=== PATIENT | male | born 1955 | race Caucasian/White ===

== ENCOUNTER → 2016-07-19 | Outpatient (CLI) | payer OTHER ==
[~2016-07-19] MED LIST: AMIL5TAB15; AMIL5TAB15 PO; AMLO5CAP PO; AMLO5CAP2 PO; ASPI-232 PO; ASPI-435 PO; ATEN-173 PO; ATEN50TA8 PO; ATOR-22 PO; ATOR-24 PO; CHOL1000 PO; CHOL100010; CLR10 PO; DOCU-94 PO; FLM4; HMLI SC; INSDGI SC; INSDGI SQ; LEUP30IN3 INJ; MAGN500C PO; METF500T5 PO; METH1TAB81 PO; MONT1TAB5 PO; NVLGI/PEN SC; NVLGI7030 SC; OMEG10007 PO; OXGN; OXYC-57 PO; PHEN-876 PO; PRAM0.129 PO; SERT50TA PO; TAMS0.4C38 PO; UMEC1AER; ZLF/50 PO; fluticasone nasal; magnesium oxide; mirapex PO; zoloft
[2016-07-19 15:12] LABS: BASO % 0.4 %; BASO ABS # 0.02 K/uL (0-0.2); COMPLETE YES; EOS % 3.5 %; HEMATOCRIT 39.9 % (42-52); IG% 0.2 %; LYMPH % 29.6 %; LYMPH ABS # 1.63 K/uL (1.2-3.4); MEAN CELL VOLUME 86.2 fL (80-100); MEAN CORPUSCULAR HEMOGLOBIN 30.2 pg (25-34); MEAN CORPUSCULAR HGB CONC 35.1 g/dl (32-36); MEAN PLATELET VOLUME 11.2 fL (7.4-10.4); MONO % 5.8 %; NEUT % 60.5 %; PLATELET COUNT 133 K/uL (130-400); RED BLOOD COUNT 4.63 M/uL (4.7-6.1)
[2016-07-19 15:29] LABS: ALT/SGPT 28 U/L (12-78); BLOOD UREA NITROGEN 24 mg/dl (7-18); BUN/CREATININE RATIO 17.1 (10-20); CALCIUM 9.1 mg/dl (8.5-10.1); CARBON DIOXIDE 26 mmol/L (21-32); CHLORIDE 104 mmol/L (98-107); GLUCOSE 212 mg/dl (70-99); MAGNESIUM 1.6 mg/dl (1.8-2.4); POTASSIUM 4.7 mmol/L (3.5-5.1); SODIUM 138 mmol/L (136-145)
[2016-07-19 15:32] LABS: ALB/GLOB RATIO 1.3 (0.9-2); ALKALINE PHOSPHATASE 71 U/L (45-117); AST/SGOT 16 U/L (15-37)
== END | disposition home or self-care (01) ==
LOC: C.LAB 12:55
PROVIDERS: ATTEND Internal Medicine Hematology & Oncology
DX: C82.18 Follicular lymphoma grade II, lymph nodes of multiple sites (principal); E83.42 Hypomagnesemia

== ENCOUNTER 2016-08-03 05:09 | Day surgery (SDC) | payer OTHER ==
[2016-07-19 13:51] VITALS: BMI 33.0
--- NOTE | 2016-07-19 14:45 | PAT Medication Instructions ---
Service Date Jul 19, 2016. Current Home Medication List Amiloride Hcl (Amiloride Hcl), 5 MG PO QAM Amlodipine Besylate-Benazepril (Amlodipine Besylate/Benaz), 5-20 MG PO BID Aspirin (Aspirin 81), 1 TAB PO QAM Atenolol (Tenormin), 50 MG PO BID Atorvastatin (Lipitor), 20 MG PO HS Cholecalciferol (Vitamin D3), 1 TAB PO QAM Docusate Sodium (Colace), 1 CAP PO BID Fish Oil ([place]-3), 2 CAP PO QAM Insulin Aspart (Novolog Flexpen), SC SLIDING SCALE Insulin Glargine (Lantus), 24 UNITS SQ HS Leuprolide Acetate (Lupron [place]), 30 MG INJ [id number] Loratadine (Claritin), 10 MG PO QAM Magnesium Oxide (Mg Supplement (Magnesium), 1,000 MG PO QAM Methylprednisolone (Medrol), 4 MG PO UD Montelukast Sodium (Montelukast Sodium), 1 TAB PO HS Oxygen (Oxygen), 2 LITERS NA HS Phenazopyridine HCl (Pyridium), 200 MG PO TID PRN for PRN Sertraline HCl (Sertraline HCl), 50 MG PO HS Tamsulosin Hcl (Flomax), 0.4 MG PO HS Medication Instructions For Your Scheduled Surgery Rituxan (per oncology instructions) Leuprolide Acetate (Lupron [place]), 30 MG INJ [id number] (scheduled for end july) Methylprednisolone (Medrol), 4 MG PO UD (per surgeon instructions) - Hold the following medications 10 days prior to surgery per surgeon instructions: Aspirin (Aspirin 81), 1 TAB PO QAM Fish Oil ([place]-3), 2 CAP PO QAM - Hold the following medications the morning of surgery: Phenazopyridine HCl (Pyridium), 200 MG PO TID PRN for PRN Loratadine (Claritin), 10 MG PO QAM Magnesium Oxide (Mg Supplement (Magnesium), 1,000 MG PO QAM Insulin Aspart (Novolog Flexpen), SC SLIDING SCALE Docusate Sodium (Colace), 1 CAP PO BID Cholecalciferol (Vitamin D3), 1 TAB PO QAM Amlodipine Besylate-Benazepril (Amlodipine Besylate/Benaz), 5-20 MG PO BID Amiloride Hcl (Amiloride Hcl), 5 MG PO QAM - Take the following medications the morning of surgery with a sip of water: Atenolol (Tenormin), 50 MG PO BID - Take the following medications as scheduled the night before surgery: Sertraline HCl (Sertraline HCl), 50 MG PO HS Tamsulosin Hcl (Flomax), 0.4 MG PO HS Phenazopyridine HCl (Pyridium), 200 MG PO TID PRN for PRN Montelukast Sodium (Montelukast Sodium), 1 TAB PO HS Oxygen (Oxygen), 2 LITERS NA HS Insulin Glargine (Lantus), 24 UNITS SQ HS Docusate Sodium (Colace), 1 CAP PO BID Atenolol (Tenormin), 50 MG PO BID Atorvastatin (Lipitor), 20 MG PO HS Amlodipine Besylate-Benazepril (Amlodipine Besylate/Benaz), 5-20 MG PO BID If you have any questions please call us at [phone] or [phone] ( [place]) or [phone]
[2016-07-19 15:38] LABS: URINE APPEARANCE CLEAR (CLEAR); URINE BILIRUBIN NEG (NEG); URINE COLOR YELLOW; URINE NITRITE NEG (NEG); URINE SPECIFIC GRAVITY 1.026 (1.000-1.030); UROBILINOGEN NEG (NEG)
[2016-07-19 15:44] LABS: MANUAL MICROSCOPIC REQUIRED? NO; REVIEW REQ? NO
[~2016-08-03] VITALS: Ht 175.3 cm; Wt 101.2 kg
[~2016-08-03 05:09] MED LIST changes: -AMIL5TAB15; -AMLO5CAP2 PO; -ASPI-232 PO; -ATEN-173 PO; -ATOR-24 PO; -CHOL100010; -FLM4; -HMLI SC; -INSDGI SC; -METF500T5 PO; -NVLGI7030 SC; -OXYC-57 PO; -PRAM0.129 PO; -SERT50TA PO; -UMEC1AER; -fluticasone nasal; -magnesium oxide; -mirapex PO; -zoloft
[2016-08-03 05:40] VITALS: BP 133/62; PULSE 66; TEMP 36.9; O2SAT 96; Ht 175.3 cm; Wt 101.2 kg
[2016-08-03] MEDS ORDERED: CIPROFLOXACIN / D5W 400 MG IV SCH (06:00)
[2016-08-03] MEDS ORDERED: GENTAMICIN INJ 120 MG in DEXTROSE 5% 100ML 100 ML IV SCH (06:00)
[2016-08-03] MEDS ORDERED: LACTATED RINGER'S 1000ML 1,000 ML IV SCH (06:00)
[2016-08-03] MEDS ORDERED: MIDAZOLAM HCL 1 MG/ML 2ML VIAL ONE (06:57)
[2016-08-03] MEDS ORDERED: FENTANYL CITRATE INJ 50 MCG/1 ML 2 ML VIAL ONE (06:57)
[2016-08-03] MEDS ORDERED: LACTATED RINGER'S 1000ML 1,000 ML IV PRN (07:02)
--- NOTE | 2016-08-03 07:04 | History & Physical Bridge Note ---
H&P Re-Evaluation Bridge Note: I have examined the patient, reviewed the History & Physical and in the interval since the performance of the History & Physical I have noted the following changes of clinical significance: No changes noted
[2016-08-03] MEDS ORDERED: ONDANSETRON INJ 2 MG/ML 2 ML VIAL IV PRN (07:15)
[2016-08-03] MEDS ORDERED: PROPOFOL IV EMULSION 10 MG/ML 20 ML VIAL IV ONE (08:02)
[2016-08-03] MEDS ORDERED: ROCURONIUM BROMIDE 10 MG/ML 5 ML VIAL ONE (08:02)
[2016-08-03] MEDS ORDERED: EpHEDrine SULFATE 50MG/5ML SYR ONE (08:02)
[2016-08-03] MEDS ORDERED: LIDOCAINE HCL 2% 2 ML VIAL (20MG/ML) ONE (08:02)
[2016-08-03] MEDS ORDERED: CONRAY 60% 50 ML VIAL XX ONE (09:50)
--- NOTE | 2016-08-03 09:53 | Discharge Instructions ---
Discharge Instructions Admission Reason for Admission: Prostate Cancer Discharge Discharge Diagnosis / Problem: Prostate Cancer Discharge Goals Goal(s): Decrease discomfort, Therapeutic intervention Activity Recommendations Activity Limitations: as noted below Lifting Limitations: no more than 25 pounds (x 2-3 weeks. ) Exercise/Sports Limitations: rest today, gradually increase as tolerated ( Light activity x 2 weeks. ) May Resume Sexual Activity: after follow-up appointment (when cleared by Dr. Padilla and radiation oncology) Shower/Bathe: tomorrow Driving or Machine Use: resume 3 days after discharge (Do not drive while taking narcotics. ) . Instructions / Follow-Up Instructions / Follow-Up 1. Finish all of the antibiotic Ciprofloxacin as directed. 2. Resume Aspirin in 3-5 days. 3. Resume fish oil in 5 days. Discharge Diet Recommended Diet: Diabetes Type 2 Diet Procedures Procedures Performed: Brachytherapy volume and guide Pending Studies Studies pending at discharge: no Medical Emergencies . Who to Call and When: Medical Emergencies: If at any time you feel your situation is an emergency, please call 911 immediately. . Non-Emergent Contact Non-Emergency issues call your: Urologist Call Non-Emergent contact if: temperature is above 101.5, your pain is not controlled, your pain is worsening, your pain is unusual for you, your pain is concerning you, you have any medication questions . . "Provider Documentation" section prepared by Lizette Abdi. VTE Core Measure Inpt VTE Proph given/why not?: SCD's [place] Drug Monitoring Program Search Results: patient reviewed within database, no issues identified
[2016-08-03] MEDS ORDERED: OXYCODONE/ACETAMINOPHEN 7.5-325 TAB PO PRN (10:00)
[2016-08-03] MEDS: FENTANYL CITRATE INJ 50 MCG/1 ML 2 ML VIAL IV PRN ×4 (10:06→10:21)
--- NOTE | 2016-08-03 10:11 | [facility] Post Operative Brief Note ---
Immediate Operative Summary Operative Date Aug 03, 2016. Pre-Operative Diagnosis cT1c [place] 4+3 Prostate cancer Post-Operative Diagnosis Same as preop Procedure(s) Performed Brachytherapy volume and guide Surgeon Dr. Abel Padilla, Dr. Macy Owens Optical Scientist Surgeon(s) Marco Child Estimated Blood Loss Min Findings 19 cc gland, 43 seeds placed via 13 needles Specimens none, as per surgeon Drains Fragoso to gravity Anesthesia GAET Complication(s) None Disposition Recovery Room / PACU
[2016-08-03 10:35] VITALS: BP 158/95; PULSE 56; TEMP 36.5; O2SAT 95
--- NOTE | 2016-08-03 10:40 | Anesthesiology Progress Note ---
Anesthesia Post Op Note Date & Time Aug 03, 2016 at 10:40 Vital Signs Pain Intensity: 3 Vital Signs Past 12 Hours Date Time Temp Pulse Resp B/P Pulse Ox O2 Delivery O2 Flow Rate FiO2 08/03/16 10:27 63 16 95 08/03/16 10:27 63 08/03/16 10:23 112/64 08/03/16 10:22 56 10 93 08/03/16 10:22 56 10 08/03/16 10:18 108/57 08/03/16 10:17 52 10 08/03/16 10:17 51 10 96 08/03/16 10:13 117/56 08/03/16 10:12 50 7 100 08/03/16 10:12 50 7 08/03/16 10:08 108/67 08/03/16 10:07 57 12 100 08/03/16 10:07 58 12 08/03/16 10:03 108/47 08/03/16 10:02 60 15 100 08/03/16 10:02 60 15 08/03/16 09:58 117/57 08/03/16 09:57 56 16 08/03/16 09:57 57 16 100 08/03/16 09:53 107/59 08/03/16 09:52 59 14 08/03/16 09:52 59 14 100 08/03/16 09:48 124/67 08/03/16 09:47 61 13 08/03/16 09:47 61 13 100 08/03/16 09:46 121/67 08/03/16 09:42 36.4 63 16 121/67 100 Mask 10 08/03/16 05:40 36.9 66 18 133/62 96 Room Air Notes Mental Status: alert / awake / arousable, participated in evaluation Pt Amnestic to Procedure: Yes Nausea / Vomiting: adequately controlled Pain: adequately controlled Airway Patency, RR, SpO2: stable & adequate BP & HR: stable & adequate Hydration State: stable & adequate Anesthetic Complications: no major complications apparent
[2016-08-03 11:05] VITALS: BP 109/46; PULSE 61; O2SAT 98
--- NOTE | 2016-08-03 11:32 | DIAGNOSTIC IMAGING REPORT ---
PELVIS 1 OR 2 VIEWS ROUTINE CLINICAL HISTORY: BRACHY THERAPY prostate carcinoma COMPARISON: None. DISCUSSION: The bladder is opacified. Radioactive seeds are identified within the prosthetic bed. IMPRESSION: Image intensifier views of the prostate and bladder for radiation planning purposes Electronically signed by: Conrado Tapia M.D. 08/03/2016 11:30 AM Dictated Date/Time: 08/03/2016 11:30 AM
[2016-08-03 11:34] VITALS: BP 109/56; PULSE 60; TEMP 36.3; O2SAT 98
--- NOTE | 2016-08-03 13:29 | OPERATIVE REPORT ---
DATE OF OPERATION: 08/03/2016 PREOPERATIVE DIAGNOSIS: Clinical T1c, [place] 4+3 adenocarcinoma of the prostate with pretreatment PSA of 14. POSTOPERATIVE DIAGNOSIS: Same. PROCEDURES: 1. Volumetric analysis and brachytherapy gland of the prostate gland. 2. Implantation of spaceOAR prerectal spacer. SURGEON: Dr. Mahin Padilla and Dr. Kelton Owens. ALLIANCE MANAGER: Brett Child. ANESTHESIA: General anesthesia with endotracheal intubation. COMPLICATIONS: None. ESTIMATED BLOOD LOSS: Minimal. SPECIMENS SENT TO PATHOLOGY: None. DRAINS LEFT IN PLACE: Include a Fragoso catheter to gravity drainage. FINDINGS: A 19 mL prostate implanted with 43 seeds via 13 needles with good coverage. BRIEF HISTORY: Mr. Prado is a 61-year-old male who I have seen as an outpatient for an elevated PSA, who was found to have [place] 4+3 prostate cancer on evaluation. The patient's staging evaluation included CT scan which demonstrated lymphadenopathy. He was found on biopsy to have lymphoma as well and has been undergoing chemotherapy for this purpose. He is here today for brachytherapy of the prostate after administration of previous Lupron in March 2016 with planned external beam boost afterwards. Please see H\T\P for further details. He has followed his prep without difficulties or complaints. Intravenous ciprofloxacin and gentamicin provided for antibiotic coverage today. DESCRIPTION OF PROCEDURE: The patient was properly identified and brought to the operative suite after identification of appropriate consent on the chart, general anesthesia with endotracheal intubation was initiated and the patient was prepped and draped in a standard fashion for this procedure. [employer]-out procedure was followed. The patient was placed in a high lithotomy position and transrectal ultrasound probe was placed per the rectum and images were captured. Fragoso catheter with aerated gel with contrast in the bladder was placed. A 19 mL gland was calculated. First pass needles was placed in the external prostate gland and due to the small size of the prostate only 2 internal needles were placed. After the external seeds were implanted per the radiation-oncology plan, 2 internal needles were required due to the small prostate size and implant as well. Good coverage satisfactory result was appreciated. The seeds were noted to be within the confines of the prostate gland on fluoroscopy. After completion of the implantation, space OAR gel spacer was infiltrated in the prerectal space to minimize rectal morbidity over the course of radiation therapy. Space was entered under direct visualization in the midline using a sagittal view and confirmed to be in the midline. Saline irrigation was noted to track well and then was followed by a full 10 mL of space OAR which were noted to easily fill the plane between the rectum and the prostate. Great care was taken to avoid any violation of the rectum which was accomplished throughout the case. Needle was removed and the patient was brought down from lithotomy, pelvic pressure was held for 5 minutes to minimize swelling and bleeding. Bacitracin ointment was placed. Anesthesia was reversed and patient transferred to recovery room in stable condition. FOLLOWUP CARE: The patient will go to radiation-oncology for imaging and trial of void. Complete postoperative antibiotics and medication previously was prescribed. Postoperative appointment is confirmed. The patient is instructed to contact our service should he note any fevers, chills, nausea, vomiting or other significant difficulties in the postoperative period. I attest to the content of the Intraoperative Record and any orders documented therein. Any exceptions are noted below. MTDD
[2016-09-06] MEDS ORDERED: LEUP30IN3 INJ (14:55)
[2016-10-09] MEDS ORDERED: zoloft (12:02)
[2016-10-17] MEDS ORDERED: UMEC1AER (11:42)
[2016-10-17] MEDS ORDERED: ASPI-232 PO (11:44)
[2016-10-17] MEDS ORDERED: CHOL100010 (11:45)
[2016-10-17] MEDS ORDERED: OMEG10007 PO (11:46)
[2016-10-17] MEDS ORDERED: AMIL5TAB15 (11:46)
[2016-10-17] MEDS ORDERED: AMLO5CAP2 PO (11:47)
[2016-10-17] MEDS ORDERED: ATEN50TA8 PO ×2 (11:48→11:54)
[2016-10-17] MEDS ORDERED: CLR10 PO (11:48)
[2016-10-17] MEDS ORDERED: magnesium oxide (11:51)
[2016-10-17] MEDS ORDERED: MONT1TAB5 PO (11:52)
[2016-10-17] MEDS ORDERED: NVLGI7030 SC (11:57)
[2016-10-17] MEDS ORDERED: FLM4 (11:59)
[2016-10-17] MEDS ORDERED: SERT50TA PO (12:00)
[2016-10-17] MEDS ORDERED: ATOR-24 PO (12:00)
[2016-10-18] MEDS ORDERED: mirapex PO (10:59)
[2016-10-18] MEDS ORDERED: fluticasone nasal (13:18)
[2016-10-18] MEDS ORDERED: INSDGI SC (13:21)
[2016-10-23] MEDS ORDERED: TAMS0.4C38 PO (12:09)
[2016-10-23] MEDS ORDERED: PRAM0.129 PO (12:11)
[2016-10-30] MEDS ORDERED: TAMS0.4C38 PO (11:51)
[2016-12-05] MEDS ORDERED: OXGN (15:03)
== END 2016-08-03 11:30 | disposition other institution (70) ==
LOC: C.ACU 05:09
PROVIDERS: ATTEND Urology
DX: C61 Malignant neoplasm of prostate (principal); N40.0 Benign prostatic hyperplasia without lower urinary tract symptoms; R97.20 Elevated prostate specific antigen [PSA]; C85.90 Non-Hodgkin lymphoma, unspecified, unspecified site; N18.9 Chronic kidney disease, unspecified; E11.9 Type 2 diabetes mellitus without complications; E78.00 Pure hypercholesterolemia, unspecified; E66.9 Obesity, unspecified; E55.9 Vitamin D deficiency, unspecified
CPT/HCPCS: 0438T; 55875

== ENCOUNTER → 2016-08-11 | Outpatient (CLI) | payer OTHER ==
[~2016-08-11] MED LIST changes: +AMIL5TAB15; +AMLO5CAP2 PO; +ASPI-232 PO; -ASPI-435 PO; +ATOR-24 PO; +CHOL100010; +FLM4; +INSDGI SC; +NVLGI7030 SC; +PRAM0.129 PO; +SERT50TA PO; +UMEC1AER; +fluticasone nasal; +magnesium oxide; +mirapex PO; +zoloft
[2016-08-11 13:49] LABS: CHOLESTEROL 174 mg/dl (0-200); HDL CHOLESTEROL 58 mg/dl; MAGNESIUM 1.8 mg/dl (1.8-2.4); TRIGLYCERIDES 148 mg/dl (0-150); VERY LOW DENSITY LIPOPROT CALC 30 mg/dl
[2016-08-11 13:55] LABS: ESTIMATED AVERAGE GLUCOSE 174 mg/dl; HA1C FLAG Normal (Normal)
== END | disposition home or self-care (01) ==
LOC: C.LAB1850 11:35
PROVIDERS: ATTEND Nurse Practitioner Family
DX: E11.9 Type 2 diabetes mellitus without complications (principal)

== ENCOUNTER → 2016-08-18 | Outpatient (CLI) | payer OTHER | END | disposition home or self-care (01) | LOC: C.ONC 13:27 | PROVIDERS: ATTEND Radiology Radiation Oncology | DX: Z51.0 Encounter for antineoplastic radiation therapy (principal); C61 Malignant neoplasm of prostate ==

== ENCOUNTER → 2016-12-05 | Outpatient (CLI) | payer OTHER ==
[~2016-12-05] MED LIST changes: -AMIL5TAB15 PO; -AMLO5CAP PO; -ATOR-22 PO; -DOCU-94 PO; -INSDGI SQ; -LEUP30IN3 INJ; -MAGN500C PO; -METH1TAB81 PO; -NVLGI/PEN SC; -PHEN-876 PO; -ZLF/50 PO; -mirapex PO; -zoloft
[2016-12-05 14:47] VITALS: BP 123/70; PULSE 61; TEMP 36.9; O2SAT 97
[2016-12-05 16:05] LABS: PROSTATE SPECIFIC ANTIGEN 0.014 ng/ml (0.000-4.000); THYROID STIMULATING HORMONE 1.15 uIu/ml (0.300-4.500)
--- NOTE | 2016-12-05 16:05 | Radiation Oncology Follow-Up ---
Radiation Oncology Follow-Up Date of Visit Dec 05, 2016. (Kim Moon PA-C) Reason For Visit One-month follow-up and cancer survivorship care plan (Kim Moon PA-C) Radiation Completion Date finished external beam 11-02-2016 , seed implant 08-03-16 (Kim Moon PA-C) Diagnosis (1) Prostate cancer Status: Resolved Onset Date: 04/06/2016 Location: both lobes of prostate Histology Subtype: adenocarcinoma Stage: l Permanent Comment: STAGING: Prostate, adenocarcinoma, [place] 4 + 3, PSA 14.10 , cT1c, group IIB, intermediate risk TREATMENT: Hormonal suppression Status post prostate seed implant and placement of spaceOAR 08/03/2016, 43 seeds were placed. He received 8500 cGy Status post completion of external beam radiation therapy 11/02/2016 received 5040 cGy Last Edited By: Kim Moon on November 17, 2016 10:51 (2) Follicular lymphoma Stage: IV Permanent Comment: Treatment: Systemic therapy with Rituxan Last Edited By: Kim Moon on November 17, 2016 11:00 (Kim Moon PA-C) History of Present Illness Mr. Prado is a 61-year-old gentleman who previously presented with a elevated PSA that was initially treated with antibiotics due to a perceived bacterial prostatitis in the past. The patient also had 2 negative biopsies in October 2012 and April 2014 for elevated PSAs. More recently, the patient's PSA has continued to be elevated and the patient was seen by Dr. Mahin Padilla who he has previously seen in the past. Due to the previous negative biopsies, Dr. Padilla sent the patient for a fusion MRI of the prostate on 02/03/2016 and the results were "IMPRESSION: 1. There are 2 pi rad category 4 lesions one in the right anterior fibromuscular stroma and the second in the left transitional zone. Both were targeted for possible navigational biopsy. 2. There are enlarged retroperitoneal lymph nodes. The should be further assessed with a dedicated would be unusual for these to represent metastatic disease from the prostate without pelvic adenopathy therefore these may represent lymph nodes from lymphoma." The patient had a CT abdomen and pelvis on 03/15/2016 which revealed lymphadenopathy involving the lower chest and abdomen as well as few prominent bilateral external iliac lymph nodes. He also underwent a CT of the thorax on 03/30/2016 which revealed: "IMPRESSION: Multiple mildly enlarged distal paraesophageal lymph nodes and moderately enlarged upper abdominal lymph nodes as well as splenomegaly. The findings suggest lymphoma." Due to the findings on the MRI of the prostate and the staging workup, the patient underwent biopsies of both the prostate gland and the retroperitoneal lymph nodes on 04/06/2016. Biopsies of the prostate gland revealed [place] 4+3 prostate adenocarcinoma; 8 out of 8 biopsy cores were positive for prostate cancer ( report below). The biopsy of the retroperitoneal lymph node and liver revealed follicular lymphoma involving the retroperitoneal lymph nodes as well as the liver (report below). The patient subsequently of the following studies: Bone Scan (04/19/2016) - IMPRESSION: There is no abnormal tracer deposition identified typical in appearance for bony metastatic disease. PET/CT (04/24/2016) - IMPRESSION: 1. Mildly FDG avid lymphadenopathy involving the neck, mediastinum, gastrohepatic ligament, and retroperitoneum. The findings are consistent with the clinical diagnosis of lymphoma. Medical oncology saw the patient in consultation as well and did perform a bone marrow biopsy which did reveal bone marrow involvement. The patient's case was discussed at the [facility] multidisciplinary tumor board clinic. The recommendation was for initiation of Rituxan based chemotherapy and initiation of androgen deprivation therapy followed by restaging scans and then potentially proceeding with local therapy for the patient's prostate cancer. We are now seeing the patient in consultation to discuss the role of radiation therapy. Overall, the patient is doing relatively well. He has tolerated chemotherapy relatively well. He has no complaints currently. Decision was to go forward with treatment of the lymphoma and this would then be followed by treatment for the prostate cancer. Tri-modality was used for the treatment of the prostate cancer. He first had hormone suppression. This was followed by a prostate seed implant. He then returned for external beam radiation therapy. External beam radiation therapy was completed 11/02/2016. He received 5040 cGy. (Kim Moon PA-C) Interim History He's been doing well over this past month. From urinary standpoint he gave an AUA score of 3. His AUA score at the end of treatment was 4. He was on tamsulosin 0.4 mg twice a day at the end of treatment. He is steadily been weaning off of the medication. He is currently taking it every other day. Dr. Padilla has recommended he wean off and stop the medication. He completed expanded prostate cancer index composite for clinical practice and gave a score of 0 12 and urinary incontinence symptoms. He was score of one of 12 and urinary irritation symptoms. He gave a score of 0 of 12 bowel symptoms. He gave a score of 2 of 12 and sexual symptoms. He gave a score of 0 of 12 and hormonal vitality symptoms. His total was 3 of 60. (Kim Moon PA-C) Allergies Coded Allergies: Morphine (Verified Adverse Reaction, Unknown, "dizzy",delusional, 08/03/16) Home Medications Scheduled Amiloride Hcl (Amiloride Hcl), DAILY Amlodipine/Benazepril (Lotrel 5MG/20MG), 1 CAP PO BID Aspirin (Aspir-81), 1 TAB PO DAILY Atenolol (Tenormin), 50 MG PO BID Atorvastatin (Lipitor), 1 TAB PO HS Cholecalciferol (Vitamin D), 1 TAB DAILY Fish Oil ([place]-3), 2 CAP PO DAILY Home O2 Therapy (Oxygen), 2 LITERS NA HS Insulin Glargine (Lantus), 24 UNIT SC 10PM Loratadine (Claritin), 10 MG PO DAILY Montelukast Sodium (Montelukast Sodium), 1 TAB PO DAILY Sertraline (Zoloft), 1 TAB PO HS Tamsulosin Hcl (Flomax), 0.4 MG PO Q2D Umeclidinium-Vilanterol (Anoro Ellipta 62.5-25 Mcg/INH), morning [fluticasone nasal], 1 SPRAY BID [magnesium oxide], 1,000 MG DAILY Scheduled PRN Insulin Aspart 70/30 (Novolog Mix 70/30), 0 SC tid prn per scale PRN for perscale Review of Systems Gastrointestinal: Symptoms: Nausea GI Comments: nausea 1 time a week, then it passes Oral: Symptoms: No Problems Respiratory: Symptoms: SOB With Exertion Urinary: Symptoms: Nocturia Comments: nocturia times 2 , Skin: Symptoms: No Problems Other Skin Symptoms: " if I just bump my skin it scrapes and bleeds ' Additional Notes: He completed a distress management report and answered "no" to all questions other than depression. He stated that he is steadily improving since completion of treatment. (Kim Moon PA-C) Physical Exam Vital Signs Date Time Temp Pulse Resp B/P (MAP) Pulse Ox O2 Delivery O2 Flow Rate FiO2 12/05/16 14:47 36.9 61 20 123/70 97 Pain: Side: Bilateral Patient Pain Scale: 0 - 10 Initial Pain Intensity: 0.0 General Appearance: no apparent distress Eyes: normal inspection, EOMI ENT: normal ENT inspection, hearing grossly normal Neck: no adenopathy, thyroid normal Respiratory/Chest: lungs clear, no respiratory distress, no accessory muscle use Cardiovascular: regular rate, rhythm, no gallop, no murmur Abdomen: non tender, soft, no organomegaly Extremities: no pedal edema Neurologic/Psychiatric: no motor/sensory deficits, alert, normal mood/affect Skin: warm/dry Lymphatic: no adenopathy (Kim Moon PA-C) Laboratory Studies Test 09/15/16 09:48 10/02/16 12:25 11/10/16 09:44 12/05/16 15:20 White Blood Count 4.38 K/uL (4.8-10.8) 3.78 K/uL (4.8-10.8) Red Blood Count 4.22 M/uL (4.7-6.1) 3.88 M/uL (4.7-6.1) Hemoglobin 13.0 g/dL (14.0-18.0) 12.1 g/dL (14.0-18.0) Hematocrit 37.4 % (42-52) 34.5 % (42-52) Mean Corpuscular Volume 88.6 fL (80-100) 88.9 fL (80-100) Mean Corpuscular Hemoglobin 30.8 pg (25-34) 31.2 pg (25-34) Mean Corpuscular Hemoglobin Concent 34.8 g/dl (32-36) 35.1 g/dl (32-36) Platelet Count 134 K/uL (130-400) 146 K/uL (130-400) Mean Platelet Volume 10.0 fL (7.4-10.4) 9.7 fL (7.4-10.4) Neutrophils (%) (Auto) 59.6 % 68.5 % Lymphocytes (%) (Auto) 27.2 % 15.9 % Monocytes (%) (Auto) 8.0 % 11.4 % Eosinophils (%) (Auto) 4.3 % 3.7 % Basophils (%) (Auto) 0.7 % 0.5 % Neutrophils # (Auto) 2.61 K/uL (1.4-6.5) 2.59 K/uL (1.4-6.5) Lymphocytes # (Auto) 1.19 K/uL (1.2-3.4) 0.60 K/uL (1.2-3.4) Monocytes # (Auto) 0.35 K/uL (0.11-0.59) 0.43 K/uL (0.11-0.59) Eosinophils # (Auto) 0.19 K/uL (0-0.5) 0.14 K/uL (0-0.5) Basophils # (Auto) 0.03 K/uL (0-0.2) 0.02 K/uL (0-0.2) RDW Standard Deviation 43.6 fL (36.4-46.3) 39.8 fL (36.4-46.3) RDW Coefficient of Variation 13.4 % (11.5-14.5) 12.4 % (11.5-14.5) Immature Granulocyte % (Auto) 0.2 % 0.0 % Immature Granulocyte # (Auto) 0.01 K/uL (0.00-0.02) 0.00 K/uL (0.00-0.02) Sodium Level 140 mmol/L (136-145) 139 mmol/L (136-145) Potassium Level 4.7 mmol/L (3.5-5.1) 4.5 mmol/L (3.5-5.1) Chloride Level 106 mmol/L (98-107) 106 mmol/L (98-107) Carbon Dioxide Level 29 mmol/L (21-32) 27 mmol/L (21-32) Anion Gap 5.0 mmol/L (3-11) 6.0 mmol/L (3-11) Blood Urea Nitrogen 20 mg/dl (7-18) 23 mg/dl (7-18) Creatinine 1.40 mg/dl (0.60-1.40) 1.40 mg/dl (0.60-1.40) Estimated GFR () 63.3 63.3 Estimated GFR (Non- 54.6 54.6 BUN/Creatinine Ratio 14.2 (10-20) 16.1 (10-20) Random Glucose 163 mg/dl (70-99) 145 mg/dl (70-99) Calcium Level 9.2 mg/dl (8.5-10.1) 9.0 mg/dl (8.5-10.1) Magnesium Level 1.7 mg/dl (1.8-2.4) 1.8 mg/dl (1.8-2.4) Total Bilirubin 0.6 mg/dl (0.2-1) 0.5 mg/dl (0.2-1) Aspartate Amino Transferase (AST) 17 U/L (15-37) 12 U/L (15-37) Alanine Aminotransferase (ALT) 26 U/L (12-78) 21 U/L (12-78) Alkaline Phosphatase 75 U/L (45-117) 80 U/L (45-117) Lactate Dehydrogenase 158 U/L (87-241) 158 U/L (87-241) Total Protein 7.2 gm/dl (6.4-8.2) 6.9 gm/dl (6.4-8.2) Albumin 3.9 gm/dl (3.4-5.0) 3.8 gm/dl (3.4-5.0) Globulin 3.3 gm/dl (2.5-4.0) 3.1 gm/dl (2.5-4.0) Albumin/Globulin Ratio 1.2 (0.9-2) 1.2 (0.9-2) POC Glucose 78 mg/dl (70-99) Prostate Specific Antigen 0.022 ng/ml (0.000-4.000) (Kim Moon PA-C) Assessment & Plan Patient was seen and examined by Dr. Owens. A PSA was drawn today and he'll be notified as to the results. He has recheck appointment scheduled to see Dr. Padilla in February. He continues follow-up with Dr. Patino. A recheck PET/ CT is planned. He stated that they are waiting for insurance approval and the PET scan will then be scheduled. Today we completed a cancer survivorship care plan. A copy of the document was given to the patient. We asked him to return to our office in 6 months. He may call if she has any questions or concerns in the interim. (Kim Moon PA-C) I agree with note created by Kim Moon PA-C. I reviewed the patient's chart and information with her. I have examined and evaluated the patient. I reviewed relevant clinical information and answered the patient's and/or family' s questions. (Veeral. Owens MD) Total Time In Follow-Up I spent 20 minutes speaking to the patient have a forming examination. I spent 20 minutes reviewing information, preparing the survivorship document, and completing this note. (Kim Moon PA-C) I spent 15 minutes examining and counseling the patient. (Veeral. Owens MD) Copy To Keven Patino D.O.; Andrew Hernández M.D.; Mahin Padilla MD, Urology
[2016-12-06 06:36] LABS: ESTIMATED AVERAGE GLUCOSE 157 mg/dl; HA1C FLAG Normal (Normal)
--- NOTE | 2016-12-28 08:53 | CODING QUERY MEDICAL NECESSITY ---
CQSUPPORTING DIAGNOSIS NEEDED A supporting diagnosis is required for the test/procedure performed on this patient in order for us to be reimbursed by the patient's insurance. Please provide a supporting diagnosis for the following test/procedure listed below next to the test name along with your signature. *If there is no additional diagnosis for this patient that would support the following test/procedure please document that below next to the test/procedure. Test(s)/Procedure(s) that require a supporting diagnosis: DOS 12/05/16 GLYCATED HEMOGLOBIN TEST ORDERED BY RADHA ALMENDAREZ Provider Signature: Date: Thank you Madiha Bhatt Health Information Management Once completed, please kindly fax back to [phone] For questions please call [phone]
== END | disposition home or self-care (01) ==
LOC: C.ONC 14:34
PROVIDERS: ATTEND Physician Assistant Medical
DX: Z08 Encounter for follow-up examination after completed treatment for malignant neoplasm (principal); Z92.3 Personal history of irradiation; Z85.46 Personal history of malignant neoplasm of prostate; E11.22 Type 2 diabetes mellitus with diabetic chronic kidney disease

== ENCOUNTER → 2017-01-01 | Outpatient (CLI) | payer OTHER ==
[~2017-01-01] MED LIST changes: -FLM4; +OPTIRAY 320 IV PRN; -PRAM0.129 PO
--- NOTE | 2017-01-01 09:23 | DIAGNOSTIC IMAGING REPORT ---
(CHEST) THORAX WITH HISTORY:61 yearsMaleNON HODGKINS LYMPHOMA. This is a follow-up exam. COMPARISON: CT chest 06/15/2016, PET/CT 04/24/2016. TECHNIQUE: Multiple axial CT images of the chest were obtained following the intravenous administration of 93 mL Optiray 320. FINDINGS: No dominant thyroid nodule is seen. There is decreased size of multiple periaortic and periesophageal lymph nodes. For example paraesophageal lymph node seen on image 41 of the axial series now measures 0.9 x 0.5 cm, previously 1.7 x 0.9 cm. Periaortic lymph node seen on image 41 now measures 0.9 x 0.3 cm, previously 1.4 x 1.0 cm. Index periaortic lymph node seen on image 38 the axial series no measures 5 x 5 mm, previously 1.7 x 1.0 cm. No new adenopathy of the chest is identified. Heart is normal in size. Thoracic aorta is normal in course and caliber. There is mild subsegmental pleural parenchymal scarring of the medial segment right middle lobe. Central airways are patent. 6 mm area of pleural-based noncalcified nodularity of the apical segment right upper lobe is unchanged suggesting pleural parenchymal scarring. No pneumothorax, pleural effusion or focal airspace consolidation. Central airways are patent. Prior cholecystectomy. Soft tissues are unremarkable. Bones are intact. IMPRESSION: 1. Decreased size of multiple periaortic and periesophageal lymph nodes as above. No new adenopathy of the chest identified. 2. No acute cardiopulmonary process. The above report was generated using voice recognition software. It may contain grammatical, syntax or spelling errors. Electronically signed by: Alfonso Redman 01/01/2017 9:22 AM Dictated Date/Time: 01/01/2017 9:12 AM
--- NOTE | 2017-01-01 09:34 | DIAGNOSTIC IMAGING REPORT ---
ABD/PELVIS IV AND ORAL CONT CLINICAL HISTORY: 61 years-old Male presenting with NON HODGKINS LYMPHOMA. TECHNIQUE: Multidetector CT of the abdomen and pelvis was performed after the administration of oral and intravenous contrast. IV contrast: 93 mL of Omnipaque 320. COMPARISON: Noncontrast CT pelvis from 09/13/[address] of the abdomen and pelvis from 06/15/2016. CT DOSE: The estimated cumulative dose is 2129 mGy-cm. FINDINGS: Can Sorter topogram: Brachytherapy seeds noted in the prostate. Lung bases: Bandlike opacity in the left lower lobe likely atelectasis or scarring. Normal heart size. Liver: Normal morphology. No liver lesion. Patent hepatic vasculature. Biliary: No intrahepatic or extrahepatic biliary ductal dilatation. Surgically absent. Pancreas: Normal. Spleen: Normal in appearance and top normal in size measuring slightly more than 12 cm in maximal sagittal dimension. Adrenal glands: Normal. Kidneys and ureters: Normal. No hydronephrosis. Gastrointestinal tract: Limited diverticulosis of the sigmoid colon. Mild stool burden throughout normal caliber colon. Normal appendix. No bowel obstruction. Peritoneal cavity: No free fluid or intraperitoneal gas. Bladder: Minimal circumferential bladder wall thickening, possibly chronic outlet obstruction. Pelvic organs: Brachytherapy seeds noted throughout the prostate, which is not significantly enlarged. Grossly normal seminal vessels. Vasculature: Mild atherosclerosis of the normal caliber abdominal aorta. IVC patent. Lymph nodes: Significant interval decrease in size and conspicuity of multiple retroperitoneal and upper abdominal lymph nodes. Few index nodes enumerated below: -Lymph node immediately inferior to the left renal vein now measures 5 mm in the short axis (series 3 image 37), previously 12 mm -Left periaortic lymph node now measures 7 mm in the short axis (series 3 image 46), previously 12 mm -Portal caval node now measures 10 mm in short axis (series 3 image 26), previously 16 mm -Vague infiltration of the retroperitoneal fat from prior lymphadenopathy. No new sites of lymphadenopathy. Abdominal wall: Infiltration of the left anterior abdominal wall may relate to injection granulomas. Musculoskeletal: Degenerative changes of the lumbar spine. No lytic or blastic osseous lesion. IMPRESSION: 1. Significant interval decrease in lymphadenopathy. 2. No acute intra-abdominal pathology. Electronically signed by: Oliver Jewell 01/01/2017 9:33 AM Dictated Date/Time: 01/01/2017 9:16 AM
== END | disposition home or self-care (01) ==
LOC: C.CTS 08:39
PROVIDERS: ATTEND Nurse Practitioner Family
DX: C82.18 Follicular lymphoma grade II, lymph nodes of multiple sites (principal); C61 Malignant neoplasm of prostate

== ENCOUNTER → 2017-01-29 | Outpatient (CLI) | payer OTHER ==
[~2017-01-29] MED LIST changes: -OPTIRAY 320 IV PRN
--- NOTE | 2017-01-29 17:02 | ECHOCARDIOGRAM REPORT ---
*NOTICE TO RECEIVING DEMOCRAT AGENCY This information is strictly Confidential and protected under [place] law. [place] law prohibits you from making any further disclosure of this information unless further disclosure is expressly permitted by the written consent of the person to whom it pertains or is authorized by law. A general authorization for the release of medical or other information is not sufficient for this purpose. Hospital accepts no responsibility if the information is made available to any other person, INCLUDING THE PATIENT. Interpretation Summary * Name: YOEL PETERSON Study Date: 01/29/2017 12:51 PM BP: 126/73 mmHg * Patient Location: [facility] HR: 64 * : 1955 (M/d/yyyy) Gender: Male Height: 70 in * Age: 62 yrs Ethnicity: CA Weight: 230 lb * Ordering Physician: Dixon Bonilla * Referring Physician: Dixon Bonilla * Performed By: Hemant Cole RCS * * Reason For Study: COPD, COB, Cough * BSA: 2.2 m2 * Normal biventricular systolic function. * Normal chamber dimensions. * Trace mitral,tricuspid,and pulmonic regurgitation. * Normal estimated central venous pressure and right ventricular systolic pressure. Procedure Details * A complete two-dimensional transthoracic echocardiogram was performed (2D, M-mode, Doppler and color flow Doppler). Left Ventricle * The left ventricle is normal in size. * There is normal left ventricular wall thickness. * Ejection Fraction = 65-70%. * The left ventricular wall motion is normal. Right Ventricle * The right ventricle is normal in size and function. Atria * The left atrial size is normal. * Right atrial size is normal. * No ASD detected; PFO is not assessed. Mitral Valve * The mitral valve is normal. * There is no mitral valve stenosis. * There is trace mitral regurgitation. Tricuspid Valve * The tricuspid valve is normal. * There is no tricuspid stenosis. * There is trace tricuspid regurgitation. * Right ventricular systolic pressure is normal. Aortic Valve * The aortic valve is trileaflet. * The aortic valve opens well. * Aortic stenosis is absent. * No aortic regurgitation is present. Pulmonic Valve * The pulmonic valve leaflets are thin and pliable; valve motion is normal. * There is no pulmonic valvular stenosis. * Trace pulmonic valvular regurgitation. Great Vessels * The aortic root is normal size. Pericardium/Pleural * There is no pericardial effusion. Great Vessels * Normal inferior vena cava diameter and respiratory variation suggests normal central venous pressure. MMode 2D Measurements and Calculations IVSd 1.1 cm IVSs 1.4 cm LVIDd 4.5 cm LVIDs 2.9 cm LVPWd 1.1 cm LVPWs 1.4 cm IVS/LVPW 0.98 FS 35.4 % EDV(Teich) 90.9 ml ESV(Teich) 31.8 ml EF(Teich) 65.0 % EDV(cubed) 89.2 ml ESV(cubed) 24.0 ml EF(cubed) 73.1 % % IVS thick 27.1 % % LVPW thick 32.4 % LV mass(C)d 169.8 grams LV mass(C)dI 76.6 grams/m\S\2 LV mass(C)s 134.9 grams LV mass(C)sI 60.9 grams/m\S\2 CO(Teich) 3.3 l/min CI(Teich) 1.5 l/min/m\S\2 SV(Teich) 59.1 ml SI(Teich) 26.7 ml/m\S\2 CO(cubed) 3.6 l/min CI(cubed) 1.6 l/min/m\S\2 SV(cubed) 65.1 ml SI(cubed) 29.4 ml/m\S\2 Ao root diam 3.6 cm Ao root area 10.3 cm\S\2 ACS 2.0 cm LA dimension 3.7 cm asc Aorta Diam 2.9 cm LA/Ao 1.0 LVAd ap4 32.0 cm\S\2 LVLd ap4 8.2 cm EDV(MOD-sp4) 103.0 ml LVAs ap4 16.9 cm\S\2 LVLs ap4 7.0 cm ESV(MOD-sp4) 36.0 ml EF(MOD-sp4) 65.0 % LVAd ap2 29.2 cm\S\2 LVLd ap2 8.3 cm EDV(MOD-sp2) 87.0 ml LVAs ap2 13.8 cm\S\2 LVLs ap2 6.5 cm ESV(MOD-sp2) 26.0 ml EF(MOD-sp2) 70.1 % CO(MOD-sp4) 3.8 l/min CI(MOD-sp4) 1.7 l/min/m\S\2 SV(MOD-sp4) 67.0 ml SI(MOD-sp4) 30.2 ml/m\S\2 CO(MOD-sp2) 3.4 l/min CI(MOD-sp2) 1.5 l/min/m\S\2 SV(MOD-sp2) 61.0 ml SI(MOD-sp2) 27.5 ml/m\S\2 Doppler Measurements and Calculations MV E max cira 78.8 cm/sec MV A max cira 68.8 cm/sec MV E/A 1.1 MV P1/2t max cira 97.5 cm/sec MV P1/2t 74.1 msec MVA(P1/2t) 3.0 cm\S\2 MV dec slope 385.6 cm/sec\S\2 MV dec time 0.22 sec Ao V2 max 111.0 cm/sec Ao max PG 4.9 mmHg Ao max PG (full) 1.9 mmHg LV V1 max PG 3.1 mmHg LV V1 max 87.5 cm/sec PA V2 max 113.9 cm/sec PA max PG 5.2 mmHg PI max cira 194.6 cm/sec PI max PG 15.1 mmHg PI dec slope 173.2 cm/sec\S\2 PI P1/2t 329.0 msec TR max cira 247.0 cm/sec
== END | disposition home or self-care (01) ==
LOC: C.CPL 12:27
PROVIDERS: ATTEND Internal Medicine Pulmonary Disease
DX: I10 Essential (primary) hypertension (principal); E66.9 Obesity, unspecified; J44.9 Chronic obstructive pulmonary disease, unspecified

== ENCOUNTER → 2017-02-21 | Outpatient (CLI) | payer OTHER ==
[2017-02-21 14:41] LABS: BASO % 0.7 %; BASO ABS # 0.03 K/uL (0-0.2); COMPLETE YES; EOS % 3.3 %; HEMATOCRIT 38.2 % (42-52); LYMPH % 23.9 %; LYMPH ABS # 1.07 K/uL (1.2-3.4); MEAN CELL VOLUME 90.1 fL (80-100); MEAN CORPUSCULAR HEMOGLOBIN 31.4 pg (25-34); MEAN CORPUSCULAR HGB CONC 34.8 g/dl (32-36); MEAN PLATELET VOLUME 10.9 fL (7.4-10.4); MONO % 6.9 %; NEUT % 65.2 %; PLATELET COUNT 162 K/uL (130-400); RED BLOOD COUNT 4.24 M/uL (4.7-6.1); WHITE BLOOD COUNT 4.48 K/uL (4.8-10.8)
[2017-02-21 14:50] LABS: PROTHROMBIN TIME (PATIENT) 10.4 SECONDS (9.0-12.0)
[2017-02-21 15:34] LABS: ALT/SGPT 27 U/L (12-78); AST/SGOT 11 U/L (15-37); BLOOD UREA NITROGEN 18 mg/dl (7-18); BUN/CREATININE RATIO 14.2 (10-20); CALCIUM 9.7 mg/dl (8.5-10.1); CARBON DIOXIDE 26 mmol/L (21-32); CHLORIDE 106 mmol/L (98-107); GLUCOSE 230 mg/dl (70-99); POTASSIUM 5.1 mmol/L (3.5-5.1); SODIUM 138 mmol/L (136-145)
[2017-02-21 15:36] LABS: ALB/GLOB RATIO 1.2 (0.9-2); ALKALINE PHOSPHATASE 85 U/L (45-117)
== END | disposition home or self-care (01) ==
LOC: C.LAB1850 12:38
PROVIDERS: ATTEND Internal Medicine Pulmonary Disease
DX: J44.9 Chronic obstructive pulmonary disease, unspecified (principal); I10 Essential (primary) hypertension; E11.22 Type 2 diabetes mellitus with diabetic chronic kidney disease

== ENCOUNTER 2017-02-22 07:23 | Day surgery (SDC) | payer OTHER ==
[~2017-02-22] VITALS: Ht 175.3 cm; Wt 107.3 kg
[2017-02-22] VITALS (13 sets, daily range): BP systolic 100–134; BP diastolic 49–71; PULSE 57–81; TEMP 36.4–36.9; O2SAT 95–100; Ht 175.3 cm; Wt 107.3 kg
[~2017-02-22 07:23] MED LIST changes: -CHOL1000 PO
[2017-02-22] MEDS ORDERED: FENTANYL CITRATE 100 MCG 2 ML CARP IV ONE (07:24)
[2017-02-22] MEDS ORDERED: MIDAZOLAM HCL 5 MG/ML 1 ML VIAL IV ONE (07:24)
[2017-02-22] MEDS ORDERED: LEVALBUTEROL 1.25MG/3ML NEB INH ONE (07:24)
[2017-02-22] MEDS ORDERED: CHOL1000 PO (07:52)
--- NOTE | 2017-02-22 08:45 | Procedure Note ---
Pre-Mod Sedation Assessment General Date of Moderate Sedation: Feb 22, 2017. Vital Signs: Vital Signs Past 12 Hours Date Time Temp Pulse Resp B/P (MAP) Pulse Ox O2 Delivery O2 Flow Rate FiO2 02/22/17 08:04 36.7 59 20 134/58 (83) 98 Room Air Pre-Sedation Airway Assessment Oral Cavity: Chipped Teeth Smoking Status: Former Smoker Mallampati Classification: Class II ASA Classification: Class II Procedure Planning Contraindications-for Mod Sed: None Yes Notes The planned sedation has been discussed with the patient and consent obtained. I have identified the patient, determined the appropriateness of sedation and have assessed the patient immediately prior to the procedure. All medicine(s) and interventions are by my order.
--- NOTE | 2017-02-22 09:04 | Discharge Instructions ---
Discharge Instructions Date of Service Feb 22, 2017. Admission Reason for Admission: Copd, Cough, Sob Discharge Discharge Diagnosis / Problem: Chronic Mucopurulent Bronchitis Discharge Goals Goal(s): Diagnostic testing, Therapeutic intervention Activity Recommendations Activity Limitations: resume your previous activity Lifting Limitations: none Exercise/Sports Limitations: none May Resume Sexual Activity: when tolerated Shower/Bathe: no limitations, tomorrow Driving or Machine Use: resume 1 day after discharge . Instructions / Follow-Up Instructions / Follow-Up ACTIVITY RECOMMENDATIONS: * Rest today, resume normal activity tomorrow. * Do not drive today. SPECIAL CARE INSTRUCTIONS: * Call your physician if you experience any chest or shoulder pain, fever, coughing, spitting up blood (more than 2 teaspoons) or excessive shortness of breath. * Remove dressing from IV site (where needle was placed into the vein) after 2 hours. Apply a warm, moist compress to site if irritation occurs. Call physician if site becomes red or painful to touch. FOLLOW UP VISIT: * Keep any scheduled doctor appointments. Current Hospital Diet ACTIVITY RECOMMENDATIONS: * Rest today, resume normal activity tomorrow. * Do not drive today. SPECIAL CARE INSTRUCTIONS: * Call your physician if you experience any chest or shoulder pain, fever, coughing, spitting up blood (more than 2 teaspoons) or excessive shortness of breath. * Remove dressing from IV site (where needle was placed into the vein) after 2 hours. Apply a warm, moist compress to site if irritation occurs. Call physician if site becomes red or painful to touch. FOLLOW UP VISIT: * Keep any scheduled doctor appointments.Patient's current hospital diet: Discharge Diet Recommended Diet: Regular Diet Fluid Restriction: None Pending Studies Studies pending at discharge: no Laboratory Results Hemoglobin A1c Test 12/05/16 15:20 Range/Units Estimated Average Glucose 157 mg/dl Hemoglobin A1c 7.1 H 4.5-5.6 % Medical Emergencies . Who to Call and When: Medical Emergencies: If at any time you feel your situation is an emergency, please call 911 immediately. . Non-Emergent Contact Non-Emergency issues call your: Ip [employer] Call Non-Emergent contact if: temperature is above 101 ACTIVITY RECOMMENDATIONS: * Rest today, resume normal activity tomorrow. * Do not drive today. SPECIAL CARE INSTRUCTIONS: * Call your physician if you experience any chest or shoulder pain, fever, coughing, spitting up blood (more than 2 teaspoons) or excessive shortness of breath. * Remove dressing from IV site (where needle was placed into the vein) after 2 hours. Apply a warm, moist compress to site if irritation occurs. Call physician if site becomes red or painful to touch. FOLLOW UP VISIT: * Keep any scheduled doctor appointments. . . "Provider Documentation" section prepared by Dixon Bonilla. . VTE Core Measure Inpt VTE Proph given/why not?: Treatment not indicated [place] Drug Monitoring Program Drug Monitoring Findings: None
[2017-02-22] MEDS ORDERED: SODIUM CHLORIDE 0.9% 1000ML 1,000 ML IV SCH (09:15)
[2017-02-22] MEDS ORDERED: NURSING VERBAL MED ORDER ONE ×2 (09:15→10:15)
--- NOTE | 2017-02-22 09:32 | HISTORY & PHYSICAL EXAMINATION ---
DATE OF ADMISSION: 02/22/2017 HISTORY OF PRESENT ILLNESS: This 62-year-old white male seen in the clinic on early summer and underwent CAT scanning at [facility] on 01/01/2017. The patient states that he has exertional dyspnea, walking up stairs or a grade but denies hemoptysis, but has been bringing up [id number] colored mucus without blood streaking. It is thick in consistency. He was diagnosed with COPD by Dr. Deejay Moscoso in [place] and then referred [place] 12/21/2016 for pulmonary evaluation. He has a history of prostate adenocarcinoma, Abigail 4+3 and is status post prostate seed implant and external beam radiation therapy. The full details are record in my initial consultation note. 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 Patino. His symptoms post-radiation were chronic fatigue. He has been using Ventolin inhaler 2 puffs q. 4 hours p.r.n. and has been on Anoro Ellipta inhaler for maintenance. He is on oxygen at 2 liters at night and p.r.n. during the day. He states the last time he had a 6-minute ambulation trial, he desaturated. He has been producing purulent phlegm and has been on prednisone and antibiotics on multiple occasions in the past with only modest efficacy and he complains of his reduction in exercise tolerance over the past 6 months. The most recent CT scan of the abdomen and pelvis on 01/01/2017 as part of restaging CAT scan shows decreased size of multiple periaortic and periesophageal lymph nodes with no new adenopathy. PET CT scan of 04/24/2016 was performed previously and he was placed on Rituxan base chemotherapy protocol prior to treatment for prostate carcinoma. Because of increased dyspnea and sputum production refractory nature of improvement to outpatient therapy given to [id number] history, having quit 4 years ago; he has been scheduled for bronchoscopic intervention. For details of past medical history, medications, family and social history; I refer you to current and past record. PHYSICAL EXAMINATION: GENERAL: Well-developed, well-nourished white male in no obvious distress at rest. VITAL SIGNS: Stable. SKIN: Without lesion. HEENT: Atraumatic, normocephalic, PERRLA, EOMI. Conjunctivae pink. Sclerae nonicteric. Fundi poorly visualized. NECK: Veins not distended at 45 degrees. No evidence of adenopathy in the supra or infraclavicular areas. LUNGS: Distant P and A with hyperresonance with scattered rhonchi. CARDIAC: Regular rate and rhythm. No murmurs or gallops. PMI nondisplaced. ABDOMEN: Soft, scaphoid. No evidence of hepatosplenomegaly. EXTREMITIES: Trace pedal edema. No clubbing. Peripheral cyanosis. NEUROLOGIC: Intact. No lateralizing signs. OVERALL ASSESSMENT: A 62-year-old with moderately severe chronic obstructive pulmonary disease with persistent symptomatology, longstanding smoking history and refractory nature of symptoms to outpatient therapy; scheduled bronchoscopic intervention and more definitive treatment plan pending results of that study. MTDD
[2017-02-22] MEDS ORDERED: MIDAZOLAM HCL 5 MG/ML 1 ML VIAL IV STA (10:31)
[2017-02-22] MEDS ORDERED: FENTANYL CITRATE INJ 50 MCG/1 ML 2 ML VIAL IV STA (10:31)
--- NOTE | 2017-02-22 14:05 | OPERATIVE REPORT ---
DATE OF OPERATION: 02/22/2017 PROCEDURE: Fiberoptic bronchoscopy with bronchoalveolar lavage. SURGEON: Dr. Bonilla. INDICATIONS: Chronic cough/congestion in a patient with COPD and strong smoking history refractory to outpatient therapy. ANESTHESIA PREOPERATIVELY: None. ANESTHESIA DURING PROCEDURE: 3 mg IV Versed, 50 mcg IV fentanyl, 20 mL 2% Xylocaine spray above and below the cords, 4% viscous Xylocaine intranasally. PROCEDURE: Fiberoptic bronchoscope was inserted into the right naris with minimal difficulty and passed to the level of the true vocal cords. The cords appeared to approximate normally with phonation without evidence of lesions or paralysis. The area was anesthetized with 2% Xylocaine spray and the scope was then introduced in the trachea and right and left tracheobronchial tree. The radha was sharp. The right main stem bronchus was found to be free of endobronchial lesions. The right upper lobe, the apical posterior, anterior segments, bronchus intermedius, right middle lobe, medial and lateral segments and all basilar segments right lower lobe were found to be free of endobronchial lesions. A moderate amount of mucopurulent secretion was lavaged from right lower lobe until clear. Left tracheobronchial tree was free of endobronchial lesions. Left upper lobe, lingular subdivision and left lower lobe were free of endobronchial lesions down to subsegmental bronchi. All lobar segments were lavaged with normosol and the aspirate sent for appropriate studies. The mucosa involving the left lower lobe and throughout the left tracheobronchial tree was friable and no active bleeding was encountered. No brushings or biopsies were deemed necessary. Bronchial crypts and clefts were seen consistent with chronic bronchitis. The procedure was terminated. The patient was given a nebulizer treatment of Xopenex 1.25 mg then transferred to the medical treatment unit hemodynamically stable with no signs of respiratory compromise. Will await microbiological and cytologic examination of the bronchial washings. I attest to the content of the Intraoperative Record and any orders documented therein. Any exception s are noted below.
[2017-02-28 15:05] LABS: HERPES SIMPLEX CULT SOURCE RESPIRATORY-R&L BAL; HERPES SIMPLEX VIRUS CULT NOT ISOLATED (NOT ISOLATED)
== END 2017-02-22 12:40 | disposition home or self-care (01) ==
LOC: C.ACU 07:23
PROVIDERS: ATTEND Internal Medicine Pulmonary Disease
DX: J44.9 Chronic obstructive pulmonary disease, unspecified (principal); R05 Cough; C82.18 Follicular lymphoma grade II, lymph nodes of multiple sites; Z92.3 Personal history of irradiation; Z87.891 Personal history of nicotine dependence; Z85.46 Personal history of malignant neoplasm of prostate

== ENCOUNTER → 2017-03-09 | Outpatient (CLI) | payer OTHER ==
[~2017-03-09] MED LIST changes: +CHOL1000 PO; -CHOL100010; -TAMS0.4C38 PO
== END | disposition home or self-care (01) ==
LOC: C.LAB1850 11:50
PROVIDERS: ATTEND Urology
DX: C61 Malignant neoplasm of prostate (principal)

== ENCOUNTER → 2017-03-27 | Outpatient (CLI) | payer OTHER ==
[~2017-03-27] MED LIST changes: +OPTIRAY 320 IV PRN
--- NOTE | 2017-03-27 15:08 | DIAGNOSTIC IMAGING REPORT ---
(CHEST) THORAX WITH CLINICAL HISTORY: 62 years-old Male presenting with NON HODGKIN LYMPHOMA. TECHNIQUE: Multidetector CT imaging of the chest was performed after the administration of intravenous contrast. IV contrast: 119 mL of Optiray 320. A dose lowering technique was used consistent with the principles of ALARA (as low as reasonably achievable). COMPARISON: 01/01/2017. CT DOSE (mGy.cm): The estimated cumulative dose is 1974.[address] of the abdomen and pelvis. FINDINGS: Auto Tester topogram: Unremarkable. On soft tissue windows, normal thyroid and thoracic inlet. Continued decreased prominence of subcentimeter lymph nodes in the mediastinum in the subcarinal and right paratracheal regions. No new sites of lymphadenopathy. Normal aorta. Few metallic foci in the region of the heart likely relates to prior intervention. Normal heart size. No pericardial or pleural effusion. Cholecystectomy clips noted. On lung windows, bandlike opacities in the right middle lobe likely scarring and/or atelectasis. Triangular subpleural 5 mm solid nodule in the posterior apical right upper lobe is less prominent than on the current exam, likely scarring and/or atelectasis. Bandlike consolidation in the lingula likely also scarring and/or atelectasis. No new focal infiltrate. Airways patent. On bone windows, normal osseous structures. IMPRESSION: 1. Continued interval decrease in size of subcentimeter mediastinal lymph nodes. No new sites of lymphadenopathy. 2. Scattered areas of scarring and/or atelectasis, not significant changed. No acute intrathoracic pathology. Electronically signed by: Oliver Jewell M.D. 03/27/2017 3:07 PM Dictated Date/Time: 03/27/2017 3:00 PM
--- NOTE | 2017-03-27 15:10 | DIAGNOSTIC IMAGING REPORT ---
CT OF THE ABDOMEN AND PELVIS WITH CONTRAST CLINICAL HISTORY: Non-Hodgkin's lymphoma. Prostate cancer. COMPARISON STUDY: CT of the abdomen and pelvis January 01, 2017 and PET/CT April 24, 2016. TECHNIQUE: Following IV administration of 119 mL of Optiray-320, axial images of the abdomen and pelvis were obtained from the lung bases to the proximal femurs. Images were reviewed in the axial, sagittal, and coronal planes. IV contrast was administered without complication. A dose lowering technique was utilized adhering to the principles of ALARA. Oral contrast was administered. CT DOSE: 1974.59 mGy.cm FINDINGS: The chest CT will be reported separately. There is suspected fatty infiltration of the liver. There is no biliary ductal dilatation status post cholecystectomy. The size of the spleen is normal. The adrenal glands, kidneys and pancreas are unremarkable. There is a suspected subcentimeter right renal cyst. No enlarged abdominal or pelvic lymph nodes are identified. There has been continued decrease in size of the mildly enlarged lymph nodes shown on exam of January 01, 2017. An index aortocaval lymph node now measures 7 mm in short axis diameter. Caliber and wall thickness of small and large bowel are normal. There are brachytherapy CT within the prostate. No suspicious osseous lesions are present. No pneumatosis, free air or portal venous gas is present. There is colonic diverticulosis without evidence for acute diverticulitis. IMPRESSION: 1. Interval resolution of lymphadenopathy. No pathologically enlarged lymph nodes within the abdomen or pelvis. 2. Fatty infiltration of the liver. 3. No acute process within the abdomen or pelvis. Electronically signed by: Celestine Britt M.D. 03/27/2017 3:09 PM Dictated Date/Time: 03/27/2017 3:00 PM
== END | disposition home or self-care (01) ==
LOC: C.CTS 14:27
PROVIDERS: ATTEND Internal Medicine Hematology & Oncology
DX: C85.90 Non-Hodgkin lymphoma, unspecified, unspecified site (principal); Z85.46 Personal history of malignant neoplasm of prostate; K76.0 Fatty (change of) liver, not elsewhere classified

== ENCOUNTER → 2017-05-21 | Outpatient (CLI) | payer OTHER ==
[~2017-05-21] MED LIST changes: -OPTIRAY 320 IV PRN
[2017-05-21 12:42] LABS: BASO % 0.6 %; BASO ABS # 0.03 K/uL (0-0.2); COMPLETE YES; EOS % 3.4 %; HEMATOCRIT 38.6 % (42-52); IG% 0.2 %; LYMPH % 19.6 %; LYMPH ABS # 0.97 K/uL (1.2-3.4); MEAN CELL VOLUME 91.3 fL (80-100); MEAN CORPUSCULAR HEMOGLOBIN 31.7 pg (25-34); MEAN CORPUSCULAR HGB CONC 34.7 g/dl (32-36); MEAN PLATELET VOLUME 10.7 fL (7.4-10.4); MONO % 9.7 %; NEUT % 66.5 %; PLATELET COUNT 166 K/uL (130-400); RED BLOOD COUNT 4.23 M/uL (4.7-6.1); WHITE BLOOD COUNT 4.96 K/uL (4.8-10.8)
[2017-05-21 13:26] LABS: BLOOD UREA NITROGEN 17 mg/dl (7-18); BUN/CREATININE RATIO 13.1 (10-20); CALCIUM 9.3 mg/dl (8.5-10.1); CARBON DIOXIDE 24 mmol/L (21-32); CHLORIDE 107 mmol/L (98-107); CREATININE 1.33 mg/dl (0.60-1.40); GLUCOSE 147 mg/dl (70-99); MAGNESIUM 1.8 mg/dl (1.8-2.4); POTASSIUM 5.5 mmol/L (3.5-5.1); SODIUM 138 mmol/L (136-145)
[2017-05-21 13:38] LABS: CHOLESTEROL 119 mg/dl (0-200); CHOLESTEROL/HDL RATIO 2.6; HDL CHOLESTEROL 46 mg/dl; LDL CHOLESTEROL CALCULATED 48 mg/dl; PHOSPHORUS 3.2 mg/dl (2.5-4.9); TRIGLYCERIDES 125 mg/dl (0-150); VERY LOW DENSITY LIPOPROT CALC 25 mg/dl
[2017-05-21 14:12] LABS: URINE APPEARANCE CLEAR (CLEAR); URINE BILIRUBIN NEG (NEG); URINE COLOR YELLOW; URINE NITRITE NEG (NEG); URINE PH 5.5 (4.5-7.5); URINE SPECIFIC GRAVITY 1.021 (1.000-1.030); UROBILINOGEN NEG (NEG); ZZUR CULT IF INDIC CLEAN CATCH NO
[2017-05-21 14:15] LABS: MANUAL MICROSCOPIC REQUIRED? NO; REVIEW REQ? NO
[2017-05-21 14:31] LABS: URINE PROTIEN/CREAT RATIO 0.1 (0-0.2)
[2017-05-21 14:35] LABS: ESTIMATED AVERAGE GLUCOSE 148 mg/dl; HA1C FLAG Normal (Normal)
== END | disposition home or self-care (01) ==
LOC: C.LAB1850 11:46
PROVIDERS: ATTEND Internal Medicine Nephrology
DX: E11.9 Type 2 diabetes mellitus without complications (principal); I10 Essential (primary) hypertension; E78.00 Pure hypercholesterolemia, unspecified; E83.42 Hypomagnesemia; N18.9 Chronic kidney disease, unspecified; N40.0 Benign prostatic hyperplasia without lower urinary tract symptoms; E55.9 Vitamin D deficiency, unspecified; E11.22 Type 2 diabetes mellitus with diabetic chronic kidney disease; C61 Malignant neoplasm of prostate; Z00.00 Encounter for general adult medical examination without abnormal findings; E66.9 Obesity, unspecified

== ENCOUNTER → 2017-06-12 | Outpatient (CLI) | payer OTHER ==
[2016-12-05 14:47] VITALS: BP 123/70; PULSE 61
[~2017-06-12] MED LIST changes: +INSU1.2I SQ; +TPRSR/50 PO
[2017-06-12 13:53] VITALS: BP 145/70; PULSE 69; TEMP 36.6; O2SAT 95
--- NOTE | 2017-06-12 16:21 | Radiation Oncology Follow-Up ---
Radiation Oncology Follow-Up Date of Visit Jun 12, 2017. Reason For Visit 6 month follow-up Radiation Completion Date 11/02/16 - External Beam, 08/03/16 - Seed Implant Diagnosis (1) Prostate cancer Status: Resolved Onset Date: 04/06/2016 Location: both lobes of the prostate Histology Subtype: adenocarcinoma Stage: l Permanent Comment: STAGING: Prostate, adenocarcinoma, naeem 4 + 3, PSA 14.10 , cT1c, group IIB, intermediate risk TREATMENT: Hormonal suppression Status post prostate seed implant and placement of spaceOAR 08/03/2016, 43 seeds were placed. He received 8500 cGy Status post completion of external beam radiation therapy 11/02/2016 received 5040 cGy Last Edited By: Kim Moon on November 17, 2016 10:51 History of Present Illness Mr. Prado presented with a elevated PSA that was initially treated with antibiotics due to a perceived bacterial prostatitis in the past. The patient also had 2 negative biopsies in October 2012 and April 2014 for elevated PSAs. More recently, the patient's PSA has continued to be elevated and the patient was seen by Dr. Mahin Padilla who he has previously seen in the past. Due to the previous negative biopsies, Dr. Padilla sent the patient for a fusion MRI of the prostate on 02/03/2016 and the results were "IMPRESSION: 1. There are 2 pi rad category 4 lesions one in the right anterior fibromuscular stroma and the second in the left transitional zone. Both were targeted for possible navigational biopsy. 2. There are enlarged retroperitoneal lymph nodes. The should be further assessed with a dedicated would be unusual for these to represent metastatic disease from the prostate without pelvic adenopathy therefore these may represent lymph nodes from lymphoma." The patient had a CT abdomen and pelvis on 03/15/2016 which revealed lymphadenopathy involving the lower chest and abdomen as well as few prominent bilateral external iliac lymph nodes. He also underwent a CT of the thorax on 03/30/2016 which revealed: "IMPRESSION: Multiple mildly enlarged distal paraesophageal lymph nodes and moderately enlarged upper abdominal lymph nodes as well as splenomegaly. The findings suggest lymphoma." Due to the findings on the MRI of the prostate and the staging workup, the patient underwent biopsies of both the prostate gland and the retroperitoneal lymph nodes on 04/06/2016. Biopsies of the prostate gland revealed [place] 4+3 prostate adenocarcinoma; 8 out of 8 biopsy cores were positive for prostate cancer ( report below). The biopsy of the retroperitoneal lymph node and liver revealed follicular lymphoma involving the retroperitoneal lymph nodes as well as the liver (report below). The patient subsequently of the following studies: Bone Scan (04/19/2016) - IMPRESSION: There is no abnormal tracer deposition identified typical in appearance for bony metastatic disease. PET/CT (04/24/2016) - IMPRESSION: 1. Mildly FDG avid lymphadenopathy involving the neck, mediastinum, gastrohepatic ligament, and retroperitoneum. The findings are consistent with the clinical diagnosis of lymphoma. Medical oncology saw the patient in consultation as well and did perform a bone marrow biopsy which did reveal bone marrow involvement. The patient's case was discussed at the [facility] multidisciplinary tumor board clinic. The recommendation was for initiation of Rituxan based chemotherapy and initiation of androgen deprivation therapy followed by restaging scans and then potentially proceeding with local therapy for the patient's prostate cancer. We are now seeing the patient in consultation to discuss the role of radiation therapy. Overall, the patient is doing relatively well. He has tolerated chemotherapy relatively well. He has no complaints currently. Decision was to go forward with treatment of the lymphoma and this would then be followed by treatment for the prostate cancer. Tri-modality was used for the treatment of the prostate cancer. He first had hormone suppression. This was followed by a prostate seed implant. He then returned for external beam radiation therapy. External beam radiation therapy was completed 11/02/2016. He received 5040 cGy. Interim History He is been doing well over the past 6 months. His urinary status is stable. His AUA score was 1. He does not require any medication help with urination. He previously was on tamsulosin. He was able to stop the medication and has been doing fine. He completed expanded prostate cancer index composite for clinical practice and gave a score of 0 of 12 in urinary incontinence symptoms. He gave a score of 0 of 12 in urinary irritation symptoms. He gave a score of 0 12 in bowel symptoms. He gave a score of one of 12 and sexual symptoms. He gave a score of 0 of 12 and hormonal vitality symptoms. His total was 1 of 60. He has had recheck PSAs. He had a PSA 03/09/2017 that was 0.012. A PSA on 04/06/2017 was 0.025. He has had follow-up in medical oncology and records to his lymphoma. A recheck CT scan revealed resolution of the lymphadenopathy. Allergies Coded Allergies: Morphine (Verified Adverse Reaction, Unknown, "dizzy",delusional, 02/22/17) Home Medications Scheduled Amiloride Hcl (Amiloride Hcl), DAILY Amlodipine/Benazepril (Lotrel 5MG/20MG), 1 CAP PO BID Aspirin (Aspir-81), 1 TAB PO DAILY Atorvastatin (Lipitor), 1 TAB PO HS Cholecalciferol (Vitamin D3), 1 TAB PO DAILY Fish Oil ([place]-3), 2 CAP PO DAILY Home O2 Therapy (Oxygen), 2 LITERS NA HS Insulin Glargine (Toujeo Solostar), 32 UNIT SQ HS Loratadine (Claritin), 10 MG PO DAILY Metoprolol Succinate (Metoprolol Succinate ER), 1 TAB PO DAILY Montelukast Sodium (Montelukast Sodium), 1 TAB PO DAILY Sertraline (Zoloft), 1 TAB PO HS Umeclidinium-Vilanterol (Anoro Ellipta 62.5-25 Mcg/INH), morning [fluticasone nasal], 1 SPRAY BID [magnesium oxide], 1,000 MG DAILY Scheduled PRN Insulin Aspart 70/30 (Novolog Mix 70/30), 0 SC tid prn per scale PRN for perscale Review of Systems Gastrointestinal: Symptoms: WNL GI Comments: nausea 1 time a week, then it passes Oral: Symptoms: No Problems Respiratory: Symptoms: WNL, SOB With Exertion Urinary: Symptoms: WNL, Nocturia Comments: Nocturia x 1, See AUE & EPIC Skin: Symptoms: No Problems Other Skin Symptoms: " if I just bump my skin it scrapes and bleeds ' Physical Exam Vital Signs Date Time Temp Pulse Resp B/P (MAP) Pulse Ox O2 Delivery O2 Flow Rate FiO2 06/12/17 13:53 36.6 69 18 145/70 95 Fatigue: None General Appearance: no apparent distress Eyes: normal inspection, EOMI ENT: normal ENT inspection, hearing grossly normal Respiratory/Chest: lungs clear, no respiratory distress, no accessory muscle use Cardiovascular: regular rate, rhythm, no gallop, no murmur Abdomen: non tender, soft, no organomegaly Extremities: no pedal edema Neurologic/Psychiatric: no motor/sensory deficits, alert, normal mood/affect Skin: warm/dry Pain Management Patient Reports Pain: No Side: Bilateral Patient Preferred Pain Scale: 0 - 10 Initial Pain Intensity: 0.0 Pain Management Plan He denies pain therefore requires no pain management. Laboratory Laboratory Results: were reviewed Laboratory Comments: Reviewed in the interim history. Pathology Pathology Results: not applicable Imaging Imaging Studies: were reviewed Imaging Comments Reviewed in the interim history. Assessment & Plan Plan: Continue follow-up in medical oncology. He'll be seen next month. Continue follow-up with urology. He has a recheck appointment scheduled with Dr. Padilla. PSA was drawn today. He'll be notified as to results. We asked him to return to our office in 1 year. He may call if he has any questions or concerns in the interim. Total Time In Follow-Up I spent 20 minutes speaking to the patient performing examination. I spent 15 minutes reviewing information and completing this note. Copy To Keven Patino, CarinOChel; Andrew Hernández M.D.; Mahin Padilla MD, Urology
== END | disposition home or self-care (01) ==
LOC: C.ONC 13:40
PROVIDERS: ATTEND Physician Assistant Medical
DX: Z08 Encounter for follow-up examination after completed treatment for malignant neoplasm (principal); Z92.3 Personal history of irradiation; Z85.46 Personal history of malignant neoplasm of prostate

== ENCOUNTER → 2017-10-09 | Outpatient (CLI) | payer OTHER ==
[~2017-10-09] MED LIST changes: -ATEN50TA8 PO; -INSDGI SC; +OPTIRAY 320 IV PRN
--- NOTE | 2017-10-09 13:28 | DIAGNOSTIC IMAGING REPORT ---
CHEST CT WITH CONTRAST CT DOSE: HISTORY: Lymphoma. Follow-up. TECHNIQUE: Multiaxial CT images of the chest were performed following the intravenous administration of contrast. A dose lowering technique was utilized adhering to the principles of ALARA. COMPARISON: Chest CT 03/27/2017. FINDINGS: Stable 5 Subpleural nodule within the right lung apex posteriorly on image 49. The central airways are patent. No pleural effusions. No new pulmonary nodules identified. Linear densities within the right middle lobe and left lung base favor subsegmental atelectasis. No suspicious lytic or blastic osseous lesions. Stable subcentimeter mediastinal lymph nodes. These do not meet CT criteria for pathologic involvement. Dominant distal periesophageal lymph nodes measure up to 8 mm. No hilar or axillary lymphadenopathy. Normal caliber thoracic aorta. Focal hypodense area within the left side of the ascending thoracic aorta. This is stable compared to the prior study and may represent focal thrombus. The main pulmonary arteries are patent. IMPRESSION: 1. Stable mediastinal lymph nodes which do not meet CT criteria for pathologic involvement. No lymphadenopathy within the chest at this time. 2. Stable 5 mm right upper lobe subpleural nodule. 3. Please refer to the dedicated abdomen and pelvis CT performed the same day for further evaluation of the abdominal structures. Electronically signed by: Niraj Wells M.D. 10/09/2017 1:27 PM Dictated Date/Time: 10/09/2017 1:19 PM
--- NOTE | 2017-10-09 13:29 | DIAGNOSTIC IMAGING REPORT ---
ABD/PELVIS IV AND ORAL CONT CLINICAL HISTORY: 62 years-old Male presenting with follow-up, non-Hodgkin's lymphoma, prostate cancer. TECHNIQUE: Multidetector CT of the abdomen and pelvis was performed after the administration of oral and intravenous contrast. IV contrast: 93 mL of Optiray 320. A dose lowering technique was used consistent with the principles of ALARA (as low as reasonably achievable). COMPARISON: 03/27/2017 and 01/01/2017. CT DOSE (mGy.cm): The estimated cumulative dose is 1618.72 mGy.cm. FINDINGS: Outer Diameter Grinder Tool topogram: Unremarkable. Lung bases: Lungs and pleural spaces clear. Few metallic densities suggested along the right ventricular myocardium, which have appeared between 06/15/2016 and 01/01/2017. No pericardial or pleural effusion. Liver: Normal morphology. No liver lesion. Patent hepatic vasculature. Biliary: No intrahepatic or extrahepatic biliary ductal dilatation. Gallbladder surgically absent. Pancreas: Mild parenchymal atrophy. Spleen: Normal. Adrenal glands: Normal. Kidneys and ureters: Normal. No hydronephrosis. Bladder: Circumferential bladder wall thickening. Pelvic organs: Numerous brachytherapy seeds in the prostate. Bowel: Normal appendix. No bowel obstruction. Peritoneal cavity: No free fluid or intraperitoneal gas. Lymph nodes: No enlarged lymph nodes in the abdomen or pelvis. Vasculature: Atherosclerosis of the normal caliber abdominal aorta. IVC patent. Abdominal wall: Small fat-containing umbilical hernia. Musculoskeletal: Degenerative changes of the spine. No destructive osseous lesion. IMPRESSION: 1. No lymphadenopathy in the abdomen or pelvis. No acute intra-abdominal pathology. 2. Posttreatment changes of the prostate. Electronically signed by: Oliver Jewell M.D. 10/09/2017 1:28 PM Dictated Date/Time: 10/09/2017 1:19 PM
== END | disposition home or self-care (01) ==
LOC: C.CTS 12:33
PROVIDERS: ATTEND Nurse Practitioner Family
DX: C82.18 Follicular lymphoma grade II, lymph nodes of multiple sites (principal)

== ENCOUNTER → 2018-02-07 | Outpatient (CLI) | payer OTHER ==
[~2018-02-07] MED LIST changes: -OPTIRAY 320 IV PRN
[2018-02-07 14:50] LABS: BASO % 0.4 %; BASO ABS # 0.02 K/uL (0-0.2); EOS % 4.4 %; EOS ABS # 0.21 K/uL (0-0.5); HEMATOCRIT 43.8 % (42-52); HEMOGLOBIN 15.2 g/dL (14.0-18.0); LYMPH % 25.9 %; LYMPH ABS # 1.23 K/uL (1.2-3.4); MEAN CELL VOLUME 88.1 fL (80-100); MEAN CORPUSCULAR HEMOGLOBIN 30.6 pg (25-34); MEAN CORPUSCULAR HGB CONC 34.7 g/dl (32-36); MEAN PLATELET VOLUME 10.8 fL (7.4-10.4); MONO % 9.3 %; MONO ABS # 0.44 K/uL (0.11-0.59); NEUT ABS # 2.85 K/uL (1.4-6.5); PLATELET COUNT 149 K/uL (130-400); RED CELL DISTRIBUTION WIDTH CV 12.9 % (11.5-14.5); RED CELL DISTRIBUTION WIDTH SD 40.7 fL (36.4-46.3); WHITE BLOOD COUNT 4.75 K/uL (4.8-10.8)
[2018-02-07 15:14] LABS: ALBUMIN 3.9 gm/dl (3.4-5.0); ALKALINE PHOSPHATASE 65 U/L (45-117); ALT/SGPT 24 U/L (12-78); AST/SGOT 18 U/L (15-37); BLOOD UREA NITROGEN 15 mg/dl (7-18); CALCIUM 9.7 mg/dl (8.5-10.1); CARBON DIOXIDE 28 mmol/L (21-32); CREATININE 1.31 mg/dl (0.60-1.40); GLUCOSE 111 mg/dl (70-99); POTASSIUM 4.3 mmol/L (3.5-5.1); SODIUM 138 mmol/L (136-145); TOTAL PROTEIN 7.4 gm/dl (6.4-8.2)
[2018-02-07 15:16] LABS: ALBUMIN 3.9 gm/dl (3.4-5.0); ALT/SGPT 23 U/L (12-78); BLOOD UREA NITROGEN 16 mg/dl (7-18); CALCIUM 9.3 mg/dl (8.5-10.1); CARBON DIOXIDE 27 mmol/L (21-32); CHOLESTEROL 117 mg/dl (0-200); GLUCOSE 107 mg/dl (70-99); LDL CHOLESTEROL CALCULATED 55 mg/dl; PHOSPHORUS 2.6 mg/dl (2.5-4.9); POTASSIUM 4.3 mmol/L (3.5-5.1); SODIUM 137 mmol/L (136-145)
== END | disposition home or self-care (01) ==
LOC: C.LAB1850 12:48
PROVIDERS: ATTEND Physician Assistant
DX: C82.18 Follicular lymphoma grade II, lymph nodes of multiple sites (principal); C61 Malignant neoplasm of prostate; N18.9 Chronic kidney disease, unspecified; E83.42 Hypomagnesemia; E87.5 Hyperkalemia; E78.00 Pure hypercholesterolemia, unspecified

== ENCOUNTER → 2018-02-14 | Outpatient (CLI) | payer OTHER ==
[2018-02-14 13:50] LABS: HEMOGLOBIN A1C 8.2 % (4.5-5.6)
[2018-02-14 16:15] LABS: BLOOD UREA NITROGEN 14 mg/dl (7-18); CALCIUM 9.3 mg/dl (8.5-10.1); CARBON DIOXIDE 28 mmol/L (21-32); CREATININE 1.21 mg/dl (0.60-1.40); GLUCOSE 98 mg/dl (70-99); PHOSPHORUS 2.1 mg/dl (2.5-4.9); POTASSIUM 4.6 mmol/L (3.5-5.1); SODIUM 139 mmol/L (136-145)
== END | disposition home or self-care (01) ==
LOC: C.LAB1850 11:49
PROVIDERS: ATTEND Physician Assistant
DX: E11.9 Type 2 diabetes mellitus without complications (principal); N18.9 Chronic kidney disease, unspecified

== ENCOUNTER 2022-03-09 10:38 | Inpatient (IN) ==
--- NOTE | 2022-03-09 11:19 | ED Triage Note ---
Date of Service March 09, 2022 History of Present Illness This patient was briefly evaluated while in triage. An abbreviated physical exam was performed. This patient is a 67-year-old Male with past medical history of non-Hodgkin's lymphoma who presents to the ED for evaluation of abdominal pain, black stools and weakness. Patient has had recent anemia with 4 recent blood transfusions. He was referred here by his oncologist. Physical Exam VITALS: Vitals are noted on the nurse's note and reviewed by myself. GENERAL: This is a 67-year-old male, in no acute distress, chronically ill- appearing. SKIN: The skin was without rashes. EYES: Pupils equal round and reactive to light and accommodation. MOUTH: Mucous membranes moist. HEART: Regular rate and rhythm without murmurs gallops or rubs. LUNGS: Clear to auscultation bilaterally without wheezes, rales or rhonchi. ABDOMEN: Positive bowel sounds x 4. Soft, mild generalized tenderness to palpation. NEURO: Patient was alert and oriented to person place and time. Initial orders for labs and / or imaging were placed and patient was placed in the waiting area until a bed is available. Please see further documentation for the full ED course.
[2022-03-09 12:55] LABS: Basophils # (auto) 0.02 K/uL (0-0.2); Basophils % (auto) 0.2 %; Eosinophils # (auto) 0.03 K/uL (0-0.50); Eosinophils % (auto) 0.3 %; Hematocrit (blood only) 33.5 % (40.1-51.0); Immature Granulocytes # (auto) 0.07 K/uL (0.00-0.02); Immature Granulocytes % (auto) 0.7 %; Mean Corpuscular Hemoglobin 22.7 pg (25.0-34.0); Mean Corpuscular Hgb Conc 29.9 g/dL (32.0-36.0); Mean Corpuscular Volume 76.1 fL (80.0-100.0); Mean Platelet Volume 10.4 fL (9.4-12.4); Neutrophils # (auto) 8.54 K/uL (1.4-6.5); Neutrophils % (auto) 85.8 %; Platelet Count 170 K/uL (130-400); RDW Coefficient of Variation 20.6 % (11.5-14.5); RDW Standard Deviation 55.2 fL (36.4-46.3); White Blood Count 9.96 K/ul (4.8-10.8)
[2022-03-09 13:09] LABS: INR 1.1 (0.9-1.1); Partial Thromboplastin Ratio 0.9; Partial Thromboplastin Time 25.2 Seconds (21.0-31.0); Prothrombin Time 11.4 Seconds (9.0-12.0)
[2022-03-09 13:16] LABS: Anisocytosis Present; Microcytosis Present; Ovalocytes 1+; Polychromasia 1+
[2022-03-09 13:18] LABS: Albumin Globulin Ratio 1.5 (0.9-2); Albumin Level 3.9 gm/dl (3.4-5.0); BUN Creatinine Ratio 17.8 (10-20); Bilirubin,Total 1.2 mg/dl (0.2-1.0); Calcium 9.8 mg/dl (8.5-10.1); Creatinine Clr Calc Pharmacy 57.1 ml/min; Est GFR (Non-African American) 57.8 ml/min; Globulin 2.6 gm/dl (2.5-4.0); Potassium 4.1 mmol/L (3.5-5.1); Total Protein 6.5 gm/dl (6.0-8.3)
[2022-03-09] MEDS ORDERED: OPTIRAY 300 100mL IV ONE (13:55)
--- NOTE | 2022-03-09 14:29 | CT Scan Report ---
CT abd pelvis IV con only CLINICAL HISTORY: Abdominal pain, gi bleeding, hx lymphoma TECHNIQUE: Helical axial images of the abdomen and pelvis were obtained and displayed. Automated dose lowering techniques and/or adjustment according to patient size were utilized for this exam. This e xam was performed with intravenous contrast. CT DOSE: 947.94 mGycm COMPARISON: Comparison is made to CT abdomen pelvis 01/30/2022 and PET/CT 01/25/2022 FINDINGS: Lower chest: There is a 5 mm nodule in the left lower lung, similar in appearance to prior exam. Add itional nodular foci are seen. A cardiophrenic lymph node is unchanged measuring 9 mm. Liver: Unremarkable. No focal lesions are seen. Gallbladder and biliary tree: Patient is status post cholecystectomy. No intra- or extrahepatic bilia ry ductal dilation. Pancreas: Unremarkable, no focal lesions. Spleen: Unremarkable. Adrenals: Unremarkable. Kidneys and ureters: Unremarkable. Bladder: Diffuse homogeneous wall thickening is seen. Reproductive organs: Brachytherapy seeds are seen in the prostate. Bowel: Scattered diverticula are seen. The appendix is normal. Numerous loops of small bowel are invo lved with the central mesenteric mass described below. Lymph nodes Retroperitoneal: There is a 14 mm jessica hepatis node and a 16 mm para-aortic node. These are unchange d from prior exam. Pelvic: Unremarkable. Mesenteric: There is an 11.0 x 6.8 x 7.4 cm thick rimmed mass in the mediastinum with internal gas. T here is a new extension to the right lower quadrant with a gas containing collection. There are sever al mesenteric lymph nodes measuring up to 11 mm nodules. Peritoneum: Fat stranding and free fluid is seen in the peritoneum about the large mesenteric mass, i ncreased from prior exam. There is interval enlargement of a left perineal mass abutting the abdomina l wall measuring 9 x 34 mm compared to 6 x 18 mm on prior exam. This corresponds to a focus of FDG up take on prior PET/CT. Vessels: Atherosclerotic calcifications are seen. Abdominal wall: Unremarkable. Bones: Degenerative changes in the visualized spine. Bilateral pars defects and grade 1 anterolisthes is are seen at L5-S1. IMPRESSION: 1. Overall worsening of disease. Redemonstration of cavitary mass in the mesentery involving numerou s loops of small bowel, now with increased fat stranding and involvement of adjacent loops of small b owel. Findings are compatible with non-Hodgkin's lymphoma. 2. Interval enlargement of left anterior mediastinal mass abutting the abdominal wall which correspo nds to a focus of FDG uptake on prior PET/CT and may represent a metastatic focus. 3. Stable appearance of retroperitoneal, mesenteric, jessica hepatis lymphadenopathy. 4. Additional findings as above. ACT 112: Negative or not required by law. Electronically signed by: Den Holbrook M.D. 03/09/2022 2:28 PM
--- NOTE | 2022-03-09 14:57 | Emergency Department Note ---
Impression & Plan NHL (non-Hodgkin's lymphoma), Abdominal mass, Acute GI bleeding ED Provider Note NAME: YOEL PETERSON AGE: 67 SEX: M : 1955 ARRIVES VIA: Walk-In INFORMANT: Patient, ED PROVIDER(S): Gustaov Rider MD Chief Complaint: Weakness, recurrent transfusions, dark stools, history of non- Hodgkin's HPI: Patient presents due to concern for the above and was referred from his oncology service as the patient does have a concern for recurrence of non- Hodgkin's lymphoma in setting of prior being treated in 2017 in addition to prostate cancer. Patient denies any chest pains or shortness of breath but also has associated abdominal pain and dark stools. The patient does not take blood thinning medications. Patient does complain of mild diffuse abdominal pain but it is most prominent in the lower abdomen. Patient does feel weak and fatigued. The patient was noted to have lower hemoglobin in the last week and did receive 2 separate transfusions of 2 units PRBCs and at one point he also did receive iron transfusion. Patient denies any nausea vomiting. Patient denies any dysuria or hematuria. ROS: See HPI for pertinent positives and negatives. A total of 10 systems were reviewed and otherwise negative. Past medical history: See below Surgical history: See below Social history: See below Physical Exam: GENERAL: NAD, wearing a mask, non-toxic. EYE EXAM: Normal conjunctiva. PERRL, no anisocoria and EOM's grossly intact w/o pain. NECK: Supple, no nuchal rigidity, no adenopathy, non-tender. No signs of meningismus. FROM of the neck with good chin to chest and neck extension. No stridor. LUNGS: Clear to auscultation. Normal chest wall mechanics. HEART: Tachycardic and regular, no MRG. ABDOMEN: Abdomen soft, mild diffuse, normo pain more prominent in the lower abdomen,-active bowel sounds, no masses, no rebound or guarding. BACK: No CVA TTP. SKIN: No rashes and no bruising. UPPER EXTREMITIES: Upper extremities are grossly normal. LOWER EXTREMITIES: Grossly normal, no edema. NEURO EXAM: A&O x3, cranial nerves II-XII grossly intact, normal speech, moves all 4 extremities. Differential diagnoses: Course: Patient was seen and evaluated the bedside. Full history physical exam was pe rformed. EKG interpreted by me Sinus tachycardia, rate of 106, wide QRS, right bundle branch block pattern. Right bundle branch block is new from comparison March 27, 2016. Imaging Studies: See Below Cardiac monitoring: An order was placed for continuous cardiac monitoring. The monitor shows a rate of 102 with tachycardic and regular rhythm. MDM: Patient was seen due to concern for weakness fatigue and non-Hodgkin's lymphoma. Patient did have blood work completed along with CT abdomen pelvis in triage prior to being seen by myself in her room. Patient has a normal white count with a hemoglobin of 10 which does appear improved compared to prior. Platelet count is normal. Kidney function with no obvious abnormality. The patient does have hyponatremia 132 with an elevated blood glucose of 233. Patient's lipase is normal COVID-negative. Patient did have a type and screen completed. Patient did have a rectal exam which was heme positive. I did initiate a transfer to [facility] given that the patient's GI bleed may also be associated with the findings on his CAT scan which did show a cavitary mass of the mesentery in addition to the mediastinum. I did speak with Dr. Neal with surgical oncology Dr. Dao with hematology oncology and subsequently did speak with Dr. Venegas who did accept the patient. Patient has been started on PPI bolus and drip and IV fluids. Later during the patient stay I did receive a follow-up phone call from his primary oncologist Dr. Lopez who is concerned that he may benefit from transfer and discussion of treatment at [facility]. I told her that I had already pursued transfer given the same concerns. Patient was resting comfortably. I did receive a notification from [facility] arts [facility] stating that they probably would not have a bed available until tomorrow. I did order second liter of IV fluids and repeat H&H thereafter. I did speak with the on-call hospitalist Dr. Knapp and the patient was admitted to the medicine service. Past Med/Surg History Medical History Diabetic peripheral neuropathy Dysesthesia History of tobacco abuse Hypomagnesemia Nocturnal hypoxemia Numbness ANALI (obstructive sleep apnea) Snoring Surgical History History of ankle surgery History of cholecystectomy History of dental surgery History of elbow surgery History of hand surgery History of surgery on wrist Family History Father Lung cancer Diabetes Hypertension Mother Hypertension Diabetes Brother Diabetes Social History Smoking Status: Former smoker Second Hand Exposure: No; Do You Dip or Chew Tobacco: Yes; Tobacco Cessation Education Requested by Patient: No Hx Alcohol Use: No Hx Substance Use: No Preferred Language: Amharic Communication Ability: Effective Resident Services Supervisor Required: No Beliefs That Will Affect Care: None marital status: Current Living Situation: Significant Other current occupational status: disabled Feels Safe at Home: Yes Safety Concerns: Feels Safe At This Time Assistive Devices: Other Assistive Devices Comment: Scooter Allergies Allergies Allergy/AdvReac Type Severity Reaction Status Date / Time morphine AdvReac Unknown "dizzy",del Verified 03/03/22 08:28 [facility] Meds Home Medications Medication Instructions Recorded Confirmed pantoprazole 20 mg tablet,delayed 20 mg PO DAILY 07/16/18 03/09/22 release aspirin 81 mg tablet 81 mg PO DAILY 01/29/19 03/09/22 loratadine 10 mg tablet 10 mg PO DAILY 01/29/19 03/09/22 montelukast 10 mg tablet 10 mg PO DAILY 01/29/19 03/09/22 omega-3 fatty acids [Fish Oil] 2 ea PO DAILY 02/17/19 03/09/22 benazepril 20 mg tablet 20 mg PO DAILY 06/09/19 03/09/22 insulin NPH isoph U-100 human 100 36 units subcut HS 07/17/19 03/09/22 unit/mL subcutaneous suspension (Novolin N NPH U-100 Insulin isophane) ascorbic acid (vitamin C) 500 mg 500 mg PO DAILY 08/02/21 03/09/22 capsule cholecalciferol (vitamin D3) 50 1,000 unit PO DAILY 08/02/21 03/09/22 mcg (2,000 unit) tablet meloxicam 15 mg tablet 15 mg PO DAILY 08/02/21 03/09/22 pramipexole 0.5 mg tablet 1 mg PO HS 08/02/21 03/09/22 insulin NPH isoph U-100 human 100 25 unit subcut QA 01/24/22 03/09/22 unit/mL subcutaneous suspension (Novolin N NPH U-100 Insulin isophane) Previous Rx's Medication Instructions Recorded albuterol sulfate 2.5 mg/3 mL 2.5 mg (3 mL) inhalation .COMPLEX 08/25/19 (0.083 %) solution for nebulization PRN shortness of breath or wheezing #90 mL atorvastatin 20 mg tablet 20 mg PO DAILY 90 days #90 tabs 09/19/19 magnesium oxide 1,100 mg PO DAILY #270 tabs 04/22/21 furosemide 20 mg tablet 20 mg PO DAILY #90 tabs 12/27/21 Results & Data (ED) Vital Signs Vital Signs - 24 hr 03/09/22 11:12 03/09/22 15:30 03/09/22 15:20 Temperature 36.8 C Temperature Source Temporal Artery Scan Pulse Rate 112 H 110 H Pulse Rate [Finger] Pulse Rate from SpO2 Sensor 110 H Pulse Rhythm [Finger] Pulse Strength [Finger] Respiratory Rate 20 28 H Respiratory Effort / Characteristics Non-Labored Respiratory Depth Normal Respiratory Pattern Blood Pressure 127/67 Blood Pressure [Right Arm] Blood Pressure Mean 87 Blood Pressure Mean [Right Arm] Pulse Oximetry 100 95 Oxygen Delivery Method Room Air Room Air Oxygen Flow Rate Sepsis Recent Fever Within 48 Hours No Sepsis New/Unexplained Change in Mental Status No Sepsis Action Taken by Nursing No Action Required 03/09/22 15:30 03/09/22 15:30 03/09/22 16:00 Temperature Temperature Source Pulse Rate 107 H Pulse Rate [Finger] Pulse Rate from SpO2 Sensor 107 H Pulse Rhythm [Finger] Pulse Strength [Finger] Respiratory Rate 25 H Respiratory Effort / Characteristics Respiratory Depth Respiratory Pattern Blood Pressure 120/60 140/87 Blood Pressure [Right Arm] Blood Pressure Mean 80 104 Blood Pressure Mean [Right Arm] Pulse Oximetry 95 Oxygen Delivery Method Oxygen Flow Rate Sepsis Recent Fever Within 48 Hours Sepsis New/Unexplained Change in Mental Status Sepsis Action Taken by Nursing 03/09/22 16:00 03/09/22 16:30 03/09/22 16:30 Temperature Temperature Source Pulse Rate 107 H 110 H Pulse Rate [Finger] Pulse Rate from SpO2 Sensor 108 H 110 H Pulse Rhythm [Finger] Pulse Strength [Finger] Respiratory Rate 33 H 28 H Respiratory Effort / Characteristics Respiratory Depth Respiratory Pattern Blood Pressure 126/65 Blood Pressure [Right Arm] Blood Pressure Mean 85 Blood Pressure Mean [Right Arm] Pulse Oximetry 93 91 Oxygen Delivery Method Oxygen Flow Rate Sepsis Recent Fever Within 48 Hours Sepsis New/Unexplained Change in Mental Status Sepsis Action Taken by Nursing 03/09/22 17:00 03/09/22 17:00 03/09/22 17:30 Temperature Temperature Source Pulse Rate 113 H Pulse Rate [Finger] Pulse Rate from SpO2 Sensor 113 H Pulse Rhythm [Finger] Pulse Strength [Finger] Respiratory Rate 27 H Respiratory Effort / Characteristics Respiratory Depth Respiratory Pattern Blood Pressure 142/84 H 132/74 Blood Pressure [Right Arm] Blood Pressure Mean 103 93 Blood Pressure Mean [Right Arm] Pulse Oximetry 94 Oxygen Delivery Method Oxygen Flow Rate Sepsis Recent Fever Within 48 Hours Sepsis New/Unexplained Change in Mental Status Sepsis Action Taken by Nursing 03/09/22 17:30 03/09/22 18:00 03/09/22 18:00 Temperature Temperature Source Pulse Rate 113 H 109 H Pulse Rate [Finger] Pulse Rate from SpO2 Sensor Pulse Rhythm [Finger] Pulse Strength [Finger] Respiratory Rate 17 28 H Respiratory Effort / Characteristics Respiratory Depth Respiratory Pattern Blood Pressure 117/71 Blood Pressure [Right Arm] Blood Pressure Mean 86 Blood Pressure Mean [Right Arm] Pulse Oximetry Oxygen Delivery Method Oxygen Flow Rate Sepsis Recent Fever Within 48 Hours Sepsis New/Unexplained Change in Mental Status Sepsis Action Taken by Nursing 03/09/22 21:02 03/09/22 23:15 Temperature Temperature Source Pulse Rate Pulse Rate [Finger] 109 H 112 H Pulse Rate from SpO2 Sensor Pulse Rhythm [Finger] Regular Regular Pulse Strength [Finger] Normal Normal Respiratory Rate 22 20 Respiratory Effort / Characteristics Non-Labored Spontaneous Non-Labored Spontaneous Respiratory Depth Normal Normal Respiratory Pattern Regular Blood Pressure Blood Pressure [Right Arm] 104/54 L 132/59 L Blood Pressure Mean Blood Pressure Mean [Right Arm] 70 83 Pulse Oximetry 99 98 Oxygen Delivery Method Nasal Cannula Nasal Cannula Oxygen Flow Rate 2 Sepsis Recent Fever Within 48 Hours Sepsis New/Unexplained Change in Mental Status Sepsis Action Taken by Long Term Medications Current Medication List: was personally reviewed by me Laboratory Data Attestation: I reviewed the patient's lab results. Result diagrams: 03/10/22 05:53 03/10/22 05:53 Lab Results 03/09/22 03/09/22 03/09/22 Range/Units 12:31 12:34 12:34 WBC 9.96 (4.8-10.8) K/ul RBC 4.40 L (4.63-6.08) M/uL Hgb 10.0 L (14.0-18.0) g/dl Hct 33.5 L (40.1-51.0) % MCV 76.1 L (80.0-100.0) fL MCH 22.7 L (25.0-34.0) pg MCHC 29.9 L (32.0-36.0) g/dL RDW Std Deviation 55.2 H (36.4-46.3) fL RDW Coeff of Jyoti 20.6 H (11.5-14.5) % Plt Count 170 (130-400) K/uL MPV 10.4 (9.4-12.4) fL Immature Gran % (Auto) 0.7 % Neut % (Auto) 85.8 % Lymph % (Auto) 7.0 % Cotton % (Auto) 6.0 % Eos % (Auto) 0.3 % Baso % (Auto) 0.2 % Neut # (Auto) 8.54 H (1.4-6.5) K/uL Lymph # (Auto) 0.70 L (1.2-3.4) K/uL Cotton # (Auto) 0.60 (0.24-0.82) K/uL Eos # (Auto) 0.03 (0-0.50) K/uL Baso # (Auto) 0.02 (0-0.2) K/uL Immature Gran # (Auto) 0.07 H (0.00-0.02) K/uL Polychromasia 1+ Anisocytosis Present Microcytosis Present Ovalocytes 1+ PT 11.4 (9.0-12.0) Seconds INR 1.1 (0.9-1.1) APTT 25.2 (21.0-31.0) Seconds PTT Ratio 0.9 Sodium (136-145) mmol/L Potassium (3.5-5.1) mmol/L Chloride (98-107) mmol/L Carbon Dioxide (21-32) mmol/L Anion Gap (3-11) BUN (6-23) mg/dl Creatinine (0.6-1.4) mg/dl Est Cr Clr Drug Dosing ml/min Est GFR ( Amer) ml/min Est GFR (Non-Af Amer) ml/min BUN/Creatinine Ratio (10-20) Glucose (70-99(Fasting)) mg/dl Calcium (8.5-10.1) mg/dl Total Bilirubin (0.2-1.0) mg/dl AST (13-39) U/L ALT (7-52) U/L Alkaline Phosphatase (34-104) U/L Total Protein (6.0-8.3) gm/dl Albumin (3.4-5.0) gm/dl Globulin (2.5-4.0) gm/dl Albumin/Globulin Ratio (0.9-2) Lipase (11-82) U/L SARS-CoV-2, RNA, NAAT NEGATIVE (NEGATIVE) Blood Type Antibody Screen Crossmatch 03/09/22 03/09/22 03/09/22 Range/Units 12:34 15:10 21:15 WBC (4.8-10.8) K/ul RBC (4.63-6.08) M/uL Hgb 8.5 L (14.0-18.0) g/dl Hct 29.0 L (40.1-51.0) % MCV (80.0-100.0) fL MCH (25.0-34.0) pg MCHC (32.0-36.0) g/dL RDW Std Deviation (36.4-46.3) fL RDW Coeff of Jyoti (11.5-14.5) % Plt Count (130-400) K/uL MPV (9.4-12.4) fL Immature Gran % (Auto) % Neut % (Auto) % Lymph % (Auto) % Cotton % (Auto) % Eos % (Auto) % Baso % (Auto) % Neut # (Auto) (1.4-6.5) K/uL Lymph # (Auto) (1.2-3.4) K/uL Cotton # (Auto) (0.24-0.82) K/uL Eos # (Auto) (0-0.50) K/uL Baso # (Auto) (0-0.2) K/uL Immature Gran # (Auto) (0.00-0.02) K/uL Polychromasia Anisocytosis Microcytosis Ovalocytes PT (9.0-12.0) Seconds INR (0.9-1.1) APTT (21.0-31.0) Seconds PTT Ratio Sodium 132 L (136-145) mmol/L Potassium 4.1 (3.5-5.1) mmol/L Chloride 97 L (98-107) mmol/L Carbon Dioxide 29 (21-32) mmol/L Anion Gap 6 (3-11) BUN 23 (6-23) mg/dl Creatinine 1.29 (0.6-1.4) mg/dl Est Cr Clr Drug Dosing 57.1 ml/min Est GFR ( Amer) 67.0 ml/min Est GFR (Non-Af Amer) 57.8 ml/min BUN/Creatinine Ratio 17.8 (10-20) Glucose 233 H (70-99(Fasting)) mg/dl Calcium 9.8 (8.5-10.1) mg/dl Total Bilirubin 1.2 H (0.2-1.0) mg/dl AST 8 L (13-39) U/L ALT 6 L (7-52) U/L Alkaline Phosphatase 66 (34-104) U/L Total Protein 6.5 (6.0-8.3) gm/dl Albumin 3.9 (3.4-5.0) gm/dl Globulin 2.6 (2.5-4.0) gm/dl Albumin/Globulin Ratio 1.5 (0.9-2) Lipase 10 L (11-82) U/L SARS-CoV-2, RNA, NAAT (NEGATIVE) Blood Type O Negative Antibody Screen NEGATIVE Crossmatch See Detail Administered Medications Discontinued Medications Sodium Chloride (Nss 1000ml) 1,000 mls @ 999 mls/hr IV .Q1H1M JAMES Stop: 03/09/22 16:15 Last Infusion: 03/09/22 17:35 Dose: 0 mls/hr Documented By: Admin: 03/09/22 16:35 Dose: 999 mls/hr Documented By: MARÍA Pantoprazole Sodium (Protonix Bolus/Drip) 0 mls @ 1 mls/hr IV ONE STA Stop: 03/09/22 15:09 Last Admin: 03/09/22 16:44 Dose: Not Given Documented By: MARLIN Pantoprazole Sodium 40 mg/ (Dextrose) 100 mls @ 20 mls/hr IV Q5H JAMES Stop: 04/08/22 15:29 Last Admin: 03/10/22 03:57 Dose: 8 mg/hr, 20 mls/hr Documented By: Infusion: 03/10/22 03:05 Dose: 8 mg/hr, 20 mls/hr Documented By: Admin: 03/09/22 22:05 Dose: 8 mg/hr, 20 mls/hr Documented By: Infusion: 03/09/22 21:50 Dose: 0 mg/hr, 0 mls/hr Documented By: Admin: 03/09/22 16:35 Dose: 8 mg/hr, 20 mls/hr Documented By: NA Pantoprazole Sodium 80 mg/ (Dextrose) 120 mls @ 400 mls/hr IV NOW ONE Stop: 03/09/22 15:25 Last Infusion: 03/09/22 16:50 Dose: 0 mls/hr Documented By: Admin: 03/09/22 16:31 Dose: 400 mls/hr Documented By: MARÍA Sodium Chloride (Nss 1000ml) 1,000 mls @ 999 mls/hr IV .Q1H1M ONE Stop: 03/09/22 20:53 Last Infusion: 03/09/22 21:08 Dose: 0 mls/hr Documented By: Admin: 03/09/22 20:09 Dose: 999 mls/hr Documented By: NABOR Potassium Chloride/Sodium Chloride (Normal Saline W/20 Meq Kcl) 20 meq in 1,000 mls @ 100 mls/hr IV .Q10H JAMES; Protocol Stop: 04/08/22 20:29 Last Admin: 03/09/22 21:20 Dose: 100 mls/hr Documented By: NABOR Desmopressin Acetate 24 mcg/ (Syringe) 6 mls @ 6 mls/min IV ONE ONE Stop: 03/09/22 21:31 Last Admin: 03/09/22 21:20 Dose: 6 mls/min Documented By: NABOR Acetaminophen (Ofirmev) 1,000 mg in 100 mls @ 400 mls/hr IV Q8H PRN PRN Reason: Pain or Fever Stop: 03/13/22 00:52 Last Infusion: 03/10/22 01:45 Dose: 0 mls/hr Documented By: Admin: 03/10/22 01:31 Dose: 400 mls/hr Documented By: DJR Ioversol (Optiray 300 100ml) 93 ml IV ONCE ONE Stop: 03/09/22 13:56 Last Admin: 03/09/22 13:55 Dose: 93 ml Documented By: [facility] Imaging Data Radiologist's Impression: Abdomen/Pelvis CT 03/09/22 11:16 CT abd pelvis IV con only CLINICAL HISTORY: Abdominal pain, gi bleeding, hx lymphoma TECHNIQUE: Helical axial images of the abdomen and pelvis were obtained and di splayed. Automated dose lowering techniques and/or adjustment according to patient size were utilized for this exam. This exam was performed with intravenous contrast. CT DOSE: 947.94 mGycm COMPARISON: Comparison is made to CT abdomen pelvis 01/30/2022 and PET/CT 01/25/2022 FINDINGS: Lower chest: There is a 5 mm nodule in the left lower lung, similar in appearance to prior exam. Additional nodular foci are seen. A cardiophrenic lymph node is unchanged measuring 9 mm. Liver: Unremarkable. No focal lesions are seen. Gallbladder and biliary tree: Patient is status post cholecystectomy. No intra- or extrahepatic biliary ductal dilation. Pancreas: Unremarkable, no focal lesions. Spleen: Unremarkable. Adrenals: Unremarkable. Kidneys and ureters: Unremarkable. Bladder: Diffuse homogeneous wall thickening is seen. Reproductive organs: Brachytherapy seeds are seen in the prostate. Bowel: Scattered diverticula are seen. The appendix is normal. Numerous loops of small bowel are involved with the central mesenteric mass described below. Lymph nodes Retroperitoneal: There is a 14 mm jessica hepatis node and a 16 mm para-aortic node. These are unchanged from prior exam. Pelvic: Unremarkable. Mesenteric: There is an 11.0 x 6.8 x 7.4 cm thick rimmed mass in the mediastinum with internal gas. There is a new extension to the right lower quadrant with a gas containing collection. There are several mesenteric lymph nodes measuring up to 11 mm nodules. Peritoneum: Fat stranding and free fluid is seen in the peritoneum about the large mesenteric mass, increased from prior exam. There is interval enlargement of a left perineal mass abutting the abdominal wall measuring 9 x 34 mm compared to 6 x 18 mm on prior exam. This corresponds to a focus of FDG uptake on prior PET/CT. Vessels: Atherosclerotic calcifications are seen. Abdominal wall: Unremarkable. Bones: Degenerative changes in the visualized spine. Bilateral pars defects and grade 1 anterolisthesis are seen at L5-S1. IMPRESSION: 1. Overall worsening of disease. Redemonstration of cavitary mass in the mesentery involving numerous loops of small bowel, now with increased fat stranding and involvement of adjacent loops of small bowel. Findings are compatible with non-Hodgkin's lymphoma. 2. Interval enlargement of left anterior mediastinal mass abutting the abdominal wall which corresponds to a focus of FDG uptake on prior PET/CT and may represent a metastatic focus. 3. Stable appearance of retroperitoneal, mesenteric, jessica hepatis lymphadenopathy. 4. Additional findings as above. ACT 112: Negative or not required by law. Electronically signed by: Den Holbrook M.D. 03/09/2022 2:28 PM Discharge Plan Visit Data Chief Complaint: Illness Stated Complaint: REF BY , TIRRODRIGO, ABD PAIN ED Provider: Gustavo Rider Discharge Problem: NHL (non-Hodgkin's lymphoma), Abdominal mass, Acute GI bleeding Patient Disposition: Admitted As Inpatient Discharge Instructions Interventions: ED Discharge Assessment Last Done: 03/10/22 01:35
[2022-03-09] MEDS ORDERED: PANTOPRAZOLE BOLUS/DRIP 1 EACH IV STA (15:08)
[2022-03-09] MEDS ORDERED: PANTOprazole 80 MG in DEXTROSE 5% 100 ML IV ONE (15:08)
[2022-03-09] MEDS ORDERED: SODIUM CHLORIDE 0.9% 1000ML 1,000 ML IV SCH (15:15)
[2022-03-09] MEDS: PANTOprazole 40 MG in DEXTROSE 5% 100 ML IV SCH ×2 (16:35→22:05)
[2022-03-09] MEDS ORDERED: SODIUM CHLORIDE 0.9% 1000ML 1,000 ML IV ONE (19:53)
--- NOTE | 2022-03-09 20:21 | History & Physical Report ---
Date of Service March 09, 2022 Assessment & Plan (1) Acute GI bleeding: Plan: Acute GI bleeding/abdominal mass/non-Hodgkin's lymphoma/history of prostate cancer- Patient is required total 4 units PRBCs recently. Initial hemoglobin on admission was 10.0, and is now 8.5 after 2 L of fluid Will transfuse 2 units additional PRBCs tonight. H&H every 4 hours NPO DDAVP to reverse antiplatelet effect of aspirin Protonix bolus/drip to continue Patient has been accepted in transfer to [facility], with bed likely available tomorrow Admit to monitored bed (2) NHL (non-Hodgkin's lymphoma): Plan: See above (3) Anemia requiring transfusions: Plan: Transfusing 2 units as noted (4) Type 2 diabetes mellitus with insulin therapy: Plan: Hold Humulin N while n.p.o. Placed on Accu-Cheks with NovoLog coverage per scale NSS + KCl 20 mEq at 100 mils per hour (5) Abdominal mass: Plan: See above (6) ANALI (obstructive sleep apnea): Plan: CPAP at bedtime as needed Patient reports he typically wears nasal cannula at nighttime if needed (7) CKD (chronic kidney disease) stage 3, GFR 30-59 ml/min: Plan: Creatinine 1.29 on admission, with range 1.3-1.54 Follow serially (8) Hypertension: Plan: Hold all antihypertensives and related meds: Aspirin, benazepril, furosemide, and mag oxide\\. (9) COPD (chronic obstructive pulmonary disease): Plan: Continue routine inhalers Duonebs every 4 hours as needed (10) Chews tobacco regularly: Plan: Cessation counseling (11) Hypercholesterolemia: Plan: Hold atorvastatin (12) Peripheral neuropathy: Plan: Hold meloxicam and pramipexole while n.p.o. (13) Prostate cancer: History of Present Illness Chief Complaint: The patient was referred from the oncology office due to concerns regarding recurrence of non-Hodgkin's lymphoma related to abdominal pain and dark stools, weakness and fatigue. He was noted to have lowering hemoglobin in the past week, and reportedly received 2 separate transfusions of 2 units PRBCs each, and was to receive an iron transfusion today. Primary Care Provider: Dixon Aj MD The patient is a 67-year-old male with a past medical history including prostate cancer, non-Hodgkin's lymphoma with recurrence, acute GI bleeding, obstructive sleep apnea, CKD stage III, obesity, hypertension, peripheral neuropathy, COPD, chewing tobacco, diabetes mellitus, hypercholesterolemia and follicular lymphoma. Patient was referred as above. CT scan of the abdomen and pelvis performed in ED this evening revealed the followin. Overall worsening of disease. Redemonstration of cavitary mass in the mesentery involving numerous loops of small bowel, now with increased fat stranding and involvement of adjacent loops of small bowel. Findings are compatible with non-Hodgkin's lymphoma. 2. Interval enlargement of left anterior mediastinal mass abutting the abdominal wall which corresponds to a focus of FDG uptake on prior PET/CT May represent a metastatic focus 3. Stable appearance of retroperitoneal, mesenteric and jessica hepatis lymphadenopathy 4. 11.0 x 6.8 x 7.4 cm thick rimmed mass in the mediastinum with internal gas. There is a new extension to the right lower quadrant with a gas containing col lection. There are several mesenteric lymph nodes measuring up to 11 mm nodules. Allergies Allergy/AdvReac Type Severity Reaction Status Date / Time morphine AdvReac Unknown "dizzy",del Verified 03/03/22 08:28 [facility] Home Medications Medication Instructions Recorded Confirmed Type pantoprazole 20 mg tablet,delayed 20 mg PO DAILY 07/16/18 03/09/22 History release aspirin 81 mg tablet 81 mg PO DAILY 01/29/19 03/09/22 History loratadine 10 mg tablet 10 mg PO DAILY 01/29/19 03/09/22 History montelukast 10 mg tablet 10 mg PO DAILY 01/29/19 03/09/22 History omega-3 fatty acids [Fish Oil] 2 ea PO DAILY 02/17/19 03/09/22 History benazepril 20 mg tablet 20 mg PO DAILY 06/09/19 03/09/22 History insulin NPH isoph U-100 human 100 36 units subcut HS 07/17/19 03/09/22 History unit/mL subcutaneous suspension (Novolin N NPH U-100 Insulin isophane) albuterol sulfate 2.5 mg/3 mL 2.5 mg (3 mL) inhalation .COMPLEX 08/25/19 03/09/22 Rx (0.083 %) solution for nebulization PRN shortness of breath or wheezing #90 mL atorvastatin 20 mg tablet 20 mg PO DAILY 90 days #90 tabs 09/19/19 03/09/22 Rx magnesium oxide 1,100 mg PO DAILY #270 tabs 04/22/21 03/09/22 Rx ascorbic acid (vitamin C) 500 mg 500 mg PO DAILY 08/02/21 03/09/22 History capsule cholecalciferol (vitamin D3) 50 1,000 unit PO DAILY 08/02/21 03/09/22 History mcg (2,000 unit) tablet meloxicam 15 mg tablet 15 mg PO DAILY 08/02/21 03/09/22 History pramipexole 0.5 mg tablet 1 mg PO HS 08/02/21 03/09/22 History furosemide 20 mg tablet 20 mg PO DAILY #90 tabs 12/27/21 03/09/22 Rx insulin NPH isoph U-100 human 100 25 unit subcut QAM 01/24/22 03/09/22 History unit/mL subcutaneous suspension (Novolin N NPH U-100 Insulin isophane) Past Med/Surg History Medical History Diabetic peripheral neuropathy Dysesthesia History of tobacco abuse Hypomagnesemia Nocturnal hypoxemia Numbness ANALI (obstructive sleep apnea) Snoring Surgical History History of ankle surgery History of cholecystectomy History of dental surgery History of elbow surgery History of hand surgery History of surgery on wrist Family History Father Lung cancer Diabetes Hypertension Mother Hypertension Diabetes Brother Diabetes Social History Smoking Status: Never smoker Hx Alcohol Use: No Preferred Language: Martiniquais Beliefs That Will Affect Care: None marital status: current occupational status: disabled Feels Safe at Home: Yes Review of Systems Review of Systems: The patient denies palpitations, cough, lower extremity swelling, sore throat, fevers, chills, sweats, blood in urine, dysuria, urinary frequency or urgency, lightheadedness, dizziness, headache, memory loss, loss of consciousness, rash, imbalance, focal weakness, numbness or tingling in arms or legs, neck pain, or night sweats. The review of systems is otherwise negative other than for that already noted above, and at least 10 systems have been reviewed. Physical Exam Physical Exam: The patient is awake, alert and oriented 3, well developed and well nourished, normocephalic and atraumatic, lying in bed and in no acute distress. HEENT--PERRL, EOMI, mucous membranes and oropharynx dry. Neck--supple. No JVD. No bruits. Thyroid normal, trachea midline, no adenopathy. Heart--normal S1 and S2. No murmurs, rubs or gallops. Lungs--clear bilaterally, no respiratory distress, no accessory muscle use. Abdomen--normal bowel sounds and soft. Generalized tenderness and distention. Extremities--no cyanosis or clubbing. No edema. Dermatologic--normal skin turgor, normal color, no abnormal lymph nodes, no rash. Neurologic--cranial nerves II through XII grossly intact. Rheumatologic--normal range of motion. Psychiatric--normal affect. Results & Data Results & Data ([facility]) Vital Signs (Past 12 Hours) Vital Signs Temp Pulse Resp BP Pulse Ox O2 Del Method 03/09/22 18:00 109 H 28 H 03/09/22 18:00 117/71 03/09/22 17:30 113 H 17 03/09/22 17:30 132/74 03/09/22 17:00 113 H 27 H 94 03/09/22 17:00 142/84 H 03/09/22 16:30 110 H 28 H 91 03/09/22 16:30 126/65 03/09/22 16:00 107 H 33 H 93 03/09/22 16:00 140/87 03/09/22 15:30 107 H 25 H 95 03/09/22 15:30 120/60 03/09/22 15:20 110 H 28 H 95 03/09/22 15:30 Room Air 03/09/22 11:12 36.8 C 112 H 20 127/67 100 Room Air Laboratory Results Laboratory Results WBC 9.96 K/ul (4.8-10.8) 03/09/22 12:34 RBC 4.40 M/uL (4.63-6.08) L 03/09/22 12:34 Hgb 8.5 g/dl (14.0-18.0) L 03/09/22 21:15 Hct 29.0 % (40.1-51.0) L 03/09/22 21:15 MCV 76.1 fL (80.0-100.0) L 03/09/22 12:34 MCH 22.7 pg (25.0-34.0) L 03/09/22 12:34 MCHC 29.9 g/dL (32.0-36.0) L 03/09/22 12:34 RDW Std Deviation 55.2 fL (36.4-46.3) H 03/09/22 12:34 RDW Coeff of Jyoti 20.6 % (11.5-14.5) H 03/09/22 12:34 Plt Count 170 K/uL (130-400) 03/09/22 12:34 MPV 10.4 fL (9.4-12.4) 03/09/22 12:34 Immature Gran % (Auto) 0.7 % 03/09/22 12:34 Neut % (Auto) 85.8 % 03/09/22 12:34 Lymph % (Auto) 7.0 % 03/09/22 12:34 Bladen % (Auto) 6.0 % 03/09/22 12:34 Eos % (Auto) 0.3 % 03/09/22 12:34 Baso % (Auto) 0.2 % 03/09/22 12:34 Neut # (Auto) 8.54 K/uL (1.4-6.5) H 03/09/22 12:34 Lymph # (Auto) 0.70 K/uL (1.2-3.4) L 03/09/22 12:34 Bladen # (Auto) 0.60 K/uL (0.24-0.82) 03/09/22 12:34 Eos # (Auto) 0.03 K/uL (0-0.50) 03/09/22 12:34 Baso # (Auto) 0.02 K/uL (0-0.2) 03/09/22 12:34 Immature Gran # (Auto) 0.07 K/uL (0.00-0.02) H 03/09/22 12:34 Polychromasia 1+ 03/09/22 12:34 Anisocytosis Present 03/09/22 12:34 Microcytosis Present 03/09/22 12:34 Ovalocytes 1+ 03/09/22 12:34 PT 11.4 Seconds (9.0-12.0) 03/09/22 12:34 INR 1.1 (0.9-1.1) 03/09/22 12:34 APTT 25.2 Seconds (21.0-31.0) 03/09/22 12:34 PTT Ratio 0.9 03/09/22 12:34 Sodium 132 mmol/L (136-145) L 03/09/22 12:34 Potassium 4.1 mmol/L (3.5-5.1) 03/09/22 12:34 Chloride 97 mmol/L (98-107) L 03/09/22 12:34 Carbon Dioxide 29 mmol/L (21-32) 03/09/22 12:34 Anion Gap 6 (3-11) 03/09/22 12:34 BUN 23 mg/dl (6-23) 03/09/22 12:34 Creatinine 1.29 mg/dl (0.6-1.4) 03/09/22 12:34 Est Cr Clr Drug Dosing 57.1 ml/min 03/09/22 12:34 Est GFR ( Amer) 67.0 ml/min 03/09/22 12:34 Est GFR (Non-Af Amer) 57.8 ml/min 03/09/22 12:34 BUN/Creatinine Ratio 17.8 (10-20) 03/09/22 12:34 Glucose 233 mg/dl (70-99(Fasting)) H 03/09/22 12:34 POC Glucose 139 mg/dl (70-99) H 03/09/22 23:56 Calcium 9.8 mg/dl (8.5-10.1) 03/09/22 12:34 Total Bilirubin 1.2 mg/dl (0.2-1.0) H 03/09/22 12:34 AST 8 U/L (13-39) L 03/09/22 12:34 ALT 6 U/L (7-52) L 03/09/22 12:34 Alkaline Phosphatase 66 U/L (34-104) 03/09/22 12:34 Total Protein 6.5 gm/dl (6.0-8.3) 03/09/22 12:34 Albumin 3.9 gm/dl (3.4-5.0) 03/09/22 12:34 Globulin 2.6 gm/dl (2.5-4.0) 03/09/22 12:34 Albumin/Globulin Ratio 1.5 (0.9-2) 03/09/22 12:34 Lipase 10 U/L (11-82) L 03/09/22 12:34 SARS-CoV-2, RNA, NAAT NEGATIVE (NEGATIVE) 03/09/22 12:31 Blood Type O Negative 03/09/22 15:10 Antibody Screen NEGATIVE 03/09/22 15:10 Crossmatch See Detail 03/09/22 15:10 Impressions Abdomen/Pelvis CT 03/09/22 11:16 CT abd pelvis IV con only CLINICAL HISTORY: Abdominal pain, gi bleeding, hx lymphoma TECHNIQUE: Helical axial images of the abdomen and pelvis were obtained and displayed. Automated dose lowering techniques and/or adjustment according to patient size were utilized for this exam. This exam was performed with intravenous contrast. CT DOSE: 947.94 mGycm COMPARISON: Comparison is made to CT abdomen pelvis 01/30/2022 and PET/CT 01/25/2022 FINDINGS: Lower chest: There is a 5 mm nodule in the left lower lung, similar in appearance to prior exam. Additional nodular foci are seen. A cardiophrenic lymph node is unchanged measuring 9 mm. Liver: Unremarkable. No focal lesions are seen. Gallbladder and biliary tree: Patient is status post cholecystectomy. No intra- or extrahepatic biliary ductal dilation. Pancreas: Unremarkable, no focal lesions. Spleen: Unremarkable. Adrenals: Unremarkable. Kidneys and ureters: Unremarkable. Bladder: Diffuse homogeneous wall thickening is seen. Reproductive organs: Brachytherapy seeds are seen in the prostate. Bowel: Scattered diverticula are seen. The appendix is normal. Numerous loops of small bowel are involved with the central mesenteric mass described below. Lymph nodes Retroperitoneal: There is a 14 mm jessica hepatis node and a 16 mm para-aortic node. These are unchanged from prior exam. Pelvic: Unremarkable. Mesenteric: There is an 11.0 x 6.8 x 7.4 cm thick rimmed mass in the mediastinum with internal gas. There is a new extension to the right lower quadrant with a gas containing collection. There are several mesenteric lymph nodes measuring up to 11 mm nodules. Peritoneum: Fat stranding and free fluid is seen in the peritoneum about the large mesenteric mass, increased from prior exam. There is interval enlargement of a left perineal mass abutting the abdominal wall measuring 9 x 34 mm compared to 6 x 18 mm on prior exam. This corresponds to a focus of FDG uptake on prior PET/CT. Vessels: Atherosclerotic calcifications are seen. Abdominal wall: Unremarkable. Bones: Degenerative changes in the visualized spine. Bilateral pars defects and grade 1 anterolisthesis are seen at L5-S1. IMPRESSION: 1. Overall worsening of disease. Redemonstration of cavitary mass in the mesentery involving numerous loops of small bowel, now with increased fat stranding and involvement of adjacent loops of small bowel. Findings are compat ible with non-Hodgkin's lymphoma. 2. Interval enlargement of left anterior mediastinal mass abutting the abdominal wall which corresponds to a focus of FDG uptake on prior PET/CT and may represent a metastatic focus. 3. Stable appearance of retroperitoneal, mesenteric, jessica hepatis lymphadenopathy. 4. Additional findings as above. ACT 112: Negative or not required by law. Electronically signed by: Den Holbrook M.D. 03/09/2022 2:28 PM Code Status & VTE Plan Code Status Full code PG Care Time/CCT Total # of Minutes Spent Total Time Spent with Patient: Total time spent is greater than 50% in coordination of care (as documented) at patient's floor/unit and/or counseling patient: Coding Level of Care Code 90652 Initial Inpt Care Lvl 3 Diagnoses Acute GI bleeding K92.2 NHL (non-Hodgkin's lymphoma) C85.90 Anemia requiring transfusions D64.9 Type 2 diabetes mellitus with insulin therapy E11.9; Z79.4 Abdominal mass R19.00 ANALI (obstructive sleep apnea) G47.33 CKD (chronic kidney disease) stage 3, GFR 30-59 ml/min N18.30 Hypertension I10 COPD (chronic obstructive pulmonary disease) J44.9 Chews tobacco regularly Z72.0 Hypercholesterolemia E78.00 Peripheral neuropathy G62.9 Prostate cancer C61
[2022-03-09] MEDS ORDERED: DESMOPRESSIN ACETATE 4 MCG/ML 10 ML VIAL SQ ONE (20:30)
[2022-03-09] MEDS ORDERED: NSS + 20MEQ KCL 20 MEQ/1,000 ML BAG IV SCH (20:30)
[2022-03-09] MEDS ORDERED: DESMOPRESSIN ACETATE 4 MCG/ML 1 ML AMP IV ONE (20:30)
[2022-03-09] MEDS ORDERED: DESMOPRESSIN ACETATE 4 MCG/ML 1 ML AMP SQ ONE (20:45)
[2022-03-09] MEDS ORDERED: DESMOPRESSIN ACETATE IV ONE (21:30)
[2022-03-09 21:47] LABS: Hemoglobin 8.5 g/dl (14.0-18.0)
[2022-03-09] MEDS ORDERED: SODIUM CHLORIDE 0.9% 250 ML IV PRN (22:27)
[2022-03-09] MEDS ORDERED: GLUCOSE 10 TAB/TUBE PO PRN (23:27)
[2022-03-09] MEDS ORDERED: DEXTROSE 50% 50 ML SYRINGE IV PRN (23:27)
[2022-03-09] MEDS ORDERED: ONDANSETRON INJ 2 MG/ML 2 ML VIAL IV PRN (23:27)
[2022-03-09] MEDS ORDERED: GLUCAGON FOR INJ 1 MG VIAL SQ PRN (23:27)
[2022-03-09] MEDS ORDERED: CARBOHYDRATES FOR HYPOGLYCEMIA PO PRN (23:27)
[2022-03-09] MEDS ORDERED: GLUCOSE 40% GEL 15 GM TUBE PO PRN (23:27)
[2022-03-10] MEDS ORDERED: ACETAMINOPHEN 1,000 MG/100 ML VIAL IV PRN (00:53)
[2022-03-10] MEDS: PANTOprazole 40 MG in DEXTROSE 5% 100 ML IV SCH (03:57)
[2022-03-10 04:49] VITALS: TEMP 98.6; O2SAT 100
--- NOTE | 2022-03-10 06:01 | Electrocardiogram Report ---
Test Reason : Blood Pressure : / mmHG Vent. Rate : 106 BPM Atrial Rate : 106 BPM P-R Int : 158 ms QRS Dur : 124 ms QT Int : 354 ms P-R-T Axes : 057 -19 033 degrees QTc Int : 470 ms Sinus tachycardia Right bundle branch block Abnormal ECG When compared with ECG of 27-MAR-2016 15:17, Vent. rate has increased BY 49 BPM Right bundle branch block is now Present Confirmed by Balwinder Zee ([id number]) on 03/10/2022 6:01:26 AM Referred By: Confirmed By:Balwinder Zee
[2022-03-10 06:11] LABS: Basophils # (auto) 0.03 K/uL (0-0.2); Basophils % (auto) 0.4 %; Eosinophils # (auto) 0.09 K/uL (0-0.50); Eosinophils % (auto) 1.2 %; Hematocrit (blood only) 32.7 % (40.1-51.0); Immature Granulocytes # (auto) 0.03 K/uL (0.00-0.02); Immature Granulocytes % (auto) 0.4 %; Lymphocytes # (auto) 0.66 K/uL (1.2-3.4); Lymphocytes % (auto) 8.5 %; Mean Corpuscular Hemoglobin 23.9 pg (25.0-34.0); Mean Corpuscular Hgb Conc 30.6 g/dL (32.0-36.0); Mean Platelet Volume 10.5 fL (9.4-12.4); Monocytes # (auto) 0.64 K/uL (0.24-0.82); Monocytes % (auto) 8.3 %; Neutrophils % (auto) 81.2 %; Platelet Count 145 K/uL (130-400); RDW Coefficient of Variation 19.3 % (11.5-14.5); RDW Standard Deviation 52.9 fL (36.4-46.3); Red Blood Count 4.19 M/uL (4.63-6.08); White Blood Count 7.75 K/ul (4.8-10.8)
[2022-03-10 06:31] LABS: Albumin Globulin Ratio 1.6 (0.9-2); Albumin Level 3.3 gm/dl (3.4-5.0); Bilirubin,Total 1.5 mg/dl (0.2-1.0); Calcium 8.6 mg/dl (8.5-10.1); Creatinine Clr Calc Pharmacy 67.4 ml/min; Est GFR (African American) 68.9 ml/min; Est GFR (Non-African American) 59.5 ml/min; Globulin 2.1 gm/dl (2.5-4.0); Magnesium 1.5 mg/dl (1.7-2.4); Potassium 4.1 mmol/L (3.5-5.1); Total Protein 5.4 gm/dl (6.0-8.3)
[2022-03-10 07:05] LABS: INR 1.1 (0.9-1.1); Partial Thromboplastin Ratio 1.1; Partial Thromboplastin Time 31.3 Seconds (21.0-31.0); Prothrombin Time 11.7 Seconds (9.0-12.0)
[2022-03-10] MEDS ORDERED: INSULIN ASPART PER UNIT SC SCH (07:30)
[2022-03-10 07:49] LABS: Estimated Average Glucose 194 mg/dl; Hemoglobin A1C 8.4 % (4.5-5.6)
[2022-03-10 08:14] VITALS: BP 102/49; PULSE 102
--- NOTE | 2022-03-11 15:06 | Discharge Summary ---
Date of Service March 11, 2022 Admission HPI Per Admitting Provider The patient is a 67-year-old male with a past medical history including prostate cancer, non-Hodgkin's lymphoma with recurrence, acute GI bleeding, obstructive sleep apnea, CKD stage III, obesity, hypertension, peripheral neuropathy, COPD, chewing tobacco, diabetes mellitus, hypercholesterolemia and follicular lymphoma. Patient was referred as above. CT scan of the abdomen and pelvis performed in ED this evening revealed the followin. Overall worsening of disease. Redemonstration of cavitary mass in the mesentery involving numerous loops of small bowel, now with increased fat stranding and involvement of adjacent loops of small bowel. Findings are compatible with non-Hodgkin's lymphoma. 2. Interval enlargement of left anterior mediastinal mass abutting the abdominal wall which corresponds to a focus of FDG uptake on prior PET/CT May represent a metastatic focus 3. Stable appearance of retroperitoneal, mesenteric and jessica hepatis lymphadenopathy 4. 11.0 x 6.8 x 7.4 cm thick rimmed mass in the mediastinum with internal gas. There is a new extension to the right lower quadrant with a gas containing collection. There are several mesenteric lymph nodes measuring up to 11 mm nodules. Principal Diagnosis Acute GI bleed, abdominal mass Discharge Exam The patient is awake, alert and oriented 3, well developed and well nourished, normocephalic and atraumatic, lying in bed and in no acute distress. HEENT--PERRL, EOMI, mucous membranes and oropharynx dry. Neck--supple. No JVD. No bruits. Thyroid normal, trachea midline, no adenopathy. Heart--normal S1 and S2. No murmurs, rubs or gallops. Lungs--clear bilaterally, no respiratory distress, no accessory muscle use. Abdomen--normal bowel sounds and soft. Generalized tenderness and distention. Extremities--no cyanosis or clubbing. No edema. Dermatologic--normal skin turgor, normal color, no abnormal lymph nodes, no rash. Neurologic--cranial nerves II through XII grossly intact. Rheumatologic--normal range of motion. Psychiatric--normal affect. Discharge Data Allergies Allergy/AdvReac Type Severity Reaction Status Date / Time morphine AdvReac Unknown "dizzy",del Verified 03/03/22 08:28 usional Consultations 03/09/22 21:28 ED Decision to Admit Stat 03/10/22 04:15 Burn CD for patient Stat Ordered Studies 03/09/22 11:16 CT abd pelvis IV con only Stat Hospital Course (1) Acute GI bleeding: Acute GI bleeding/abdominal mass/non-Hodgkin's lymphoma/history of prostate cancer- Patient is required total 4 units PRBCs recently. Initial hemoglobin on admission was 10.0, and is now 8.5 after 2 L of fluid Will transfuse 2 units additional PRBCs tonight. H&H every 4 hours NPO DDAVP to reverse antiplatelet effect of aspirin Protonix bolus/drip to continue Transferred to [facility] 9 AM due to complicated abdominal mass with acute GI bleeding requiring multiple transfusions (2) NHL (non-Hodgkin's lymphoma): See above (3) Anemia requiring transfusions: Transfusing 2 units as noted (4) Type 2 diabetes mellitus with insulin therapy: Hold Humulin N while n.p.o. Placed on Accu-Cheks with NovoLog coverage per scale NSS + KCl 20 mEq at 100 mils per hour (5) Abdominal mass: See above (6) ANALI (obstructive sleep apnea): CPAP at bedtime as needed Patient reports he typically wears nasal cannula at nighttime if needed (7) CKD (chronic kidney disease) stage 3, GFR 30-59 ml/min: Creatinine 1.29 on admission, with range 1.3-1.54 Follow serially (8) Hypertension: Hold all antihypertensives and related meds: Aspirin, benazepril, furosemide, and mag oxide\\. (9) COPD (chronic obstructive pulmonary disease): Continue routine inhalers Duonebs every 4 hours as needed (10) Chews tobacco regularly: Cessation counseling (11) Hypercholesterolemia: Hold atorvastatin (12) Peripheral neuropathy: Hold meloxicam and pramipexole while n.p.o. (13) Prostate cancer: Total Time Total Time Spent Total Time Spent (In Minutes): see attending attestation Discharge Plan Discharge Items Patient Disposition: Transfer Acute Care Hospital Reason For Visit: GI BLEED,SYMPTOMATIC ANEMIA,ABDOMINAL MASS Discharge Diagnosis: GI bleed, symptomatic anemia, abdominal mass Activity: Per Instructions section Non-emergency contact: Primary Care Provider and Checker Call non-emergency contact if: you have any medication questions Follow-up/Referrals: Dixon Aj MD [Primary Care Provider] - Diet: Nothing by Mouth Addtl Attending Provider Instructions: (1) Acute GI bleeding: Plan: Acute GI bleeding/abdominal mass/non-Hodgkin's lymphoma/history of prostate cancer- Patient has required total 4 units PRBCs recently. Initial hemoglobin on admission was 10.0, and is now 8.5 after 2 L of fluid Trransfuse 2 units additional PRBCs tonight. H&H every 4 hours NPO DDAVP to reverse antiplatelet effect of aspirin Protonix bolus/drip to continue Patient will be transferred to [facility] (2) NHL (non-Hodgkin's lymphoma): Plan: See above (3) Anemia requiring transfusions: Plan: Transfused 2 units as noted (4) Type 2 diabetes mellitus with insulin therapy: Plan: Hold Humulin N while n.p.o. Placed on Accu-Cheks with NovoLog coverage per scale NSS + KCl 20 mEq at 100 mils per hour (5) Abdominal mass: Plan: See above (6) ANALI (obstructive sleep apnea): Plan: CPAP at bedtime as needed Patient reports he typically wears nasal cannula at nighttime if needed (7) CKD (chronic kidney disease) stage 3, GFR 30-59 ml/min: Plan: Creatinine 1.29 on admission, with range 1.3-1.54 Follow serially (8) Hypertension: Plan: Hold all antihypertensives and related meds: Aspirin, benazepril, furosemide, and mag oxide. (9) COPD (chronic obstructive pulmonary disease): Plan: Continue routine inhalers Duonebs every 4 hours as needed (10) Chews tobacco regularly: Plan: Cessation counseling (11) Hypercholesterolemia: Plan: Hold atorvastatin (12) Peripheral neuropathy: Plan: Hold meloxicam and pramipexole while n.p.o. Pending Studies at Discharge: No Stand-Alone Forms: My [facility] Skilled Items Patient informed of condition?: Yes DNR: No Discharge Level of Care: Other Communicable Disease: No Discharge Prognosis: Stable Lines: Peripheral IV Urinary Catheter: No Medications and DC Order Prescriptions: Continued aspirin 81 mg tablet 81 mg PO DAILY loratadine 10 mg tablet 10 mg PO DAILY montelukast 10 mg tablet 10 mg PO DAILY cholecalciferol (vitamin D3) 50 mcg (2,000 unit) tablet 1,000 unit PO DAILY pramipexole 0.5 mg tablet 1 mg PO HS ascorbic acid (vitamin C) 500 mg capsule 500 mg PO DAILY meloxicam 15 mg tablet 15 mg PO DAILY pantoprazole 20 mg tablet,delayed release (DR/EC) 20 mg PO DAILY atorvastatin 20 mg tablet 20 mg PO DAILY 90 Days Qty: 90 3RF magnesium oxide 400 mg magnesium tablet 1,100 mg PO DAILY Qty: 270 3RF furosemide 20 mg tablet 20 mg PO DAILY Qty: 90 2RF omega-3 fatty acids 2 ea PO DAILY Novolin N NPH U-100 Insulin 100 unit/mL suspension 25 unit subcut QAM benazepril 20 mg tablet 20 mg PO DAILY Novolin N NPH U-100 Insulin 100 unit/mL suspension 36 units SQ HS albuterol sulfate 2.5 mg /3 mL (0.083 %) solution for nebulization 2.5 mg inhalation .COMPLEX PRN (Reason: shortness of breath or wheezing) Qty: 90 5RF Rx Instructions: 2.5 mg inhalation 1 unit dose every 4-6 hours PRN Discharge Orders: Discharge Order (Routine); Ordered 03/10/22 Ordered By: Eliezer Lawson Admission Data Admit Date/Time: 03/09/22 23:27 Attending Provider: Jefferson Marroquin Admit Provider: Jefferson Marroquin Primary Care Provider: Dixon Aj Other Providers: Jefferson Marroquin Other Interventions: Discharge Summary Assessment (RN) Last Done: 03/10/22 06:45 Supervising Physician Co-Signing Physician Notes Attending addendum: I have physically seen this patient, have supervised the medical residents activities, and agree with the H&P unless as otherwise noted. Assessment and Plan: GI bleeding/abdominal cavitary mass lesion/non-Hodgkin's lymphoma- Patient had previously received 4 units PRBCs prior to admission, and received 2 additional units while in the hospital. Has been given DDAVP to reverse and anti-platelet effect of aspirin The patient was admitted to [facility], as a transition until bed became available at [facility]. The bed at [facility] became available sooner than anticipated, patient is being transferred for definitive care as per original plans Patient presently hemodynamically stable, but could have an issue with becoming unstable relatively quickly due to issues with recurrent bleeding and need for transfusions Agree with transfer to [facility] at this time Resident Activity Tracking Resident Involvement: Resident Care Provided Care Provided: Adult Hospital Medicine
--- NOTE | 2022-03-11 22:54 | Billing Data ---
Date of Service March 11, 2022 Coding Level of Care Code 17070 OBS Care - Discharge
== END 2022-03-10 08:14 | disposition short-term general hospital (02) | DRG 378 ==
LOC: ED 10:38 → 1E 23:27

== ENCOUNTER 2022-03-30 09:25 | Inpatient (IN) ==
[2022-03-30] MEDS ORDERED: ACETAMINOPHEN 325 MG TAB PO PRN (16:19)
[2022-03-30] MEDS ORDERED: ONDANSETRON INJ 2 MG/ML 2 ML VIAL IV PRN (16:19)
[2022-03-30] MEDS ORDERED: traMADol HCL 50 MG TABLET PO PRN (16:35)
[2022-03-30] MEDS ORDERED: GLUCOSE 40% GEL 15 GM TUBE PO PRN (16:38)
[2022-03-30] MEDS ORDERED: GLUCAGON FOR INJ 1 MG VIAL SQ PRN (16:38)
[2022-03-30] MEDS ORDERED: GLUCOSE 10 TAB/TUBE PO PRN (16:38)
[2022-03-30] MEDS ORDERED: DEXTROSE 50% 50 ML SYRINGE IV PRN (16:38)
[2022-03-30] MEDS ORDERED: CARBOHYDRATES FOR HYPOGLYCEMIA PO PRN (16:38)
--- NOTE | 2022-03-30 16:42 | Oncology Consultation ---
Date of Consultation March 30, 2022 Assessment & Plan (1) NHL (non-Hodgkin's lymphoma): (2) Follicular lymphoma: (3) Abdominal mass: (4) Retroperitoneal lymphadenopathy: (5) Anemia requiring transfusions: Plan Pleasant 67-year-old gentleman with history of follicular lymphoma who was recently found to have disease progression on PET/CT with large small bowel mesenteric mass with resultant GI bleeding for which he has received several units of PRBC transfusion and started IV venofer on 03/22/2022 . He was initially scheduled to receive outpatient R-CHOP later this week. Given patient's significant tumor burden with risk for GI perforation/bleeding as well as possible tumor lysis syndrome, recommended inpatient administration of CHOP chemotherapy which consists of cyclophosphamide 750 mg/m2, doxorubicin 50 mg/m2, vincristine 2 mg and prednisone 100 mg daily x5 days. He will receive rituximab as an outpatient next week. His most recent uric acid level was 7.6 for which he was started on allopurinol. Will give rasburicase 3 mg for uric acid >8. Will need G6PD testing prior to rasburicase administration. Recommend inpatient hospitalization CHOP chemotherapy given risk for GI bleeding/perforation and TLS. Chemotherapy orders/consent signed and in chart Recommend Zarxio 480 mcg daily x 2 days to start 24 hours after chemo administration to reduce risk of febrile neutropenia Will receive rituximab as an outpatient next week Continue with allopurinol. Consider giving rasburicase for uric acid greater than 8. Transfuse with PRBC for hemoglobin less than 7.5 History of Present Illness Reason for Consultation: Lymphoma Attending Physician: Christos Morin MD History of Present Illness Mr. Prado is a gentleman with history of follicular lymphoma for which he is s/p rituximab weekly x4 doses in April, followed by maintenance rituximab which was discontinued in December,. More recently, he was diagnosed with disease progression with large mesenteric soft tissue mass with resultant intermittent GI bleeding for which he has required multiple PRBC transfusions as well as IV iron supplementation. Unfortunately interventional radiology and surgical oncology at [facility] felt mass could not be biopsied safely. Due to concern for possible more aggressive lymphoma, recommended treating with R-CHOP which would be given IV every 3 weeks for total of 6 cycles of treatment. Patient was at admitted today at [facility] for inpatient chemotherapy given concern for tumor lysis as well as GI bleeding. Allergies Allergy/AdvReac Type Severity Reaction Status Date / Time morphine AdvReac Unknown "dizzy",del Verified 03/22/22 05:47 [facility] Medications Medication Instructions Recorded Confirmed Type pantoprazole 20 mg tablet,delayed 20 mg PO QAM 07/16/18 03/30/22 History release (Protonix) aspirin 81 mg tablet 81 mg PO QAM 01/29/19 03/30/22 History loratadine 10 mg tablet (Claritin) 10 mg PO QAM 01/29/19 03/30/22 History montelukast 10 mg tablet 10 mg PO HS 01/29/19 03/30/22 History (Singulair) benazepril 20 mg tablet (Lotensin) 20 mg PO QAM 06/09/19 03/30/22 History insulin NPH isoph U-100 human 100 36 units subcut HS 07/17/19 03/30/22 History unit/mL subcutaneous suspension (Novolin N NPH U-100 Insulin isophane) albuterol sulfate 2.5 mg/3 mL 2.5 mg (3 mL) inhalation .COMPLEX 08/25/19 03/30/22 Rx (0.083 %) solution for nebulization PRN shortness of breath or wheezing #90 mL ascorbic acid (vitamin C) 500 mg 500 mg PO QAM 08/02/21 03/30/22 History capsule cholecalciferol (vitamin D3) 50 1,000 unit PO QAM 08/02/21 03/30/22 History mcg (2,000 unit) tablet meloxicam 15 mg tablet 15 mg PO HS 08/02/21 03/30/22 History albuterol sulfate 90 mcg/actuation 1 inh inhalation QID PRN sob 03/20/22 03/30/22 History aerosol inhaler atorvastatin 20 mg tablet 20 mg PO HS 03/20/22 03/30/22 History furosemide 20 mg tablet (Lasix) 20 mg PO QAM 03/20/22 03/30/22 History insulin regular human 100 unit/mL 1 sliding scale dose subcut 03/20/22 03/30/22 History (3 mL) subcutaneous pen (Novolin R USEASDIRECTD Flexpen) magnesium oxide 1,100 mg PO QAM 03/20/22 03/30/22 History pramipexole 1 mg tablet (Mirapex) 1 mg PO HS 03/20/22 03/30/22 History tramadol 50 mg tablet (Ultram) 50 mg PO Q4H PRN pain, initial 03/22/22 03/30/22 Rx therapy #10 tabs Patient History Medical History (Updated 03/22/22 @ 10:16 by Terrie Dickinson, SVETA) Anemia requiring transfusions Chronic, hx blood transfusion Asthma CKD (chronic kidney disease) stage 3, GFR 30-59 ml/min COPD (chronic obstructive pulmonary disease) Diabetes mellitus, type 2 IDDM Diabetic peripheral neuropathy Follicular lymphoma Treatment: Systemic therapy with Rituxan Hx of malignant neoplasm of prostate Treated with brachytherapy and radiation Currently in remission Hyperlipidemia Hypertension Nocturnal hypoxemia Non-Hodgkin lymphoma Dx 2017 treated with chemotherapy at the time Was in remission until recently (01/2022) Numbness On home oxygen therapy 2lpm via n/c at HS and during the day PRN ANALI (obstructive sleep apnea) 2lpm via n/c at HS -- awaiting results from sleep study on 03/06/22 Retroperitoneal lymphadenopathy hx Surgical History (Updated 03/22/22 @ 10:16 by Terrie Dickinson RN) H/O colonoscopy approx 2012 History of amputation traumatic tip of right index History of ankle surgery multiple (right ankle) ankle bone spurs removal - ankle joint hardware/fusion - osteomyelitis with hardware removal -- treated with abx, once healed had ankel hardware replaced History of carpal tunnel release right History of cholecystectomy History of colonoscopy History of elbow surgery right elbow surgery History of esophagogastroduodenoscopy (EGD) History of tooth extraction full top dental extraction Port-A-Cath in place (03/22/22) Insertion Access Port with Fluoroscopy to left internal jugular vein (Left) - Tate Rios DO, FACS Family History Father Diabetes Lung cancer Hypertension Stroke Mother Diabetes Hypertension Brother Diabetes Other No family history of adverse response to anesthesia Social History (Updated 03/20/22 @ 11:20 by Brenda Gutierrez RN) Smoking Status: Former smoker Smoking End Date: 2009; Second Hand Exposure: No; Do You Dip or Chew Tobacco: No; Tobacco Cessation Education Requested by Patient: No Hx Alcohol Use: Yes Alcohol type: beer Hx Substance Use: No Preferred Language: German Communication Ability: Effective Slate Worker Required: No Beliefs That Will Affect Care: None marital status: Current Living Situation: Significant Other current occupational status: retired and disabled How many Children do You have: 3 Other Information That Helps Us Care for You: No Feels Safe at Home: Yes Safety Concerns: Feels Safe At This Time during the past year weight has: decreased > 10 lbs Assistive Devices: Oxygen - at Night Review of Systems Constitutional: + fatigue, + malaise and + weakness Cardiovascular: + dyspnea on exertion Gastrointestinal: + blood in stools Physical Exam Constitutional: WD/WN, vitals as above Eyes: PERRL, conjunctivae normal, anicteric sclerae ENMT: external ear and nose normal, oropharynx normal Respiratory: normal respiratory effort, lungs clear to auscultation Cardiovascular: RRR, no murmur, no edema Gastrointestinal (Abdomen): normal bowel sounds, soft, nontender, no hepatosplenomegaly Results & Data ([facility]) Vital Signs (Past 12 Hours) Vital Signs Temp Pulse Resp BP Pulse Ox O2 Del Method 03/30/22 15:20 Room Air 03/30/22 15:20 36.4 C L 100 H 14 107/61 98 Room Air PG Care Time/CCT Total # of Minutes Spent Total Time Spent with Patient: Total time spent is greater than 50% in coordination of care (as documented) at patient's floor/unit and/or counseling patient: Coding Level of Care Code 83831 Inpt Consult Level 4 Diagnoses NHL (non-Hodgkin's lymphoma) C85.90 Lymphoma site: unspecified region Non-Hodgkin lymphoma type: unspecified type Follicular lymphoma C82.90 Abdominal mass R19.07 Abdominal location: generalized Retroperitoneal lymphadenopathy R59.0 Anemia requiring transfusions D64.9 (1) NHL (non-Hodgkin's lymphoma) Lymphoma site: unspecified region Non-Hodgkin lymphoma type: unspecified type Qualified Code(s): C85.90 - Non-Hodgkin lymphoma, unspecified, unspecified site (2) Abdominal mass Abdominal location: generalized Qualified Code(s): R19.07 - Generalized intra-abdominal and pelvic swelling, mass and lump
[2022-03-30 17:04] LABS: Hematocrit (blood only) 26.4 % (40.1-51.0); Hemoglobin 8.1 g/dl (14.0-18.0); Mean Corpuscular Hemoglobin 25.2 pg (25.0-34.0); Mean Corpuscular Hgb Conc 30.7 g/dL (32.0-36.0); Mean Corpuscular Volume 82.2 fL (80.0-100.0); Mean Platelet Volume 9.2 fL (9.4-12.4); Platelet Count 242 K/uL (130-400); RDW Coefficient of Variation 20.7 % (11.5-14.5); RDW Standard Deviation 62.4 fL (36.4-46.3); Red Blood Count 3.21 M/uL (4.63-6.08); White Blood Count 5.76 K/ul (4.8-10.8)
[2022-03-30 17:23] LABS: INR 1.1 (0.9-1.1); Prothrombin Time 11.3 Seconds (9.0-12.0)
[2022-03-30 17:28] LABS: Albumin Globulin Ratio 1.8 (0.9-2); Albumin Level 3.4 gm/dl (3.4-5.0); BUN Creatinine Ratio 11.5 (10-20); Bilirubin,Total 0.4 mg/dl (0.2-1.0); Calcium 11.8 mg/dl (8.5-10.1); Creatinine Clr Calc Pharmacy 54.5 ml/min; Est GFR (African American) 53.2 ml/min; Est GFR (Non-African American) 45.9 ml/min; Globulin 1.9 gm/dl (2.5-4.0); Magnesium 1.6 mg/dl (1.7-2.4); Potassium 4.4 mmol/L (3.5-5.1); Total Protein 5.3 gm/dl (6.0-8.3)
--- NOTE | 2022-03-30 17:31 | History & Physical Report ---
Date of Service March 30, 2022 Assessment & Plan (1) NHL (non-Hodgkin's lymphoma): Plan: Patient to begin CHOP therapy concern for GI bleeding/perforation and tumor lysis syndrome given his previous GI bleeding. Patient being seen in follow along with Dr. Lopez (2) Type 2 diabetes mellitus with insulin therapy: Plan: Patient typically takes a sliding scale regular insulin 25 units with each meal and then adjusts his dose up or down based upon his Premeal insulin however he cannot expertly tell me what the adjustment is subsequently we will put him on a sliding scale with a correction factor of 20 and a carb ratio of 1:10. Patient will be maintained on his NPH 36 units at night however with his prednisone therapy we may anticipate elevation of his glucoses and need to transition to glargine or Lantus. We will check a hemoglobin A1c and if need be have diabetic pharmacy on consult (3) Chronic kidney disease: Plan: Patient has chronic kidney disease stage III we have to watch for tumor lysis syndrome patient has already started allopurinol will be maintained. Likewise with his chronic kidney disease most likely secondary to his diabetes the patient is on a prehospital ANGÉLICA inhibitor this will be continued and we will watch his renal function (4) Hypertension: Plan: For the patient's hypertension he takes only the benazepril but he also takes Lasix 20 mg a day (5) ANALI (obstructive sleep apnea): Plan: Patient is waiting formal outpatient evaluation for sleep apnea currently wears 2 L nasal cannula at night Plan Patient is a full code DVT prevention are SCDs we will watch his platelet count avoid bruising, chemoprophylaxis is contraindicated has previous GI bleeds Admission and Anticipated Discharge Date Admission Date: March 30, 2022 History of Present Illness Primary Care Provider: Dixon Aj MD 67-year-old male being admitted for chemotherapy for follicular lymphoma. Patient was recently found to have disease progression on recent PET scan with masses involving his mesentery and his large and small bowel. Patient had GI bleeding associated with these masses and was initially transferred to [facility] where he received supportive care but no interventional care. At that time he was supported with blood products and intravenous iron. Patient has a known mesenteric mass which may be necrotic tumor involves multiple small bowel loops there is no previous identified bowel obstruction. Patient otherwise has been feeling relatively well with poor appetite and decreased energy he has had no abdominal pain. He said no recent melena or bloody stools. Patient was admitted to the hospital for chemotherapy given his large tumor burden possible tumor lysis syndrome and possible risk of GI bleeding with treatment Allergies Allergy/AdvReac Type Severity Reaction Status Date / Time morphine AdvReac Unknown "dizzy",del Verified 03/22/22 05:47 [facility] Home Medications Medication Instructions Recorded Confirmed Type pantoprazole 20 mg tablet,delayed 20 mg PO QAM 07/16/18 03/30/22 History release (Protonix) aspirin 81 mg tablet 81 mg PO QAM 01/29/19 03/30/22 History loratadine 10 mg tablet (Claritin) 10 mg PO QAM 01/29/19 03/30/22 History montelukast 10 mg tablet 10 mg PO HS 01/29/19 03/30/22 History (Singulair) benazepril 20 mg tablet (Lotensin) 20 mg PO QAM 06/09/19 03/30/22 History insulin NPH isoph U-100 human 100 36 units subcut HS 07/17/19 03/30/22 History unit/mL subcutaneous suspension (Novolin N NPH U-100 Insulin isophane) albuterol sulfate 2.5 mg/3 mL 2.5 mg (3 mL) inhalation .COMPLEX 08/25/19 03/30/22 Rx (0.083 %) solution for nebulization PRN shortness of breath or wheezing #90 mL ascorbic acid (vitamin C) 500 mg 500 mg PO QAM 08/02/21 03/30/22 History capsule cholecalciferol (vitamin D3) 50 1,000 unit PO QAM 08/02/21 03/30/22 History mcg (2,000 unit) tablet meloxicam 15 mg tablet 15 mg PO HS 08/02/21 03/30/22 History albuterol sulfate 90 mcg/actuation 1 inh inhalation QID PRN sob 03/20/22 03/30/22 History aerosol inhaler atorvastatin 20 mg tablet 20 mg PO HS 03/20/22 03/30/22 History furosemide 20 mg tablet (Lasix) 20 mg PO QAM 03/20/22 03/30/22 History insulin regular human 100 unit/mL 1 sliding scale dose subcut 03/20/22 03/30/22 History (3 mL) subcutaneous pen (Novolin R USEASDIRECTD Flexpen) magnesium oxide 1,100 mg PO QAM 03/20/22 03/30/22 History pramipexole 1 mg tablet (Mirapex) 1 mg PO HS 03/20/22 03/30/22 History tramadol 50 mg tablet (Ultram) 50 mg PO Q4H PRN pain, initial 03/22/22 03/30/22 Rx therapy #10 tabs Past Med/Surg History Medical History (Updated 03/22/22 @ 10:16 by Terrie Dickinson, SVETA) Anemia requiring transfusions Chronic, hx blood transfusion Asthma CKD (chronic kidney disease) stage 3, GFR 30-59 ml/min COPD (chronic obstructive pulmonary disease) Diabetes mellitus, type 2 IDDM Diabetic peripheral neuropathy Follicular lymphoma Treatment: Systemic therapy with Rituxan Hx of malignant neoplasm of prostate Treated with brachytherapy and radiation Currently in remission Hyperlipidemia Hypertension Nocturnal hypoxemia Non-Hodgkin lymphoma Dx 2017 treated with chemotherapy at the time Was in remission until recently (01/2022) Numbness On home oxygen therapy 2lpm via n/c at HS and during the day PRN ANALI (obstructive sleep apnea) 2lpm via n/c at HS -- awaiting results from sleep study on 03/06/22 Retroperitoneal lymphadenopathy hx Surgical History (Updated 03/22/22 @ 10:16 by Terrie Dickinson, SVETA) H/O colonoscopy approx 2012 History of amputation traumatic tip of right index History of ankle surgery multiple (right ankle) ankle bone spurs removal - ankle joint hardware/fusion - osteomyelitis with hardware removal -- treated with abx, once healed had ankel hardware replaced History of carpal tunnel release right History of cholecystectomy History of colonoscopy History of elbow surgery right elbow surgery History of esophagogastroduodenoscopy (EGD) History of tooth extraction full top dental extraction Port-A-Cath in place (03/22/22) Insertion Access Port with Fluoroscopy to left internal jugular vein (Left) - Tate Rios DO, FACS Family History Father Diabetes Lung cancer Hypertension Stroke Mother Diabetes Hypertension Brother Diabetes Other No family history of adverse response to anesthesia Social History (Updated 03/20/22 @ 11:20 by Brenda Gutierrez RN) Smoking Status: Former smoker Smoking End Date: 2009; Second Hand Exposure: No; Do You Dip or Chew Tobacco: No; Tobacco Cessation Education Requested by Patient: No Hx Alcohol Use: Yes Alcohol type: beer Hx Substance Use: No Preferred Language: Sudanese Communication Ability: Effective Patient Service Coordinator Required: No Beliefs That Will Affect Care: None marital status: Current Living Situation: Significant Other current occupational status: retired and disabled How many Children do You have: 3 Other Information That Helps Us Care for You: No Feels Safe at Home: Yes Safety Concerns: Feels Safe At This Time during the past year weight has: decreased > 10 lbs Assistive Devices: Oxygen - at Night Review of Systems Review of Systems: Mild distress and fatigue no headache, no visual changes no speech or swallowing issues no chest pain, pressure or palpitations no shortness of breath, cough or wheezes no abdominal pain, nausea or vomiting, diarrhea or constipation no melena no dysuria, hematuria or frequency no focal joint pain or swelling no back pain, CVA tenderness or radicular pain no bruising, bleeding or rashes no focal signs of weakness or numbness or altered sensation no complaints of anxiety or depression.. Physical Exam Physical Exam: The patient appeared well nourished and normally developed. Vital signs as documented. Head exam is normocephalic atraumatic Neck is without JVD, thyromegaly, or carotid bruits. Lungs are clear to auscultation, decreased at the bases, Cardiac exam, Rhythm is regular.. No murmurs, rubs or gallops. Abdominal exam reveals normal bowel sounds, soft tympanitic and distended, no hepatomegally Extremities are 1+ edematous and both pedal pulses are present Neurologic exam is alert and oriented, no focal loss of strength or sensation Skin is without rashes Psychologically is without concerns for anxiety or depression.. Results & Data Results & Data ([facility]) Vital Signs (Past 12 Hours) Vital Signs Temp Pulse Resp BP Pulse Ox O2 Del Method 03/30/22 15:20 Room Air 03/30/22 15:20 97.5 F L 100 H 14 107/61 98 Room Air Code Status & VTE Plan VTE Prophylaxis Plan VTE Prophylaxis will be ordered: Yes PG Care Time/CCT Total # of Minutes Spent Total Time Spent with Patient: Total time spent is greater than 50% in coordination of care (as documented) at patient's floor/unit and/or counseling patient: Coding Level of Care Code 55632 Initial Inpt Care Lvl 3 Diagnoses NHL (non-Hodgkin's lymphoma) C85.90 Lymphoma site: unspecified region Non-Hodgkin lymphoma type: unspecified type Type 2 diabetes mellitus with insulin therapy E11.9; Z79.4 Chronic kidney disease N18.9 Hypertension I10 ANALI (obstructive sleep apnea) G47.33 (1) NHL (non-Hodgkin's lymphoma) Lymphoma site: unspecified region Non-Hodgkin lymphoma type: unspecified type Qualified Code(s): C85.90 - Non-Hodgkin lymphoma, unspecified, unspecified site
[2022-03-30] MEDS: INSULIN HUMAN NPH SQ SCH (18:46)
[2022-03-30] MEDS: ATORVASTATIN 20 MG TAB PO SCH (20:21)
[2022-03-30] MEDS: MONTELUKAST SODIUM 10 MG TABLET PO SCH (20:21)
[2022-03-30] MEDS: MELOXICAM 7.5 MG TAB PO SCH (20:21)
[2022-03-30] MEDS: INSULIN ASPART PER UNIT SC SCH (21:00)
[2022-03-30] MEDS: PRAMIPEXOLE DIHYDROCHLO 0.5 MG TAB PO SCH (23:01)
[2022-03-31 06:20] LABS: Hematocrit (blood only) 25.5 % (40.1-51.0); Hemoglobin 7.8 g/dl (14.0-18.0); Mean Corpuscular Hgb Conc 30.6 g/dL (32.0-36.0); Mean Corpuscular Volume 81.7 fL (80.0-100.0); Mean Platelet Volume 9.7 fL (9.4-12.4); Platelet Count 222 K/uL (130-400); RDW Coefficient of Variation 20.5 % (11.5-14.5); RDW Standard Deviation 61.3 fL (36.4-46.3); Red Blood Count 3.12 M/uL (4.63-6.08); White Blood Count 4.72 K/ul (4.8-10.8)
[2022-03-31 06:58] LABS: Estimated Average Glucose 163 mg/dl; Hemoglobin A1C 7.3 % (4.5-5.6)
[2022-03-31 07:03] LABS: BUN Creatinine Ratio 13.1 (10-20); Calcium 11.3 mg/dl (8.5-10.1); Creatinine Clr Calc Pharmacy 55.5 ml/min; Est GFR (African American) 54.5 ml/min; Magnesium 1.4 mg/dl (1.7-2.4); Potassium 4.1 mmol/L (3.5-5.1)
[2022-03-31] MEDS: CHOLECALCIFEROL 1,000 UNITS 25 MCG TAB PO SCH (08:23)
[2022-03-31] MEDS: MAGNESIUM OXIDE 400 MG TAB PO SCH (08:23)
[2022-03-31] MEDS: ASPIRIN 81 MG ECTAB PO SCH (08:23)
[2022-03-31] MEDS: FUROSEMIDE 20 MG TAB PO SCH (08:23)
[2022-03-31] MEDS: LORATADINE 10 MG TAB PO SCH (08:23)
[2022-03-31] MEDS: allopurinoL 300 MG TAB PO SCH (08:23)
[2022-03-31] MEDS: ENALAPRIL MALEATE 10 MG TAB PO SCH (08:23)
[2022-03-31] MEDS: INSULIN ASPART PER UNIT SC SCH ×4 (08:29→21:30)
--- NOTE | 2022-03-31 08:33 | Hospitalist Progress Note ---
Date of Service March 31, 2022 Assessment & Plan (1) NHL (non-Hodgkin's lymphoma): Plan: Patient to begin CHOP therapy concern for GI bleeding/perforation and tumor lysis syndrome given his previous GI bleeding. Patient being seen in follow along with Dr. Lopez she is ordered CHOP therapy to begin on 03/31/2022 recommend neupogen 480 mcg daily x 2 days starting 04/01 (2) Type 2 diabetes mellitus with insulin therapy: Plan: sliding scale with a correction factor of 20 and a carb ratio of 1:10. Patient will be maintained on his NPH 36 units at night however with his prednisone therapy we may anticipate elevation of his glucoses and need to transition to glargine or Lantus. hemoglobin A1c 7.3 (3) Chronic kidney disease: Plan: Patient has chronic kidney disease stage III we have to watch for tumor lysis syndrome patient has already started allopurinol will be maintained. Likewise with his chronic kidney disease most likely secondary to his diabetes the patient is on a prehospital ANGÉLICA inhibitor this will be continued and we will watch his renal function (4) Hypertension: Plan: For the patient's hypertension he takes only the benazepril but he also takes Lasix 20 mg a day (5) ANALI (obstructive sleep apnea): Plan: Patient is waiting formal outpatient evaluation for sleep apnea currently wears 2 L nasal cannula at night (6) Anemia: Plan: pt is anemia prior to starting chemo, will type and screen and follow Plan Patient is a full code DVT prevention are SCDs we will watch his platelet count avoid bruising, chemoprophylaxis is contraindicated has previous GI bleeds Admission and Anticipated Discharge Date Admission Date: March 30, 2022 Subjective Patient feels well has no complaints consented for blood hemoglobin is low on presentation expected to the lower Review of Systems Review of Systems: Mild distress and fatigue no headache, no visual changes no speech or swallowing issues no chest pain, pressure or palpitations no shortness of breath, cough or wheezes no abdominal pain, nausea or vomiting, diarrhea or constipation no melena no dysuria, hematuria or frequency no focal joint pain or swelling no back pain, CVA tenderness or radicular pain no bruising, bleeding or rashes no focal signs of weakness or numbness or altered sensation no complaints of anxiety or depression.. Physical Exam Physical Exam: The patient appeared well nourished and normally developed. Vital signs as documented. Head exam is normocephalic atraumatic Neck is without JVD, thyromegaly, or carotid bruits. Lungs are clear to auscultation, decreased at the bases, Cardiac exam, Rhythm is regular.. No murmurs, rubs or gallops. Abdominal exam reveals normal bowel sounds, soft tympanitic and distended, no hepatomegally Extremities are 1+ edematous and both pedal pulses are present Neurologic exam is alert and oriented, no focal loss of strength or sensation Skin is without rashes Psychologically is without concerns for anxiety or depression.. Results & Data Results & Data ([facility]) Vital Signs (Past 12 Hours) Vital Signs Temp Pulse Resp BP Pulse Ox O2 Del Method O2 Flow Rate 03/31/22 07:20 Room Air, Nasal Cannula 2 03/31/22 07:10 98.2 F 88 16 119/69 93 Room Air 03/30/22 22:15 99.5 F 99 H 14 105/64 98 Nasal Cannula 2 03/30/22 21:31 Nasal Cannula 2 PG Care Time/CCT Total # of Minutes Spent Total Time Spent with Patient: Total time spent is greater than 50% in coordination of care (as documented) at patient's floor/unit and/or counseling patient: Coding Level of Care Code 95540 Subseq Hosp Care Lvl 3 Diagnoses NHL (non-Hodgkin's lymphoma) C85.90 Lymphoma site: unspecified region Non-Hodgkin lymphoma type: unspecified type Type 2 diabetes mellitus with insulin therapy E11.9; Z79.4 Chronic kidney disease N18.9 Hypertension I10 ANALI (obstructive sleep apnea) G47.33 Anemia D64.9 (1) NHL (non-Hodgkin's lymphoma) Lymphoma site: unspecified region Non-Hodgkin lymphoma type: unspecified type Qualified Code(s): C85.90 - Non-Hodgkin lymphoma, unspecified, unspecified site
[2022-03-31] MEDS: MAGNESIUM SULFATE / D5W 1 GM/100 ML BAG IV SCH ×3 (08:51→14:59)
[2022-03-31] MEDS ORDERED: PANTOprazole 40 MG TAB PO SCH (09:00)
[2022-03-31] MEDS: predniSONE 50 MG TAB PO SCH (09:08)
[2022-03-31] MEDS ORDERED: PALONOSETRON 0.25 MG in SYRINGE 0 ML IV SCH (10:00)
[2022-03-31] MEDS ORDERED: DEXTROSE 5% IV SCH (10:00)
[2022-03-31] MEDS ORDERED: DEXAMETHASONE IV SCH (10:00)
[2022-03-31] MEDS ORDERED: FOSAPREPITANT DIMEGLUMINE 150 MG in SODIUM CHLORIDE 0.9% 145 ML IV SCH (10:00)
[2022-03-31] MEDS ORDERED: VINCRISTINE SULFATE IV SCH ×2 (10:15→10:45)
[2022-03-31] MEDS ORDERED: SODIUM CHLORIDE 0.9% IV SCH ×4 (10:15→11:00)
[2022-03-31] MEDS ORDERED: DOXORUBICIN HCL IV SCH (10:30)
[2022-03-31] MEDS ORDERED: CYCLOPHOSPHAMIDE IV SCH ×2 (11:00)
[2022-03-31 13:52] LABS: Phosphorus 2.4 mg/dl (2.5-4.9); Uric Acid 6.1 mg/dl (2.6-7.2)
[2022-03-31] MEDS: INSULIN HUMAN NPH SQ SCH (17:42)
[2022-03-31] MEDS: MELOXICAM 7.5 MG TAB PO SCH (20:26)
[2022-03-31] MEDS: MONTELUKAST SODIUM 10 MG TABLET PO SCH (20:26)
[2022-03-31] MEDS: ATORVASTATIN 20 MG TAB PO SCH (20:26)
[2022-03-31] MEDS: PRAMIPEXOLE DIHYDROCHLO 0.5 MG TAB PO SCH (20:27)
[2022-04-01 07:04] LABS: Hemoglobin 7.9 g/dl (14.0-18.0); Mean Corpuscular Hemoglobin 24.9 pg (25.0-34.0); Mean Corpuscular Hgb Conc 30.4 g/dL (32.0-36.0); Mean Platelet Volume 9.4 fL (9.4-12.4); Platelet Count 204 K/uL (130-400); RDW Coefficient of Variation 20.4 % (11.5-14.5); RDW Standard Deviation 60.1 fL (36.4-46.3); Red Blood Count 3.17 M/uL (4.63-6.08); White Blood Count 5.21 K/ul (4.8-10.8)
[2022-04-01 07:45] LABS: BUN Creatinine Ratio 23.8 (10-20); Creatinine Clr Calc Pharmacy 50.6 ml/min; Est GFR (African American) 48.7 ml/min; Magnesium 1.7 mg/dl (1.7-2.4); Potassium 4.7 mmol/L (3.5-5.1)
[2022-04-01] MEDS ORDERED: SODIUM CHLORIDE 0.9% IV ONE (09:00)
[2022-04-01] MEDS ORDERED: ZOLEDRONIC ACID IV ONE (09:00)
--- NOTE | 2022-04-01 09:01 | Hematology/Oncology Prog Note ---
Date of Service April 01, 2022 Assessment & Plan (1) Follicular lymphoma: Plan: Received cycle 1 of CHOP chemotherapy on 03/31/2022 (2) Retroperitoneal lymphadenopathy: (3) Abdominal mass: (4) Anemia: Plan: Has received 2 doses of IV Venofer Plan Pleasant 67-year-old gentleman with history of follicular lymphoma with mesenteric mass possibly due to follicular lymphoma or more aggressive large lymphoma. Unfortunately, biopsy could not be performed of mesenteric mass due to location. He received cycle 1 of CHOP chemotherapy inpatient on 03/31/2022 due to concern for GI bleeding/perforation and tumor lysis syndrome. Has done well since receiving chemotherapy. His hemoglobin remained stable and uric acid has now normalized with allopurinol. Phosphorus is low normal. No evidence of TLS at this time. Calcium noted to be elevated at 11 possibly due to lymphoma. Recommend giving renally dosed bisphosphonate for hypercalcemia. Also recommend Zarxio 40 mcg daily x2 days. If labs remain stable tomorrow, he can be discharged home in the morning after receiving his second dose of Zarxio. We will arrange for him to receive IV rituximab early next week as an outpatient at [facility]. Appreciate care from hospitalist team for this very pleasant gentleman. Admission and Anticipated Discharge Date Admission Date: March 30, 2022 Subjective Doing very well after receiving cycle 1 of CHOP chemotherapy yesterday. C omplains of insomnia likely due to prednisone. Also complains of elevated blood sugar. Denies nausea, vomiting, abdominal pain or diarrhea. Review of Systems Review of Systems: All systems reviewed & are unremarkable except as noted in HPI & below Results & Data ([facility]) Vital Signs (Past 12 Hours) Vital Signs Temp Pulse Resp BP Pulse Ox O2 Del Method 04/01/22 07:38 36.4 C L 76 16 114/67 95 Room Air 03/31/22 21:16 36.6 C 82 16 99/60 L 93 Room Air Laboratory Results Stable hemoglobin of 7.9. Uric acid normal at 6.3. Calcium elevated at 11 (1) Abdominal mass Abdominal location: generalized Qualified Code(s): R19.07 - Generalized i ntra-abdominal and pelvic swelling, mass and lump
[2022-04-01] MEDS: allopurinoL 300 MG TAB PO SCH (09:14)
[2022-04-01] MEDS: ASPIRIN 81 MG ECTAB PO SCH (09:14)
[2022-04-01] MEDS: CHOLECALCIFEROL 1,000 UNITS 25 MCG TAB PO SCH (09:14)
[2022-04-01] MEDS: predniSONE 50 MG TAB PO SCH (09:15)
[2022-04-01] MEDS: FUROSEMIDE 20 MG TAB PO SCH (09:15)
[2022-04-01] MEDS: MAGNESIUM OXIDE 400 MG TAB PO SCH (09:15)
[2022-04-01] MEDS: LORATADINE 10 MG TAB PO SCH (09:15)
[2022-04-01] MEDS: ENALAPRIL MALEATE 10 MG TAB PO SCH (09:15)
[2022-04-01] MEDS: PANTOprazole 40 MG TAB PO SCH (09:15)
[2022-04-01] MEDS: INSULIN ASPART PER UNIT SC SCH ×4 (09:19→21:44)
[2022-04-01] MEDS: FILGRASTIM 480 MCG/1.6 ML VIAL SC SCH (10:43)
[2022-04-01] MEDS: INSULIN HUMAN NPH SQ SCH (17:40)
[2022-04-01] MEDS ORDERED: LANTUS PER UNIT CHARGE SQ ONE (18:03)
--- NOTE | 2022-04-01 18:06 | Hospitalist Progress Note ---
Date of Service April 01, 2022 Assessment & Plan (1) NHL (non-Hodgkin's lymphoma): Plan: having recieved CHOP therapy admitted due to concern for GI bleeding/perforation and tumor lysis syndrome given his previous GI bleeding. Patient being seen in follow along with Dr. Lopez she is ordered CHOP therapy to begin on 03/31/2022 recommend neupogen 480 mcg daily x 2 days starting 04/01 (2) Type 2 diabetes mellitus with insulin therapy: Plan: sliding scale with a correction factor of 10 and a carb ratio of 1:6. Patient will be maintained on his NPH 36 units at night however with his prednisone therapy we may anticipate elevation of his glucoses a small dose of Lantus on 04/01 hemoglobin A1c 7.3 (3) Chronic kidney disease: Plan: Patient has chronic kidney disease stage III we have to watch for tumor lysis syndrome patient has already started allopurinol will be maintained. Likewise with his chronic kidney disease most likely secondary to his diabetes the patient is on a prehospital ANGÉLICA inhibitor this will be continued and we will watch his renal function (4) Hypertension: Plan: For the patient's hypertension he takes only the benazepril but he also takes Lasix 20 mg a day (5) ANALI (obstructive sleep apnea): Plan: Patient is waiting formal outpatient evaluation for sleep apnea currently wears 2 L nasal cannula at night (6) Anemia: Plan: pt is anemia prior to starting chemo, will type and screen and follow Plan Patient is a full code DVT prevention are SCDs we will watch his platelet count avoid bruising, chemoprophylaxis is contraindicated has previous GI bleeds Admission and Anticipated Discharge Date Admission Date: March 30, 2022 Subjective Doing very well after receiving cycle 1 of CHOP chemotherapy yesterday. Compla ins of insomnia likely due to prednisone. persistently elevated blood sugar. Denies nausea, vomiting, abdominal pain or diarrhea. Review of Systems Review of Systems: Mild distress and fatigue no headache, no visual changes no speech or swallowing issues no chest pain, pressure or palpitations no shortness of breath, cough or wheezes no abdominal pain, nausea or vomiting, diarrhea or constipation no melena no dysuria, hematuria or frequency no focal joint pain or swelling no back pain, CVA tenderness or radicular pain no bruising, bleeding or rashes no focal signs of weakness or numbness or altered sensation no complaints of anxiety or depression.. Physical Exam Physical Exam: The patient appeared well nourished and normally developed. Vital signs as documented. Head exam is normocephalic atraumatic Neck is without JVD, thyromegaly, or carotid bruits. Lungs are clear to auscultation, decreased at the bases, Cardiac exam, Rhythm is regular.. No murmurs, rubs or gallops. Abdominal exam reveals normal bowel sounds, soft tympanitic and distended, no hepatomegally Extremities are 1+ edematous and both pedal pulses are present Neurologic exam is alert and oriented, no focal loss of strength or sensation Skin is without rashes Psychologically is without concerns for anxiety or depression.. Results & Data Results & Data ([facility]) Vital Signs (Past 12 Hours) Vital Signs Temp Pulse Resp BP Pulse Ox O2 Del Method 04/01/22 15:20 97.5 F L 89 16 106/54 L 94 Room Air 04/01/22 07:38 97.5 F L 76 16 114/67 95 Room Air PG Care Time/CCT Total # of Minutes Spent Total Time Spent with Patient: Total time spent is greater than 50% in coordination of care (as documented) at patient's floor/unit and/or counseling patient: Coding Level of Care Code 67835 Subseq Hosp Care Lvl 2 Diagnoses NHL (non-Hodgkin's lymphoma) C85.90 Lymphoma site: unspecified region Non-Hodgkin lymphoma type: unspecified type Type 2 diabetes mellitus with insulin therapy E11.9; Z79.4 Chronic kidney disease N18.9 Hypertension I10 ANALI (obstructive sleep apnea) G47.33 Anemia D64.9 (1) NHL (non-Hodgkin's lymphoma) Lymphoma site: unspecified region Non-Hodgkin lymphoma type: unspecified type Qualified Code(s): C85.90 - Non-Hodgkin lymphoma, unspecified, unspecified site
[2022-04-01] MEDS: ATORVASTATIN 20 MG TAB PO SCH (20:18)
[2022-04-01] MEDS: MELOXICAM 7.5 MG TAB PO SCH (20:18)
[2022-04-01] MEDS: PRAMIPEXOLE DIHYDROCHLO 0.5 MG TAB PO SCH (20:19)
[2022-04-01] MEDS: MONTELUKAST SODIUM 10 MG TABLET PO SCH (20:19)
[2022-04-01 20:57] VITALS: TEMP 97.7
[2022-04-02 06:19] LABS: Mean Corpuscular Hemoglobin 25.6 pg (25.0-34.0); Mean Corpuscular Hgb Conc 30.8 g/dL (32.0-36.0); Mean Corpuscular Volume 83.1 fL (80.0-100.0); Mean Platelet Volume 9.7 fL (9.4-12.4); Platelet Count 227 K/uL (130-400); RDW Coefficient of Variation 21.2 % (11.5-14.5); RDW Standard Deviation 62.3 fL (36.4-46.3); Red Blood Count 3.13 M/uL (4.63-6.08); White Blood Count 15.06 K/ul (4.8-10.8)
[2022-04-02 06:38] LABS: BUN Creatinine Ratio 32.9 (10-20); Calcium 10.3 mg/dl (8.5-10.1); Creatinine Clr Calc Pharmacy 54.8 ml/min; Est GFR (African American) 53.7 ml/min; Est GFR (Non-African American) 46.3 ml/min; Magnesium 1.8 mg/dl (1.7-2.4); Potassium 4.4 mmol/L (3.5-5.1)
[2022-04-02 07:35] VITALS: BP 133/69; PULSE 90; O2SAT 96
[2022-04-02 09:20] LABS: Anisocytosis Present; Basophils # (auto) 0.02 K/uL (0-0.2); Basophils % (auto) 0.1 %; Immature Granulocytes # (auto) 0.74 K/uL (0.00-0.02); Immature Granulocytes % (auto) 4.8 %; Lymphocytes # (auto) 0.43 K/uL (1.2-3.4); Lymphocytes % (auto) 2.8 %; Monocytes # (auto) 0.56 K/uL (0.24-0.82); Monocytes % (auto) 3.6 %; Neutrophils # (auto) 13.65 K/uL (1.4-6.5); Neutrophils % (auto) 88.7 %; Ovalocytes 1+; Polychromasia 1+; Tear Drop Cells 1+
[2022-04-02] MEDS: MAGNESIUM OXIDE 400 MG TAB PO SCH (09:48)
[2022-04-02] MEDS: LORATADINE 10 MG TAB PO SCH (09:48)
[2022-04-02] MEDS: ENALAPRIL MALEATE 10 MG TAB PO SCH (09:48)
[2022-04-02] MEDS: FUROSEMIDE 20 MG TAB PO SCH (09:48)
[2022-04-02] MEDS: PANTOprazole 40 MG TAB PO SCH (09:48)
[2022-04-02] MEDS: CHOLECALCIFEROL 1,000 UNITS 25 MCG TAB PO SCH (09:48)
[2022-04-02] MEDS: allopurinoL 300 MG TAB PO SCH (09:48)
[2022-04-02] MEDS: predniSONE 50 MG TAB PO SCH (09:48)
[2022-04-02] MEDS: ASPIRIN 81 MG ECTAB PO SCH (09:48)
[2022-04-02] MEDS: FILGRASTIM 480 MCG/1.6 ML VIAL SC SCH (09:51)
[2022-04-02] MEDS: INSULIN ASPART PER UNIT SC SCH ×2 (09:54→12:51)
--- NOTE | 2022-04-02 12:25 | Discharge Summary ---
Discharge Summary Date of Service April 02, 2022 Admission HPI Per Admitting Provider 67-year-old male being admitted for chemotherapy for follicular lymphoma. Patient was recently found to have disease progression on recent PET scan with masses involving his mesentery and his large and small bowel. Patient had GI bleeding associated with these masses and was initially transferred to [facility] where he received supportive care but no interventional care. At that time he was supported with blood products and intravenous iron. Patient has a known mesenteric mass which may be necrotic tumor involves multiple small bowel loops there is no previous identified bowel obstruction. Patient otherwise has been feeling relatively well with poor appetite and decreased energy he has had no abdominal pain. He said no recent melena or bloody stools. Patient was admitted to the hospital for chemotherapy given his large tumor burden possible tumor lysis syndrome and possible risk of GI bleeding with treatment Admission Exam Per Admitting Provider The patient appeared well nourished and normally developed. Vital signs as documented. Head exam is normocephalic atraumatic Neck is without JVD, thyromegaly, or carotid bruits. Lungs are clear to auscultation, decreased at the bases, Cardiac exam, Rhythm is regular.. No murmurs, rubs or gallops. Abdominal exam reveals normal bowel sounds, soft tympanitic and distended, no hepatomegally Extremities are 1+ edematous and both pedal pulses are present Neurologic exam is alert and oriented, no focal loss of strength or sensation Skin is without rashes Psychologically is without concerns for anxiety or depression.. Principal Dx & Hospital Course #1 = Principal Diagnosis (1) NHL (non-Hodgkin's lymphoma): 67-year-old male past medical history significant for insulin-dependent type 2 diabetes, hypertension, non-Hodgkin's lymphoma, CKD stage III, anemia of chronic disease, ANALI admitted for chemotherapy for follicular lymphoma. NHL: History of follicular lymphoma for which she is status post rituximab weekly x4 doses in April of 2016 followed by maintenance rituximab which was discontinued in December 2016. Recently diagnosed with disease progression with large mesenteric soft tissue mass and resultant intermittent GI bleeding. Was admitted for CHOP therapy (cyclophosphamide, doxorubicin, vincristine, prednisone). Started on allopurinol during this admission for a recent uric acid level of 7.6. Received Neupogen 480 mcg daily x2 days. WBC count of 15.06 today; this is secondary to Neupogen and steroids use this admission. No localizable sources of infection. Due to continued stability post chemo will be discharged today with follow-up with heme-onc (Dr. Lopez) including labs on . (2) Type 2 diabetes mellitus with insulin therapy: History of insulin-dependent type 2 diabetes, is on NPH 36 units nightly with sliding scale. Some difficulty with controlling patient's blood sugars yesterday due to prednisone. Patient can resume home regimen with tight carb ratio. A1c 7.3%. (3) Chronic kidney disease: History of CKD with a baseline creatinine around 1.5; at baseline on day of discharge. (4) Hypertension: Continue benazepril and Lasix. (5) ANALI (obstructive sleep apnea): Patient is waiting formal outpatient evaluation for sleep apnea currently wears 2 L nasal cannula at night. (6) Anemia: Chronic. Hemoglobin remained stable at 8.0 during hospitalization. Follow-up as described above with hematology with transfusion if necessary on . Discharge Exam Constitutional WD/WN, vitals as above Respiratory normal respiratory effort; no respiratory distress, no labored breathing, no cough and not tachypneic Psychiatric A+Ox3, euthymic affect Updated Medication List Medication Instructions Recorded Confirmed Type pantoprazole 20 mg tablet,delayed 20 mg PO QAM 07/16/18 03/30/22 History release (Protonix) aspirin 81 mg tablet 81 mg PO QAM 01/29/19 03/30/22 History loratadine 10 mg tablet (Claritin) 10 mg PO QAM 01/29/19 03/30/22 History montelukast 10 mg tablet 10 mg PO HS 01/29/19 03/30/22 History (Singulair) benazepril 20 mg tablet (Lotensin) 20 mg PO QAM 06/09/19 03/30/22 History insulin NPH isoph U-100 human 100 36 units subcut HS 07/17/19 03/30/22 History unit/mL subcutaneous suspension (Novolin N NPH U-100 Insulin isophane) albuterol sulfate 2.5 mg/3 mL 2.5 mg (3 mL) inhalation .COMPLEX 08/25/19 03/30/22 Rx (0.083 %) solution for nebulization PRN shortness of breath or wheezing #90 mL ascorbic acid (vitamin C) 500 mg 500 mg PO QAM 08/02/21 03/30/22 History capsule cholecalciferol (vitamin D3) 50 1,000 unit PO QAM 08/02/21 03/30/22 History mcg (2,000 unit) tablet meloxicam 15 mg tablet 15 mg PO HS 08/02/21 03/30/22 History albuterol sulfate 90 mcg/actuation 1 inh inhalation QID PRN sob 03/20/22 03/30/22 History aerosol inhaler atorvastatin 20 mg tablet 20 mg PO HS 03/20/22 03/30/22 History furosemide 20 mg tablet (Lasix) 20 mg PO QAM 03/20/22 03/30/22 History insulin regular human 100 unit/mL 1 sliding scale dose subcut 03/20/22 03/30/22 History (3 mL) subcutaneous pen (Novolin R USEASDIRECTD Flexpen) magnesium oxide 1,100 mg PO QAM 03/20/22 03/30/22 History pramipexole 1 mg tablet (Mirapex) 1 mg PO HS 03/20/22 03/30/22 History tramadol 50 mg tablet (Ultram) 50 mg PO Q4H PRN pain, initial 03/22/22 03/30/22 Rx therapy #10 tabs allopurinol 300 mg tablet 300 mg PO DAILY #30 tabs 04/02/22 Rx prednisone 50 mg tablet 100 mg PO DAILY 2 days #4 tabs 04/02/22 Rx Hospital Stay Data Consultations 03/30/22 16:38 Consult Oncology Routine Pending Results Patient Have Any Pending Studies at Discharge: No Discharge Instructions Given to Patient (Per Discharging Provider) You were admitted to the hospital for chemotherapy under the direction of Dr. Lopez. Your labwork was monitored while you were here, and after stable labwork for a few days you were felt to be safe for discharge home. Please see the following regarding appointments and mediction information. 1) Please contact Dr. Lopez's office to make sure you have an appointment for next week. 2) You will continue the prednisone you have been on in the hospital for two more days, starting tomorrow morning. All new medications were sent to [facility] in [place]. 3) You were started on a medication called allopurinol. This is to keep your uric acid levels down while you are undergoing chemo treatments. You should take this, one pill daily in the morning. 4) Because you are on prednisone, you can expect your sugars to be elevated at home. Please stay regimented with your nightly insulin, as well as your sliding scale for meals, in order to prevent extremely high sugars while on steroids. 5) Please keep your appointments with Dr. Rios (04/03 at 1:45pm), and for your ultrasound lymph node biopsy (04/05 at 10AM). Total Time Total Time Spent Total Time Spent (In Minutes): 35 minutes Coding Level of Care Code D/C DAY MANAGEMENT >30 MINS Diagnoses NHL (non-Hodgkin's lymphoma) C85.90 Lymphoma site: unspecified region Non-Hodgkin lymphoma type: unspecified type Type 2 diabetes mellitus with insulin therapy E11.9; Z79.4 Chronic kidney disease N18.9 Hypertension I10 ANALI (obstructive sleep apnea) G47.33 Anemia D64.9
--- NOTE | 2022-04-02 13:39 | Hematology/Oncology Prog Note ---
Date of Service April 02, 2022 Assessment & Plan (1) NHL (non-Hodgkin's lymphoma): Plan: S/p CHOP chemotherapy on 03/31/2022 (2) Retroperitoneal lymphadenopathy: Plan Pleasant gentleman who is s/p CHOP chemotherapy for follicular lymphoma/more aggressive large cell lymphoma on 03/31/2022. Labs look good with stable hemoglobin of 8.0. Calcium level has improved with IV Zometa 1. Follicular lymphoma/possible large cell lymphoma: S/p CHOP. We will arrange for rituximab infusion later this week. He will continue treatment every 3 weeks for total of 6 cycles of treatment. Continue with prednisone 100 mg p.o. daily for 2 more days. Continue with allopurinol 300 mg p.o. daily. 2. Hypercalcemia: Improved with IV Zometa 3. Leukocytosis: Due to filgrastim (zarxio) which he received yesterday as well as steroids. He is scheduled to receive another dose of filgrastim today prior to discharge home to reduce risk of febrile neutropenia 4. Anemia: Currently asymptomatic. We will recheck labs on and transfuse as needed Admission and Anticipated Discharge Date Admission Date: March 30, 2022 Subjective He is doing well. Denies nausea, vomiting, fever, chills or any other issues. Review of Systems Review of Systems: All systems reviewed & are unremarkable except as noted in Subjective Results & Data ([facility]) Vital Signs (Past 12 Hours) Vital Signs Temp Pulse Resp BP Pulse Ox O2 Del Method 04/02/22 13:22 36.5 C 90 16 133/69 96 04/02/22 07:32 36.5 C 90 16 133/69 96 Room Air Laboratory Results CBC significant for white cell count of 15,000, hemoglobin of 8, platelet count of 2 27,000. Calcium of 10.3 (1) NHL (non-Hodgkin's lymphoma) Lymphoma site: unspecified region Non-Hodgkin lymphoma type: unspecified type Qualified Code(s): C85.90 - Non-Hodgkin lymphoma, unspecified, unspecified site
[2022-04-02 16:21] LABS: Anion Gap 7.3 (3-11)
== END 2022-04-02 14:27 | disposition home or self-care (01) | DRG 847 ==
LOC: SUATTDRO 14:47 → 3E 14:47

== ENCOUNTER 2022-05-15 13:36 | Inpatient (IN) ==
--- NOTE | 2022-05-15 14:05 | Emergency Department Note ---
Impression & Plan Acute hypotension, Acute renal failure, Hypermagnesemia, Pneumonia ED Provider Note HISTORY OF PRESENT ILLNESS: Patient is a 67-year-old male presenting with lightheadedness. Patient states that over the last 4 to 5 days he has been having significant lightheadedness and dizziness when he stands up. He has had generalized weakness over that same timeframe. He was seen at the cancer center today and Paul and laboratory work-up showed a creatinine of 10.56 today. His last creatinine on 05/01 was 1.25. Patient reports that in the last 4 to 5 days he has been having recurrent falls secondary to weakness. His last fall was last night in which he went to get up and ended up falling down on his bottom. Denies any chest pain or shortness of breath. His last chemo was 04/27/2022. Reports nausea and vomiting over the last week. Denies any significant abdominal pain. He has been having loose stool for the last few months secondary to chemotherapy. Denies any fevers. ROS: Constitutional: No fever, chills +weakness Skin: No rash or diaphoresis HENT: No headaches or congestion Eyes: No vision changes Cardio: No chest pain, palpitations or leg swelling Respiratory: No cough, wheezing or shortness of breath GI: No diarrhea, constipation +nausea; +vomiting : No dysuria, polyuria MSK: No joint or back pain Neuro: No loss of sensation, confusion, focal deficits, numbness, tingling +lightheadedness Psychiatric: No mood changes PHYSICAL EXAM: Constitutional: Patient appears in no acute distress. HENT: Head: Normocephalic and atraumatic. Eyes: EOMI, PERRL Mouth/Throat: Mucous membranes dry Neck: Trachea midline. Neck supple. Cardiovascular: RRR, No murmurs, rubs or gallops. Intact distal pulses. Pulmonary/Chest: No respiratory distress. Breath sounds clear and equal bilaterally. No wheezes or rales. Abdominal: BS +. Abdomen soft, no tenderness, rebound or guarding. Back: No midline spinal tenderness, no paraspinal tenderness, no CVA tenderness. Musculoskeletal: No edema, tenderness or deformity noted. Skin: Warm and dry. No rash, erythema, pallor or cyanosis Psychiatric: Appropriate mood and affect for situation. Neurological: Alert and keenly responsive. CN II-XII grossly intact, moving all extremities equally and fully. MDM: - Vitals signs showed hypotension and bradycardia. - Patient is mentating well on exam, despite hypotension. Port accessed and laboratory workup obtained. Given 2L NS for fluid resuscitation. - EKG negative for acute ischemic changes. - Laboratory workup showed normal WBC; chronic anemia (Hgb 9.9); normal plate lets; normal troponin; hyponatremia (Na 130); borderline hypokalemia (K 5.0); hypermagnesemia (Mg 4.0); normal lactate; ALTAGRACIA on CKD (Cr 10.66 - baseline around 1.2) - Blood cultures obtained. - Patient given IV cefepime for sepsis coverage. - CXR shows left basilar opacity concerning for atelectasis versus pneumonia. - Patient given a total of 3L NS boluses. Started on NS maintenance at 200 cc/hr. - Repeat BMP ordered for assess abnormalities after hydration. - Vitals improved with IV hydration --> BP up to 100s systolic and HR to low 100s. - Hospitalist Dr. Goldberg consulted for admission. Requested nephrology consult. - Consulted carpenter inspector Dr. Richardson. Recommended repeat chemistry and will assess patient. - Patient admitted to [facility] hospitalist service for further evaluation and manage ment. ASSESSMENT AND PLAN: Diagnosis: hypotension; acute renal failure; hypermagnesemia; pneumonia Plan: admit I provided 46 minutes of critical care time separate from billable procedures. Past Med/Surg History Medical History (Updated 05/15/22 @ 17:40 by Oliver Goldberg MD) Anemia requiring transfusions Chronic, hx blood transfusion Asthma Chronic obstructive pulmonary disease CKD (chronic kidney disease) stage 3, GFR 30-59 ml/min COPD (chronic obstructive pulmonary disease) Diabetes mellitus, type 2 IDDM Diabetic peripheral neuropathy Follicular lymphoma Treatment: Systemic therapy with Rituxan Hx of malignant neoplasm of prostate Treated with brachytherapy and radiation Currently in remission Hyperlipidemia Hypertension Nocturnal hypoxemia Non-Hodgkin lymphoma Dx 2017 treated with chemotherapy at the time Was in remission until recently (01/2022) Numbness On home oxygen therapy 2lpm via n/c at HS and during the day PRN ANALI (obstructive sleep apnea) 2lpm via n/c at HS -- awaiting results from sleep study on 03/06/22 ANALI (obstructive sleep apnea) Retroperitoneal lymphadenopathy hx Surgical History H/O colonoscopy approx 2012 History of amputation traumatic tip of right index History of ankle surgery multiple (right ankle) ankle bone spurs removal - ankle joint hardware/fusion - osteomyelitis with hardware removal -- treated with abx, once healed had ankel hardware replaced History of carpal tunnel release right History of cholecystectomy History of colonoscopy History of elbow surgery right elbow surgery History of esophagogastroduodenoscopy (EGD) History of tooth extraction full top dental extraction Port-A-Cath in place (03/22/22) Insertion Access Port with Fluoroscopy to left internal jugular vein (Left) - Tate Rios DO, FACS Family History Father Diabetes Lung cancer Hypertension Stroke Mother Diabetes Hypertension Brother Diabetes Other No family history of adverse response to anesthesia Social History (Updated 03/20/22 @ 11:20 by Brenda Guiterrez RN) Smoking Status: Former smoker Tobacco Type: Cigarettes Second Hand Exposure: No; Hx Alcohol Use: Yes Alcohol type: beer Hx Substance Use: No Preferred Language: Bahamian Communication Ability: Effective Medical Technical Writer Required: No Beliefs That Will Affect Care: None marital status: Current Living Situation: Significant Other current occupational status: retired and disabled How many Children do You have: 3 Feels Safe at Home: Yes during the past year weight has: decreased > 10 lbs Assistive Devices: Cane, Oxygen - at Night, Walker, Wheelchair and Other Allergies Allergies Allergy/AdvReac Type Severity Reaction Status Date / Time morphine AdvReac Unknown "dizzy",del Verified 04/07/22 12:49 [facility] Meds Home Medications Medication Instructions Recorded Confirmed pantoprazole 20 mg tablet,delayed 20 mg PO QAM 07/16/18 04/07/22 release (Protonix) aspirin 81 mg tablet 81 mg PO QAM 01/29/19 04/07/22 loratadine 10 mg tablet (Claritin) 10 mg PO QAM 01/29/19 04/07/22 montelukast 10 mg tablet 10 mg PO HS 01/29/19 04/07/22 (Singulair) benazepril 20 mg tablet (Lotensin) 20 mg PO QAM 06/09/19 04/07/22 insulin NPH isoph U-100 human 100 36 units subcut HS 07/17/19 04/07/22 unit/mL subcutaneous suspension (Novolin N NPH U-100 Insulin isophane) ascorbic acid (vitamin C) 500 mg 500 mg PO QAM 08/02/21 04/07/22 capsule cholecalciferol (vitamin D3) 50 1,000 unit PO QAM 08/02/21 04/07/22 mcg (2,000 unit) tablet meloxicam 15 mg tablet 15 mg PO HS 08/02/21 04/07/22 albuterol sulfate 90 mcg/actuation 1 inh inhalation QID PRN sob 03/20/22 04/07/22 aerosol inhaler atorvastatin 20 mg tablet 20 mg PO HS 03/20/22 04/07/22 furosemide 20 mg tablet (Lasix) 20 mg PO QAM 03/20/22 04/07/22 insulin regular human 100 unit/mL 1 sliding scale dose subcut 03/20/22 04/07/22 (3 mL) subcutaneous pen (Novolin R USEASDIRECTD Flexpen) magnesium oxide 1,100 mg PO QAM 03/20/22 04/07/22 pramipexole 1 mg tablet (Mirapex) 1 mg PO HS 03/20/22 04/07/22 Previous Rx's Medication Instructions Recorded allopurinol 300 mg tablet 300 mg PO DAILY #30 tabs 04/02/22 CPAP Machine #1 ea 04/05/22 CPAP Supplies #1 ea 04/05/22 Results & Data (ED) Vital Signs Vital Signs - 24 hr 05/15/22 13:46 05/15/22 14:07 05/15/22 14:07 Pulse Rate 36 L Pulse Rate [Apical] 97 H Pulse Rate from SpO2 Sensor Respiratory Rate 20 17 Blood Pressure 63/37 L Blood Pressure [Left Arm] 70/39 L Blood Pressure Mean 45 Blood Pressure Mean [Left Arm] 49 Pulse Oximetry 95 94 94 Oxygen Delivery Method Room Air Room Air Sepsis Recent Fever Within 48 Hours No Sepsis New/Unexplained Change in Mental Status N/A Sepsis Action Taken by Nursing No Action Required 05/15/22 14:17 05/15/22 14:32 05/15/22 14:39 Pulse Rate 133 H Pulse Rate [Apical] 99 H 92 H Pulse Rate from SpO2 Sensor Respiratory Rate 15 18 15 Blood Pressure 74/42 L Blood Pressure [Left Arm] 81/39 L 77/47 L Blood Pressure Mean 52 Blood Pressure Mean [Left Arm] 53 57 Pulse Oximetry 94 94 93 Oxygen Delivery Method Room Air Room Air Sepsis Recent Fever Within 48 Hours Sepsis New/Unexplained Change in Mental Status Sepsis Action Taken by Nursing 05/15/22 14:48 05/15/22 14:40 05/15/22 14:50 Pulse Rate 93 H Pulse Rate [Apical] Pulse Rate from SpO2 Sensor 94 H Respiratory Rate 14 Blood Pressure 76/37 L Blood Pressure [Left Arm] 75/39 L Blood Pressure Mean 50 Blood Pressure Mean [Left Arm] 51 Pulse Oximetry 79 L Oxygen Delivery Method Sepsis Recent Fever Within 48 Hours Sepsis New/Unexplained Change in Mental Status Sepsis Action Taken by Nursing 05/15/22 14:50 05/15/22 15:00 05/15/22 15:00 Pulse Rate 97 H 98 H Pulse Rate [Apical] Pulse Rate from SpO2 Sensor 99 H 99 H Respiratory Rate 20 23 Blood Pressure 94/51 L Blood Pressure [Left Arm] Blood Pressure Mean 65 Blood Pressure Mean [Left Arm] Pulse Oximetry 92 93 Oxygen Delivery Method Sepsis Recent Fever Within 48 Hours Sepsis New/Unexplained Change in Mental Status Sepsis Action Taken by Nursing 05/15/22 15:10 05/15/22 15:10 05/15/22 15:20 Pulse Rate 96 H Pulse Rate [Apical] Pulse Rate from SpO2 Sensor Respiratory Rate 19 Blood Pressure 84/43 L 75/42 L Blood Pressure [Left Arm] Blood Pressure Mean 56 53 Blood Pressure Mean [Left Arm] Pulse Oximetry Oxygen Delivery Method Sepsis Recent Fever Within 48 Hours Sepsis New/Unexplained Change in Mental Status Sepsis Action Taken by Nursing 05/15/22 15:20 05/15/22 15:30 05/15/22 15:30 Pulse Rate 100 H 99 H Pulse Rate [Apical] Pulse Rate from SpO2 Sensor 97 H 95 H Respiratory Rate 14 23 Blood Pressure 80/37 L Blood Pressure [Left Arm] Blood Pressure Mean 51 Blood Pressure Mean [Left Arm] Pulse Oximetry 94 Oxygen Delivery Method Sepsis Recent Fever Within 48 Hours Sepsis New/Unexplained Change in Mental Status Sepsis Action Taken by Nursing 05/15/22 15:34 05/15/22 15:34 05/15/22 15:40 Pulse Rate 97 H Pulse Rate [Apical] Pulse Rate from SpO2 Sensor 96 H Respiratory Rate 20 Blood Pressure 78/38 L 83/42 L Blood Pressure [Left Arm] Blood Pressure Mean 51 55 Blood Pressure Mean [Left Arm] Pulse Oximetry 93 Oxygen Delivery Method Sepsis Recent Fever Within 48 Hours Sepsis New/Unexplained Change in Mental Status Sepsis Action Taken by Nursing 05/15/22 15:40 05/15/22 15:50 05/15/22 15:50 Pulse Rate 98 H 100 H Pulse Rate [Apical] Pulse Rate from SpO2 Sensor 98 H 100 H Respiratory Rate 29 H 19 Blood Pressure 84/56 L Blood Pressure [Left Arm] Blood Pressure Mean 65 Blood Pressure Mean [Left Arm] Pulse Oximetry 94 Oxygen Delivery Method Sepsis Recent Fever Within 48 Hours Sepsis New/Unexplained Change in Mental Status Sepsis Action Taken by Nursing 05/15/22 16:00 05/15/22 16:00 05/15/22 16:10 Pulse Rate 100 H 99 H Pulse Rate [Apical] Pulse Rate from SpO2 Sensor 103 H 95 H Respiratory Rate 23 24 Blood Pressure 82/56 L Blood Pressure [Left Arm] Blood Pressure Mean 64 Blood Pressure Mean [Left Arm] Pulse Oximetry 98 93 Oxygen Delivery Method Sepsis Recent Fever Within 48 Hours Sepsis New/Unexplained Change in Mental Status Sepsis Action Taken by Nursing 05/15/22 16:20 05/15/22 16:30 05/15/22 16:30 Pulse Rate 104 H 105 H Pulse Rate [Apical] Pulse Rate from SpO2 Sensor 103 H 105 H Respiratory Rate 21 Blood Pressure 93/62 L Blood Pressure [Left Arm] Blood Pressure Mean 72 Blood Pressure Mean [Left Arm] Pulse Oximetry 93 97 Oxygen Delivery Method Sepsis Recent Fever Within 48 Hours Sepsis New/Unexplained Change in Mental Status Sepsis Action Taken by Nursing 05/15/22 16:40 05/15/22 16:50 05/15/22 16:50 Pulse Rate 102 H 104 H Pulse Rate [Apical] Pulse Rate from SpO2 Sensor 103 H 104 H Respiratory Rate 16 18 Blood Pressure 102/33 L Blood Pressure [Left Arm] Blood Pressure Mean 56 Blood Pressure Mean [Left Arm] Pulse Oximetry 90 93 Oxygen Delivery Method Sepsis Recent Fever Within 48 Hours Sepsis New/Unexplained Change in Mental Status Sepsis Action Taken by Nursing 05/15/22 17:00 05/15/22 17:10 05/15/22 17:20 Pulse Rate 97 H 98 H 103 H Pulse Rate [Apical] Pulse Rate from SpO2 Sensor 97 H 98 H 104 H Respiratory Rate 18 23 24 Blood Pressure Blood Pressure [Left Arm] Blood Pressure Mean Blood Pressure Mean [Left Arm] Pulse Oximetry 91 90 96 Oxygen Delivery Method Sepsis Recent Fever Within 48 Hours Sepsis New/Unexplained Change in Mental Status Sepsis Action Taken by Nursing Laboratory Data Result diagrams: 05/15/22 14:00 05/15/22 14:00 Lab Results 05/15/22 05/15/22 05/15/22 Range/Units 14:00 14:00 14:00 WBC 8.18 (4.8-10.8) K/ul RBC 3.52 L (4.63-6.08) M/uL Hgb 9.9 L (14.0-18.0) g/dl Hct 29.7 L (40.1-51.0) % MCV 84.4 (80.0-100.0) fL MCH 28.1 (25.0-34.0) pg MCHC 33.3 (32.0-36.0) g/dL RDW Std Deviation 63.0 H (36.4-46.3) fL RDW Coeff of Jyoti 20.3 H (11.5-14.5) % Plt Count 321 (130-400) K/uL MPV 9.9 (9.4-12.4) fL Immature Gran % (Auto) 0.6 % Neut % (Auto) 87.8 % Lymph % (Auto) 5.6 % [place] % (Auto) 5.5 % Eos % (Auto) 0.1 % Baso % (Auto) 0.4 % Neut # (Auto) 7.18 H (1.4-6.5) K/uL Lymph # (Auto) 0.46 L (1.2-3.4) K/uL [place] # (Auto) 0.45 (0.24-0.82) K/uL Eos # (Auto) 0.01 (0-0.50) K/uL Baso # (Auto) 0.03 (0-0.2) K/uL Immature Gran # (Auto) 0.05 H (0.00-0.02) K/uL Anisocytosis Present Ovalocytes 1+ VBG pH (7.36-7.41) VBG pCO2 (38-50) mmHg VBG pO2 mmHg VBG HCO3 mmol/L VBG O2 Saturation % VBG Base Excess mEq/L Sodium 130 L (136-145) mmol/L Potassium 5.0 (3.5-5.1) mmol/L Chloride 92 L (98-107) mmol/L Carbon Dioxide 24 (21-32) mmol/L Anion Gap 14 H (3-11) BUN 88 H (6-23) mg/dl Creatinine 10.66 H* (0.6-1.4) mg/dl Est Cr Clr Drug Dosing 7.6 ml/min Est GFR ( Amer) 5.2 ml/min Est GFR (Non-Af Amer) 4.5 ml/min BUN/Creatinine Ratio 8.3 L (10-20) Glucose 202 H (70-99(Fasting)) mg/dl Lactate 0.8 (0.4-2.0) mmol/L Calcium 8.6 (8.5-10.1) mg/dl Magnesium 4.0 H (1.7-2.4) mg/dl Total Bilirubin 0.5 (0.2-1.0) mg/dl Direct Bilirubin 0.1 (0-0.2) mg/dl AST 8 L (13-39) U/L ALT 9 (7-52) U/L Alkaline Phosphatase 72 (34-104) U/L Troponin I High Sens 13.7 (0-20) pg/ml B-Natriuretic Peptide (0-100) pg/ml Total Protein 6.2 (6.0-8.3) gm/dl Albumin 3.6 (3.4-5.0) gm/dl Procalcitonin (0-0.5) ng/ml Blood Type Antibody Screen 05/15/22 05/15/22 05/15/22 Range/Units 14:00 14:00 14:25 WBC (4.8-10.8) K/ul RBC (4.63-6.08) M/uL Hgb (14.0-18.0) g/dl Hct (40.1-51.0) % MCV (80.0-100.0) fL MCH (25.0-34.0) pg MCHC (32.0-36.0) g/dL RDW Std Deviation (36.4-46.3) fL RDW Coeff of Jyoti (11.5-14.5) % Plt Count (130-400) K/uL MPV (9.4-12.4) fL Immature Gran % (Auto) % Neut % (Auto) % Lymph % (Auto) % [place] % (Auto) % Eos % (Auto) % Baso % (Auto) % Neut # (Auto) (1.4-6.5) K/uL Lymph # (Auto) (1.2-3.4) K/uL [place] # (Auto) (0.24-0.82) K/uL Eos # (Auto) (0-0.50) K/uL Baso # (Auto) (0-0.2) K/uL Immature Gran # (Auto) (0.00-0.02) K/uL Anisocytosis Ovalocytes VBG pH (7.36-7.41) VBG pCO2 (38-50) mmHg VBG pO2 mmHg VBG HCO3 mmol/L VBG O2 Saturation % VBG Base Excess mEq/L Sodium (136-145) mmol/L Potassium (3.5-5.1) mmol/L Chloride (98-107) mmol/L Carbon Dioxide (21-32) mmol/L Anion Gap (3-11) BUN (6-23) mg/dl Creatinine (0.6-1.4) mg/dl Est Cr Clr Drug Dosing ml/min Est GFR ( Amer) ml/min Est GFR (Non-Af Amer) ml/min BUN/Creatinine Ratio (10-20) Glucose (70-99(Fasting)) mg/dl Lactate (0.4-2.0) mmol/L Calcium (8.5-10.1) mg/dl Magnesium (1.7-2.4) mg/dl Total Bilirubin (0.2-1.0) mg/dl Direct Bilirubin (0-0.2) mg/dl AST (13-39) U/L ALT (7-52) U/L Alkaline Phosphatase (34-104) U/L Troponin I High Sens (0-20) pg/ml B-Natriuretic Peptide 19 (0-100) pg/ml Total Protein (6.0-8.3) gm/dl Albumin (3.4-5.0) gm/dl Procalcitonin 13.00 H (0-0.5) ng/ml Blood Type O Negative Antibody Screen NEGATIVE 05/15/22 Range/Units 14:25 WBC (4.8-10.8) K/ul RBC (4.63-6.08) M/uL Hgb (14.0-18.0) g/dl Hct (40.1-51.0) % MCV (80.0-100.0) fL MCH (25.0-34.0) pg MCHC (32.0-36.0) g/dL RDW Std Deviation (36.4-46.3) fL RDW Coeff of Jyoti (11.5-14.5) % Plt Count (130-400) K/uL MPV (9.4-12.4) fL Immature Gran % (Auto) % Neut % (Auto) % Lymph % (Auto) % [place] % (Auto) % Eos % (Auto) % Baso % (Auto) % Neut # (Auto) (1.4-6.5) K/uL Lymph # (Auto) (1.2-3.4) K/uL [place] # (Auto) (0.24-0.82) K/uL Eos # (Auto) (0-0.50) K/uL Baso # (Auto) (0-0.2) K/uL Immature Gran # (Auto) (0.00-0.02) K/uL Anisocytosis Ovalocytes VBG pH 7.35 L (7.36-7.41) VBG pCO2 47 (38-50) mmHg VBG pO2 26 mmHg VBG HCO3 26 mmol/L VBG O2 Saturation < 60.0 % VBG Base Excess -0.2 mEq/L Sodium (136-145) mmol/L Potassium (3.5-5.1) mmol/L Chloride (98-107) mmol/L Carbon Dioxide (21-32) mmol/L Anion Gap (3-11) BUN (6-23) mg/dl Creatinine (0.6-1.4) mg/dl Est Cr Clr Drug Dosing ml/min Est GFR ( Amer) ml/min Est GFR (Non-Af Amer) ml/min BUN/Creatinine Ratio (10-20) Glucose (70-99(Fasting)) mg/dl Lactate (0.4-2.0) mmol/L Calcium (8.5-10.1) mg/dl Magnesium (1.7-2.4) mg/dl Total Bilirubin (0.2-1.0) mg/dl Direct Bilirubin (0-0.2) mg/dl AST (13-39) U/L ALT (7-52) U/L Alkaline Phosphatase (34-104) U/L Troponin I High Sens (0-20) pg/ml B-Natriuretic Peptide (0-100) pg/ml Total Protein (6.0-8.3) gm/dl Albumin (3.4-5.0) gm/dl Procalcitonin (0-0.5) ng/ml Blood Type Antibody Screen Administered Medications Sodium Chloride (Nss 1000ml) 1,000 mls @ 200 mls/hr IV .Q5H STA Stop: 05/15/22 20:32 Last Admin: 05/15/22 16:41 Dose: 200 mls/hr Documented By: HERMILA Discontinued Medications Sodium Chloride (Nss 1000ml) 1,000 mls @ 999 mls/hr IV .Q1H1M JAMES Stop: 05/15/22 15:15 Last Infusion: 05/15/22 15:15 Dose: 0 mls/hr Documented By: Admin: 05/15/22 14:06 Dose: 999 mls/hr Documented By: ML Sodium Chloride (Nss 1000ml) 1,000 mls @ 999 mls/hr IV .Q1H1M JAMES Stop: 05/15/22 16:15 Last Infusion: 05/15/22 16:41 Dose: 0 mls/hr Documented By: Admin: 05/15/22 15:39 Dose: 999 mls/hr Documented By: Infusion: 05/15/22 15:14 Dose: 0 mls/hr Documented By: Admin: 05/15/22 14:07 Dose: 999 mls/hr Documented By: ML Sodium Chloride (Nss 1000ml) 1,000 mls @ 999 mls/hr IV .Q1H1M ONE Stop: 05/15/22 16:33 Last Admin: 05/15/22 15:39 Dose: Not Given Documented By: HERMILA Cefepime HCl 1,000 mg/ Syringe 10 mls @ 5 mls/min IV NOW STA Stop: 05/15/22 15:38 Last Admin: 05/15/22 16:12 Dose: 5 mls/min Documented By: HERMILA Imaging Data Radiologist's Impression: Chest X-Ray 05/15/22 14:02 XR chest 1V portable CLINICAL HISTORY: Sepsis. COMPARISON STUDY: Chest radiograph April 10, 2022. FINDINGS: Left internal jugular Vousee-x-Ngck is in place. Lung volumes are normal. Left basilar opacity is present. There is no pneumothorax or pleural effusion. Cardiac size is normal. Mediastinal contours are normal. There is no evidence for pulmonary edema. IMPRESSION: Left basilar opacity. Atelectasis is favored however pneumonia could appear similar. Radiographic follow-up is recommended. ACT 112: Negative or not required by law. Electronically signed by: Celestine Britt M.D. 05/15/2022 2:28 PM Discharge Plan Visit Data Chief Complaint: Referred by Doctor Stated Complaint: LIGHTHEADED, DIZZY, REF BY DR, ABNORMAL LABS ED Provider: Catherine Eaton Discharge Problem: Acute hypotension, Acute renal failure, Hypermagnesemia, Pneumonia Patient Disposition: Admitted As Inpatient Forms Stand Alone Forms: [facility] Prescriptions Prescriptions: No Action aspirin 81 mg tablet 81 mg PO QAM loratadine [Claritin] 10 mg tablet 10 mg PO QAM montelukast [Singulair] 10 mg tablet 10 mg PO HS cholecalciferol (vitamin D3) 50 mcg (2,000 unit) tablet 1,000 unit PO QAM ascorbic acid (vitamin C) 500 mg capsule 500 mg PO QAM meloxicam 15 mg tablet 15 mg PO HS pantoprazole [Protonix] 20 mg tablet,delayed release (DR/EC) 20 mg PO QAM benazepril [Lotensin] 20 mg tablet 20 mg PO QAM Novolin N NPH U-100 Insulin 100 unit/mL suspension 36 units SQ HS (DME) CPAP Machine Misc See Rx Instructions .Route Qty: 1 0RF Rx Instructions: cpap 7 cm h2o (DME) CPAP Supplies Misc See Rx Instructions .ROUTE .MEDSUPPLY Qty: 1 0RF Rx Instructions: CPAP supplies allopurinol 300 mg Tablet 300 mg PO DAILY Qty: 30 0RF pramipexole [Mirapex] 1 mg Tablet 1 mg PO HS Novolin R Flexpen 100 unit/mL (3 mL) Insulin Pen 1 sliding scale dose SUBCUT USEASDIRECTD Rx Instructions: 26 units +/- per sliding scale with meals atorvastatin 20 mg tablet 20 mg PO HS furosemide [Lasix] 20 mg tablet 20 mg PO QAM magnesium oxide 400 mg magnesium tablet 1,100 mg PO QAM albuterol sulfate 90 mcg/actuation Hfa Aerosol Inhaler 1 inh INHALATION QID PRN (Reason: sob) Referrals Referrals: Dixon Aj MD [Primary Care Provider] -
[2022-05-15] MEDS: SODIUM CHLORIDE 0.9% 1000ML 1,000 ML IV SCH ×2 (14:07→15:39)
[2022-05-15] MEDS ORDERED: SODIUM CHLORIDE 0.9% 1000ML 1,000 ML IV SCH (14:15)
[2022-05-15 14:23] LABS: Basophils # (auto) 0.03 K/uL (0-0.2); Basophils % (auto) 0.4 %; Eosinophils # (auto) 0.01 K/uL (0-0.50); Eosinophils % (auto) 0.1 %; Hematocrit (blood only) 29.7 % (40.1-51.0); Hemoglobin 9.9 g/dl (14.0-18.0); Immature Granulocytes # (auto) 0.05 K/uL (0.00-0.02); Immature Granulocytes % (auto) 0.6 %; Lymphocytes # (auto) 0.46 K/uL (1.2-3.4); Lymphocytes % (auto) 5.6 %; Mean Corpuscular Hemoglobin 28.1 pg (25.0-34.0); Mean Corpuscular Hgb Conc 33.3 g/dL (32.0-36.0); Mean Corpuscular Volume 84.4 fL (80.0-100.0); Mean Platelet Volume 9.9 fL (9.4-12.4); Monocytes # (auto) 0.45 K/uL (0.24-0.82); Monocytes % (auto) 5.5 %; Neutrophils # (auto) 7.18 K/uL (1.4-6.5); Neutrophils % (auto) 87.8 %; Platelet Count 321 K/uL (130-400); RDW Coefficient of Variation 20.3 % (11.5-14.5); Red Blood Count 3.52 M/uL (4.63-6.08); White Blood Count 8.18 K/ul (4.8-10.8)
--- NOTE | 2022-05-15 14:29 | XRay Report ---
XR chest 1V portable CLINICAL HISTORY: Sepsis. COMPARISON STUDY: Chest radiograph April 10, 2022. FINDINGS: Left internal jugular Vtgmhy-e-Gzzv is in place. Lung volumes are normal. Left basilar opac ity is present. There is no pneumothorax or pleural effusion. Cardiac size is normal. Mediastinal con tours are normal. There is no evidence for pulmonary edema. IMPRESSION: Left basilar opacity. Atelectasis is favored however pneumonia could appear similar. Rad iographic follow-up is recommended. ACT 112: Negative or not required by law. Electronically signed by: Celestine Britt M.D. 05/15/2022 2:28 PM
[2022-05-15 14:43] LABS: Base Excess VBG -0.2 mEq/L; HCO3 VBG 26 mmol/L; Oxygen Saturation VBG < 60.0 %; PCO2 VBG 47 mmHg (38-50); PO2 VBG 26 mmHg; pH VBG 7.35 (7.36-7.41)
[2022-05-15 14:43] LABS: Anisocytosis Present; Ovalocytes 1+
[2022-05-15 14:56] LABS: Troponin I High Sensitivity 13.7 pg/ml (0-20)
[2022-05-15 15:14] LABS: Albumin Level 3.6 gm/dl (3.4-5.0); BUN Creatinine Ratio 8.3 (10-20); Bilirubin Direct 0.1 mg/dl (0-0.2); Bilirubin,Total 0.5 mg/dl (0.2-1.0); Calcium 8.6 mg/dl (8.5-10.1); Creatinine Clr Calc Pharmacy 7.6 ml/min; Est GFR (African American) 5.2 ml/min; Est GFR (Non-African American) 4.5 ml/min; Total Protein 6.2 gm/dl (6.0-8.3)
[2022-05-15] MEDS ORDERED: SODIUM CHLORIDE 0.9% 1000ML 1,000 ML IV ONE (15:33)
[2022-05-15] MEDS ORDERED: SODIUM CHLORIDE 0.9% 1000ML 1,000 ML IV STA (15:33)
[2022-05-15] MEDS ORDERED: CEFEPIME 1,000 MG in SYRINGE 0 ML IV STA (15:37)
[2022-05-15] MEDS ORDERED: CEFEPIME 20 ML IV ONE (15:45)
--- NOTE | 2022-05-15 17:30 | History & Physical Report ---
Date of Service May 15, 2022 Assessment & Plan (1) ARF (acute renal failure): Plan: Deejay Sierra is a 67-year-old male with a past medical history of COPD, ANALI, type 2 diabetes on insulin, CKD, non-Hodgkin's lymphoma, tobacco abuse who presented to the emergency department with lightheadedness worsened when standing. Has had associated weakness. [facility] [place] and was found to have a creatinine of 10.5, acute renal failure with last creatinine 05/01 of 1.25 Hypotension, volume depletion in the setting of chemo versus pneumonia Clinically without any signs of pneumonia and patient denies any fever, chills, sweats, cough, breathing change, sputum production, or temperature. Suspect Pro-Dewey elevated in the setting of severe volume depletion. CXR? Atelectasis versus pneumonia received empiric cefepime. CXR with? Atelectasis versus pneumonia Given clinical severe illness we will continue 24 hours of empiric coverage with cefepime, MRSA nare pending then reassess based on clinical stability Fluids, 1 dose of methylprednisolone as noted MAP improved to greater than 70 on reassessment, will follow in PCU. Non-anuric Acute renal failure, suspect prerenal depletion versus chemo induced - Hgb 9.9 - No leukocytosis - Cr 10.66 from 1.14 - Sodium 130, K 5.0 (last 3.8) - trop normal - PCT 13 on admit - CXR: L basial opacity atelectasis vs pna. No pulm edema. 1lungs are clear. Patient is not an uric.? Prerenal versus chemotherapy-induced No emergent indication for dialysis, nephrology consulted. Trend BMP every 8 hours benzapril held -Patient has been repeatedly on various doses of prednisone ranging from 50-20, reports he has not taken this in over a week although there was a prescription filled proximately 1 week ago.? Underlying iatrogenic AI, will give 1 dose of methylprednisolone 40 and check cortisol levels - Nephrology consulted - US and bladder scan pending to eval for obstruction, pt with hx of LUTS Non-Hodgkin's lymphoma History of follicular lymphoma Received rituximab x4 doses 2016 subsequently put on maintenance rituximab until 2017 Recent diagnosis with disease progression, admitted for CHOP therapy with allopurinol for elevated uric acid Last chemo was approximately 3 weeks ago per patient. Usually has 3 to 4 days of symptoms including nausea/vomiting, then gradually improves. Appetite has actually been decent in the last Type 2 diabetes mellitus on insulin Home regimen on NPH 36 units with sliding scale Switched to basal bolus while inpatient Slightly dose reduced SSI, pharmacy consulted for glycemic management in the setting of ARF Goal [id number] Hypertension Home medications including BenzePrO/Lasix held in the setting of hypotension Obstructive sleep apnea CPAP nightly 7 cm COPD Stable without regular inhalers at home Albuterol as needed FEV1 45% with a 26% increase postbronchodilator, DLCO 75% 02/09/2021 DVT prophylaxis: SCDs, heparin. Defer Lovenox in the setting of ARF Diet: Type II DM Disposition: PCU CODE STATUS: Full code (2) Anemia requiring transfusions: (3) CKD (chronic kidney disease) stage 3, GFR 30-59 ml/min: (4) Diabetes mellitus with chronic kidney disease: (5) Follicular lymphoma: (6) ANALI (obstructive sleep apnea): (7) Peripheral neuropathy: (8) Snoring: (9) ANALI (obstructive sleep apnea): (10) Hypercholesterolemia: (11) Hypertension: History of Present Illness Primary Care Provider: Dixon Aj MD Deejay Sierra is a 67-year-old male with a past medical history of COPD, ANALI, type 2 diabetes on insulin, CKD, non-Hodgkin's lymphoma, tobacco abuse who presented to the emergency department with lightheadedness worsened when standing. Has had associated weakness. [facility] [place] and was found to have a creatinine of 10.5, acute renal failure with last creatinine 05/01 of 1.25 Referred by oncologist for elevated K and Cr. Chemotherapy got chemo 18 days ago and cam ein for reoutine labs. 60/30s on admit, now improved post 3L Low 100s/40s, HR decreased down to 99. N/V for weeks with poor po intake. Urinating normally. Several weeks of n/v. 2 days ago was tolerating meals OK. Had steak and mashed potatoes with BBQ sauce which stayed down OK. No vomiting for 1 week. N/V 4 days after chemo then improved. Dirrhea constipation first few days, but none in the last week. No fevers chills or sweats this week. No cough, endorses baseline shrotness of breath due to COPD with nighttime O2 with no recent change, no wheezing this week, no sputum production, and no change in breathing. No chest pain or chest pressure. No abdominal pain this week, did have pain prior to chemo due to a 'bowel bleeder' but no recent BRBPR/melena/bleeding and checks everyday. Was life flighted to [place] which resolved with IV protonix. Is on low dose aspirin, no blood thinners currently. Follows with Dr. Valencia for CKD, baseline CR ~1-1.1. T2DM well controlled per pt on insulin, bsgs ~114 this mronign and well controleld this past week. Lightheaded and dizzi last 4-5 days, weak, fatigued. Thought was part of chemo. Takes 5 pills of a steroid he thinks prior to last. Medical History: Reviewed Medications: Reviewed Surgical History: Reviewed Allergies: Reviewed Social History: Reviewed Code Status: Full code Allergies Allergy/AdvReac Type Severity Reaction Status Date / Time morphine AdvReac Unknown "dizzy",del Verified 04/07/22 12:49 [facility] Home Medications Medication Instructions Recorded Confirmed Type pantoprazole 20 mg tablet,delayed 20 mg PO QAM 07/16/18 04/07/22 History release (Protonix) aspirin 81 mg tablet 81 mg PO QAM 01/29/19 04/07/22 History loratadine 10 mg tablet (Claritin) 10 mg PO QAM 01/29/19 04/07/22 History montelukast 10 mg tablet 10 mg PO 01/29/19 04/07/22 History (Singulair) benazepril 20 mg tablet (Lotensin) 20 mg PO QAM 06/09/19 04/07/22 History insulin NPH isoph U-100 human 100 36 units subcut 07/17/19 04/07/22 History unit/mL subcutaneous suspension (Novolin N NPH U-100 Insulin isophane) ascorbic acid (vitamin C) 500 mg 500 mg PO QAM 08/02/21 04/07/22 History capsule cholecalciferol (vitamin D3) 50 1,000 unit PO QAM 08/02/21 04/07/22 History mcg (2,000 unit) tablet meloxicam 15 mg tablet 15 mg PO HS 08/02/21 04/07/22 History albuterol sulfate 90 mcg/actuation 1 inh inhalation QID PRN sob 03/20/22 04/07/22 History aerosol inhaler atorvastatin 20 mg tablet 20 mg PO HS 03/20/22 04/07/22 History furosemide 20 mg tablet (Lasix) 20 mg PO QAM 03/20/22 04/07/22 History insulin regular human 100 unit/mL 1 sliding scale dose subcut 03/20/22 04/07/22 History (3 mL) subcutaneous pen (Novolin R USEASDIRECTD Flexpen) magnesium oxide 1,100 mg PO QAM 03/20/22 04/07/22 History pramipexole 1 mg tablet (Mirapex) 1 mg PO HS 03/20/22 04/07/22 History allopurinol 300 mg tablet 300 mg PO DAILY #30 tabs 04/02/22 04/07/22 Rx CPAP Machine #1 ea 04/05/22 04/05/22 Rx CPAP Supplies #1 ea 04/05/22 04/05/22 Rx Past Med/Surg History Medical History (Updated 05/15/22 @ 17:49 by Mojgan Richardson MD) Anemia requiring transfusions Chronic, hx blood transfusion Asthma Chronic obstructive pulmonary disease CKD (chronic kidney disease) stage 3, GFR 30-59 ml/min COPD (chronic obstructive pulmonary disease) Diabetes mellitus, type 2 IDDM Diabetic peripheral neuropathy Follicular lymphoma Treatment: Systemic therapy with Rituxan Hx of malignant neoplasm of prostate Treated with brachytherapy and radiation Currently in remission Hyperlipidemia Hypermagnesemia Hypertension Hypotension Nocturnal hypoxemia Non-Hodgkin lymphoma Dx 2017 treated with chemotherapy at the time Was in remission until recently (01/2022) Numbness On home oxygen therapy 2lpm via n/c at HS and during the day PRN ANALI (obstructive sleep apnea) 2lpm via n/c at HS -- awaiting results from sleep study on 03/06/22 ANALI (obstructive sleep apnea) Retroperitoneal lymphadenopathy hx Surgical History H/O colonoscopy approx 2012 History of amputation traumatic tip of right index History of ankle surgery multiple (right ankle) ankle bone spurs removal - ankle joint hardware/fusion - osteomyelitis with hardware removal -- treated with abx, once healed had ankel hardware replaced History of carpal tunnel release right History of cholecystectomy History of colonoscopy History of elbow surgery right elbow surgery History of esophagogastroduodenoscopy (EGD) History of tooth extraction full top dental extraction Port-A-Cath in place (03/22/22) Insertion Access Port with Fluoroscopy to left internal jugular vein (Left) - Tate Rios DO, FACS Family History Father Diabetes Lung cancer Hypertension Stroke Mother Diabetes Hypertension Brother Diabetes Other No family history of adverse response to anesthesia Social History Smoking Status: Former smoker Tobacco Type: Cigarettes Second Hand Exposure: No; Hx Alcohol Use: Yes Alcohol type: beer Hx Substance Use: No Preferred Language: Khmer Communication Ability: Effective Social Media Director Required: No Beliefs That Will Affect Care: None marital status: Current Living Situation: Significant Other current occupational status: retired and disabled How many Children do You have: 3 Feels Safe at Home: Yes during the past year weight has: decreased > 10 lbs Assistive Devices: Cane, Oxygen - at Night, Walker, Wheelchair and Other Review of Systems Review of Systems: All systems reviewed & are unremarkable except as noted in HPI & below Physical Exam Physical Exam: General: A&Ox3. MM tacky, appears improved and fatigued but nontoxic at bedside. HEENT: Atraumatic, normocephalic. Pulm: CTAB A&P. -wheezes, -rales, -rhonchi. Symmetrical chest rise. No increase in work of breathing. No respiratory distress. Chest: Port-A-Cath in place, no overlying erythema/tenderness Cardiac: Tachycardic, -mrg. Radial pulses intact and symmetrical. Abdominal: Nontender, nondistended, soft. BS present. Cap refill in toes approximately 2 seconds Extremities: Increased skin turgor. Moves all extremities equally. Boiler Out strength intact, ankle dorsiflexion/plantarflexion intact Results & Data Results & Data ([facility]) Vital Signs (Past 12 Hours) Vital Signs Pulse Pulse Resp BP BP Pulse Ox O2 Del Method 05/15/22 14:48 75/39 L 05/15/22 14:39 133 H 15 74/42 L 93 05/15/22 14:32 92 H 18 77/47 L 94 Room Air 05/15/22 14:17 99 H 15 81/39 L 94 Room Air 05/15/22 14:07 97 H 17 70/39 L 94 Room Air 05/15/22 14:07 94 Room Air 05/15/22 13:46 36 L 20 63/37 L 95 PG Care Time/CCT Total # of Minutes Spent Total Time Spent with Patient: Total time spent is greater than 50% in coordination of care (as documented) at patient's floor/unit and/or counseling patient: Coding Level of Care Code 13855 Initial Inpt Care Lvl 3 Diagnoses ARF (acute renal failure) N17.9 Anemia requiring transfusions D64.9 CKD (chronic kidney disease) stage 3, GFR 30-59 ml/min N18.30 Diabetes mellitus with chronic kidney disease E11.22 Follicular lymphoma C82.90 ANALI (obstructive sleep apnea) G47.33 Peripheral neuropathy G62.9 Snoring R06.83 ANALI (obstructive sleep apnea) G47.33 Hypercholesterolemia E78.00 Hypertension I10
--- NOTE | 2022-05-15 17:37 | Nephrology Consultation ---
Date of Consultation May 15, 2022 Assessment & Plan (1) ARF (acute renal failure): (2) Anemia: (3) Hypotension: (4) Hypermagnesemia: Plan 67 Y O gentlemen with recurrent follicular lymphoma, recently started on chemotherapy in February last dose completed >2 weeks ago. Has been having generalized weakness, dizziness, lightheadedness associated with anorexia and poor po intake and had lab done at [facility] showing ALTAGRACIA with creatinine 10.7, potassium 5.0. He was significantly hypotensive and volume depleted on exam and received 3 L of IV fluid bolus with improvement in blood pressure. ALTAGRACIA most likely prerenal with poor po intake, diuretics, ARB and NSAID. --repeat renal panel now --if progressive worsening or decrease in UO will consider renal USG --continue IV NS at 100 ml/h --will repeat UA tomorrow --monitor intake output --continue holding ARB, Lasix, Mag supplement. Thank you for allowing me to participate in your patient's care. It was a pleasure to see Mr. Prado History of Present Illness Reason for Consultation: Acute kidney injury History of Present Illness Mr. Deejay Prado is a very pleasant 67-year-old gentleman with stage 3A CKD, h/o follicular lymphoma with recent recurrence on CHOP,, prostate cancer, obesity, hypertension, hyperlipidemia DM presented to ER with generalized weakness and abnormal outpatient lab. Nephrology consult was requested as she was found to have acute kidney injury. EMR records were reviewed in detail during patient's visit. Earl presented to ER with generalized weakness and lightheadedness. He was seen at the [facility] in [place] and lab showed ALTAGRACIA, cr of 10.7, K normal, Mg 4.0, Na 130, Ca 8.6. Urinalysis showed low-grade proteinuria and microsc opic hematuria with more than 30 RBCs/HPF. Prior CT abdomen pelvis in February showing bilateral otherwise normal size kidney. He has been poor po intake mainly because of loss of appetite since started on chemo. He was also on ARB, lasix and meloxicam. Has been having occasional diarrhea and has been urinating less than usual. On admission he was hypotensive, BP 60/30s improved to 105/61 after 3L NS bolus. Initially diagnosed with folicular lymphoma in 2015 s/p rituximab weekly x4 doses in April, followed by maintenance rituximab which was discontinued in December,.In January 2022 he was diagnosed with disease progression with large mesenteric soft tissue mass with resultant intermittent GI bleeding requiring PRBC transfusions and IV iron. He was admitted at [facility] in February for chemo due to risk of complications including tumor lysis as well as GI bleeding, last dose of chemo was on 04/26/22 Stage 3A CKD, b/l cr 1.3 to 1.5 with history of hypertension, diabetes, smoking and obesity. Has low-grade proteinuria. Has h/o GIB requiring transfusion. Historically he has been treated for hypomagnesemia with some renal magnesium wasting with proximal tubular defect, has been on magnesium supplement. He already started to feel much better by the time he was seen in ER, after receiving IV fl;uid and improvement of BP. Denies abdominal pain, SOB, fever, chills. Allergies Allergy/AdvReac Type Severity Reaction Status Date / Time morphine AdvReac Unknown "dizzy",del Verified 04/07/22 12:49 [facility] Home Medications Medication Instructions Recorded Confirmed Type pantoprazole 20 mg tablet,delayed 40 mg PO QAM 07/16/18 05/15/22 History release (Protonix) loratadine 10 mg tablet (Claritin) 10 mg PO QAM 01/29/19 05/15/22 History montelukast 10 mg tablet 10 mg PO HS 01/29/19 05/15/22 History (Singulair) benazepril 20 mg tablet (Lotensin) 20 mg PO QAM 06/09/19 05/15/22 History insulin NPH isoph U-100 human 100 36 units subcut HS 07/17/19 05/15/22 History unit/mL subcutaneous suspension (Novolin N NPH U-100 Insulin isophane) ascorbic acid (vitamin C) 500 mg 500 mg PO QAM 08/02/21 05/15/22 History capsule cholecalciferol (vitamin D3) 50 1,000 unit PO QAM 08/02/21 05/15/22 History mcg (2,000 unit) tablet meloxicam 15 mg tablet 15 mg PO HS 08/02/21 05/15/22 History albuterol sulfate 90 mcg/actuation 1 inh inhalation QID PRN sob 03/20/22 05/15/22 History aerosol inhaler atorvastatin 20 mg tablet 20 mg PO HS 03/20/22 05/15/22 History furosemide 20 mg tablet (Lasix) 20 mg PO QAM 03/20/22 05/15/22 History insulin regular human 100 unit/mL 0 sliding scale dose subcut TIDM 03/20/22 05/15/22 History (3 mL) subcutaneous pen (Novolin R Flexpen) magnesium oxide 1,200 mg PO QAM 03/20/22 05/15/22 History pramipexole 1 mg tablet (Mirapex) 1 mg PO HS 03/20/22 05/15/22 History allopurinol 300 mg tablet 300 mg PO DAILY #30 tabs 04/02/22 05/15/22 Rx CPAP Machine #1 ea 04/05/22 04/05/22 Rx CPAP Supplies #1 ea 04/05/22 04/05/22 Rx aspirin 81 mg tablet,delayed 81 mg PO DAILY 05/15/22 05/15/22 History release Patient History Medical History (Updated 05/15/22 @ 17:49 by Mojgan Richardson MD) Anemia requiring transfusions Chronic, hx blood transfusion Asthma Chronic obstructive pulmonary disease CKD (chronic kidney disease) stage 3, GFR 30-59 ml/min COPD (chronic obstructive pulmonary disease) Diabetes mellitus, type 2 IDDM Diabetic peripheral neuropathy Follicular lymphoma Treatment: Systemic therapy with Rituxan Hx of malignant neoplasm of prostate Treated with brachytherapy and radiation Currently in remission Hyperlipidemia Hypermagnesemia Hypertension Hypotension Nocturnal hypoxemia Non-Hodgkin lymphoma Dx 2017 treated with chemotherapy at the time Was in remission until recently (01/2022) Numbness On home oxygen therapy 2lpm via n/c at HS and during the day PRN ANALI (obstructive sleep apnea) 2lpm via n/c at HS -- awaiting results from sleep study on 03/06/22 ANALI (obstructive sleep apnea) Retroperitoneal lymphadenopathy hx Surgical History H/O colonoscopy approx 2012 History of amputation traumatic tip of right index History of ankle surgery multiple (right ankle) ankle bone spurs removal - ankle joint hardware/fusion - osteomyelitis with hardware removal -- treated with abx, once healed had ankel hardware replaced History of carpal tunnel release right History of cholecystectomy History of colonoscopy History of elbow surgery right elbow surgery History of esophagogastroduodenoscopy (EGD) History of tooth extraction full top dental extraction Port-A-Cath in place (03/22/22) Insertion Access Port with Fluoroscopy to left internal jugular vein (Left) - Tate Rios, DO, FACS Family History Father Diabetes Lung cancer Hypertension Stroke Mother Diabetes Hypertension Brother Diabetes Other No family history of adverse response to anesthesia Social History Smoking Status: Former smoker Tobacco Type: Cigarettes Second Hand Exposure: No; Hx Alcohol Use: Yes Alcohol type: beer Hx Substance Use: No Preferred Language: German Communication Ability: Effective Skinning Machine Feeder Required: No Beliefs That Will Affect Care: None marital status: Current Living Situation: Significant Other current occupational status: retired and disabled How many Children do You have: 3 Feels Safe at Home: Yes during the past year weight has: decreased > 10 lbs Assistive Devices: Cane, Oxygen - at Night, Walker, Wheelchair and Other Review of Systems Review of Systems: All systems reviewed & are unremarkable except as noted in HPI & below Physical Exam Constitutional: WD/WN, vitals as above no acute distress Eyes: + anicteric sclerae ENMT: Ears: no hearing impairment Neck: normal visual inspection Thyroid: no thyromegaly Respiratory: no respiratory distress Auscultation: lungs clear to auscultation bilaterally Cardiovascular: Rate/Rhythm: regular rate and regular rhythm Heart Sounds: normal S1 and normal S2 Extremities: no edema Gastrointestinal (Abdomen): Inspection/Auscultation: abdomen normal to inspection and normal bowel sounds Percussion/Palpation: abdomen soft; abdomen nontender Musculoskeletal: Extremities: extremities normal to inspection Skin: no rashes Neurologic: no focal motor deficits Psychiatric: Orientation: alert and oriented x 3 Affect: euthymic affect Results & Data ([facility]) Vital Signs (Past 12 Hours) Vital Signs Pulse Pulse Resp BP BP Pulse Ox O2 Del Method 05/15/22 17:20 103 H 24 96 05/15/22 17:10 98 H 23 90 05/15/22 17:00 97 H 18 91 05/15/22 16:50 104 H 18 93 05/15/22 16:50 102/33 L 05/15/22 16:40 102 H 16 90 05/15/22 16:30 105 H 21 97 05/15/22 16:30 93/62 L 05/15/22 16:20 104 H 93 05/15/22 16:10 99 H 24 93 05/15/22 16:00 100 H 23 98 05/15/22 16:00 82/56 L 05/15/22 15:50 100 H 19 94 05/15/22 15:50 84/56 L 05/15/22 15:40 98 H 29 H 05/15/22 15:40 83/42 L 05/15/22 15:34 78/38 L 05/15/22 15:34 97 H 20 93 05/15/22 15:30 99 H 23 94 05/15/22 15:30 80/37 L 05/15/22 15:20 100 H 14 05/15/22 15:20 75/42 L 05/15/22 15:10 96 H 19 05/15/22 15:10 84/43 L 05/15/22 15:00 98 H 23 93 05/15/22 15:00 94/51 L 05/15/22 14:50 97 H 20 92 05/15/22 14:50 76/37 L 05/15/22 14:40 93 H 14 79 L 05/15/22 14:48 75/39 L 05/15/22 14:39 133 H 15 74/42 L 93 05/15/22 14:32 92 H 18 77/47 L 94 Room Air 05/15/22 14:17 99 H 15 81/39 L 94 Room Air 05/15/22 14:07 97 H 17 70/39 L 94 Room Air 05/15/22 14:07 94 Room Air 05/15/22 13:46 36 L 20 63/37 L 95 PG Care Time/CCT Total # of Minutes Spent Total Time Spent with Patient: Total time spent is greater than 50% in coordination of care (as documented) at patient's floor/unit and/or counseling patient: Coding Level of Care Code 38962 Inpt Consult Level 5 Diagnoses ARF (acute renal failure) N17.9 Anemia D64.9 Hypotension I95.9 Hypermagnesemia E83.41
[2022-05-15 18:41] LABS: Creatinine Clr Calc Pharmacy 8.8 ml/min; Est GFR (African American) 6.2 ml/min; Est GFR (Non-African American) 5.4 ml/min
[2022-05-15 18:42] LABS: BUN Creatinine Ratio 9.1 (10-20); Calcium 7.6 mg/dl (8.5-10.1); Potassium 4.8 mmol/L (3.5-5.1)
[2022-05-15] MEDS ORDERED: ALBUT/IPRATROP 3MG/0.5MG NEB 3 ML VIAL NEB STA (18:43)
[2022-05-15 19:31] LABS: Appearance Urine Clear (Clear); Bacteria Urine Automated Negative (Negative); Bilirubin Urine Negative (Negative); Blood Urine Negative (Negative); Color Urine Yellow; Glucose Urine UA Negative (Negative); Ketones Urine Negative (Negative); Leukocyte Esterase Urine Negative (Negative); Nitrite Urine Negative (Negative); Protein Urine Trace (Negative); RBC Urine Automated 0-4 /hpf (0-4); Specific Gravity Urine 1.013 (1.000-1.030); Urobilinogen Urine Negative (Negative)
--- NOTE | 2022-05-15 20:07 | Ultrasound Report ---
US renal/blad retro comp HISTORY: 67 years-old Male arf, ? retention acute renal failure COMPARISON: CT abdomen and pelvis 03/09/2022 TECHNIQUE: Multiple real-time sonographic images of the kidneys and urinary bladder were obtained ass essing grayscale appearance and color flow FINDINGS: The right kidney measures 9.3 x 5.1 x 4.9 cm. The left kidney measures 9.8 x 5.8 x 4.3 cm. No renal c alculi, hydronephrosis or suspicious mass lesion identified. Cortical medullary differentiation is pr eserved. Mild trabeculation of the urinary bladder may be secondary to chronic bladder outlet obstruction. IMPRESSION: No renal calculi or hydronephrosis. ACT 112: Negative or not required by law. The above report was generated using voice recognition software. It may contain grammatical, syntax o r spelling errors. Electronically signed by: Byron Redman M.D. 05/15/2022 7:55 PM
[2022-05-15] MEDS ORDERED: GLUCOSE 40% GEL 15 GM TUBE PO PRN (20:33)
[2022-05-15] MEDS ORDERED: ACETAMINOPHEN 325 MG TAB PO PRN (20:33)
[2022-05-15] MEDS ORDERED: GLUCAGON FOR INJ 1 MG VIAL SQ PRN (20:33)
[2022-05-15] MEDS ORDERED: ONDANSETRON INJ 2 MG/ML 2 ML VIAL IV PRN (20:33)
[2022-05-15] MEDS ORDERED: DEXTROSE 50% 50 ML SYRINGE IV PRN (20:33)
[2022-05-15] MEDS ORDERED: CARBOHYDRATES FOR HYPOGLYCEMIA PO PRN (20:33)
[2022-05-15] MEDS ORDERED: GLUCOSE 10 TAB/TUBE PO PRN (20:33)
[2022-05-15] MEDS ORDERED: PHARMACY GLYCEMIC MGMT CONSULT PRN (20:33)
[2022-05-15] MEDS ORDERED: POLYETHYLENE (MIRALAX) 17 GM PACK PO PRN (20:33)
[2022-05-15] MEDS ORDERED: methylPREDNISolone 40 MG in SYRINGE 0 ML IV ONE (21:00)
[2022-05-15] MEDS: INSULIN ASPART PER UNIT SC SCH (21:31)
[2022-05-15] MEDS: ATORVASTATIN 20 MG TAB PO SCH (21:37)
[2022-05-15] MEDS: HEPARIN SOD 5,000 UNIT/0.5 ML VIAL SQ SCH (21:37)
[2022-05-15] MEDS: LANTUS PER UNIT CHARGE SQ SCH (22:43)
[2022-05-16] MEDS ORDERED: HEPARIN 100 UNIT/ML 5ML FLUSH FLUSH PRN (01:18)
[2022-05-16 06:37] LABS: Hematocrit (blood only) 26.9 % (40.1-51.0); Hemoglobin 8.8 g/dl (14.0-18.0); Mean Corpuscular Hgb Conc 32.7 g/dL (32.0-36.0); Mean Corpuscular Volume 85.7 fL (80.0-100.0); Mean Platelet Volume 9.9 fL (9.4-12.4); Platelet Count 281 K/uL (130-400); RDW Coefficient of Variation 19.8 % (11.5-14.5); RDW Standard Deviation 62.6 fL (36.4-46.3); Red Blood Count 3.14 M/uL (4.63-6.08); White Blood Count 3.71 K/ul (4.8-10.8)
[2022-05-16 07:03] LABS: BUN Creatinine Ratio 13.6 (10-20); Basophils # (auto) 0.01 K/uL (0-0.2); Basophils % (auto) 0.3 %; Calcium 7.9 mg/dl (8.5-10.1); Creatinine Clr Calc Pharmacy 14.7 ml/min; Est GFR (African American) 11.6 ml/min; Immature Granulocytes # (auto) 0.01 K/uL (0.00-0.02); Immature Granulocytes % (auto) 0.3 %; Lymphocytes % (auto) 2.7 %; Monocytes # (auto) 0.03 K/uL (0.24-0.82); Monocytes % (auto) 0.8 %; Neutrophils # (auto) 3.56 K/uL (1.4-6.5); Neutrophils % (auto) 95.9 %; Poikilocytosis Present; Potassium 6.1 mmol/L (3.5-5.1)
[2022-05-16] MEDS: HEPARIN SOD 5,000 UNIT/0.5 ML VIAL SQ SCH ×2 (08:12→21:53)
[2022-05-16] MEDS: ASPIRIN 81 MG ECTAB PO SCH (08:12)
[2022-05-16] MEDS: INSULIN ASPART PER UNIT SC SCH ×4 (08:16→21:46)
[2022-05-16 08:17] LABS: Phosphorus 4.5 mg/dl (2.5-4.9); Uric Acid 8.7 mg/dl (2.6-7.2)
[2022-05-16] MEDS: LANTUS PER UNIT CHARGE SQ SCH (08:17)
[2022-05-16] MEDS ORDERED: SODIUM ZIRCONIUM CYCLOSILICATE 10 GM PACKET PO ONE (08:27)
[2022-05-16] MEDS ORDERED: LANTUS PER UNIT CHARGE SQ STA (09:12)
[2022-05-16] MEDS: SODIUM CHLORIDE 0.9% 1000ML 1,000 ML IV SCH ×2 (09:21→18:09)
--- NOTE | 2022-05-16 09:50 | Nephrology Progress Note ---
Date of Service May 16, 2022 Assessment & Plan (1) ARF (acute renal failure): (2) Anemia: (3) Hypotension: (4) Hypermagnesemia: Plan 67 Y O gentlemen with recurrent follicular lymphoma, recently started on chemotherapy in February last dose completed >2 weeks ago. Has been having generalized weakness, dizziness, lightheadedness associated with anorexia and poor po intake and had lab done at [facility] showing ALTAGRACIA with creatinine 10.7, potassium 5.0. He was significantly hypotensive and volume depleted on exam and received 3 L of IV fluid bolus with improvement in blood pressure. ALTAGRACIA most likely prerenal with poor po intake, diuretics, ARB and NSAID. renal function started to improve rapidly however noted to have multiple electrolyte abnormality including hyperkalemia and hyperuricemia as well as hypocalcemia but phosphate was normal. Tumor lysis syndrome remains a possibility although less likely. -- IV NS at 100 ml/h -- Resume allopurinol at 50 mg twice a day -- received 1 dose of low calcium a this morning, continue holding ARB, Lasix, Mag supplement. repeat electrolyte this afternoon. -- If renal function continues to improve, electrolyte abnormality in improve, will consider possible discharge is tomorrow with plan to resume chemotherapy as an outpatient once electrolyte abnormality improve. Discussed with Dr. Lopez. Will follow. Admission and Anticipated Discharge Date Admission Date: May 15, 2022 Subjective Earl seen and evaluated this morning. Overall he is feeling much better, however, appetite remains poor. Decent urine output. Blood pressure continues to be relatively low. Kidney function improved significantly, creatinine down to 5.5 however potassium elevated at 6.1. Review of Systems Review of Systems: All systems reviewed & are unremarkable except as noted in Subjective Physical Exam Constitutional: WD/WN, vitals as above no acute distress Eyes: + anicteric sclerae ENMT: Ears: no hearing impairment Neck: normal visual inspection Thyroid: no thyromegaly Respiratory: no respiratory distress Auscultation: lungs clear to auscultation bilaterally Cardiovascular: Rate/Rhythm: regular rate and regular rhythm Heart Sounds: normal S1 and normal S2 Extremities: no edema Musculoskeletal: Extremities: extremities normal to inspection Skin: no rashes Neurologic: no focal motor deficits Psychiatric: Orientation: alert and oriented x 3 Affect: euthymic affect Results & Data ([facility]) Vital Signs (Past 12 Hours) Vital Signs Temp Pulse Pulse Resp BP Pulse Ox O2 Del Method 05/16/22 07:37 36.6 C 103 H 18 98/57 L 98 Nasal Cannula 05/16/22 03:59 36.8 C 81 18 104/57 L 97 Nasal Cannula 05/15/22 23:51 36.7 C 62 18 99/57 L 93 Room Air 05/15/22 23:21 111 H 05/15/22 22:00 Room Air 05/15/22 22:00 36.6 C 114 H 20 117/59 L 96 Room Air O2 Flow Rate 05/16/22 07:37 2 05/16/22 03:59 2 05/15/22 23:51 05/15/22 23:21 05/15/22 22:00 05/15/22 22:00 PG Care Time/CCT Total # of Minutes Spent Total Time Spent with Patient: Total time spent is greater than 50% in coordination of care (as documented) at patient's floor/unit and/or counseling patient: Coding Level of Care Code 89583 Subseq Hosp Care Lvl 3 Diagnoses ARF (acute renal failure) N17.9 Anemia D64.9 Hypotension I95.9 Hypermagnesemia E83.41
[2022-05-16] MEDS: allopurinoL 100 MG TAB PO SCH ×2 (10:22→21:50)
[2022-05-16] MEDS ORDERED: INSULIN HUMAN REGULAR PER UNIT 9 UNITS in SYRINGE 8.91 ML IV STA (11:49)
--- NOTE | 2022-05-16 12:36 | Hospitalist Progress Note ---
Date of Service May 16, 2022 Assessment & Plan (1) ARF (acute renal failure): Plan: Deejay Sierra is a 67-year-old male with a past medical history of COPD, ANALI, type 2 diabetes on insulin, CKD, non-Hodgkin's lymphoma, tobacco abuse who presented to the emergency department with lightheadedness worsened when standing. Has had associated weakness. Was seen at the [facility] in [place] and was found to have a creatinine of 10.5, acute renal failure with last creatinine 05/01 of 1.25 Non-anuric Acute renal failure, suspect prerenal depletion versus chemo induced with associated hypotension - No leukocytosis - trop normal - PCT 13 on admit, blood cultures pending - CXR: L basial opacity atelectasis vs pna. No pulm edema. 1lungs are clear. Patient is not anuric.? Prerenal versus chemotherapy-induced - empirically started on Cefepime, MRSA nares neg No emergent indication for dialysis, nephrology consulted. Trend BMP every 8 hours benzapril held - Patient has been repeatedly on various doses of prednisone ranging from 50-20, reports he has not taken this in over a week although there was a prescription filled proximately 1 week ago.? Underlying iatrogenic AI, given 1 dose of methylprednisolone 40mg IV on 05/15 and check cortisol levels - Nephrology consulted, appreciate assistance, agrees with fluid resuscitation - renal us shows no renal calculi or hydro - Renal function dramatically improved; however, this AM hyperkalemic at 6.1, given a dose of Sodium Zirconium 10gm po x1 now - Repeat BMP ordered for 05/17 (2) Anemia requiring transfusions: Plan: - H&H stable with a 1g drop from 9.9 to 8.8 likely dilutional (3) CKD (chronic kidney disease) stage 3, GFR 30-59 ml/min: Plan: - See above (4) Diabetes mellitus with chronic kidney disease: Plan: Home regimen on NPH 36 units with sliding scale Switched to basal bolus while inpatient Slightly dose reduced SSI, pharmacy consulted for glycemic management in the setting of ARF Goal [id number] - pharmacy to make adjustments to insulin regimen given hyperglycemia this AM (although in part would account the AM hyperglycemia d/t Solumedrol given oon 05/15) (5) Follicular lymphoma: Plan: History of follicular lymphoma Received rituximab x4 doses 2016 subsequently put on maintenance rituximab until 2017 Recent diagnosis with disease progression, admitted for CHOP therapy with allopurinol for elevated uric acid Last chemo was approximately 3 weeks ago per patient. Usually has 3 to 4 days of symptoms including nausea/vomiting, then gradually improves. Appetite has actually been decent in the last (6) ANALI (obstructive sleep apnea): Plan: CPAP nightly 7 cm (7) Hypercholesterolemia: Plan: - Continue statin (8) Hypertension: Plan: Home medications including BenzePrO/Lasix held in the setting of hypotension (9) Chronic obstructive pulmonary disease: Plan: Stable without regular inhalers at home Albuterol as needed FEV1 45% with a 26% increase postbronchodilator, DLCO 75% 02/09/2021 Plan As above. Continue IVF, repeat labs for tomorrow. Hopefully will be able to dc home tomorrow with close follow up. Plan d/w Dr. Edouard, further orders as warranted. Admission and Anticipated Discharge Date Admission Date: May 15, 2022 Subjective Patient seen on daily rounds this morning. He is resting comfortably in bedside chair, reports no complaints. Denies chest pain, dyspnea, cough, fever/chills, headache, or gu symptoms. He is hoping that he can be discharged to home tomorrow in order to be home in time for Thanksgiving. Review of Systems Review of Systems: All systems reviewed and are unremarkable except as noted in HPI and below. Denies fever, chills, fatigue, headache, nasal congestion, sore throat, cough, chest pain, shortness of breath, palpitations, orthopnea, PND, abdominal pain, n/v/d, constipation, dysuria, hematuria, frequency, back pain, joint pain or swelling, easy bruising or bleeding, skin lesions or rashes. Physical Exam Physical Exam: GENERAL: 67 yo Well-developed, well-nourished WM. NAD. LUNGS: Clear to auscultation bilaterally. No W/R/R. CARDIOVASCULAR: Regular rate and rhythm. ABDOMEN: Soft, non-tender and non-distended. BS normoactive x 4 quad. EXTREMITIES: No edema. Non-tender. Peripheral pulses +2/4. NEUROLOGIC: A&O x3. Nonfocal PSYCHIATRIC: Cooperative. Appropriate mood and affect. SKIN: Warm, dry, intact. No rashes or lesions. port in L chest wall Results & Data Results & Data ([facility]) Vital Signs (Past 12 Hours) Vital Signs Temp Pulse Resp BP Pulse Ox O2 Del Method O2 Flow Rate 05/16/22 11:54 36.7 C 103 H 18 110/58 L 97 Room Air 05/16/22 07:37 36.6 C 103 H 18 98/57 L 98 Nasal Cannula 2 05/16/22 03:59 36.8 C 81 18 104/57 L 97 Nasal Cannula 2 Laboratory Results 05/16/22 06:01 05/16/22 06:01 PG Care Time/CCT Total # of Minutes Spent Total Time Spent with Patient: Total time spent is greater than 50% in coordination of care (as documented) at patient's floor/unit and/or counseling patient: Coding Level of Care Code 12712 Subseq Hosp Care Lvl 3 Diagnoses ARF (acute renal failure) N17.9 Anemia requiring transfusions D64.9 CKD (chronic kidney disease) stage 3, GFR 30-59 ml/min N18.30 Diabetes mellitus with chronic kidney disease E11.22 Follicular lymphoma C82.90 ANALI (obstructive sleep apnea) G47.33 Hypercholesterolemia E78.00 Hypertension I10 Chronic obstructive pulmonary disease J44.9
--- NOTE | 2022-05-16 15:04 | Pharmacy Report ---
Pharmacy Glycemic Short Note 2 - Date of Service May 16, 2022 - Glycemic Short BSG Results (Last 24 hours): 05/15/22 05/15/22 05/15/22 14:00 18:08 21:07 Glucose 202 H 149 H POC Glucose 126 H 05/16/22 05/16/22 05/16/22 06:01 07:52 07:55 Glucose 273 H POC Glucose 308 H* 323 H* 05/16/22 11:41 Glucose POC Glucose 384 H* OUTPATIENT ANTIDIABETIC REGIMEN: * NPH 36 units SC HS * Novolin R SSI TIDM * HbA1c = 7.3% (03/31/22) ASSESSMENT: * 67 yo M admitted secondary to acute renal failure. Pharmacy has been consulted to assist with inpatient glycemic management. Patient is a type 2 diabetic with adequate glycemic control on insulin only as an outpatient. Patient is ordered and tolerating a diet. SCr was initially greater than 10 mg/dL. Most recent was 5.52 mg/dL. * Patient was ordered 4 units of Lantus BID upon admission along with Novolog with goal of 110-140 mg/dL and CF of 50 w/ carb ratio of 20. Received 40 mg of Solumedrol last evening. No ongoing steroid orders. * Admission BSG was 202 mg/dL. Last night at HS, BSG was 126 mg/dL. Patient received only 4 units of Lantus at this time plus the Solumedrol. * Fasting BSG was 323 mg/dL this AM which is likely related to steroid-induced hyperglycemia. Lunch time BSG was 384 mg/dL at lunchtime which may also be due to steroid given degree of renal impairment. In total, patient received 10 units of Lantus this AM + 7 units of Novolog. * When lunchtime BSG resulted, decision was made to tighten Novolog to reflect weight/stress of 3. Given degree of renal impairment, decided against further basal at this time. Opted for an IV insulin bolus of 0.1 units/kg. Will add an HS scale of basal tonight. PLAN FOR INPATIENT GLYCEMIC CONTROL: * Basal insulin * Lantus 10 units SC this AM - will d/c ongoing AM Lantus orders. * Lantus 10-20 units SC qPM (starting this evening - see eMAR for more details) * 9 units IV insulin bolus * Bolus insulin * NovoLog per scale ACHS or Q6hrs while NPO * Goal Range: Low 110 mg/dL - High 140 mg/dL * Correction Factor: 20 mg/dL/unit * Nutritional / Prandial insulin per carb ratio of 1 unit per 6 grams CHO consumed
[2022-05-16 15:43] LABS: Albumin Level 3.4 gm/dl (3.4-5.0); BUN Creatinine Ratio 17.3 (10-20); Calcium 8.2 mg/dl (8.5-10.1); Creatinine Clr Calc Pharmacy 20.7 ml/min; Est GFR (African American) 17.4 ml/min; Phosphorus 3.4 mg/dl (2.5-4.9); Potassium 5.1 mmol/L (3.5-5.1); Uric Acid 7.9 mg/dl (2.6-7.2)
[2022-05-16] MEDS ORDERED: LANTUS PER UNIT CHARGE SQ SCH (21:00)
[2022-05-16] MEDS: ATORVASTATIN 20 MG TAB PO SCH (21:53)
[2022-05-17] MEDS: SODIUM CHLORIDE 0.9% 1000ML 1,000 ML IV SCH ×2 (01:21→08:45)
[2022-05-17] MEDS ORDERED: INSULIN ASPART PER UNIT SC ONE (02:00)
[2022-05-17 06:46] LABS: Albumin Level 3.4 gm/dl (3.4-5.0); BUN Creatinine Ratio 21.7 (10-20); Calcium 8.5 mg/dl (8.5-10.1); Creatinine Clr Calc Pharmacy 36.8 ml/min; Est GFR (African American) 34.9 ml/min; Est GFR (Non-African American) 30.1 ml/min; Magnesium 2.6 mg/dl (1.7-2.4); Phosphorus 2.8 mg/dl (2.5-4.9); Potassium 4.8 mmol/L (3.5-5.1); Uric Acid 6.9 mg/dl (2.6-7.2)
[2022-05-17 07:34] VITALS: PULSE 89; TEMP 98.1; O2SAT 97
[2022-05-17] MEDS: INSULIN ASPART PER UNIT SC SCH ×2 (08:45→13:12)
[2022-05-17] MEDS: ASPIRIN 81 MG ECTAB PO SCH (08:46)
[2022-05-17] MEDS: allopurinoL 100 MG TAB PO SCH (08:46)
[2022-05-17] MEDS: HEPARIN SOD 5,000 UNIT/0.5 ML VIAL SQ SCH (08:46)
[2022-05-17] MEDS ORDERED: PANTOprazole 40 MG TAB PO SCH (09:00)
--- NOTE | 2022-05-17 11:54 | Discharge Summary ---
Date of Service May 17, 2022 Admission HPI Per Admitting Provider Deejay Sierra is a 67-year-old male with a past medical history of COPD, ANALI, type 2 diabetes on insulin, CKD, non-Hodgkin's lymphoma, tobacco abuse who presented to the emergency department with lightheadedness worsened when standing. Has had associated weakness. Was seen at the cancer care [facility] in [place] and was found to have a creatinine of 10.5, acute renal failure with last creatinine 05/01 of 1.25 Referred by oncologist for elevated K and Cr. Chemotherapy got chemo 18 days ago and pipo campuzano for reoutine labs. 60/30s on admit, now improved post 3L Low 100s/40s, HR decreased down to 99. N/V for weeks with poor po intake. Urinating normally. Several weeks of n/v. 2 days ago was tolerating meals OK. Had steak and mashed potatoes with BBQ sauce which stayed down OK. No vomiting for 1 week. N/V 4 days after chemo then improved. Dirrhea constipation first few days, but none in the last week. No fevers chills or sweats this week. No cough, endorses baseline shrotness of breath due to COPD with nighttime O2 with no recent change, no wheezing this week, no sputum production, and no change in breathing. No chest pain or chest pressure. No abdominal pain this week, did have pain prior to chemo due to a 'bowel bleeder' but no recent BRBPR/melena/bleeding and checks everyday. Was life flighted to [place] which resolved with IV protonix. Is on low dose aspirin, no blood thinners currently. Follows with Dr. Valencia for CKD, baseline CR ~1-1.1. T2DM well controlled per pt on insulin, bsgs ~114 this mronign and well controleld this past week. Lightheaded and dizzi last 4-5 days, weak, fatigued. Thought was part of chemo. Takes 5 pills of a steroid he thinks prior to last. Medical History: Reviewed Medications: Reviewed Surgical History: Reviewed Allergies: Reviewed Social History: Reviewed Code Status: Full code Principal Diagnosis 1. Acute renal failure 2. Hypotension 3. Severe dehydration 4. Hypermagnesemia Discharge Exam GENERAL: 67 yo Well-developed, well-nourished WM. NAD. LUNGS: Clear to auscultation bilaterally. No W/R/R. CARDIOVASCULAR: Regular rate and rhythm. ABDOMEN: Soft, non-tender and non-distended. BS normoactive x 4 quad. EXTREMITIES: No edema. Non-tender. Peripheral pulses +2/4. NEUROLOGIC: A&O x3. Nonfocal PSYCHIATRIC: Cooperative. Appropriate mood and affect. SKIN: Warm, dry, intact. No rashes or lesions. port in L chest wall Discharge Data Allergies Allergy/AdvReac Type Severity Reaction Status Date / Time morphine AdvReac Unknown "dizzy",del Verified 04/07/22 12:49 usional Consultations 05/15/22 17:23 ED Decision to Admit Stat 05/15/22 17:24 Consult Nephrology Stat Ordered Studies Chest X-Ray 05/15/22 14:02 XR chest 1V portable CLINICAL HISTORY: Sepsis. COMPARISON STUDY: Chest radiograph April 10, 2022. FINDINGS: Left internal jugular Iqjzev-w-Domg is in place. Lung volumes are normal. Left basilar opacity is present. There is no pneumothorax or pleural effusion. Cardiac size is normal. Mediastinal contours are normal. There is no evidence for pulmonary edema. IMPRESSION: Left basilar opacity. Atelectasis is favored however pneumonia could appear similar. Radiographic follow-up is recommended. ACT 112: Negative or not required by law. Electronically signed by: Celestine Britt M.D. 05/15/2022 2:28 PM Renal Ultrasound 05/15/22 18:12 US renal/blad retro comp HISTORY: 67 years-old Male arf, ? retention acute renal failure COMPARISON: CT abdomen and pelvis 03/09/2022 TECHNIQUE: Multiple real-time sonographic images of the kidneys and urinary bladder were obtained assessing grayscale appearance and color flow FINDINGS: The right kidney measures 9.3 x 5.1 x 4.9 cm. The left kidney measures 9.8 x 5.8 x 4.3 cm. No renal calculi, hydronephrosis or suspicious mass lesion identified. Cortical medullary differentiation is preserved. Mild trabeculation of the urinary bladder may be secondary to chronic bladder outlet obstruction. IMPRESSION: No renal calculi or hydronephrosis. ACT 112: Negative or not required by law. The above report was generated using voice recognition software. It may contain grammatical, syntax or spelling errors. Electronically signed by: Byron Redman M.D. 05/15/2022 7:55 PM Hospital Course (1) ARF (acute renal failure): Deejay Sierra is a 67-year-old male with a past medical history of COPD, ANALI, type 2 diabetes on insulin, CKD, non-Hodgkin's lymphoma, tobacco abuse who presented to the emergency department with lightheadedness worsened when standing. Has had associated weakness. Was seen at the [facility] in [place] and was found to have a creatinine of 10.5, acute renal failure with last creatinine 05/01 of 1.25 Non-anuric Acute renal failure, suspect prerenal depletion versus chemo induced with associated hypotension - No leukocytosis - trop normal - PCT 13 on admit, blood cultures pending - CXR: L basial opacity atelectasis vs pna. No pulm edema. 1lungs are clear. Patient is not anuric.? Prerenal versus chemotherapy-induced - empirically started on Cefepime, MRSA nares neg No emergent indication for dialysis, nephrology consulted. Trend BMP every 8 hours benzapril held - Patient has been repeatedly on various doses of prednisone ranging from 50-20, reports he has not taken this in over a week although there was a prescription filled proximately 1 week ago.? Underlying iatrogenic AI, given 1 dose of methylprednisolone 40mg IV on 05/15 and check cortisol levels - Nephrology consulted, appreciate assistance, agrees with fluid resuscitation - renal us shows no renal calculi or hydro - Renal function dramatically improved; however, this AM hyperkalemic at 6.1, given a dose of Sodium Zirconium 10gm po x1 now - Repeat BMP this AM continues to show improvement in renal fxn with creat of 2.21 and normalized potassium of 4.8 (2) Anemia requiring transfusions: - H&H stable with a 1g drop from 9.9 to 8.8 likely dilutional (3) CKD (chronic kidney disease) stage 3, GFR 30-59 ml/min: - See above (4) Diabetes mellitus with chronic kidney disease: Home regimen on NPH 36 units with sliding scale Switched to basal bolus while inpatient Slightly dose reduced SSI, pharmacy consulted for glycemic management in the setting of ARF Goal [id number] - pharmacy to make adjustments to insulin regimen given hyperglycemia this AM (although in part would account the AM hyperglycemia d/t Solumedrol given oon 05/15) (5) Follicular lymphoma: History of follicular lymphoma Received rituximab x4 doses 2016 subsequently put on maintenance rituximab until 2017 Recent diagnosis with disease progression, admitted for CHOP therapy with allopurinol for elevated uric acid Last chemo was approximately 3 weeks ago per patient. Usually has 3 to 4 days of symptoms including nausea/vomiting, then gradually improves. Appetite has actually been decent in the last (6) ANALI (obstructive sleep apnea): CPAP nightly 7 cm (7) Hypercholesterolemia: - Continue statin (8) Hypertension: Home medications including BenzePrO/Lasix held in the setting of hypotension and ALTAGRACIA - He can f/u with pcp and determine if he needs another medication started for BP control (9) Chronic obstructive pulmonary disease: Stable without regular inhalers at home Albuterol as needed FEV1 45% with a 26% increase postbronchodilator, DLCO 75% 02/09/2021 Plan Follow up as outpatient for repeat blood work and f/u with oncology to determine next chemo treatment. Pt will NOT resume Meloxicam, Lasix, or Benazepril upon discharge. May require another BP med but given his hypotension on admit with a BP read this AM as 113 systolic and most recent read is 161 systolic, will hold off on prescribing anything. He will need to fu with pcp to reassess BP. Plan d/w Dr. Edouard who has also seen and evaluated this patient and agrees with aforementioned. Total Time Total Time Spent Total Time Spent (In Minutes): >30 minutes Discharge Plan Discharge Items Patient Disposition: Home - Self-Care Reason For Visit: ARF Discharge Diagnosis: kidney failure due to profound dehydration Activity: Resume your previous activity Non-emergency contact: Primary Care Provider and Oncologist Call non-emergency contact if: you have any medication questions and your symptoms worsen Follow-up/Referrals: Dixon Aj MD [Primary Care Provider] - Diet: Carb Consistent or DM2 Addtl Attending Provider Instructions: You were hospitalized due to kidney failure which was felt to be related to significant dehydration. You were treated by holding your blood pressure medication called Benazepril, your Meloxicam, and your Lasix. All of these medications can adversely affect your kidneys. You were also provided with IV fluids. You may need to be started on a different blood pressure medication but as of right now, you are not going to be taking anything for your blood pressure. This can be discussed at your follow up with your primary care provider. Your kidney numbers are correcting quite well. You will have follow up blood work that is to be ordered by your oncologist and they will call you to arrange your next chemotherapy treatment. It is recommended that you have close follow up with your specialists including your cancer doctor and/or PA as well as your kidney doctor. You should also follow up with you family doctor within 1 week of discharge. If you have any questions or concerns after you leave the hospital, please contact the nonemergency number listed on your discharge paperwork. In the event of a medical emergency, call 911. Pending Studies at Discharge: No Stand-Alone Forms: My [facility], Smoking Cessation Medications and DC Order Prescriptions: Continued loratadine [Claritin] 10 mg tablet 10 mg PO QAM montelukast [Singulair] 10 mg tablet 10 mg PO HS cholecalciferol (vitamin D3) 50 mcg (2,000 unit) tablet 1,000 unit PO QAM ascorbic acid (vitamin C) 500 mg capsule 500 mg PO QAM pantoprazole [Protonix] 20 mg tablet,delayed release (DR/EC) 40 mg PO QAM Novolin N NPH U-100 Insulin 100 unit/mL suspension 36 units SQ HS Rx Instructions: 80- 140 GIVE 26 UNITS, ABOVE 140 GIVE ADDITIONAL UNITS PER SLIDING SCALE DIRECTIONS. (DME) CPAP Machine Misc See Rx Instructions .Route Qty: 1 0RF Rx Instructions: cpap 7 cm h2o (DME) CPAP Supplies Misc See Rx Instructions .ROUTE .MEDSUPPLY Qty: 1 0RF Rx Instructions: CPAP supplies allopurinol 300 mg Tablet 300 mg PO DAILY Qty: 30 0RF aspirin [Aspir-Low] 81 mg Tablet,Delayed Release (Dr/Ec) 81 mg PO DAILY pramipexole [Mirapex] 1 mg Tablet 1 mg PO HS Novolin R Flexpen 100 unit/mL (3 mL) Insulin Pen 0 sliding scale dose SUBCUT TIDM atorvastatin 20 mg tablet 20 mg PO HS albuterol sulfate 90 mcg/actuation Hfa Aerosol Inhaler 1 inh INHALATION QID PRN (Reason: sob) Changed magnesium oxide 400 mg magnesium tablet 800 mg PO QAM Qty: 60 0RF Rx Instructions: take two 400mg tablets Discontinued meloxicam 15 mg tablet 15 mg PO HS benazepril [Lotensin] 20 mg tablet 20 mg PO QAM furosemide [Lasix] 20 mg tablet 20 mg PO QAM Discharge Orders: Discharge Order (Routine); Ordered 05/17/22 Ordered By: Елена Boateng Admission Data Admit Date/Time: 05/15/22 17:39 Attending Provider: Gareth Edouard Admit Provider: Oliver Goldberg Primary Care Provider: Dixon Aj Other Providers: Oliver Goldberg ; Mojgan Richardson Coding Level of Care Code D/C DAY MANAGEMENT >30 MINS Diagnoses ARF (acute renal failure) N17.9 Anemia requiring transfusions D64.9 CKD (chronic kidney disease) stage 3, GFR 30-59 ml/min N18.30 Diabetes mellitus with chronic kidney disease E11.22 Follicular lymphoma C82.90 ANALI (obstructive sleep apnea) G47.33 Hypercholesterolemia E78.00 Hypertension I10 Chronic obstructive pulmonary disease J44.9
[2022-05-17 12:37] VITALS: BP 125/64
--- NOTE | 2022-05-17 12:40 | Nephrology Progress Note ---
Date of Service May 17, 2022 Assessment & Plan (1) ARF (acute renal failure): (2) Anemia: (3) Hypotension: (4) Hypermagnesemia: Plan 67 Y O gentlemen with recurrent follicular lymphoma, recently started on chemotherapy in February last dose completed >2 weeks ago. Has been having generalized weakness, dizziness, lightheadedness associated with anorexia and poor po intake and had lab done at [facility] showing ALTAGRACIA with creatinine 10.7, potassium 5.0. He was significantly hypotensive and volume depleted on exam and received 3 L of IV fluid bolus with improvement in blood pressure. ALTAGRACIA most likely prerenal with poor po intake, diuretics, ARB and NSAID. renal function started to improve rapidly however noted to have multiple electrolyte abnormality including hyperkalemia and hyperuricemia as well as hypocalcemia but phosphate was normal. Tumor lysis syndrome remains a possibility although less likely. -- discontinue IV fluid as p.o. intake improved, renal function and electrolyte improved and blood pressure running high. Encouraged to maintain p.o. intake and keep well hydrated -- increase allopurinol to 100 mg twice a day. -- continue holding ARB, Lasix, Mag supplement. -- okay to be discharged, lab to be done Sunday, copy to Dr. Valencia and Dr. Lopez. Will follow. Admission and Anticipated Discharge Date Admission Date: May 15, 2022 Subjective Earl seen and evaluated this morning. Overall he is feeling much better, trying to eat better. Decent urine output. Blood pressure improved. Kidney function improved significantly, creatinine down to 2.5 however potassium , bicarb , phos normal, Uric acid improved. Review of Systems Review of Systems: All systems reviewed & are unremarkable except as noted in Subjective Physical Exam Constitutional: WD/WN, vitals as above no acute distress Eyes: + anicteric sclerae ENMT: Ears: no hearing impairment Neck: normal visual inspection Thyroid: no thyromegaly Respiratory: no respiratory distress Auscultation: lungs clear to auscultation bilaterally Cardiovascular: Rate/Rhythm: regular rate and regular rhythm Heart Sounds: normal S1 and normal S2 Extremities: no edema Musculoskeletal: Extremities: extremities normal to inspection Skin: no rashes Neurologic: no focal motor deficits Psychiatric: Orientation: alert and oriented x 3 Affect: euthymic affect Results & [facility] Vital Signs (Past 12 Hours) Vital Signs Temp Pulse Pulse Resp BP Pulse Ox O2 Del Method 05/17/22 07:32 36.7 C 89 18 161/79 H 97 Room Air 05/17/22 03:26 36.8 C 90 18 112/51 L 95 Room Air 05/17/22 02:34 110 H PG Care Time/CCT Total # of Minutes Spent Total Time Spent with Patient: Total time spent is greater than 50% in coordination of care (as documented) at patient's floor/unit and/or counseling patient: Coding Level of Care Code 93900 Subseq Hosp Care Lvl 3 Diagnoses ARF (acute renal failure) N17.9 Anemia D64.9 Hypotension I95.9 Hypermagnesemia E83.41
[2022-05-17] MEDS ORDERED: allopurinoL 100 MG TAB PO SCH (21:00)
--- NOTE | 2022-05-17 21:25 | Electrocardiogram Report ---
Test Reason : Blood Pressure : / mmHG Vent. Rate : 092 BPM Atrial Rate : 092 BPM P-R Int : 152 ms QRS Dur : 090 ms QT Int : 368 ms P-R-T Axes : 062 -06 016 degrees QTc Int : 456 ms Normal sinus rhythm Low voltage QRS Cannot rule out Anterior infarct When compared with ECG of 09-MAR-2022 12:25, Right bundle branch block is no longer Present Confirmed by Balwinder Zee ([id number]) on 05/17/2022 9:25:11 PM Referred By: Telma Giraldo Confirmed By:Balwinder Zee
== END 2022-05-17 13:15 | disposition home or self-care (01) | DRG 683 ==
LOC: ED 13:36 → 4W 17:39 → SUATTDRO 17:39 → 4W 20:04

== ENCOUNTER 2022-05-24 09:36 | Inpatient (IN) ==
[2022-05-24] MEDS ORDERED: SODIUM CHLORIDE 0.9% 1000ML 1,000 ML IV STA (09:46)
[2022-05-24] MEDS ORDERED: ONDANSETRON INJ 2 MG/ML 2 ML VIAL IV STA (09:46)
--- NOTE | 2022-05-24 09:57 | Emergency Department Note ---
Impression & Plan SBO (small bowel obstruction), Acute dehydration, Vomiting ED Provider Note NAME: YOEL PETERSON AGE: 67 SEX: M : 1955 ARRIVES VIA: Walk-In INFORMANT: Patient, the patient's significant other ED PROVIDER(S): Dixon Garcia DO CHIEF COMPLAINT: Vomiting HPI: The patient is a 67-year-old male who presented to the emergency department for an evaluation of vomiting. The patient has history of lymphoma. The lymphoma is causing significant nausea and vomiting. He also had an episode of suspected bowel obstruction because of, that was located in his abdomen. The patient has lymphoma which is being treated at the [facility]. Lymphoma is located on both sides of the diaphragm. The patient states that he was recently discharged from our facility. He was also transferred to [facility] because of the possibility of a bowel obstruction. He spent 4 days at [place] but no intervention was required. The patient returns today after he was seen at the [facility] and was referred to the emergency department for possible IV fluids as well as CT of the abdomen pelvis. The patient has noticed decreased urine output. He is also noticed increasing abdominal distention. The patient denies having any chest pain. He has had no black or bloody bowels. He states his symptoms are moderate. ROS: See above HPI for pertinent positives & negatives. A total of 10 systems reviewed and were otherwise negative. PAST MEDICAL HISTORY: See Below PAST SURGICAL HISTORY: See Below FAMILY HISTORY: See Below SOCIAL HISTORY: See Below HOME MEDICATIONS: See Below ALLERGIES: See Below VITALS: See Below PHYSICAL EXAMINATION: GENERAL: Patient is awake alert in no acute distress patient is resting comfortably and showing no signs of anxiety EYES: The conjunctivae are clear. The pupils are round and reactive. EARS, NOSE, MOUTH AND THROAT: The nose is without any evidence of any deformity. Mucous membranes are dry. NECK: The neck is nontender and supple. RESPIRATORY: Normal respiratory effort is noted there is no evidence of wheezing rhonchi or rales CARDIOVASCULAR: Regular rate and rhythm noted there no murmurs rubs or gallops normal S1 normal S2. GASTROINTESTINAL: The abdomen was soft and mildly distended. There is no guarding or rigidity appreciated. MUSCULOSKELETAL/EXTREMITIES: There is no evidence of gross deformity full range of motion is noted in the hips and shoulders. SKIN: Skin is warm and dry. Trace pedal edema was noted bilaterally. NEUROLOGIC: Patient is awake alert and oriented x3. MEDICAL DECISION MAKING: The patient is a 67-year-old male who has a history of lymphoma. He has lymphoma by states of the diaphragm. He has had problems with small bowel obstruction and GI bleeding in the past secondary to intra-abdominal and pelvic lymphoma. Patient presented to the emergency department today from oncology. The last time he had an episode like this he was having GI bleeding as well as renal failure. He was treated with IV fluids in the emergency department. He was also treated with antiemetics. I discussed the patient's laboratory and radiographic studies with him. He was found to have signs of bowel obstruction on CT but overall the area of tumor appears improved. I discussed his condition with our general surgical group at [facility]. They recommended transfer to a facility that has surgical oncology. I discussed this case with [facility]. I did this at the patient's request as the facility was closer. Ultimately I did discuss this case again with the surgical group as well as a medicine group at [facility]. They have agreed to accept the patient however it will be very delayed so I discussed this case with the [facility] hospitalist as well. They have agreed to evaluate the patient in the emergency department for further management and disposition. Triage Nursing notes reviewed. Prior medical records reviewed Vital Signs: reviewed and remarkable for no significant abnormalities Differential diagnosis: Gastroenteritis, food borne illness, infections, appendicitis, diverticulitis, inflammatory bowel disease, obstruction, GI bleed, biliary pathology, volvulus, as well as other pathologies. ER treatment provided: See below Diagnostics interpreted by me: ECG: none Cardiac Monitoring: An order was placed for continuous cardiac monitoring. The monitor shows a rate of 80 bpm with sinus rhythm. Laboratory studies: As stated above and show below. Imaging studies: See below Consultation(s): I discussed this case with Hannah who is on for general surgery. They recommended transfer to a tertiary center that has surgical oncology capabilities I discussed this case with the general surgeon at [facility] at the patient's request. They recommend discussing the case with [facility]. After that I discussed the possibility of transfer to [place] with the family and they would prefer to go to [facility] as the patient was seen there recently. I discussed this case with Dr. Cruz who is on-call for the surgical oncology group at [facility]. I discussed this case with Dr. Morin who is on-call for the [facility] hospitalist group. Past Med/Surg History Medical History Anemia requiring transfusions Chronic, hx blood transfusion Asthma Chronic obstructive pulmonary disease CKD (chronic kidney disease) stage 3, GFR 30-59 ml/min COPD (chronic obstructive pulmonary disease) Diabetes mellitus, type 2 IDDM Diabetic peripheral neuropathy Follicular lymphoma Treatment: Systemic therapy with Rituxan Hx of malignant neoplasm of prostate Treated with brachytherapy and radiation Currently in remission Hyperlipidemia Hypermagnesemia Hypertension Hypotension Nocturnal hypoxemia Non-Hodgkin lymphoma Dx 2017 treated with chemotherapy at the time Was in remission until recently (01/2022) Numbness On home oxygen therapy 2lpm via n/c at HS and during the day PRN ANALI (obstructive sleep apnea) 2lpm via n/c at HS -- awaiting results from sleep study on 03/06/22 ANALI (obstructive sleep apnea) Retroperitoneal lymphadenopathy hx Surgical History H/O colonoscopy approx 2012 History of amputation traumatic tip of right index History of ankle surgery multiple (right ankle) ankle bone spurs removal - ankle joint hardware/fusion - osteomyelitis with hardware removal -- treated with abx, once healed had ankel hardware replaced History of carpal tunnel release right History of cholecystectomy History of colonoscopy History of elbow surgery right elbow surgery History of esophagogastroduodenoscopy (EGD) History of tooth extraction full top dental extraction Port-A-Cath in place (03/22/22) Insertion Access Port with Fluoroscopy to left internal jugular vein (Left) - Tate Rios DO, FACS Family History Father Diabetes Lung cancer Hypertension Stroke Mother Diabetes Hypertension Brother Diabetes Other No family history of adverse response to anesthesia Social History Smoking Status: Former smoker Tobacco Type: Cigarettes Second Hand Exposure: No; Hx Alcohol Use: No Hx Substance Use: No Preferred Language: Maldivian Communication Ability: Effective Insurance Account Representative Required: No Beliefs That Will Affect Care: None marital status: Current Living Situation: Significant Other current occupational status: retired and disabled How many Children do You have: 3 Feels Safe at Home: Yes during the past year weight has: decreased > 10 lbs Assistive Devices: None Allergies Allergies Allergy/AdvReac Type Severity Reaction Status Date / Time morphine AdvReac Unknown "dizzy",del Verified 05/24/22 12:42 [facility] Home Meds Home Medications Medication Instructions Recorded Confirmed pantoprazole 20 mg tablet,delayed 40 mg PO QAM 07/16/18 05/24/22 release (Protonix) loratadine 10 mg tablet (Claritin) 10 mg PO QAM 01/29/19 05/24/22 montelukast 10 mg tablet 10 mg PO HS 01/29/19 05/24/22 (Singulair) insulin NPH isoph U-100 human 100 36 units subcut HS 07/17/19 05/24/22 unit/mL subcutaneous suspension (Novolin N NPH U-100 Insulin isophane) ascorbic acid (vitamin C) 500 mg 500 mg PO QAM 08/02/21 05/24/22 capsule cholecalciferol (vitamin D3) 50 1,000 unit PO QAM 08/02/21 05/24/22 mcg (2,000 unit) tablet atorvastatin 20 mg tablet 20 mg PO HS 03/20/22 05/24/22 insulin regular human 100 unit/mL 0 sliding scale dose subcut TIDM 03/20/22 05/24/22 (3 mL) subcutaneous pen (Novolin R Flexpen) pramipexole 1 mg tablet (Mirapex) 1 mg PO HS 03/20/22 05/24/22 aspirin 81 mg tablet,delayed 81 mg PO DAILY 05/15/22 05/24/22 release benazepril 20 mg tablet 20 mg PO QAM 05/24/22 05/24/22 furosemide 20 mg tablet 20 mg PO QAM 05/24/22 05/24/22 omega 4-fhr-ecv-fish oil 1,200 mg 1 cap PO QAM 05/24/22 05/24/22 (144 mg-216 mg) capsule (Fish Oil) Previous Rx's Medication Instructions Recorded allopurinol 300 mg tablet 300 mg PO DAILY #30 tabs 04/02/22 magnesium oxide 800 mg PO QAM #60 tabs 05/17/22 CPAP Machine #1 ea 05/24/22 CPAP Supplies #1 ea 05/24/22 Results & Data (ED) Vital Signs Vital Signs - 24 hr 05/24/22 09:37 05/24/22 12:36 05/24/22 12:38 Temperature 36.8 C Temperature Source Temporal Artery Scan Pulse Rate 101 H Pulse Rate [Apical] 88 Respiratory Rate 18 18 Blood Pressure 128/70 Blood Pressure [Left Arm] 121/82 Blood Pressure Mean 89 Blood Pressure Mean [Left Arm] 95 Pulse Oximetry 97 99 97 Oxygen Delivery Method Room Air Room Air Room Air Sepsis Recent Fever Within 48 Hours No Sepsis New/Unexplained Change in Mental Status No Sepsis Action Taken by Nursing No Action Required Home Medications Current Medication List: was personally reviewed by me Laboratory Data Attestation: I reviewed the patient's lab results. Lab Results 05/24/22 05/24/22 Range/Units 10:05 12:00 Magnesium 2.0 (1.7-2.4) mg/dl Troponin I High Sens 6.4 D (0-20) pg/ml Lipase 12 (11-82) U/L SARS-CoV-2, RNA, NAAT NEGATIVE (NEGATIVE) Administered Medications Sodium Chloride (Nss 1000ml) 1,000 mls @ 999 mls/hr IV .Q1H1M ONE Stop: 05/24/22 14:02 Last Admin: 05/24/22 13:15 Dose: 999 mls/hr Documented By: ML Discontinued Medications Sodium Chloride (Nss 1000ml) 1,000 mls @ 999 mls/hr IV .Q1H1M STA Stop: 05/24/22 10:46 Last Infusion: 05/24/22 11:13 Dose: 0 mls/hr Documented By: Admin: 05/24/22 10:12 Dose: 999 mls/hr Documented By: KV Ondansetron HCl (Ondansetron Inj 2 Mg/Ml 2 Ml Vial) 4 mg IV NOW STA Stop: 05/24/22 09:47 Last Admin: 05/24/22 10:12 Dose: 4 mg Documented By: KV Imaging Data Radiologist's Impression: Abdomen/Pelvis CT 05/24/22 09:46 CT SCAN OF THE ABDOMEN AND PELVIS WITHOUT IV CONTRAST CLINICAL HISTORY: Nausea and vomiting. History of lymphoma. COMPARISON STUDY: Abdominal CT dated 03/09/2022. TECHNIQUE: CT scan of the abdomen and pelvis is performed from the lung bases to the proximal femora. Images are reviewed in the axial, sagittal, and coronal planes. IV contrast was not administered for this examination. Note that the examination was performed in suboptimal fashion without oral and IV contrast. A dose lowering technique was utilized adhering to the principles of ALARA. CT DOSE: 489.50 mGy.cm FINDINGS: Lung bases: The heart is normal in size and without pericardial effusion. Peribronchial thickening is seen in the lower lobes. There is bibasilar scarring/atelectasis. No airspace consolidation or pleural effusion is identi fied. Liver: The unenhanced liver is normal in size, contour, and attenuation. There is no intrahepatic biliary ductal dilatation. Gallbladder: Surgically absent noting clips in the gallbladder fossa. Spleen: Normal in size and attenuation. Pancreas: Unremarkable. Adrenal glands: Unremarkable. Kidneys: The unenhanced kidneys are normal in size and without hydronephrosis. There are no renal calculi identified. There is no evidence of contour deforming renal mass lesion. Abdominal vasculature: The abdominal aorta is normal in course and caliber noting moderate to advanced atherosclerotic calcification. Bowel: There are tethered bowel loops in the central pelvis with surrounding inflammation and trace fluid. This is located at the site of the previously treated lymphomatous lesion. The mass lesion has significantly decreased in size. The small bowel loops above this site are distended and fluid-filled, measuring up to 4.5 cm diameter. The transition point is seen on axial image #2 76. The distal small bowel loops are decompressed, and the appearance is consistent with a high-grade obstruction. The appendix is well-visualized and normal. Peritoneum: There is no intraperitoneal free air or abdominal ascites. There is a fat-containing umbilical hernia. Lymphadenopathy: Prominent residual retroperitoneal lymph nodes measure up to 9 mm in short axis. No mesenteric lymphadenopathy is seen. There is no pelvic sidewall or inguinal lymphadenopathy. Pelvic viscera: The the prostate gland is diminutive and heterogeneous noting brachytherapy implants in place. The bladder is decompressed, and the wall appears thickened/trabeculated indicating chronic outlet obstruction. There are small bilateral fat-containing inguinal hernias. Skeletal structures: The skeletal structures are osteopenic. There is mild to moderate lumbosacral spondylosis. Bilateral pars defects are noted at L5 with minimal anterolisthesis of L5-S1. No lytic or blastic lesions are seen. IMPRESSION: 1. Suboptimal examination without oral and IV contrast. 2. High-grade small bowel obstruction. 3. There is a complex transition point in the central pelvis with matted/tethered bowel loops at the site of the previously characterized small bowel mass/lymphoma. The mass lesion has significantly decreased in size from previous. This could be related to scarring or adhesions. There is mild surrounding inflammation and trace fluid. Surgical assessment is advised. 4. No intraperitoneal free air is identified. 5. Additional findings as above. ACT 112: Negative or not required by law. Electronically signed by: David Tran M.D. 05/24/2022 10:37 AM Chest X-Ray 05/24/22 09:46 XR chest 1V portable CLINICAL HISTORY: vomiting TECHNIQUE: Single frontal radiograph of the chest was obtained. Comparison: Comparison is made to chest radiograph 05/15/2022 FINDINGS: A left portacatheter is seen. The cardiomediastinal silhouette is normal. Radiodensity in the left lung base is again noted. No evidence of pleural effusion or pneumothorax. IMPRESSION: Left lung base atelectasis is unchanged. ACT 112: Negative or not required by law. Electronically signed by: Den Holbrook M.D. 05/24/2022 10:06 AM Discharge Plan Visit Data Chief Complaint: Vomiting Stated Complaint: VOMITING ED Provider: Dixon Garcia Discharge Problem: SBO (small bowel obstruction), Acute dehydration, Vomiting Patient Disposition: Being Evaluated by Hospitalist Forms Stand Alone Forms: [facility] Prescriptions Prescriptions: No Action loratadine [Claritin] 10 mg tablet 10 mg PO QAM montelukast [Singulair] 10 mg tablet 10 mg PO HS cholecalciferol (vitamin D3) 50 mcg (2,000 unit) tablet 1,000 unit PO QAM ascorbic acid (vitamin C) 500 mg capsule 500 mg PO QAM pantoprazole [Protonix] 20 mg tablet,delayed release (DR/EC) 40 mg PO QAM (DME) CPAP Machine Misc See Rx Instructions .Route Qty: 1 0RF Rx Instructions: cpap 7 cm h2o (DME) CPAP Supplies Misc See Rx Instructions .ROUTE .MEDSUPPLY Qty: 1 0RF Rx Instructions: CPAP supplies Novolin N NPH U-100 Insulin 100 unit/mL suspension 36 units SQ HS Rx Instructions: 80- 140 GIVE 26 UNITS, ABOVE 140 GIVE ADDITIONAL UNITS PER SLIDING SCALE DIRECTIONS. allopurinol 300 mg Tablet 300 mg PO DAILY Qty: 30 0RF aspirin 81 mg Tablet,Delayed Release (Dr/Ec) 81 mg PO DAILY magnesium oxide 400 mg magnesium tablet 800 mg PO QAM Qty: 60 0RF Rx Instructions: take two 400mg tablets pramipexole [Mirapex] 1 mg Tablet 1 mg PO HS Novolin R Flexpen 100 unit/mL (3 mL) Insulin Pen 0 sliding scale dose SUBCUT TIDM atorvastatin 20 mg tablet 20 mg PO HS benazepril 20 mg tablet 20 mg PO QAM furosemide 20 mg tablet 20 mg PO QAM omega 2-amz-jjj-fish oil [Fish Oil] 1,200 (144-216) mg Capsule 1 cap PO QAM Referrals Referrals: Dixon Aj MD [Primary Care Provider] -
--- NOTE | 2022-05-24 10:07 | XRay Report ---
XR chest 1V portable CLINICAL HISTORY: vomiting TECHNIQUE: Single frontal radiograph of the chest was obtained. Comparison: Comparison is made to chest radiograph 05/15/2022 FINDINGS: A left portacatheter is seen. The cardiomediastinal silhouette is normal. Radiodensity in the left julio ng base is again noted. No evidence of pleural effusion or pneumothorax. IMPRESSION: Left lung base atelectasis is unchanged. ACT 112: Negative or not required by law. Electronically signed by: Den Holbrook M.D. 05/24/2022 10:06 AM
--- NOTE | 2022-05-24 10:38 | CT Scan Report ---
CT SCAN OF THE ABDOMEN AND PELVIS WITHOUT IV CONTRAST CLINICAL HISTORY: Nausea and vomiting. History of lymphoma. COMPARISON STUDY: Abdominal CT dated 03/09/2022. TECHNIQUE: CT scan of the abdomen and pelvis is performed from the lung bases to the proximal femora. Images are reviewed in the axial, sagittal, and coronal planes. IV contrast was not administered for this examination. Note that the examination was performed in suboptimal fashion without oral and IV contrast. A dose lowering technique was utilized adhering to the principles of ALARA. CT DOSE: 489.50 mGy.cm FINDINGS: Lung bases: The heart is normal in size and without pericardial effusion. Peribronchial thickening is seen in the lower lobes. There is bibasilar scarring/atelectasis. No airspace consolidation or pleur al effusion is identified. Liver: The unenhanced liver is normal in size, contour, and attenuation. There is no intrahepatic ren iary ductal dilatation. Gallbladder: Surgically absent noting clips in the gallbladder fossa. Spleen: Normal in size and attenuation. Pancreas: Unremarkable. Adrenal glands: Unremarkable. Kidneys: The unenhanced kidneys are normal in size and without hydronephrosis. There are no renal tran culi identified. There is no evidence of contour deforming renal mass lesion. Abdominal vasculature: The abdominal aorta is normal in course and caliber noting moderate to advance d atherosclerotic calcification. Bowel: There are tethered bowel loops in the central pelvis with surrounding inflammation and trace f luid. This is located at the site of the previously treated lymphomatous lesion. The mass lesion has significantly decreased in size. The small bowel loops above this site are distended and fluid-filled , measuring up to 4.5 cm diameter. The transition point is seen on axial image #276. The distal small bowel loops are decompressed, and the appearance is consistent with a high-grade obstruction. The ap pendix is well-visualized and normal. Peritoneum: There is no intraperitoneal free air or abdominal ascites. There is a fat-containing umbi lical hernia. Lymphadenopathy: Prominent residual retroperitoneal lymph nodes measure up to 9 mm in short axis. No mesenteric lymphadenopathy is seen. There is no pelvic sidewall or inguinal lymphadenopathy. Pelvic viscera: The the prostate gland is diminutive and heterogeneous noting brachytherapy implants in place. The bladder is decompressed, and the wall appears thickened/trabeculated indicating chronic outlet obstruction. There are small bilateral fat-containing inguinal hernias. Skeletal structures: The skeletal structures are osteopenic. There is mild to moderate lumbosacral sp ondylosis. Bilateral pars defects are noted at L5 with minimal anterolisthesis of L5-S1. No lytic or blastic lesions are seen. IMPRESSION: 1. Suboptimal examination without oral and IV contrast. 2. High-grade small bowel obstruction. 3. There is a complex transition point in the central pelvis with matted/tethered bowel loops at the site of the previously characterized small bowel mass/lymphoma. The mass lesion has significantly dec reased in size from previous. This could be related to scarring or adhesions. There is mild surroundi ng inflammation and trace fluid. Surgical assessment is advised. 4. No intraperitoneal free air is identified. 5. Additional findings as above. ACT 112: Negative or not required by law. Electronically signed by: David Tran M.D. 05/24/2022 10:37 AM
[2022-05-24 10:48] LABS: Troponin I High Sensitivity 6.4 pg/ml (0-20)
--- NOTE | 2022-05-24 12:15 | Surgery Consultation ---
Date of Consultation May 24, 2022 Assessment & Plan (1) Small bowel obstruction: This is a 67y M with a PMH of CKD, ANALI, DM, HTN, h/o lymphoma with recurrence who presents to the [facility] ED on 05/24/22 from the cancer center with abnormal labs and patient complaints of recent n/v. Patient's symptoms began last Sunday, associated with intermittent bouts of nausea/vomiting and abdominal pain. He was suppose to undergo a round of chemo today, but was sent to the ER. A CT a/p was performed that was suboptimal due to lack of contrast, but revealed "high-grade small bowel obstruction. There is a complex transition point in the central pelvis with matted/tethered bowel loops at the site of the previously characterized small bowel mass/lymphoma. The mass lesion has significantly decreased in size from previous. This could be related to scarring or adhesions. There is mild surrounding inflammation and trace fluid." On examination patient's abdomen is soft, non distended, with tenderness to palpation in the mid to lower and bilateral lower abdomen. Vitals are stable. Blood work shows WBC: 6 , Hb.9, Cr 1.6. He reports some flatus and a loose BM this AM. Based on CT scan and history would recommend patient be transferred to a tertiary center given his oncologic history playing a role in his SBO. At this time can hold off on NGT given no n/v. Discussed plans with the ER who will make arrangements for transfer. History of Present Illness History of Present Illness This is a 67y M with a PMH of CKD, ANALI, DM, HTN, h/o lymphoma with recurrence who presents to the [facility] ED on 05/24/22 from the cancer center with abnormal labs and patient complaints of recent n/v. He tells me that he started having nausea/vomiting as of last Sunday into (thanksgiving). It did improve over the course of a couple days, but then returned again as of 2 days ago. He has some on and off abdominal pain in his lower abdomen, rating it a 6/10 at it's worst. Currently at rest in the ED in the stretcher he has none. He reports a low appetite and fatigue as well. A CT a/p was performed that was suboptimal due to lack of contrast, but revealed "high-grade small bowel obstruction. There is a complex transition point in the central pelvis with matted/tethered bowel loops at the site of the previously characterized small bowel mass/lymphoma. The mass lesion has significantly decreased in size from previous. This could be related to scarring or adhesions. There is mild surrounding inflammation and trace fluid." The patient states he had a loose stool while in the ER and is passing gas. No nausea at this current time. Was scheduled for his 3rd round of chemo today, which is every 21 days for a total of 6. He has a prior abdominal history of cholecystectomy. Of note back in 03/16 he did have a GI bleed requiring transfer to [place] and was managed without any procedural interventions. Allergies Allergy/AdvReac Type Severity Reaction Status Date / Time morphine AdvReac Unknown "dizzy",del Verified 05/24/22 12:42 [facility] Home Medications Medication Instructions Recorded Confirmed Type pantoprazole 20 mg tablet,delayed 40 mg PO QAM 07/16/18 05/24/22 History release (Protonix) loratadine 10 mg tablet (Claritin) 10 mg PO QAM 01/29/19 05/24/22 History montelukast 10 mg tablet 10 mg PO HS 01/29/19 05/24/22 History (Singulair) insulin NPH isoph U-100 human 100 36 units subcut HS 07/17/19 05/24/22 History unit/mL subcutaneous suspension (Novolin N NPH U-100 Insulin isophane) ascorbic acid (vitamin C) 500 mg 500 mg PO QAM 08/02/21 05/24/22 History capsule cholecalciferol (vitamin D3) 50 1,000 unit PO QAM 08/02/21 05/24/22 History mcg (2,000 unit) tablet atorvastatin 20 mg tablet 20 mg PO HS 03/20/22 05/24/22 History insulin regular human 100 unit/mL 0 sliding scale dose subcut TIDM 03/20/22 05/24/22 History (3 mL) subcutaneous pen (Novolin R Flexpen) pramipexole 1 mg tablet (Mirapex) 1 mg PO HS 03/20/22 05/24/22 History allopurinol 300 mg tablet 300 mg PO DAILY #30 tabs 04/02/22 05/24/22 Rx aspirin 81 mg tablet,delayed 81 mg PO DAILY 05/15/22 05/24/22 History release magnesium oxide 800 mg PO QAM #60 tabs 05/17/22 05/24/22 Rx CPAP Machine #1 ea 05/24/22 Rx CPAP Supplies #1 ea 05/24/22 Rx benazepril 20 mg tablet 20 mg PO QAM 05/24/22 05/24/22 History furosemide 20 mg tablet 20 mg PO QAM 05/24/22 05/24/22 History omega 0-ixc-zsl-fish oil 1,200 mg 1 cap PO QAM 05/24/22 05/24/22 History (144 mg-216 mg) capsule (Fish Oil) Patient History Medical History Anemia requiring transfusions Chronic, hx blood transfusion Asthma Chronic obstructive pulmonary disease CKD (chronic kidney disease) stage 3, GFR 30-59 ml/min COPD (chronic obstructive pulmonary disease) Diabetes mellitus, type 2 IDDM Diabetic peripheral neuropathy Follicular lymphoma Treatment: Systemic therapy with Rituxan Hx of malignant neoplasm of prostate Treated with brachytherapy and radiation Currently in remission Hyperlipidemia Hypermagnesemia Hypertension Hypotension Nocturnal hypoxemia Non-Hodgkin lymphoma Dx 2017 treated with chemotherapy at the time Was in remission until recently (01/2022) Numbness On home oxygen therapy 2lpm via n/c at HS and during the day PRN ANALI (obstructive sleep apnea) 2lpm via n/c at HS -- awaiting results from sleep study on 03/06/22 ANALI (obstructive sleep apnea) Retroperitoneal lymphadenopathy hx Surgical History H/O colonoscopy approx 2012 History of amputation traumatic tip of right index History of ankle surgery multiple (right ankle) ankle bone spurs removal - ankle joint hardware/fusion - osteomyelitis with hardware removal -- treated with abx, once healed had ankel hardware replaced History of carpal tunnel release right History of cholecystectomy History of colonoscopy History of elbow surgery right elbow surgery History of esophagogastroduodenoscopy (EGD) History of tooth extraction full top dental extraction Port-A-Cath in place (03/22/22) Insertion Access Port with Fluoroscopy to left internal jugular vein (Left) - Tate Rios, , FACS Family History Father Diabetes Lung cancer Hypertension Stroke Mother Diabetes Hypertension Brother Diabetes Other No family history of adverse response to anesthesia Social History Smoking Status: Former smoker Tobacco Type: Cigarettes Second Hand Exposure: Yes; Hx Alcohol Use: Yes Alcohol type: beer Hx Substance Use: No Preferred Language: Serbian Communication Ability: [employer] Division Chair Required: No Beliefs That Will Affect Care: None marital status: Current Living Situation: Significant Other current occupational status: retired and disabled How many Children do You have: 3 Feels Safe at Home: Yes during the past year weight has: decreased > 10 lbs Assistive Devices: None Review of Systems Constitutional: + fatigue, + malaise and + anorexia; no fever and no chills Respiratory: + dyspnea (baseline SOB related to COPD) Cardiovascular: no chest pain Gastrointestinal: + abdominal pain (mid/low abdomen), + nausea and + vomiting; no bloating and no blood in stools Physical Exam Physical Exam: awake/alert, no distress Respiratory: normal respiratory effort Gastrointestinal (Abdomen): Inspection/Auscultation: abdomen not distended Percussion/Palpation: + abdomen tender (discomfort elicited in the R mid abdomen and bilateral lower abd. ) and abdomen soft; no guarding and abdomen not rigid Results & Data ([facility]) Vital Signs (Past 12 Hours) Vital Signs Temp Pulse Resp BP Pulse Ox O2 Del Method 05/24/22 09:37 36.8 C 101 H 18 128/70 97 Room Air Diagnostic Findings CT SCAN OF THE ABDOMEN AND PELVIS WITHOUT IV CONTRAST CLINICAL HISTORY: Nausea and vomiting. History of lymphoma. COMPARISON STUDY: Abdominal CT dated 03/09/2022. TECHNIQUE: CT scan of the abdomen and pelvis is performed from the lung bases to the proximal femora. Images are reviewed in the axial, sagittal, and coronal planes. IV contrast was not administered for this examination. Note that the examination was performed in suboptimal fashion without oral and IV contrast. A dose lowering technique was utilized adhering to the principles of ALARA. CT DOSE: 489.50 mGy.cm FINDINGS: Lung bases: The heart is normal in size and without pericardial effusion. Peribronchial thickening is seen in the lower lobes. There is bibasilar scarring/atelectasis. No airspace consolidation or pleural effusion is identified. Liver: The unenhanced liver is normal in size, contour, and attenuation. There is no intrahepatic biliary ductal dilatation. Gallbladder: Surgically absent noting clips in the gallbladder fossa. Spleen: Normal in size and attenuation. Pancreas: Unremarkable. Adrenal glands: Unremarkable. Kidneys: The unenhanced kidneys are normal in size and without hydronephrosis. There are no renal calculi identified. There is no evidence of contour deforming renal mass lesion. Abdominal vasculature: The abdominal aorta is normal in course and caliber noting moderate to advanced atherosclerotic calcification. Bowel: There are tethered bowel loops in the central pelvis with surrounding inflammation and trace fluid. This is located at the site of the previously treated lymphomatous lesion. The mass lesion has significantly decreased in size. The small bowel loops above this site are distended and fluid-filled, measuring up to 4.5 cm diameter. The transition point is seen on axial image #276. The distal small bowel loops are decompressed, and the appearance is consistent with a high-grade obstruction. The appendix is well-visualized and normal. Peritoneum: There is no intraperitoneal free air or abdominal ascites. There is a fat-containing umbilical hernia. Lymphadenopathy: Prominent residual retroperitoneal lymph nodes measure up to 9 mm in short axis. No mesenteric lymphadenopathy is seen. There is no pelvic sidewall or inguinal lymphadenopathy. Pelvic viscera: The the prostate gland is diminutive and heterogeneous noting brachytherapy implants in place. The bladder is decompressed, and the wall appears thickened/trabeculated indicating chronic outlet obstruction. There are small bilateral fat-containing inguinal hernias. Skeletal structures: The skeletal structures are osteopenic. There is mild to moderate lumbosacral spondylosis. Bilateral pars defects are noted at L5 with minimal anterolisthesis of L5-S1. No lytic or blastic lesions are seen. IMPRESSION: 1. Suboptimal examination without oral and IV contrast. 2. High-grade small bowel obstruction. 3. There is a complex transition point in the central pelvis with matted/tethered bowel loops at the site of the previously characterized small bowel mass/lymphoma. The mass lesion has significantly decreased in size from previous. This could be related to scarring or adhesions. There is mild surrounding inflammation and trace fluid. Surgical assessment is advised. 4. No intraperitoneal free air is identified. 5. Additional findings as above. ACT 112: Negative or not required by law. Electronically signed by: David Tran M.D. 05/24/2022 10:37 AM PG Care Time/CCT Total # of Minutes Spent Total Time Spent with Patient: Total time spent is greater than 50% in coordination of care (as documented) at patient's floor/unit and/or counseling patient: Coding Level of Care Code INT OBSERVATION CARE 50M LVL 2 Diagnoses Small bowel obstruction K56.609
[2022-05-24] MEDS ORDERED: SODIUM CHLORIDE 0.9% 1000ML 1,000 ML IV ONE (13:02)
--- NOTE | 2022-05-24 13:35 | History & Physical Report ---
Date of Service May 24, 2022 Assessment & Plan (1) Small bowel obstruction: Plan: Patient with high-grade bowel obstruction on noncontrast CT scan abdomen pelvis 05/24/2022. Recommendations for transfer to tertiary center. Tertiary center excepts but no bed available. Will optimally manage here with surgical comanagement until bed is available. His last transfer did resolve his bowel obstruction with conservative management. N.p.o. IV fluid Parenteral pain medication IV Protonix and conversion of antihypertensive medications IV No NG tube at this time surgery to help make decision if that is required (2) Type 2 diabetes mellitus with insulin therapy: Plan: Patient is n.p.o. will receive 50% of his NPH dose and sliding scale insulin hemoglobin A1c will be checked (3) Hypertension: Plan: Benazepril be switched to enalapril AT. Dose will be slightly less than frequency of every 6 as decided to be Q8 watching his blood pressure and renal function Patient's diuretics are held at this time usually Lasix 20 mg daily Secondary risk prevention aspirin and atorvastatin are also held at this time (4) NHL (non-Hodgkin's lymphoma): Plan: Typical follows with [facility]. Received CHOP therapy 03/31/2022 for follicular lymphoma possible large cell lymphoma hypercalcemia has been previously treated with IV Zometa Patient is remnants of low white count and anemia at this time but is not neutropenic Patient typically on allopurinol 300 mg a day likely for possible gout and tumor lysis this is currently on hold given his n.p.o. 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 Patient is a history of lymphoma and gastric hemorrhage from the same. He currently is treated through Dr. Lopez at the [facility]. In the past he has been taken care of at [facility] for possibility of bowel obstruction. During his last stay there he resolved with medical management after [address] scan abdomen pelvis showed "high-grade small bowel obstruction with complex transition point in the central pelvis with matted tethered bowel loops at the site of the previously characterized small bowel mass/lymphoma. According to radiology this masses significantly decreased in size from previous exams." Surgery did see the patient in consultation does not recommend NG tube at this time but did recommend transfer the patient to tertiary center due to the complexity of his bowel obstruction. Dr. Garcia ER physician about any spoke to the surgical oncology group on-call at [place], Dr. Cruz, who recommended that he speak to the medical service which is in the process of doing so. Reportedly her she is excepted the patient and there is not a bed available but recommends managing here until a bed opens up Allergies Allergy/AdvReac Type Severity Reaction Status Date / Time morphine AdvReac Unknown "dizzy",del Verified 05/24/22 12:42 [facility] Home Medications Medication Instructions Recorded Confirmed Type pantoprazole 20 mg tablet,delayed 40 mg PO QAM 07/16/18 05/24/22 History release (Protonix) loratadine 10 mg tablet (Claritin) 10 mg PO QAM 01/29/19 05/24/22 History montelukast 10 mg tablet 10 mg PO HS 01/29/19 05/24/22 History (Singulair) insulin NPH isoph U-100 human 100 36 units subcut HS 07/17/19 05/24/22 History unit/mL subcutaneous suspension (Novolin N NPH U-100 Insulin isophane) ascorbic acid (vitamin C) 500 mg 500 mg PO QAM 08/02/21 05/24/22 History capsule cholecalciferol (vitamin D3) 50 1,000 unit PO QAM 08/02/21 05/24/22 History mcg (2,000 unit) tablet atorvastatin 20 mg tablet 20 mg PO HS 03/20/22 05/24/22 History insulin regular human 100 unit/mL 0 sliding scale dose subcut TIDM 03/20/22 05/24/22 History (3 mL) subcutaneous pen (Novolin R Flexpen) pramipexole 1 mg tablet (Mirapex) 1 mg PO HS 03/20/22 05/24/22 History allopurinol 300 mg tablet 300 mg PO DAILY #30 tabs 04/02/22 05/24/22 Rx aspirin 81 mg tablet,delayed 81 mg PO DAILY 05/15/22 05/24/22 History release magnesium oxide 800 mg PO QAM #60 tabs 05/17/22 05/24/22 Rx CPAP Machine #1 ea 05/24/22 Rx CPAP Supplies #1 ea 05/24/22 Rx benazepril 20 mg tablet 20 mg PO QAM 05/24/22 05/24/22 History furosemide 20 mg tablet 20 mg PO QAM 05/24/22 05/24/22 History omega 6-qsy-wjf-fish oil 1,200 mg 1 cap PO QAM 05/24/22 05/24/22 History (144 mg-216 mg) capsule (Fish Oil) Past Med/Surg History Medical History Anemia requiring transfusions Chronic, hx blood transfusion Asthma Chronic obstructive pulmonary disease CKD (chronic kidney disease) stage 3, GFR 30-59 ml/min COPD (chronic obstructive pulmonary disease) Diabetes mellitus, type 2 IDDM Diabetic peripheral neuropathy Follicular lymphoma Treatment: Systemic therapy with Rituxan Hx of malignant neoplasm of prostate Treated with brachytherapy and radiation Currently in remission Hyperlipidemia Hypermagnesemia Hypertension Hypotension Nocturnal hypoxemia Non-Hodgkin lymphoma Dx 2017 treated with chemotherapy at the time Was in remission until recently (01/2022) Numbness On home oxygen therapy 2lpm via n/c at HS and during the day PRN ANALI (obstructive sleep apnea) 2lpm via n/c at HS -- awaiting results from sleep study on 03/06/22 ANALI (obstructive sleep apnea) Retroperitoneal lymphadenopathy hx Surgical History H/O colonoscopy approx 2012 History of amputation traumatic tip of right index History of ankle surgery multiple (right ankle) ankle bone spurs removal - ankle joint hardware/fusion - osteomyelitis with hardware removal -- treated with abx, once healed had ankel hardware replaced History of carpal tunnel release right History of cholecystectomy History of colonoscopy History of elbow surgery right elbow surgery History of esophagogastroduodenoscopy (EGD) History of tooth extraction full top dental extraction Port-A-Cath in place (03/22/22) Insertion Access Port with Fluoroscopy to left internal jugular vein (Left) - Tate M. Chambers, DO, FACS Family History Father Diabetes Lung cancer Hypertension Stroke Mother Diabetes Hypertension Brother Diabetes Other No family history of adverse response to anesthesia Social History Smoking Status: Former smoker Tobacco Type: Cigarettes Second Hand Exposure: No; Hx Alcohol Use: No Hx Substance Use: No Preferred Language: Vincentian Communication Ability: Effective [employer]isher Required: No Beliefs That Will Affect Care: None marital status: Current Living Situation: Significant Other current occupational status: retired and disabled How many Children do You have: 3 Feels Safe at Home: Yes during the past year weight has: decreased > 10 lbs Assistive Devices: None Review of Systems Review of Systems: Mild distress and fatigue no headache, no visual changes no speech or swallowing issues no chest pain, pressure or palpitations no shortness of breath, cough or wheezes LLQ abdominal pain, crampy and crescendo de crescendo, mild nausea without vomiting, loose bowel movement even in ER no dysuria, hematuria or frequency no focal joint pain or swelling no back pain, CVA tenderness or radicular pain no bruising, bleeding or rashes no focal signs of weakness or numbness or altered sensation no complaints of anxiety or depression.. Physical Exam Physical Exam: The patient appeared well nourished and normally developed. he has alopecia Vital signs as documented. Head exam is normocephalic atraumatic Neck is without JVD, thyromegaly, or carotid bruits. Lungs are clear to auscultation, no focal loss of breath sounds Cardiac exam, Rhythm is regular.. No murmurs, rubs or gallops. Abdominal exam reveals normal bowel sounds, soft, lower quadrant tenderness Extremities are nonedematous and both pedal pulses are present Neurologic exam is alert and oriented, no focal loss of strength or sensation Skin is without bruises or rashes Psychologically is without concerns for anxiety or depression.. Results & Data Results & Data ([facility]) Vital Signs (Past 12 Hours) Vital Signs Temp Pulse Pulse Resp BP BP Pulse Ox 05/24/22 12:38 88 18 121/82 97 05/24/22 12:36 99 05/24/22 09:37 98.2 F 101 H 18 128/70 97 O2 Del Method 05/24/22 12:38 Room Air 05/24/22 12:36 Room Air 05/24/22 09:37 Room Air Code Status & VTE Plan VTE Prophylaxis Plan VTE Prophylaxis will be ordered: Yes PG Care Time/CCT Total # of Minutes Spent Total Time Spent with Patient: Total time spent is greater than 50% in coordination of care (as documented) at patient's floor/unit and/or counseling patient: Coding Level of Care Code 25008 Initial Inpt Care Lvl 3 Diagnoses Small bowel obstruction K56.609 Type 2 diabetes mellitus with insulin therapy E11.9; Z79.4 Hypertension I10 NHL (non-Hodgkin's lymphoma) C85.90 Lymphoma site: unspecified region Non-Hodgkin lymphoma type: unspecified type Acute GI bleeding K92.2 CKD (chronic kidney disease) stage 3, GFR 30-59 ml/min N18.30 (1) NHL (non-Hodgkin's lymphoma) Lymphoma site: unspecified region Non-Hodgkin lymphoma type: unspecified type Qualified Code(s): C85.90 - Non-Hodgkin lymphoma, unspecified, unspecified site
[2022-05-24] MEDS ORDERED: GLUCAGON FOR INJ 1 MG VIAL SQ PRN (15:46)
[2022-05-24] MEDS ORDERED: GLUCOSE 10 TAB/TUBE PO PRN (15:46)
[2022-05-24] MEDS ORDERED: GLUCOSE 40% GEL 15 GM TUBE PO PRN (15:46)
[2022-05-24] MEDS ORDERED: ACETAMINOPHEN 1,000 MG/100 ML VIAL IV PRN (15:46)
[2022-05-24] MEDS ORDERED: hydrALAZINE HCL 20 MG/ML VIAL IV PRN (15:46)
[2022-05-24] MEDS ORDERED: CARBOHYDRATES FOR HYPOGLYCEMIA PO PRN (15:46)
[2022-05-24] MEDS: NSS + 20MEQ KCL 20 MEQ/1,000 ML BAG IV SCH (16:26)
[2022-05-24] MEDS ORDERED: INSULIN ASPART PER UNIT SC SCH (16:30)
[2022-05-24] MEDS: INSULIN ASPART PER UNIT SC SCH (18:04)
[2022-05-24] MEDS ORDERED: NON-FORMULARY MEDICATION (Cpap Machine misc) SCH (21:00)
[2022-05-24] MEDS: INSULIN HUMAN NPH SQ SCH (21:30)
[2022-05-24] MEDS: PANTOprazole 40 MG in SYRINGE 0 ML IV SCH (21:32)
[2022-05-24] MEDS: HEPARIN SOD 5,000 UNIT/0.5 ML VIAL SQ SCH (21:32)
[2022-05-24] MEDS: ENALAPRILAT 0.625 MG in SYRINGE 9.5 ML IV SCH (21:33)
[2022-05-25 00:06] LABS: Appearance Urine Clear (Clear); Bilirubin Urine Negative (Negative); Blood Urine Negative (Negative); Color Urine Yellow; Glucose Urine UA 3+ (Negative); Ketones Urine Trace (Negative); Leukocyte Esterase Urine Negative (Negative); Nitrite Urine Negative (Negative); Protein Urine Negative (Negative); Urobilinogen Urine Negative (Negative)
[2022-05-25] MEDS: INSULIN ASPART PER UNIT SC SCH ×4 (00:42→17:53)
[2022-05-25] MEDS: NSS + 20MEQ KCL 20 MEQ/1,000 ML BAG IV SCH ×3 (02:27→22:17)
[2022-05-25] MEDS: ENALAPRILAT 0.625 MG in SYRINGE 9.5 ML IV SCH ×3 (06:45→22:07)
--- NOTE | 2022-05-25 07:38 | Hospitalist Progress Note ---
Date of Service May 25, 2022 Assessment & Plan (1) Small bowel obstruction: Plan: 67yo M with a PMH of CKD, ANALI, DM, HTN, h/o lymphoma with recurrence who presents to the [facility] ED on 05/24/22 from the cancer center with abnormal labs and patient complaints of recent n/v. Found with high-grade bowel obstruction on noncontrast CT scan abdomen pelvis 05/24/2022. NPO, IV fluid; ice chips for dry mouth Pain control (tylenol, dilaudid) IV Protonix Surgery following -No NG tube at this time, cont. conservative management (2) Type 2 diabetes mellitus with insulin therapy: Plan: Patient is n.p.o. will receive 50% of his NPH dose and sliding scale insulin -a1c 7.7 (3) Hypertension: Plan: Benazepril switched to enalapril. Dose will be slightly less than frequency of every 6 as decided to be Q8 watching his blood pressure and renal function Patient's diuretics are held at this time usually Lasix 20 mg daily Secondary risk prevention aspirin and atorvastatin are also held at this time (4) NHL (non-Hodgkin's lymphoma): Plan: [facility]. 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 Iqbal. In agreement with the documented findings as noted in the resident documentation with any exceptions or additions as noted here. Patient reports improving presenting symptoms with potential return of flatus and resolution of discomfort/nausea. VS, nursing notes, labs, imaging reviewed. On examination, S1/S2 nl RRR no MCG. CTAB. Abd NT/ND BS+ve SBO in the setting of lymphoma w/ abdominal mass - gen surg consult - continue pain control w/ APAP, dilaudid PRN. IV PPI. NPO and consider NG tube if symptoms worsen. As is improving, may consider progression of diet based on surgical opinion. Strongly consider transfer to tertiary facility w/ worsening. IDDMII - monitor glucose levels with adjusted insulin therapy, titrate as necessary HTN - enalapril with close monitoring, consider tapering if ongoing HTN. holding diuretics. Else see resident documentation as noted. Subjective Seen at bedside this morning. Feeling pretty well. Did have a BM while in the ER. Mouth is dry. Denies chest pain, sob, headache, abd pain, N/V. Review of Systems Review of Systems: All systems reviewed & are unremarkable except as noted in HPI & below Physical Exam Physical Exam: Constitutional: WN/WD HEENT: NCAT, EOMI Neck: no JVD or thyromegaly Lungs: CTAB, no focal loss of breath sounds Cardiac: RRR. No murmurs, rubs or gallops. Abdominal: normal bowel sounds, soft, nondistended, lower quadrant tenderness Extremities: nonedematous and both pedal pulses are present Neurologic: AOx3, no focal deficits Skin: without bruises or rashes Psych: without concerns for anxiety or depression. Results & Data Results & Data ([facility]) Vital Signs (Past 12 Hours) Vital Signs Temp Pulse Resp BP Pulse Ox O2 Del Method 05/25/22 06:44 36.4 C L 84 16 119/72 100 Room Air 05/24/22 21:27 36.6 C 79 16 112/57 L 96 Room Air Laboratory Results 05/25/22 05/25/22 05/25/22 Range/Units 12:11 08:26 08:26 WBC (4.8-10.8) K/ul RBC (4.63-6.08) M/uL Hgb (14.0-18.0) g/dl Hct (40.1-51.0) % MCV (80.0-100.0) fL MCH (25.0-34.0) pg MCHC (32.0-36.0) g/dL RDW Std Deviation (36.4-46.3) fL RDW Coeff of Jyoti (11.5-14.5) % Plt Count (130-400) K/uL MPV (9.4-12.4) fL Sodium 139 (136-145) mmol/L Potassium 4.7 D (3.5-5.1) mmol/L Chloride 113 H (98-107) mmol/L Carbon Dioxide 23 (21-32) mmol/L Anion Gap 3 (3-11) BUN 17 (6-23) mg/dl Creatinine 1.07 D (0.6-1.4) mg/dl Est Cr Clr Drug Dosing 74.6 ml/min Est GFR ( Amer) 84.0 ml/min Est GFR (Non-Af Amer) 72.5 ml/min BUN/Creatinine Ratio 15.9 (10-20) Glucose 85 (70-99(Fasting)) mg/dl POC Glucose 86 (70-99) mg/dl Estimat Average Glucose 174 mg/dl Hemoglobin A1c 7.7 H (4.5-5.6) % Calcium 8.2 L (8.5-10.1) mg/dl Magnesium 1.9 (1.7-2.4) mg/dl Urine Color Urine Appearance (Clear) Urine pH (4.5-7.5) Ur Specific Moseley (1.000-1.030) Urine Protein (Negative) Urine Glucose (UA) (Negative) Urine Ketones (Negative) Urine Blood (Negative) Urine Nitrite (Negative) Urine Bilirubin (Negative) Urine Urobilinogen (Negative) Ur Leukocyte Esterase (Negative) 05/25/22 05/25/22 05/25/22 Range/Units 08:26 06:14 00:30 WBC 4.73 L (4.8-10.8) K/ul RBC 3.18 L (4.63-6.08) M/uL Hgb 9.1 L (14.0-18.0) g/dl Hct 28.3 L (40.1-51.0) % MCV 89.0 (80.0-100.0) fL MCH 28.6 (25.0-34.0) pg MCHC 32.2 (32.0-36.0) g/dL RDW Std Deviation 67.6 H (36.4-46.3) fL RDW Coeff of Jyoti 20.4 H (11.5-14.5) % Plt Count 165 (130-400) K/uL MPV 9.4 (9.4-12.4) fL Sodium (136-145) mmol/L Potassium (3.5-5.1) mmol/L Chloride (98-107) mmol/L Carbon Dioxide (21-32) mmol/L Anion Gap (3-11) BUN (6-23) mg/dl Creatinine (0.6-1.4) mg/dl Est Cr Clr Drug Dosing ml/min Est GFR ( Amer) ml/min Est GFR (Non-Af Amer) ml/min BUN/Creatinine Ratio (10-20) Glucose (70-99(Fasting)) mg/dl POC Glucose 92 184 H (70-99) mg/dl Estimat Average Glucose mg/dl Hemoglobin A1c (4.5-5.6) % Calcium (8.5-10.1) mg/dl Magnesium (1.7-2.4) mg/dl Urine Color Urine Appearance (Clear) Urine pH (4.5-7.5) Ur Specific Moseley (1.000-1.030) Urine Protein (Negative) Urine Glucose (UA) (Negative) Urine Ketones (Negative) Urine Blood (Negative) Urine Nitrite (Negative) Urine Bilirubin (Negative) Urine Urobilinogen (Negative) Ur Leukocyte Esterase (Negative) 05/24/22 05/24/22 Range/Units 23:15 21:01 WBC (4.8-10.8) K/ul RBC (4.63-6.08) M/uL Hgb (14.0-18.0) g/dl Hct (40.1-51.0) % MCV (80.0-100.0) fL MCH (25.0-34.0) pg MCHC (32.0-36.0) g/dL RDW Std Deviation (36.4-46.3) fL RDW Coeff of Jyoti (11.5-14.5) % Plt Count (130-400) K/uL MPV (9.4-12.4) fL Sodium (136-145) mmol/L Potassium (3.5-5.1) mmol/L Chloride (98-107) mmol/L Carbon Dioxide (21-32) mmol/L Anion Gap (3-11) BUN (6-23) mg/dl Creatinine (0.6-1.4) mg/dl Est Cr Clr Drug Dosing ml/min Est GFR ( Amer) ml/min Est GFR (Non-Af Amer) ml/min BUN/Creatinine Ratio (10-20) Glucose (70-99(Fasting)) mg/dl POC Glucose 187 H (70-99) mg/dl Estimat Average Glucose mg/dl Hemoglobin A1c (4.5-5.6) % Calcium (8.5-10.1) mg/dl Magnesium (1.7-2.4) mg/dl Urine Color Yellow Urine Appearance Clear (Clear) Urine pH 7.0 (4.5-7.5) Ur Specific Moseley 1.020 (1.000-1.030) Urine Protein Negative (Negative) Urine Glucose (UA) 3+ H (Negative) Urine Ketones Trace H (Negative) Urine Blood Negative (Negative) Urine Nitrite Negative (Negative) Urine Bilirubin Negative (Negative) Urine Urobilinogen Negative (Negative) Ur Leukocyte Esterase Negative (Negative) Resident Activity Tracking Resident Involvement: Resident Care Provided Care Provided: Adult [facility] Medicine (1) NHL (non-Hodgkin's lymphoma) Lymphoma site: unspecified region Non-Hodgkin lymphoma type: unspecified type Qualified Code(s): C85.90 - Non-Hodgkin lymphoma, unspecified, unspecified site
[2022-05-25] MEDS: HEPARIN SOD 5,000 UNIT/0.5 ML VIAL SQ SCH ×2 (07:54→22:08)
[2022-05-25] MEDS: PANTOprazole 40 MG in SYRINGE 0 ML IV SCH ×2 (07:55→22:08)
[2022-05-25 08:53] LABS: Hematocrit (blood only) 28.3 % (40.1-51.0); Hemoglobin 9.1 g/dl (14.0-18.0); Mean Corpuscular Hemoglobin 28.6 pg (25.0-34.0); Mean Corpuscular Hgb Conc 32.2 g/dL (32.0-36.0); Mean Platelet Volume 9.4 fL (9.4-12.4); Platelet Count 165 K/uL (130-400); RDW Coefficient of Variation 20.4 % (11.5-14.5); RDW Standard Deviation 67.6 fL (36.4-46.3); Red Blood Count 3.18 M/uL (4.63-6.08); White Blood Count 4.73 K/ul (4.8-10.8)
[2022-05-25 09:16] LABS: BUN Creatinine Ratio 15.9 (10-20); Calcium 8.2 mg/dl (8.5-10.1); Creatinine Clr Calc Pharmacy 74.6 ml/min; Est GFR (Non-African American) 72.5 ml/min; Magnesium 1.9 mg/dl (1.7-2.4); Potassium 4.7 mmol/L (3.5-5.1)
[2022-05-25 09:21] LABS: Estimated Average Glucose 174 mg/dl; Hemoglobin A1C 7.7 % (4.5-5.6)
--- NOTE | 2022-05-25 09:33 | Surgery Progress Note ---
Date of Service May 25, 2022 Assessment & Plan (1) SBO (small bowel obstruction): Plan: KUB still appears consistent with small bowel obstruction. When imaging however the mass is greatly decreased in size. Hopefully if we correct his dehydration and give him bowel rest we can resolve this nonoperatively. No urgent indication for surgical intervention. Continue conservative management. Repeat KUB tomorrow. Would continue to keep n.p.o. and IV fluids until improved bowel function. (2) Acute dehydration: (3) NHL (non-Hodgkin's lymphoma): Admission and Anticipated Discharge Date Admission Date: May 24, 2022 Subjective Patient seen. Feeling considerably better than yesterday. Currently discomfort is only a 1/10. No nausea or vomiting. He is passing increasing amounts of flatus. No actual bowel movement. Physical Exam Physical Exam: Alert. No acute distress Abdomen is soft. Mild distention. Minimal tenderness. Results & Data ([facility]) Vital Signs (Past 12 Hours) Vital Signs Temp Pulse Resp BP Pulse Ox O2 Del Method 05/25/22 06:44 36.4 C L 84 16 119/72 100 Room Air PG Care Time/CCT Total # of Minutes Spent Total Time Spent with Patient: Total time spent is greater than 50% in coordination of care (as documented) at patient's floor/unit and/or counseling patient: Coding Level of Care Code 40332 Subseq Hosp Care Lvl 3 Diagnoses SBO (small bowel obstruction) K56.609 Acute dehydration E86.0 NHL (non-Hodgkin's lymphoma) C85.90 Lymphoma site: unspecified region Non-Hodgkin lymphoma type: unspecified type (1) NHL (non-Hodgkin's lymphoma) Lymphoma site: unspecified region Non-Hodgkin lymphoma type: unspecified type Qualified Code(s): C85.90 - Non-Hodgkin lymphoma, unspecified, unspecified site
--- NOTE | 2022-05-25 10:03 | XRay Report ---
KUB HISTORY: Small bowel obstruction. Follow-up. COMPARISON: Abdomen and pelvis CT 05/24/2022. FINDINGS: Dilated gas-filled loops of small bowel again noted within the mid abdomen consistent with a high-grade small bowel obstruction. This is similar to the prior study. Prior cholecystectomy. Mult iple brachytherapy seeds noted within the prostate gland. No renal calculi. No ureteral calculi. No pneumoperitoneum or pneumatosis. IMPRESSION: No change in the small bowel obstruction pattern. ACT 112: Negative or not required by law. Electronically signed by: Niraj Wells M.D. 05/25/2022 10:02 AM
[2022-05-25] MEDS: DEXTROSE 50% 50 ML SYRINGE IV PRN ×2 (17:43→22:07)
[2022-05-25] MEDS ORDERED: diphenhydrAMINE 50 MG/ML VIAL IV STA (21:23)
[2022-05-25] MEDS: INSULIN HUMAN NPH SQ SCH (21:58)
[2022-05-26] MEDS: INSULIN ASPART PER UNIT SC SCH ×5 (00:10→22:34)
[2022-05-26] MEDS: DEXTROSE 50% 50 ML SYRINGE IV PRN (05:43)
[2022-05-26] MEDS: ENALAPRILAT 0.625 MG in SYRINGE 9.5 ML IV SCH ×3 (05:43→22:48)
[2022-05-26] MEDS ORDERED: PHARMACY GLYCEMIC MGMT CONSULT PRN (06:42)
--- NOTE | 2022-05-26 07:24 | Hospitalist Progress Note ---
Date of Service May 26, 2022 Assessment & Plan (1) Small bowel obstruction: Plan: 67yo M with a PMH of CKD, ANALI, DM, HTN, h/o lymphoma with recurrence who presents to the [facility] ED on 05/24/22 from the cancer center with abnormal labs and patient complaints of recent n/v. Found with high-grade bowel obstruction on noncontrast CT scan abdomen pelvis 05/24/2022. Tolerated ice chips, advance to clears cont. IVF Pain control (tylenol, dilaudid) IV Protonix Surgery following -No NG tube at this time, cont. conservative management Can restart home meds once tolerating stable diet (2) Type 2 diabetes mellitus with insulin therapy: Plan: Patient is n.p.o. will receive 50% of his NPH dose and sliding scale insulin -a1c 7.7 (3) Hypertension: Plan: Benazepril switched to enalapril. Dose will be slightly less than frequency of every 6 as decided to be Q8 watching his blood pressure and renal function Patient's diuretics are held at this time usually Lasix 20 mg daily Secondary risk prevention aspirin and atorvastatin are also held at this time (4) NHL (non-Hodgkin's lymphoma): Plan: [facility]. 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 Agree with the impression and plan as noted in resident documentation. Upon our morning examination, the patient is feeling generally well. He does note having an appetite. Denies any abdominal discomfort. (+) flatus. Exam 114/58, 69, 16, 36.8, 96% on room air Pleasant. Alert. No distress appreciated. Heart is regular. Lungs are clear with nonlabored respirations Abdomen is soft, nontender. No masses appreciated. Positive bowel sounds. Data WBC 2.88, Hgb 9.6, plt 168 Sodium 140, potassium 4.7, BUN 11, Cr 1.12 Imaging KUB from 05/26/2022 shows persistent small bowel obstruction with dilated air- fluid loops of small bowel measuring 5.3 cm. Impression and plan Patient reports improving presenting symptoms with potential return of flatus and resolution of discomfort/nausea. Small bowel obstruction in setting of lymphoma Persistent obstructive pattern on KUB although clinically improved Trial of clears today Appreciate surgical consultation Additional per resident note Subjective Seen at bedside this morning. Feeling pretty well. Tolerated ice chips. Denies chest pain, sob, headache, abd pain, N/V. Review of Systems Review of Systems: All systems reviewed & are unremarkable except as noted in HPI & below Physical Exam Physical Exam: Constitutional: WN/WD HEENT: NCAT, EOMI Lungs: CTAB, no focal loss of breath sounds Cardiac: RRR. No murmurs, rubs or gallops. Abdominal: normal bowel sounds, soft, nondistended, improving lower quadrant tenderness Extremities: nonedematous and both pedal pulses are present Neurologic: no focal deficits Skin: no bruises or rashes Psych: AOx3 Results & Data Results & Data ([facility]) Vital Signs (Past 12 Hours) Vital Signs Temp Pulse Resp BP Pulse Ox O2 Del Method 05/26/22 05:40 36.8 C 75 18 132/71 95 Room Air 05/25/22 20:40 36.7 C 69 18 104/55 L 95 Room Air Laboratory Results 05/26/22 05/26/22 05/26/22 Range/Units 12:08 08:46 08:46 WBC 2.88 L (4.8-10.8) K/ul RBC 3.33 L (4.63-6.08) M/uL Hgb 9.6 L (14.0-18.0) g/dl Hct 30.2 L (40.1-51.0) % MCV 90.7 (80.0-100.0) fL MCH 28.8 (25.0-34.0) pg MCHC 31.8 L (32.0-36.0) g/dL RDW Std Deviation 69.2 H (36.4-46.3) fL RDW Coeff of Jyoti 20.7 H (11.5-14.5) % Plt Count 168 (130-400) K/uL MPV 9.8 (9.4-12.4) fL Sodium 140 (136-145) mmol/L Potassium 4.7 (3.5-5.1) mmol/L Chloride 112 H (98-107) mmol/L Carbon Dioxide 24 (21-32) mmol/L Anion Gap 4 (3-11) BUN 11 (6-23) mg/dl Creatinine 1.12 (0.6-1.4) mg/dl Est Cr Clr Drug Dosing 71.3 ml/min Est GFR ( Amer) 79.5 ml/min Est GFR (Non-Af Amer) 68.6 ml/min BUN/Creatinine Ratio 9.8 L (10-20) Glucose 95 (70-99(Fasting)) mg/dl POC Glucose 86 (70-99) mg/dl Calcium 8.8 (8.5-10.1) mg/dl Magnesium 1.5 L (1.7-2.4) mg/dl 05/26/22 05/26/22 05/26/22 Range/Units 06:00 05:39 00:00 WBC (4.8-10.8) K/ul RBC (4.63-6.08) M/uL Hgb (14.0-18.0) g/dl Hct (40.1-51.0) % MCV (80.0-100.0) fL MCH (25.0-34.0) pg MCHC (32.0-36.0) g/dL RDW Std Deviation (36.4-46.3) fL RDW Coeff of Jyoti (11.5-14.5) % Plt Count (130-400) K/uL MPV (9.4-12.4) fL Sodium (136-145) mmol/L Potassium (3.5-5.1) mmol/L Chloride (98-107) mmol/L Carbon Dioxide (21-32) mmol/L Anion Gap (3-11) BUN (6-23) mg/dl Creatinine (0.6-1.4) mg/dl Est Cr Clr Drug Dosing ml/min Est GFR ( Amer) ml/min Est GFR (Non-Af Amer) ml/min BUN/Creatinine Ratio (10-20) Glucose (70-99(Fasting)) mg/dl POC Glucose 194 H 72 119 H (70-99) mg/dl Calcium (8.5-10.1) mg/dl Magnesium (1.7-2.4) mg/dl 05/25/22 05/25/22 05/25/22 Range/Units 22:26 22:05 20:38 WBC (4.8-10.8) K/ul RBC (4.63-6.08) M/uL Hgb (14.0-18.0) g/dl Hct (40.1-51.0) % MCV (80.0-100.0) fL MCH (25.0-34.0) pg MCHC (32.0-36.0) g/dL RDW Std Deviation (36.4-46.3) fL RDW Coeff of Jyoti (11.5-14.5) % Plt Count (130-400) K/uL MPV (9.4-12.4) fL Sodium (136-145) mmol/L Potassium (3.5-5.1) mmol/L Chloride (98-107) mmol/L Carbon Dioxide (21-32) mmol/L Anion Gap (3-11) BUN (6-23) mg/dl Creatinine (0.6-1.4) mg/dl Est Cr Clr Drug Dosing ml/min Est GFR ( Amer) ml/min Est GFR (Non-Af Amer) ml/min BUN/Creatinine Ratio (10-20) Glucose (70-99(Fasting)) mg/dl POC Glucose 153 H 83 89 (70-99) mg/dl Calcium (8.5-10.1) mg/dl Magnesium (1.7-2.4) mg/dl 05/25/22 05/25/22 05/25/22 Range/Units 18:05 17:40 17:38 WBC (4.8-10.8) K/ul RBC (4.63-6.08) M/uL Hgb (14.0-18.0) g/dl Hct (40.1-51.0) % MCV (80.0-100.0) fL MCH (25.0-34.0) pg MCHC (32.0-36.0) g/dL RDW Std Deviation (36.4-46.3) fL RDW Coeff of Jyoti (11.5-14.5) % Plt Count (130-400) K/uL MPV (9.4-12.4) fL Sodium (136-145) mmol/L Potassium (3.5-5.1) mmol/L Chloride (98-107) mmol/L Carbon Dioxide (21-32) mmol/L Anion Gap (3-11) BUN (6-23) mg/dl Creatinine (0.6-1.4) mg/dl Est Cr Clr Drug Dosing ml/min Est GFR ( Amer) ml/min Est GFR (Non-Af Amer) ml/min BUN/Creatinine Ratio (10-20) Glucose (70-99(Fasting)) mg/dl POC Glucose 114 H 67 L* 66 L* (70-99) mg/dl Calcium (8.5-10.1) mg/dl Magnesium (1.7-2.4) mg/dl Resident Activity Tracking Resident Involvement: Resident Care Provided Care Provided: Adult [facility] Medicine (1) NHL (non-Hodgkin's lymphoma) Lymphoma site: unspecified region Non-Hodgkin lymphoma type: unspecified type Qualified Code(s): C85.90 - Non-Hodgkin lymphoma, unspecified, unspecified site
[2022-05-26] MEDS: NSS + 20MEQ KCL 20 MEQ/1,000 ML BAG IV SCH ×2 (08:30→17:57)
[2022-05-26] MEDS: HEPARIN SOD 5,000 UNIT/0.5 ML VIAL SQ SCH ×2 (08:31→21:45)
[2022-05-26] MEDS: PANTOprazole 40 MG in SYRINGE 0 ML IV SCH ×2 (08:32→21:45)
--- NOTE | 2022-05-26 09:23 | XRay Report ---
KUB HISTORY: Acute abdominal pain in a patient with reported small bowel obstruction sbo COMPARISON: KUB 05/25/2022, CT 05/24/2022 FINDINGS: Brachytherapy seeds of the prostate. Persistent small bowel obstruction with dilated air-fi lled loops of small bowel measuring up to 5.3 cm. There is no significant change from yesterday's exa m. Cholecystectomy. No renal calculi. No ureteral calculi. No pneumoperitoneum or pneumatosis. No fr acture. IMPRESSION: Unchanged appearance of the small bowel obstruction. ACT 112: Negative or not required by law. The above report was generated using voice recognition software. It may contain grammatical, syntax o r spelling errors. Electronically signed by: Byron Redman M.D. 05/26/2022 9:22 AM
[2022-05-26 09:29] LABS: Hematocrit (blood only) 30.2 % (40.1-51.0); Hemoglobin 9.6 g/dl (14.0-18.0); Mean Corpuscular Hemoglobin 28.8 pg (25.0-34.0); Mean Corpuscular Hgb Conc 31.8 g/dL (32.0-36.0); Mean Corpuscular Volume 90.7 fL (80.0-100.0); Mean Platelet Volume 9.8 fL (9.4-12.4); Platelet Count 168 K/uL (130-400); RDW Coefficient of Variation 20.7 % (11.5-14.5); RDW Standard Deviation 69.2 fL (36.4-46.3); Red Blood Count 3.33 M/uL (4.63-6.08); White Blood Count 2.88 K/ul (4.8-10.8)
[2022-05-26 09:52] LABS: BUN Creatinine Ratio 9.8 (10-20); Calcium 8.8 mg/dl (8.5-10.1); Creatinine Clr Calc Pharmacy 71.3 ml/min; Est GFR (African American) 79.5 ml/min; Est GFR (Non-African American) 68.6 ml/min; Magnesium 1.5 mg/dl (1.7-2.4); Potassium 4.7 mmol/L (3.5-5.1)
--- NOTE | 2022-05-26 10:04 | Surgery Progress Note ---
Date of Service May 26, 2022 Assessment & Plan (1) SBO (small bowel obstruction): Plan: KUB images and results personally viewed by me, he does have persistent small bowel dilation but clinically he seems to be improved Will trial clear liquids today Continue to follow (2) NHL (non-Hodgkin's lymphoma): Admission and Anticipated Discharge Date Admission Date: May 24, 2022 Subjective Patient seen and examined. Has minimal abdominal pain. Denies any nausea or vomiting. Afebrile. Passing flatus but no BM. Review of Systems Constitutional: no fever and no chills Physical Exam Constitutional: WD/WN, vitals as above Gastrointestinal (Abdomen): Soft, nontender, mild distention Results & Data ([facility]) Vital Signs (Past 12 Hours) Vital Signs Temp Pulse Pulse Resp BP Pulse Ox O2 Del Method 05/26/22 08:38 36.5 C 75 18 120/86 98 Room Air 05/26/22 05:40 36.8 C 75 18 132/71 95 Room Air PG Care Time/CCT Total # of Minutes Spent Total Time Spent with Patient: Total time spent is greater than 50% in coordination of care (as documented) at patient's floor/unit and/or counseling patient: Coding Level of Care Code 42099 Subseq Hosp Care Lvl 1 Diagnoses SBO (small bowel obstruction) K56.609 NHL (non-Hodgkin's lymphoma) C85.90 Lymphoma site: unspecified region Non-Hodgkin lymphoma type: unspecified type (1) NHL (non-Hodgkin's lymphoma) Lymphoma site: unspecified region Non-Hodgkin lymphoma type: unspecified type Qualified Code(s): C85.90 - Non-Hodgkin lymphoma, unspecified, unspecified site
--- NOTE | 2022-05-26 11:29 | Pharmacy Report ---
Pharmacy Glycemic Short Note 2 - Date of Service May 26, 2022 - Glycemic Short BSG Results (Last 24 hours): 05/25/22 05/25/22 05/25/22 12:11 17:38 17:40 Glucose POC Glucose 86 66 L* 67 L* 05/25/22 05/25/22 05/25/22 18:05 20:38 22:05 Glucose POC Glucose 114 H 89 83 05/25/22 05/26/22 05/26/22 22:26 00:00 05:39 Glucose POC Glucose 153 H 119 H 72 05/26/22 05/26/22 06:00 08:46 Glucose 95 POC Glucose 194 H OUTPATIENT ANTIDIABETIC REGIMEN: * NPH 36 units HS ASSESSMENT: * 67 y/o M admitted for SBO and was NPO. He has history of diabetes managed at home on NPH insulin only at HS. * Initially on admission, on 05/24/22, he was ordered NPH insulin 18 units at HS (50% of home dose) since BSGs were high. * BSGs yesterday were 92-86-66-89 mg/dl. NPH order for yesterday at HS was discontinued. * He did not receive any Novolog yesterday either. Fasting BSG this AM was still low at 72 mg/dl. * Pharmacy consulted this morning due to hypoglycemia. * Clear liquid diet is now ordered starting at lunch. This may help to prevent low BSGs if patient is able to eat. * Novolog correction factor loosened this morning. Carb ratio was not ordered, continued this the same. Will monitor BSGs before adding any insulin. PLAN FOR INPATIENT GLYCEMIC CONTROL: * Hold outpatient oral diabetes medications * Basal insulin * none * Bolus insulin * NovoLog per scale ACHS or Q6hrs while NPO * Goal Range: Low 110 mg/dL - High 150 mg/dL * Correction Factor: 30 mg/dL/unit * Nutritional / Prandial insulin per carb ratio: none
[2022-05-26] MEDS: MAGNESIUM SULFATE / D5W 1 GM/100 ML BAG IV SCH ×2 (12:42→15:53)
[2022-05-26] MEDS: HYDROmorphone INJ 1 MG/ML SYRINGE IV PRN (19:53)
--- NOTE | 2022-05-26 21:12 | XRay Report ---
XR KUB/Abdomen 1 view CLINICAL HISTORY: sudden abd paib, SBO TECHNIQUE: 1 view of the abdomen was obtained. Comparison: Comparison is made to abdomen radiograph 05/26/2022 FINDINGS: Lung bases are unremarkable. The osseous structures are grossly unremarkable. Numerous gas-distended loops of small bowel measure up to 40 mm. No significant stool burden is seen. Prostate therapy beats are seen. Patient is status post cholecystectomy. IMPRESSION: Redemonstration of small bowel obstruction. ACT 112: Negative or not required by law. Electronically signed by: Den Holbrook M.D. 05/26/2022 9:10 PM
[2022-05-26] MEDS ORDERED: ONDANSETRON INJ 2 MG/ML 2 ML VIAL IV STA (21:55)
[2022-05-26] MEDS ORDERED: HYDROmorphone INJ 0.5 MG/0.5 ML SYR IV STA (21:56)
[2022-05-26] MEDS: HYDROmorphone INJ 0.5 MG/0.5 ML SYR IV PRN (22:26)
--- NOTE | 2022-05-26 22:52 | Communication Note ---
Date of Service: May 26, 2022 Around 8 PM received message from RN that patient was having abdominal pain up to 7-8/10. Received 1 mg of Dilaudid and pain improved to 4/10. Evaluated patient around 8:30 PM, pain remained at around 4 out of 10. Exam revealed hypoactive bowel sounds and diffusely tender, distended abdomen. Advised nurse not to give any oral nutrition/hydration at this time. KUB ordered, which showed redemonstration of small bowel obstruction (see full read in chart per radiology). Shortly after pain returned to 7 out of 10 and developed nausea. Ordered Zofran 4 mg x 1 and additional Dilaudid 0.5 mg dose. 30 minutes later, patient still in significant pain and nauseous. Feeling clammy as well. Ordered NG tube to LIS. Will monitor response. If no significant improvement, plan to contact general surgery for further recommendations. Resident Activity Tracking Resident Involvement: Resident Care Provided Care Provided: Adult Hospital Medicine
[2022-05-27] MEDS: HYDROmorphone INJ 0.5 MG/0.5 ML SYR IV PRN ×2 (03:09→23:47)
[2022-05-27] MEDS: NSS + 20MEQ KCL 20 MEQ/1,000 ML BAG IV SCH ×2 (03:29→13:32)
[2022-05-27 07:30] LABS: Hematocrit (blood only) 34.8 % (40.1-51.0); Hemoglobin 11.1 g/dl (14.0-18.0); Mean Corpuscular Hemoglobin 28.8 pg (25.0-34.0); Mean Corpuscular Hgb Conc 31.9 g/dL (32.0-36.0); Mean Corpuscular Volume 90.2 fL (80.0-100.0); Mean Platelet Volume 10.1 fL (9.4-12.4); Platelet Count 184 K/uL (130-400); RDW Coefficient of Variation 21.1 % (11.5-14.5); RDW Standard Deviation 69.2 fL (36.4-46.3); Red Blood Count 3.86 M/uL (4.63-6.08); White Blood Count 6.23 K/ul (4.8-10.8)
[2022-05-27 07:57] LABS: BUN Creatinine Ratio 11.8 (10-20); Creatinine Clr Calc Pharmacy 58.7 ml/min; Est GFR (African American) 62.8 ml/min; Est GFR (Non-African American) 54.2 ml/min; Magnesium 1.6 mg/dl (1.7-2.4); Potassium 5.4 mmol/L (3.5-5.1)
[2022-05-27] MEDS: ENALAPRILAT 0.625 MG in SYRINGE 9.5 ML IV SCH ×2 (08:05→13:32)
[2022-05-27] MEDS: PANTOprazole 40 MG in SYRINGE 0 ML IV SCH ×2 (08:06→19:40)
[2022-05-27] MEDS: HEPARIN SOD 5,000 UNIT/0.5 ML VIAL SQ SCH ×2 (08:06→19:40)
[2022-05-27] MEDS: INSULIN ASPART PER UNIT SC SCH ×3 (08:20→19:00)
[2022-05-27] MEDS ORDERED: Nursing to Pharmacy Communication SCH (10:45)
--- NOTE | 2022-05-27 11:25 | XRay Report ---
KUB CLINICAL HISTORY: Small bowel obstruction. FINDINGS: 2 AP supine abdominal radiographs are compared to study dated 05/26/2022 and correlated with abdominal CT dated 05/24/2022. An enteric tube projects below the diaphragm over the proximal stomac h. There is increasing gaseous distention of the small bowel loops as compared to yesterday indicatin g persistent/progressive small bowel obstruction. Small bowel loops measure up to 5 cm in diameter. N o evidence of intraperitoneal free air is seen on these supine images. Cholecystectomy clips are note d in the right upper quadrant. No abnormal abdominal calcifications are identified. Brachytherapy imp lants are noted in the prostate. The bony structures appear intact. IMPRESSION: Increasing gaseous distention of the small bowel loops as compared to yesterday indicatin g persistent/progressive small bowel obstruction. Electronically signed by: David Tran M.D. 05/27/2022 11:23 AM
--- NOTE | 2022-05-27 11:40 | Surgery Progress Note ---
Date of Service May 27, 2022 Assessment & Plan (1) SBO (small bowel obstruction): Plan: ngt in place check KUB in Am IVF abdomen fairly benign await bowel function ambulate, avoid narcotics if possible Admission and Anticipated Discharge Date Admission Date: May 24, 2022 Subjective N/V last night ngt in place, draining gastric looking drainage some pain no flatus Review of Systems Constitutional: + weakness; no fever and no chills Respiratory: no cough and no dyspnea Cardiovascular: no chest pain Gastrointestinal: + abdominal pain, + nausea and + change in bowel habits; no vomiting Genitourinary: no dysuria Integumentary: no lesions Neurologic: no localized weakness and no generalized weakness Psychiatric: no behavioral changes Physical Exam Constitutional: well developed and well nourished ENMT: external ear and nose normal, oropharynx normal Neck: trachea midline Respiratory: normal respiratory effort, lungs clear to auscultation Cardiovascular: RRR, no murmur, no edema Gastrointestinal (Abdomen): Inspection/Auscultation: abdomen normal to inspection and normal bowel sounds; abdomen not distended Percussion/Palpation: abdomen soft; abdomen nontender, no guarding and abdomen not rigid Skin: no rashes, warm and dry Results & Data ([facility]) Vital Signs (Past 12 Hours) Vital Signs Temp Pulse Resp BP Pulse Ox O2 Del Method 05/27/22 07:14 36.6 C 80 16 121/66 94 Room Air 05/26/22 23:49 36.6 C
--- NOTE | 2022-05-27 14:26 | Hospitalist Progress Note ---
Date of Service May 27, 2022 Assessment & Plan (1) Small bowel obstruction: Plan: 67yo M with a PMH of CKD, ANALI, DM, HTN, h/o lymphoma with recurrence who presents to the [facility] ED on 05/24/22 from the cancer center with abnormal labs and patient complaints of recent n/v. Found with high-grade bowel obstruction on noncontrast CT scan abdomen pelvis 05/24/2022. SBO: -Per communication note last night, patient developed recurrence of abdominal symptoms. -KUB w/ persistence of SBO and increased gaseous distention. -NG tube back in place, keep in place for at least 24 hours, retrial feeding with clears tomorrow. -cont. IVF -Pain control (tylenol, dilaudid), avoid opioids if possible. -IV Protonix Surgery following -cont. conservative management -Can restart home meds once tolerating stable diet T2DM: -Patient is n.p.o. will receive 50% of his NPH dose and sliding scale insulin -a1c 7.7 HTN: -Benazepril switched to enalapril. Dose will be slightly less than frequency of every 6 as decided to be Q8 watching his blood pressure and renal function -Holding enalaprilat for remainder of today for high potassium of 5.4. Switched NSS+20meq KCl to NSS. -Patient's diuretics are held at this time usually Lasix 20 mg daily -Secondary risk prevention aspirin and atorvastatin are also held at this time Hyperkalemia: -May be due to supplemental potassium. -Changed fluid from NSS+20meq KCl to NSS. Holding Enalaprilat for remainder of today. -Recheck in AM. Non-Hodgkin Lymphoma: [facility]. 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 this is since been quiescent and will continue on IV PPI CKD Stage 3: -Patient will be maintained on his ANGÉLICA inhibitor for his diabetic renal disease -creatinine is stable DVT ppx: heparin FEN/GI: clears, IVF Code Status: full Dispo: med-surg (2) Type 2 diabetes mellitus with insulin therapy: (3) Hypertension: (4) NHL (non-Hodgkin's lymphoma): (5) Acute GI bleeding: (6) CKD (chronic kidney disease) stage 3, GFR 30-59 ml/min: Admission and Anticipated Discharge Date Admission Date: May 24, 2022 Supervising Physician Co-Signing Physician Notes Attending Attestation I also saw the patient with the resident physician and confirmed barrow portion of the history and physical examination. Agree with the impression and plan as noted in resident documentation. Unfortunately the patient developed symptoms with advance diet yesterday. NG tube was subsequently placed. Exam 121/65, 88, 16, 36.5, 94% on room air NG tube in place Pleasant but discouraged. Alert. Heart is regular. Lungs are clear with nonlabored respirations Abdomen is soft, nontender. He had some left mid abdominal pain previously, but this is now resolved. No rebound or guarding appreciated with exam. No masses appreciated. Minimal, if any, bowel sounds auscultated. Data Hemoglobin improved at 11.1. Sodium 138, potassium 5.4, BUN 16, creatinine 1.36 Imaging KUB from 05/26/2022 shows persistent small bowel obstruction with dilated air- fluid loops of small bowel measuring 5.3 cm. KUB from today shows increasing gaseous distention of the small bowel loops as compared to 05/26/2022 Impression and plan Small bowel obstruction in setting of lymphoma Persistent obstructive pattern on KUB NPO NG tube IV fluids Encourage ambulation, avoid opioids if possible. A temporary clamp NG tube to permit ambulation. Appreciate surgical consultation Hyperkalemia Change IV fluids to normal saline and increase to 125 cc/h Hold additional doses of ANGÉLICA inhibitor today Recheck BMP in a.m. Monitor blood pressures Additional per resident note Subjective Patient seen at bedside this morning saying that he feels better this morning than he did last night with his abdominal pain. He states that his pain went from 6/10 to 2/10 after the NG tube was placed. He has not been passing gas and has not had any bowel movement yet. Denies fever, chills, chest pain, shortness of breath. Review of Systems Review of Systems: As per HPI. Physical Exam Constitutional: WD/WN, vitals as above NG tube in place draining light green bilious fluid. Eyes: PERRL, conjunctivae normal, anicteric sclerae Respiratory: normal respiratory effort, lungs clear to auscultation Cardiovascular: RRR, no murmur, no edema Gastrointestinal (Abdomen): Distended, hypoactive bowel sounds, mild pain to palpation across abdomen, no rebound or guarding. Results & Data Results & Data ([facility]) Vital Signs (Past 12 Hours) Vital Signs Temp Pulse Pulse Resp BP BP Pulse Ox 05/27/22 13:34 84 114/67 95 05/27/22 07:14 36.6 C 80 16 121/66 94 O2 Del Method 05/27/22 13:34 Room Air 05/27/22 07:14 Room Air Resident Activity Tracking Resident Involvement: Resident Care Provided Care Provided: Adult Hospital Medicine (1) NHL (non-Hodgkin's lymphoma) Lymphoma site: unspecified region Non-Hodgkin lymphoma type: unspecified type Qualified Code(s): C85.90 - Non-Hodgkin lymphoma, unspecified, unspecified site
[2022-05-27] MEDS: HYDROmorphone INJ 1 MG/ML SYRINGE IV PRN (14:57)
[2022-05-27] MEDS: SODIUM CHLORIDE 0.9% 1000ML 1,000 ML IV SCH ×2 (15:25→23:52)
[2022-05-27] MEDS ORDERED: INSULIN ASPART PER UNIT SC SCH (16:30)
[2022-05-27] MEDS: MELATONIN 3 MG TAB PO PRN (23:48)
[2022-05-28] MEDS: INSULIN ASPART PER UNIT SC SCH ×4 (00:23→17:32)
--- NOTE | 2022-05-28 06:58 | Hospitalist Progress Note ---
Date of Service May 28, 2022 Assessment & Plan (1) Small bowel obstruction: Plan: 67yo M with a PMH of CKD, ANALI, DM, HTN, h/o lymphoma with recurrence who presents to the [facility] ED on 05/24/22 from the cancer center with abnormal labs and patient complaints of recent n/v. Found with high-grade bowel obstruction on noncontrast CT scan abdomen pelvis 05/24/2022. SBO: -Per communication note last night, patient developed recurrence of abdominal symptoms. -KUB w/ persistence of SBO and increased gaseous distention. -NG tube back in place, keep in place for at least 24 hours, retrial feeding with clears tomorrow possibly. -cont. IVF -Pain control (tylenol, dilaudid), avoid opioids if possible. -IV Protonix Surgery following -cont. conservative management -Most likely NG tube out tomorrow morning. -Can restart home meds once tolerating stable diet T2DM: -Patient is n.p.o. will receive 50% of his NPH dose and sliding scale insulin -a1c 7.7 HTN: -Benazepril switched to enalapril. Dose will be slightly less than frequency of every 6 as decided to be Q8 watching his blood pressure and renal function -Restarting enalaprilat tomorrow. Switched NSS+20meq KCl to NSS. -Patient's diuretics are held at this time usually Lasix 20 mg daily -Secondary risk prevention aspirin and atorvastatin are also held at this time Hyperkalemia: Resolved -May be due to supplemental potassium. -Changed fluid from NSS+20meq KCl to NSS. Restarting enalaprilat tomorrow. -Recheck in AM. Non-Hodgkin Lymphoma: [facility]. 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 -creatinine is stable DVT ppx: heparin FEN/GI: clears, IVF Code Status: full Dispo: med-surg (2) Type 2 diabetes mellitus with insulin therapy: (3) Hypertension: (4) NHL (non-Hodgkin's lymphoma): (5) Acute GI bleeding: (6) CKD (chronic kidney disease) stage 3, GFR 30-59 ml/min: Admission and Anticipated Discharge Date Admission Date: May 24, 2022 Supervising Physician Co-Signing Physician Notes Attending Attestation I also saw the patient with the resident physician and confirmed barrow portion of the history and physical examination. Agree with the impression and plan as noted in resident documentation. He does note some flatus this morning. Denies abdominal pain at present. Exam 120/69, 82, 16, 36.7, 96% on room air NG tube in place Heart is regular. Lungs are clear with nonlabored respirations Abdomen is soft, nontender. Data WBC 4.13, hemoglobin 9.8 Sodium 139, potassium 4.2, BUN 13, creatinine 1.09 Imaging KUB from 05/28/2022 shows dilated gas-filled loops of small bowel consistent with small bowel obstruction, slightly improved compared to previous. KUB from 05/27/2022 shows increasing gaseous distention of the small bowel loops as compared to 05/26/2022. KUB from 05/26/2022 shows persistent small bowel obstruction with dilated air- fluid loops of small bowel measuring 5.3 cm. Impression and plan Small bowel obstruction in setting of lymphoma Some clinical and radiographic improvement, although still discussed patience, especially given his previous symptoms with diet trial Continue NPO and NG tube Continue IV fluids Encourage ambulation, avoid opioids if possible. Temporary clamp NG tube to permit ambulation. Appreciate surgical consultation Hyperkalemia Resolved Additional per resident note Subjective Patient seen at the bedside this morning saying he did not sleep too well past 3 AM last night but otherwise no abdominal complaints. He denies any nausea, vomiting, fevers, chills. No overnight events for patient. Review of Systems Review of Systems: As per HPI. Physical Exam Constitutional: WD/WN, vitals as above NG tube in place draining bilious fluid. Eyes: PERRL, conjunctivae normal, anicteric sclerae Respiratory: normal respiratory effort, lungs clear to auscultation Cardiovascular: RRR, no murmur, no edema Gastrointestinal (Abdomen): BS+ more active than yesterday, distended, soft, non-tender. Results & Data Results & Data ([facility]) Vital Signs (Past 12 Hours) Vital Signs Temp Pulse Resp BP Pulse Ox O2 Del Method 05/27/22 20:55 36.9 C 94 H 18 130/70 95 Room Air (1) NHL (non-Hodgkin's lymphoma) Lymphoma site: unspecified region Non-Hodgkin lymphoma type: unspecified type Qualified Code(s): C85.90 - Non-Hodgkin lymphoma, unspecified, unspecified site
[2022-05-28] MEDS: SODIUM CHLORIDE 0.9% 1000ML 1,000 ML IV SCH ×2 (07:37→16:56)
[2022-05-28] MEDS: HEPARIN SOD 5,000 UNIT/0.5 ML VIAL SQ SCH ×2 (07:45→20:37)
--- NOTE | 2022-05-28 08:17 | XRay Report ---
KUB HISTORY: Small bowel obstruction. COMPARISON: KUB 05/27/2022. FINDINGS: Nasogastric tube is curled within the proximal stomach. Mildly dilated gas-filled loops of small bowel have slightly improved in the interval. There is gas and stool within the colon. Prior ch olecystectomy. Multiple brachytherapy seeds again noted within the prostate gland. No renal calculi. No ureteral calculi. No pneumoperitoneum or pneumatosis. IMPRESSION: 1. Nasogastric tube terminates in the proximal stomach. 2. Dilated gas-filled loops of small bowel consistent with a small bowel obstruction. This has slight ly improved in the interval. ACT 112: Negative or not required by law. Electronically signed by: Niraj Wells M.D. 05/28/2022 8:15 AM
[2022-05-28] MEDS: PANTOprazole 40 MG in SYRINGE 0 ML IV SCH ×2 (08:47→20:37)
[2022-05-28 08:50] LABS: Hematocrit (blood only) 30.6 % (40.1-51.0); Hemoglobin 9.8 g/dl (14.0-18.0); Mean Corpuscular Volume 90.5 fL (80.0-100.0); Mean Platelet Volume 10.2 fL (9.4-12.4); Platelet Count 155 K/uL (130-400); RDW Coefficient of Variation 20.8 % (11.5-14.5); RDW Standard Deviation 68.5 fL (36.4-46.3); Red Blood Count 3.38 M/uL (4.63-6.08); White Blood Count 4.13 K/ul (4.8-10.8)
[2022-05-28 09:32] LABS: BUN Creatinine Ratio 11.9 (10-20); Calcium 8.4 mg/dl (8.5-10.1); Creatinine Clr Calc Pharmacy 73.3 ml/min; Est GFR (African American) 82.1 ml/min; Est GFR (Non-African American) 70.9 ml/min; Potassium 4.2 mmol/L (3.5-5.1)
--- NOTE | 2022-05-28 11:43 | Surgery Progress Note ---
Date of Service May 28, 2022 Assessment & Plan (1) SBO (small bowel obstruction): Plan: some improvement con't NG, likely out in AM passing flatus Present on Admission?: Yes Admission and Anticipated Discharge Date Admission Date: May 24, 2022 Subjective passing a little flatus NG slowing feels better Review of Systems Constitutional: no fever and no chills Respiratory: no cough and no dyspnea Cardiovascular: no chest pain Gastrointestinal: + abdominal pain; no nausea and no vomiting Genitourinary: no dysuria Neurologic: no localized weakness and no generalized weakness Psychiatric: no behavioral changes Physical Exam Constitutional: WD/WN, vitals as above Eyes: PERRL, conjunctivae normal, anicteric sclerae ENMT: external ear and nose normal, oropharynx normal Neck: trachea midline Respiratory: normal respiratory effort, lungs clear to auscultation Cardiovascular: RRR, no murmur, no edema Gastrointestinal (Abdomen): Inspection/Auscultation: abdomen normal to inspection, + abdomen distended and normal bowel sounds Percussion/Palpation: + abdomen tender and abdomen soft; no guarding and abdomen not rigid Musculoskeletal: Head/Neck/Chest: normocephalic and head atraumatic Results & Data ([facility]) Vital Signs (Past 12 Hours) Vital Signs Temp Pulse Resp BP Pulse Ox O2 Del Method 05/28/22 07:14 36.6 C 74 16 117/64 93 Room Air
[2022-05-28] MEDS: ENALAPRILAT 0.625 MG in SYRINGE 9.5 ML IV SCH ×2 (13:50→21:59)
[2022-05-28] MEDS: MELATONIN 3 MG TAB PO PRN (21:59)
[2022-05-29] MEDS: INSULIN ASPART PER UNIT SC SCH ×6 (00:02→20:36)
[2022-05-29] MEDS: SODIUM CHLORIDE 0.9% 1000ML 1,000 ML IV SCH ×2 (00:11→08:36)
[2022-05-29] MEDS: ENALAPRILAT 0.625 MG in SYRINGE 9.5 ML IV SCH ×3 (05:55→20:38)
[2022-05-29 08:22] LABS: Basophils # (auto) 0.02 K/uL (0-0.2); Basophils % (auto) 0.3 %; Eosinophils # (auto) 0.07 K/uL (0-0.50); Eosinophils % (auto) 1.2 %; Hematocrit (blood only) 32.6 % (40.1-51.0); Hemoglobin 10.6 g/dl (14.0-18.0); Immature Granulocytes # (auto) 0.03 K/uL (0.00-0.02); Immature Granulocytes % (auto) 0.5 %; Lymphocytes # (auto) 0.54 K/uL (1.2-3.4); Lymphocytes % (auto) 9.1 %; Mean Corpuscular Hemoglobin 29.1 pg (25.0-34.0); Mean Corpuscular Hgb Conc 32.5 g/dL (32.0-36.0); Mean Corpuscular Volume 89.6 fL (80.0-100.0); Mean Platelet Volume 9.7 fL (9.4-12.4); Monocytes # (auto) 0.32 K/uL (0.24-0.82); Monocytes % (auto) 5.4 %; Neutrophils # (auto) 4.98 K/uL (1.4-6.5); Neutrophils % (auto) 83.5 %; Platelet Count 155 K/uL (130-400); RDW Coefficient of Variation 20.5 % (11.5-14.5); RDW Standard Deviation 68.3 fL (36.4-46.3); Red Blood Count 3.64 M/uL (4.63-6.08); White Blood Count 5.96 K/ul (4.8-10.8)
[2022-05-29] MEDS: HEPARIN SOD 5,000 UNIT/0.5 ML VIAL SQ SCH ×2 (08:31→20:37)
[2022-05-29] MEDS: PANTOprazole 40 MG in SYRINGE 0 ML IV SCH ×2 (08:33→20:38)
--- NOTE | 2022-05-29 08:40 | Hospitalist Progress Note ---
Date of Service May 29, 2022 Assessment & Plan (1) Small bowel obstruction: Plan: 67yo M with a PMH of CKD, ANALI, DM, HTN, h/o lymphoma with recurrence who presents to the [facility] ED on 05/24/22 from the cancer center with abnormal labs and patient complaints of recent n/v. Found with high-grade bowel obstruction on noncontrast CT scan abdomen pelvis 05/24/2022. SBO: -Per communication note last night, patient developed recurrence of abdominal symptoms. -KUB w/ persistence of SBO and increased gaseous distention. * Gentle retrial of feeding (clear liquid diet). * Stop IVF * Discontinue pain control regimen. * IV Protonix * Surgery following -cont. conservative management -NG tube out today. Clear liquid diet today. We will gently advance diet as tolerated. * Restart home meds once tolerating stable diet T2DM: -Patient is n.p.o. will receive 50% of his NPH dose and sliding scale insulin -Hemoglobin A1c-7.7 HTN: -Benazepril switched to enalapril. Dose will be slightly less than frequency of every 6 as decided to be Q8 watching his blood pressure and renal function -Restarting enalaprilat tomorrow. Switched NSS+20meq KCl to NSS. -Patient's diuretics are held at this time usually Lasix 20 mg daily -Secondary risk prevention aspirin and atorvastatin are also held at this time Hyperkalemia: Resolved -May be due to supplemental potassium. -Changed fluid from NSS+20meq KCl to NSS. Restarting enalaprilat tomorrow. -Recheck in AM. Non-Hodgkin Lymphoma: [facility]. 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 -creatinine is stable DVT ppx: heparin FEN/GI: clears, IVF Code Status: full Dispo: med-surg (2) Type 2 diabetes mellitus with insulin therapy: (3) Hypertension: (4) NHL (non-Hodgkin's lymphoma): (5) Acute GI bleeding: (6) CKD (chronic kidney disease) stage 3, GFR 30-59 ml/min: Admission and Anticipated Discharge Date Admission Date: May 24, 2022 Supervising Physician Co-Signing Physician Notes I personally examined the patient and verified all barrow points of history and exam, discussed case, and agree with decision making with Dr Riggs Sleeping whenever I see him. Does not awaken to voice. Appears to be resting comfortably, NG tube has been pulled. Seen by resident physician and surgical team as well. Vitals noted, resting comfortably appears to be in no distress. Breathing unlabored no accessory muscle use good effort. Skin shows no rashes no pallor or icterus. SBOappears to be improving. NG tube out, resting comfortably. Clear liquid diet advance as tolerated. Otherwise as above. Subjective No acute events overnight. This morning, patient reports subjective improvement. He denies abdominal pain, fever. He has been passing flatus and also had a bowel movement. This was confirmed by nursing. He is hungry and eager to have his NG tube removed. Review of Systems Review of Systems: All systems reviewed & are unremarkable except as noted in HPI & below Physical Exam Physical Exam: General: Well-appearing, alert, interactive, and in no acute distress. HEENT: Normocephalic, atraumatic. EOM intact. Good conjugate gaze. Nares patent. Moist mucosal membranes. Neck: Supple. No lymphadenopathy. Normal ROM. CV: Regular rate and rhythm. Normal S1 and S2. No murmurs gallops or rubs. Respiratory: Normal respiratory effort. Lungs clear to auscultation bilaterally. No crackles, rhonchi, or wheezes. Abdomen: Soft, nondistended abdomen. No bruits heard on auscultation. No tenderness to deep palpation. Hyperactive bowel sounds. Extremities: Capillary refill <2 sec. 2+ dp equal bilaterally. No pedal edema. Neuro: Alert and oriented x3. Skin: Clean, dry, and intact. No rashes, bruises, or erythema. Results & Data Results & Data ([facility]) Vital Signs (Past 12 Hours) Vital Signs Temp Pulse Pulse Resp BP BP Pulse Ox 12/05/22 07:53 36.7 C 89 18 130/60 95 05/29/22 05:54 36.5 C 98 H 18 123/69 98 O2 Del Method 05/29/22 07:53 Room Air 05/29/22 05:54 Room Air Resident Activity Tracking Resident Involvement: Resident Care Provided Care Provided: Adult Hospital Medicine (1) NHL (non-Hodgkin's lymphoma) Lymphoma site: unspecified region Non-Hodgkin lymphoma type: unspecified type Qualified Code(s): C85.90 - Non-Hodgkin lymphoma, unspecified, unspecified site
[2022-05-29 08:44] LABS: Anisocytosis Present; Ovalocytes 1+; Tear Drop Cells 1+
[2022-05-29 08:53] LABS: BUN Creatinine Ratio 9.7 (10-20); Calcium 8.8 mg/dl (8.5-10.1); Creatinine Clr Calc Pharmacy 77.5 ml/min; Est GFR (African American) 87.9 ml/min; Est GFR (Non-African American) 75.9 ml/min
--- NOTE | 2022-05-29 09:10 | Surgery Progress Note ---
Date of Service May 29, 2022 Assessment & Plan (1) SBO (small bowel obstruction): Plan: He had a bowel movement yesterday and is feeling better We will do a clamp trial and his NG tube with possible removal later today as long as he continues to progress (2) NHL (non-Hodgkin's lymphoma): Admission and Anticipated Discharge Date Admission Date: May 24, 2022 Subjective Patient seen and examined. States he had a bowel movement yesterday. He denies any nausea or vomiting. NG tube with some bilious output. Review of Systems Constitutional: no fever and no chills Physical Exam Constitutional: WD/WN, vitals as above Gastrointestinal (Abdomen): Soft, mild distention, nontender Results & Data ([facility]) Vital Signs (Past 12 Hours) Vital Signs Temp Pulse Pulse Resp BP BP Pulse Ox 05/29/22 07:53 36.7 C 89 18 130/60 95 05/29/22 05:54 36.5 C 98 H 18 123/69 98 O2 Del Method 05/29/22 07:53 Room Air 05/29/22 05:54 Room Air PG Care Time/CCT Total # of Minutes Spent Total Time Spent with Patient: Total time spent is greater than 50% in coordination of care (as documented) at patient's floor/unit and/or counseling patient: Coding Level of Care Code 70624 Subseq Hosp Care Lvl 1 Diagnoses SBO (small bowel obstruction) K56.609 NHL (non-Hodgkin's lymphoma) C85.90 Lymphoma site: unspecified region Non-Hodgkin lymphoma type: unspecified type (1) NHL (non-Hodgkin's lymphoma) Lymphoma site: unspecified region Non-Hodgkin lymphoma type: unspecified type Qualified Code(s): C85.90 - Non-Hodgkin lymphoma, unspecified, unspecified site
--- NOTE | 2022-05-29 10:31 | Pharmacy Report ---
Pharmacy Glycemic Short Note 2 - Date of Service May 29, 2022 - Glycemic Short BSG Results (Last 24 hours): 05/28/22 05/28/22 05/28/22 12:06 17:32 18:37 Glucose POC Glucose 99 74 79 05/28/22 05/29/22 05/29/22 23:56 05:47 07:56 Glucose 78 POC Glucose 71 89 OUTPATIENT ANTIDIABETIC REGIMEN: * NPH 36 units HS HbA1c 7.7% (05/25/22) ASSESSMENT: 05/29/22: * BSGs remain well-controlled with no insulin administration (0 units given over past 48 hours) * Patient had been NPO -> advanced to clear liquid diet today. Will hold off on basal for now, but may need to add back on once diet advanced further. 05/26/22: * 67 y/o M admitted for SBO and was NPO. He has history of diabetes managed at home on NPH insulin only at HS. * Initially on admission, on 05/24/22, he was ordered NPH insulin 18 units at HS (50% of home dose) since BSGs were high. * BSGs yesterday were 92-86-66-89 mg/dl. NPH order for yesterday at HS was discontinued. * He did not receive any Novolog yesterday either. Fasting BSG this AM was still low at 72 mg/dl. * Pharmacy consulted this morning due to hypoglycemia. * Clear liquid diet is now ordered starting at lunch. This may help to prevent low BSGs if patient is able to eat. * Novolog correction factor loosened this morning. Carb ratio was not ordered, continued this the same. Will monitor BSGs before adding any insulin. PLAN FOR INPATIENT GLYCEMIC CONTROL: * Basal insulin * hold * reassess need for basal daily * Bolus insulin * NovoLog per scale ACHS or Q6hrs while NPO * Goal Range: Low 110 mg/dL - High 150 mg/dL * Correction Factor: 30 mg/dL/unit * Nutritional / Prandial insulin per carb ratio: 15
--- NOTE | 2022-05-29 20:02 | Billing Data ---
Date of Service May 29, 2022 Coding Level of Care Code 97633 Subseq Hosp Care Lvl 1
[2022-05-29] MEDS ORDERED: bisacodyL 5 MG TABEC PO ONE (20:54)
[2022-05-29] MEDS: HYDROmorphone INJ 1 MG/ML SYRINGE IV PRN (21:07)
[2022-05-29] MEDS ORDERED: PROMETHAZINE HCL 12.5 MG in SODIUM CHLORIDE 0.9% 50 ML IV STA (23:25)
[2022-05-30] MEDS ORDERED: ONDANSETRON INJ 2 MG/ML 2 ML VIAL IV PRN (03:32)
--- NOTE | 2022-05-30 03:35 | Communication Note ---
Date of Service: May 30, 2022 Notified several times throughout the night the patient had nonbloody, bilious appearing emesis that exceeded a total of 1000 cc. He denied abdominal pain, but did endorse recurrent nausea. Emesis occurred despite administration of antiemetics. Noted that NG tube was removed. On exam, patient displays own mildly distended abdomen with tympany appreciated in the right upper quadrant/epigastrium. Mildly tender to palpation in this area. No rebound or guarding. Given recurrent emesis as well as known SBO, surgery was contacted regarding their opinion on reinserting the NG tube. Surgeon on-call recommended reinsertion of the NG tube and making patient n.p.o. per nursing. Importance of NG tube was explained to patient, but he refused reinsertion. He would like to speak with surgery team prior to any NG tube being placed again. Will sign out to day team ---- This documentation was created utilizing dictation software. As such, syntax, grammatical, and word-choice errors may be present. Notes are screened prior to submission in an attempt to reduce these errors. If there are any questions or concerns, please contact the author directly for clarification. Resident Activity Tracking Resident Involvement: Resident Care Provided Care Provided: Adult Hospital Medicine
[2022-05-30] MEDS: ENALAPRILAT 0.625 MG in SYRINGE 9.5 ML IV SCH (06:39)
[2022-05-30] MEDS: INSULIN ASPART PER UNIT SC SCH ×3 (06:39→20:38)
--- NOTE | 2022-05-30 07:14 | Hospitalist Progress Note ---
Date of Service May 30, 2022 Assessment & Plan (1) Small bowel obstruction: Plan: 67yo M with a PMH of CKD, ANALI, DM, HTN, h/o lymphoma with recurrence who presents to the [facility] ED on 05/24/22 from the cancer center with abnormal labs and patient complaints of recent n/v. Found with high-grade bowel obstruction on noncontrast CT scan abdomen pelvis 05/24/2022. SBO: -Per communication note last night, patient developed recurrence of abdominal symptoms. -KUB w/ persistence of SBO and increased gaseous distention. * Gentle retrial of feeding (clear liquid diet). * Stop IVF * Discontinue pain control regimen. * IV Protonix * Surgery following -Small bowel follow-through ordered following second failure of NG tube: No acute findings, though it showed resolution of bowel obstruction. -Diet advanced. Patient tolerating well at present. * Restart home meds once tolerating stable diet T2DM: -Patient is n.p.o. will receive 50% of his NPH dose and sliding scale insulin -Hemoglobin A1c-7.7 Hypotension/shock -Unclear etiology. Patient did vomit approximately 1100 cc overnight. Pressures ranging in the 70s to 80s systolic with MAP of 55. Improved status 1 L LR bolus x3. MAP now ~80. -No evidence of sepsis. SBO appears partially resolved. Tolerating diet. EKG shows new onset right heart block. * Holding home enalapril. * AM cortisol ordered * Low threshold to provide bolus IVF resuscitation for present patient management should patient decompensate overnight. HTN: -Benazepril switched to enalapril. Dose will be slightly less than frequency of every 6 as decided to be Q8 watching his blood pressure and renal function -Restarting enalaprilat tomorrow. Switched NSS+20meq KCl to NSS. -Patient's diuretics are held at this time usually Lasix 20 mg daily -Secondary risk prevention aspirin and atorvastatin are also held at this time Hyperkalemia: Resolved -May be due to supplemental potassium. -Changed fluid from NSS+20meq KCl to NSS. Restarting enalaprilat tomorrow. -Recheck in AM. Non-Hodgkin Lymphoma: Typical follows with cancer [facility]. 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 -creatinine is stable DVT ppx: heparin FEN/GI: clears, IVF Code Status: full Dispo: med-surg (2) Type 2 diabetes mellitus with insulin therapy: (3) Hypertension: (4) NHL (non-Hodgkin's lymphoma): (5) Acute GI bleeding: (6) CKD (chronic kidney disease) stage 3, GFR 30-59 ml/min: Admission and Anticipated Discharge Date Admission Date: May 24, 2022 Supervising Physician Co-Signing Physician Notes I personally examined the patient and verified all barrow points of history and exam, discussed case, and agree with decision making with Dr Riggs Seen multiple times today. Notes that he was feeling a bit lightheaded whenever he got up to go to the bathroom, ended up going down on her knee. Does not feel weak lightheaded at rest. No chest pain no shortness of breath. Abdominal pain was a little worse in the middle of the night but now better. No further vomiting. Has had loose and watery bowel movements. On revisit he actually feels just fine. No weak or lightheaded although he has not been out of bed. Vitals noted, in general he is awake and alert pleasant no distress. HEENT normocephalic atraumatic mucous membranes moist. Breathing unlabored no accessory muscle use cardio is regular but slightly bradycardic given the situation whenever I see him his blood pressure is about 80/40 and his heart rate is about 70. Lungs clear no rales rhonchi or wheezes. Abdomen soft mild left-sided tenderness no guarding rebound or rigidity. Follow-up exams similar but even more reassuring. Hypotensionunclear etiology. Given his small bowel obstruction and nausea vomiting diarrheahypovolemic would be the most likelyit did take 3 L of isotonic fluids to stabilize his pressures, but he is not showing any signs or symptoms of sepsis. As far as hypovolemia otherwise not showing any signs or symptoms of hemorrhage. Continue to follow closely, but situation does appear to be remedied for now. I do wonder about a poor chronotropic response possibly accentuating hypotension effects of dehydration SBOappears to be improving. NG tube out, SBFT reassuring. Diet advancing. Subjective Patient had acute episode of NBNB vomiting overnight (1100 cc). Patient denied abdominal pain but refused reinsertion of NG tube, which was recommended by on- call surgeon. He continues to have BMs and is passing flatus. He denies dizziness but he appeared presyncopal to overnight nurse on more than 1 trip to the bathroom. Patient wanted to wait until surgery team rounded before making a decision. Review of Systems Review of Systems: All systems reviewed & are unremarkable except as noted in HPI & below Physical Exam Physical Exam: General: Tired-appearing, but otherwise alert, interactive man in no acute distress. HEENT: Normocephalic, atraumatic. EOM intact. Good conjugate gaze. Nares patent. Moist mucosal membranes. Neck: Supple. No lymphadenopathy. Normal ROM. CV: Sinus tachycardia. Normal S1 and S2. No murmurs, gallops, or rubs. Respiratory: Normal respiratory effort. Lungs clear to auscultation bilaterally. No crackles, rhonchi, or wheezes. Abdomen: Soft, nondistended abdomen. Hyperactive bowel sounds. TTP at LUQ only w/o guarding or rebound. Extremities: Capillary refill <2 sec. 2+ dp equal bilaterally. No pedal edema. Neuro: Alert and oriented x3. Skin: Clean, dry, and intact. No rashes, bruises, or erythema. Results & Data Results & Data ([facility]) Vital Signs (Past 12 Hours) Vital Signs Temp Pulse Resp BP BP Pulse Ox O2 Del Method 05/30/22 07:10 72/40 L 05/30/22 06:59 36.5 C 100 H 16 60/38 L 79/44 L 96 Room Air 05/29/22 20:14 36.7 C 94 H 20 103/61 96 Room Air Resident Activity Tracking Resident Involvement: Resident Care Provided Care Provided: [facility] (1) NHL (non-Hodgkin's lymphoma) Lymphoma site: unspecified region Non-Hodgkin lymphoma type: unspecified type Qualified Code(s): C85.90 - Non-Hodgkin lymphoma, unspecified, unspecified site
[2022-05-30] MEDS ORDERED: LACTATED RINGER'S 1,000 ML IV ONE ×3 (07:24→10:23)
[2022-05-30] MEDS: PANTOprazole 40 MG in SYRINGE 0 ML IV SCH ×2 (07:29→20:37)
[2022-05-30] MEDS: HEPARIN SOD 5,000 UNIT/0.5 ML VIAL SQ SCH ×2 (09:39→20:37)
[2022-05-30 09:48] LABS: Basophils # (auto) 0.02 K/uL (0-0.2); Basophils % (auto) 0.3 %; Eosinophils # (auto) 0.01 K/uL (0-0.50); Eosinophils % (auto) 0.2 %; Hematocrit (blood only) 28.5 % (40.1-51.0); Hemoglobin 9.5 g/dl (14.0-18.0); Immature Granulocytes # (auto) 0.02 K/uL (0.00-0.02); Immature Granulocytes % (auto) 0.3 %; Lymphocytes # (auto) 0.49 K/uL (1.2-3.4); Lymphocytes % (auto) 8.2 %; Mean Corpuscular Hemoglobin 29.1 pg (25.0-34.0); Mean Corpuscular Hgb Conc 33.3 g/dL (32.0-36.0); Mean Corpuscular Volume 87.4 fL (80.0-100.0); Mean Platelet Volume 9.8 fL (9.4-12.4); Monocytes # (auto) 0.39 K/uL (0.24-0.82); Monocytes % (auto) 6.5 %; Neutrophils # (auto) 5.07 K/uL (1.4-6.5); Neutrophils % (auto) 84.5 %; Ovalocytes 1+; Platelet Count 130 K/uL (130-400); Polychromasia 1+; RDW Coefficient of Variation 20.2 % (11.5-14.5); RDW Standard Deviation 65.2 fL (36.4-46.3); Red Blood Count 3.26 M/uL (4.63-6.08); Tear Drop Cells 1+
--- NOTE | 2022-05-30 10:22 | XRay Report ---
XR KUB/Abdomen 1 view CLINICAL HISTORY: SBO, hypotension, ?free air TECHNIQUE: 1 view of the abdomen was obtained. Comparison: Comparison is made to abdomen radiograph 05/28/2022 FINDINGS: Lung bases are unremarkable. Degenerative changes are seen in the visualized skeleton. Multiple gas f illed loops of bowel are seen measuring up to 36 mm in diameter. A moderate amount of stool is noted within the large bowel. Radiotherapy beads are in the prostate. IMPRESSION: Multiple gas filled loops of small bowel compatible with small bowel obstruction. No evidence of pneu moperitoneum within the limits of a single abdominal radiograph. ACT 112: Negative or not required by law. Electronically signed by: Den Holbrook M.D. 05/30/2022 10:20 AM
--- NOTE | 2022-05-30 10:45 | Surgery Progress Note ---
Date of Service May 30, 2022 Assessment & Plan (1) SBO (small bowel obstruction): Plan: At the time my examination his abdominal exam was benign and he was asymptomatic. Because of the large bowel movement I want to obtain a small bowel follow-through today. If this shows persistent small bowel obstruction at this point I believe we will need to proceed with exploratory laparotomy release of small bowel obstruction possible bowel resection and surgery as needed. We discussed this and he agrees. We will make a decision after his small bowel follow-through. (2) Acute dehydration: (3) Follicular lymphoma: Admission and Anticipated Discharge Date Admission Date: May 24, 2022 Subjective Patient seen. NG tube pulled yesterday. He had large emesis in the middle the night. Then early this morning he had a very large loose bowel movement. During the time of my examination his abdomen was soft nontender nondistended. He stated he had no pain or nausea Physical Exam Constitutional: WD/WN, vitals as above no acute distress and not ill appearing Eyes: PERRL, conjunctivae normal, anicteric sclerae EOM intact bilaterally ENMT: external ear and nose normal, oropharynx normal Ears: no hearing impairment Neck: trachea midline, no thyromegaly Respiratory: normal respiratory effort; no respiratory distress and does not use accessory muscles Cardiovascular: Rate/Rhythm: regular rate and regular rhythm Gastrointestinal (Abdomen): Soft. Nontender nondistended Skin: no rashes, warm and dry Psychiatric: Orientation: alert, oriented x 3 and cooperative Results & Data ([facility]) Vital Signs (Past 12 Hours) Vital Signs Temp Pulse Pulse Resp BP BP Pulse Ox 05/30/22 10:39 36.7 C 82 16 92/55 L 94 05/30/22 09:57 36.8 C 88 16 81/50 L 95 05/30/22 09:47 73/41 L 05/30/22 08:55 36.6 C 87 16 80/43 L 94 05/30/22 08:36 68/41 L 05/30/22 07:36 05/30/22 07:59 36.5 C 85 16 68/39 L 95 05/30/22 07:10 72/40 L 05/30/22 06:59 36.5 C 100 H 16 60/38 L 79/44 L 96 O2 Del Method 05/30/22 10:39 Room Air 05/30/22 09:57 Room Air 05/30/22 09:47 05/30/22 08:55 Room Air 05/30/22 08:36 05/30/22 07:36 Room Air 05/30/22 07:59 Room Air 05/30/22 07:10 05/30/22 06:59 Room Air PG Care Time/CCT Total # of Minutes Spent Total Time Spent with Patient: Total time spent is greater than 50% in coordination of care (as documented) at patient's floor/unit and/or counseling patient: Coding Level of Care Code 94792 Subseq Hosp Care Lvl 3 Diagnoses SBO (small bowel obstruction) K56.609 Acute dehydration E86.0 Follicular lymphoma C82.90
[2022-05-30 11:32] LABS: Albumin Globulin Ratio 1.6 (0.9-2); BUN Creatinine Ratio 7.8 (10-20); Bilirubin,Total 0.5 mg/dl (0.2-1.0); Calcium 8.2 mg/dl (8.5-10.1); Creatinine Clr Calc Pharmacy 29.6 ml/min; Est GFR (African American) 27.4 ml/min; Est GFR (Non-African American) 23.7 ml/min; Globulin 1.9 gm/dl (2.5-4.0); Potassium 4.1 mmol/L (3.5-5.1); Total Protein 4.9 gm/dl (6.0-8.3)
[2022-05-30] MEDS ORDERED: INSULIN ASPART PER UNIT SC SCH (12:00)
--- NOTE | 2022-05-30 13:57 | Fluoroscopy Report ---
FL small bowel follow through CLINICAL HISTORY: 67 years-old Male with sbo. Acute generalized abdominal pain with reported small b owel obstruction TECHNIQUE: Patient was orally administered 300 mL of Optiray 320 diluted with 300 mL of water. Serial radiographs of the abdomen were then performed. COMPARISON STUDY: KUB of same day at 9:40 AM FINDINGS: The manager material radiograph demonstrates persistent air-filled mildly dilated loops of small bowel with air also noted within the large bowel. Cholecystectomy clips are noted. No pneumoperitoneum taisha ntified. Upon the administration of oral contrast, there is prompt opacification of the gastric lumen and prox imal small bowel. Transit to the large bowel occurred at approximately 30 minutes. Subsequently, sp ot fluoroscopic images of the abdomen were obtained and demonstrate freely movable bowel in all four abdominal quadrants. The terminal ileum appears unremarkable. IMPRESSION: The transit of the oral contrast from the small to large bowel occurred at 30 minutes. N o bowel obstruction is present. ACT 112: Negative or not required by law. The above report was generated using voice recognition software. It may contain grammatical, syntax o r spelling errors. Electronically signed by: Byron Redman M.D. 05/30/2022 1:55 PM
--- NOTE | 2022-05-30 14:56 | Communication Note ---
Date of Service: May 30, 2022 Contrast reached colon in 30 minutes Had BM this afternoon, tolerated study well Abdomen soft, NT Will start on full liquids at patient request
[2022-05-30] MEDS ORDERED: Nursing to Pharmacy Communication SCH (16:00)
--- NOTE | 2022-05-30 16:46 | Electrocardiogram Report ---
Test Reason : Blood Pressure : / mmHG Vent. Rate : 077 BPM Atrial Rate : 077 BPM P-R Int : 144 ms QRS Dur : 130 ms QT Int : 420 ms P-R-T Axes : 063 001 036 degrees QTc Int : 475 ms Normal sinus rhythm Right bundle branch block Abnormal ECG When compared with ECG of 15-MAY-2022 14:32, Right bundle branch block is now Present Confirmed by Dixon Valero ([id number]) on 05/30/2022 4:46:06 PM Referred By: REFERRED SELF Confirmed By:Dixon Valero
[2022-05-30] MEDS: HEPARIN 100 UNIT/ML 5ML FLUSH FLUSH PRN (16:52)
[2022-05-30 18:07] LABS: Basophils # (auto) 0.01 K/uL (0-0.2); Basophils % (auto) 0.3 %; Eosinophils # (auto) 0.05 K/uL (0-0.50); Eosinophils % (auto) 1.3 %; Hematocrit (blood only) 30.1 % (40.1-51.0); Hemoglobin 9.9 g/dl (14.0-18.0); Immature Granulocytes # (auto) 0.01 K/uL (0.00-0.02); Immature Granulocytes % (auto) 0.3 %; Lymphocytes # (auto) 0.62 K/uL (1.2-3.4); Lymphocytes % (auto) 16.4 %; Mean Platelet Volume 10.3 fL (9.4-12.4); Monocytes % (auto) 7.9 %; Neutrophils # (auto) 2.79 K/uL (1.4-6.5); Neutrophils % (auto) 73.8 %; Platelet Count 124 K/uL (130-400); White Blood Count 3.78 K/ul (4.8-10.8)
[2022-05-30 18:26] LABS: Anisocytosis Present; Echinocytes 1+; Mean Corpuscular Hemoglobin 29.3 pg (25.0-34.0); Mean Corpuscular Hgb Conc 32.9 g/dL (32.0-36.0); Mean Corpuscular Volume 89.1 fL (80.0-100.0); Ovalocytes 1+; RDW Coefficient of Variation 20.1 % (11.5-14.5); RDW Standard Deviation 65.9 fL (36.4-46.3); Red Blood Count 3.38 M/uL (4.63-6.08); Schistocytes 1+; Tear Drop Cells 1+
[2022-05-30 18:39] LABS: BUN Creatinine Ratio 9.1 (10-20); Calcium 8.4 mg/dl (8.5-10.1); Creatinine Clr Calc Pharmacy 36.5 ml/min; Est GFR (African American) 35.3 ml/min; Est GFR (Non-African American) 30.5 ml/min; Potassium 3.8 mmol/L (3.5-5.1)
--- NOTE | 2022-05-30 19:35 | Billing Data ---
Date of Service May 30, 2022 Coding Level of Care Code 06488 Subseq Hosp Care Lvl 3
[2022-05-30] MEDS ORDERED: ALBUMIN 25% 100 mL 25 GM/100 ML VIAL IV ONE (20:30)
[2022-05-30] MEDS ORDERED: LACTATED RINGER'S 500 ML IV ONE (20:30)
[2022-05-31] MEDS: PANTOprazole 40 MG in SYRINGE 0 ML IV SCH (08:23)
[2022-05-31] MEDS: HEPARIN SOD 5,000 UNIT/0.5 ML VIAL SQ SCH ×2 (08:23→20:21)
--- NOTE | 2022-05-31 08:35 | Surgery Progress Note ---
Date of Service May 31, 2022 Assessment & Plan (1) SBO (small bowel obstruction): Plan: resolving SBFT yesterday without obstruction low fiber today...if tolerates ok from our standpoint for d/c tomorrow. Admission and Anticipated Discharge Date Admission Date: May 24, 2022 Subjective Patient seen. Feeling much better. Tolerated liquids yesterday. Had another bowel movement overnight. Physical Exam Physical Exam: alert. nad abd: soft. nt. nd. Results & Data ([facility]) Vital Signs (Past 12 Hours) Vital Signs Temp Pulse Pulse Pulse Resp BP Pulse Ox 05/31/22 07:33 37.1 C 77 16 113/63 94 05/30/22 23:31 85 128/73 05/30/22 23:01 78 102/56 L 05/30/22 22:11 36.6 C 86 20 95/54 L 96 05/30/22 21:32 77 102/57 L 05/30/22 21:00 88 105/63 O2 Del Method 05/31/22 07:33 Room Air 05/30/22 23:31 05/30/22 23:01 05/30/22 22:11 Room Air 05/30/22 21:32 05/30/22 21:00 PG Care Time/CCT Total # of Minutes Spent Total Time Spent with Patient: Total time spent is greater than 50% in coordination of care (as documented) at patient's floor/unit and/or counseling patient: Coding Level of Care Code 06080 Subseq Hosp Care Lvl 2 Diagnoses SBO (small bowel obstruction) K56.609
[2022-05-31] MEDS: INSULIN ASPART PER UNIT SC SCH ×4 (08:47→20:23)
[2022-05-31 08:55] LABS: Basophils # (auto) 0.02 K/uL (0-0.2); Basophils % (auto) 0.8 %; Eosinophils # (auto) 0.06 K/uL (0-0.50); Eosinophils % (auto) 2.3 %; Hematocrit (blood only) 29.8 % (40.1-51.0); Hemoglobin 9.7 g/dl (14.0-18.0); Immature Granulocytes # (auto) 0.01 K/uL (0.00-0.02); Immature Granulocytes % (auto) 0.4 %; Lymphocytes # (auto) 0.43 K/uL (1.2-3.4); Lymphocytes % (auto) 16.8 %; Mean Platelet Volume 10.8 fL (9.4-12.4); Monocytes # (auto) 0.18 K/uL (0.24-0.82); Neutrophils # (auto) 1.86 K/uL (1.4-6.5); Neutrophils % (auto) 72.7 %; Platelet Count 116 K/uL (130-400); White Blood Count 2.56 K/ul (4.8-10.8)
[2022-05-31 09:18] LABS: Albumin Globulin Ratio 1.8 (0.9-2); Albumin Level 3.5 gm/dl (3.4-5.0); BUN Creatinine Ratio 10.7 (10-20); Bilirubin,Total 0.5 mg/dl (0.2-1.0); Calcium 9.1 mg/dl (8.5-10.1); Creatinine Clr Calc Pharmacy 53.6 ml/min; Est GFR (African American) 56.3 ml/min; Est GFR (Non-African American) 48.6 ml/min; Globulin 1.9 gm/dl (2.5-4.0); Potassium 4.1 mmol/L (3.5-5.1); Total Protein 5.4 gm/dl (6.0-8.3)
[2022-05-31 09:33] LABS: Mean Corpuscular Hemoglobin 28.9 pg (25.0-34.0); Mean Corpuscular Hgb Conc 32.6 g/dL (32.0-36.0); Mean Corpuscular Volume 88.7 fL (80.0-100.0); Ovalocytes 1+; RDW Coefficient of Variation 19.9 % (11.5-14.5); RDW Standard Deviation 65.7 fL (36.4-46.3); Red Blood Count 3.36 M/uL (4.63-6.08); Schistocytes 1+; Tear Drop Cells 1+
--- NOTE | 2022-05-31 10:48 | Hospitalist Progress Note ---
Date of Service May 31, 2022 Assessment & Plan (1) Small bowel obstruction: Plan: 67yo M with a PMH of CKD, ANALI, DM, HTN, h/o lymphoma with recurrence who presents to the [facility] ED on 05/24/22 from the cancer center with abnormal labs and patient complaints of recent n/v. Found with high-grade bowel obstruction on noncontrast CT scan abdomen pelvis 05/24/2022. SBO: -Per communication note last night, patient developed recurrence of abdominal symptoms. -KUB w/ persistence of SBO and increased gaseous distention. -Small bowel follow-through ordered following second failure of NG tube: No acute findings, though it showed resolution of bowel obstruction. * Surgery following: Recommended advancing diet to low fiber, which patient has tolerated well since yesterday. * Resuming home p.o. meds * AM CBC, CMP T2DM: -Patient is n.p.o. will receive 50% of his NPH dose and sliding scale insulin -Hemoglobin A1c-7.7 Hypotension/shock: Resolved -Unclear etiology. Patient did vomit approximately 1100 cc overnight. Pressures ranging in the 70s to 80s systolic with MAP of 55. Improved status 1 L LR bolus x3. MAP now ~80. -No evidence of sepsis. SBO appears partially resolved. Patient continues to tolerate low fiber diet. * Holding home enalapril. * AM cortisol ordered: 13.8 (normal) HTN: -Benazepril switched to enalapril. Dose will be slightly less than frequency of every 6 as decided to be Q8 watching his blood pressure and renal function -Restarting enalaprilat tomorrow. Switched NSS+20meq KCl to NSS. -Patient's diuretics are held at this time usually Lasix 20 mg daily -Secondary risk prevention aspirin and atorvastatin are also held at this time * Recommend holding at discharge Hyperkalemia: Resolved Non-Hodgkin Lymphoma: [facility] 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 * P.o. Protonix 40 mg twice daily CKD Stage 3: -Patient will be maintained on his ANGÉLICA inhibitor for his diabetic renal disease, management as above. -creatinine is stable DVT ppx: heparin FEN/GI: Low fiber diet Code Status: full Dispo: med-surg (2) Type 2 diabetes mellitus with insulin therapy: (3) Hypertension: (4) NHL (non-Hodgkin's lymphoma): (5) Acute GI bleeding: (6) CKD (chronic kidney disease) stage 3, GFR 30-59 ml/min: Admission and Anticipated Discharge Date Admission Date: May 24, 2022 Supervising Physician Co-Signing Physician Notes I personally examined the patient and verified all barrow points of history and exam, discussed case, and agree with decision making with Dr Riggs Feels good. No belly pain. Ate regular food for lunch. Walking around without lightheadedness. Ongoing bowel movements. No nausea and vomiting. Vitals noted, in general he is awake and alert pleasant no distress. HEENT normocephalic atraumatic mucous membranes moist. Breathing unlabored no accessory muscle use good effort no conversational dyspnea. Abdomen is soft nondistended nontender no masses organomegaly. Extremities without cyanosis. Hypotensionunclear etiology. Given his small bowel obstruction and nausea vomiting diarrheahypovolemic would be the most likelyit did take 3 L of isotonic fluids to stabilize his pressures, but since then has required no further management and has been nothing but stable. A.m. cortisol reasonable, did have a little bit of poor chronotropic response whenever he was shockyprobably would benefit from outpatient cardiac monitoring. SBOappears to be improving. NG tube out, SBFT reassuring. Diet advanced and tolerating well. Acute renal failuredue to hypotensionimproving. Subjective No acute events overnight. This morning, patient has no acute complaints. He denies abdominal pain, nausea, or emesis. He continues to pass flatus, had bowel movements. Continues to tolerate low fiber diet ordered by surgery. Review of Systems Review of Systems: All systems reviewed & are unremarkable except as noted in HPI & below Physical Exam Physical Exam: General: Well-appearing, alert, interactive, and in no acute distress. HEENT: Normocephalic, atraumatic. EOM intact. Good conjugate gaze. Nares patent. Moist mucosal membranes. Neck: Supple. No lymphadenopathy. Normal ROM. CV: Regular rate and rhythm. Normal S1 and S2. No murmurs gallops or rubs. Respiratory: Normal respiratory effort. Lungs clear to auscultation bilaterally. No crackles, rhonchi, or wheezes. Abdomen: Soft, nondistended abdomen. No bruits heard on auscultation. No tenderness to deep palpation. No guarding or rebound. Extremities: Capillary refill <2 sec. 2+ dp equal bilaterally. No pedal edema. Neuro: Alert and oriented x3. Skin: Clean, dry, and intact. No rashes, bruises, or erythema. Results & Data Results & Data ([facility]) Vital Signs (Past 12 Hours) Vital Signs Temp Pulse Pulse Pulse Resp BP Pulse Ox 05/31/22 09:00 05/31/22 07:33 37.1 C 77 16 113/63 94 05/30/22 23:31 85 128/73 05/30/22 23:01 78 102/56 L O2 Del Method 05/31/22 09:00 Room Air 05/31/22 07:33 Room Air 05/30/22 23:31 05/30/22 23:01 Resident Activity Tracking Resident Involvement: Resident Care Provided Care Provided: Adult Hospital Medicine (1) NHL (non-Hodgkin's lymphoma) Lymphoma site: unspecified region Non-Hodgkin lymphoma type: unspecified type Qualified Code(s): C85.90 - Non-Hodgkin lymphoma, unspecified, unspecified site
--- NOTE | 2022-05-31 12:10 | Pharmacy Report ---
Pharmacy Glycemic Short Note 2 - Date of Service May 31, 2022 - Glycemic Short BSG Results (Last 24 hours): 05/30/22 05/30/22 05/30/22 12:08 17:01 17:59 Glucose 126 H POC Glucose 119 H 112 H 05/30/22 05/31/22 05/31/22 20:22 07:51 08:12 Glucose 118 H POC Glucose 139 H 110 H 05/31/22 11:54 Glucose POC Glucose 157 H OUTPATIENT ANTIDIABETIC REGIMEN: * NPH 36 units HS * HbA1c 7.7% (05/25/22) ASSESSMENT: 05/31/22: * Pt appears to have had some resolution of his obstruction. * He has been tolerating his diet, and it has been advanced to low fiber. * BSGs remain reasonably well-controlled. Will cautiously resume NPH for this evening, to be dosed based upon BSG at dinner-time. 05/29 * BSGs remain well-controlled with no insulin administration (0 units given over past 48 hours) * Patient had been NPO -> advanced to clear liquid diet today. Will hold off on basal for now, but may need to add back on once diet advanced further. 05/26 * 67 y/o M admitted for SBO and was NPO. He has history of diabetes managed at home on NPH insulin only at HS. * Initially on admission, on 05/24/22, he was ordered NPH insulin 18 units at HS (50% of home dose) since BSGs were high. * BSGs yesterday were 92-86-66-89 mg/dl. NPH order for yesterday at HS was discontinued. * He did not receive any Novolog yesterday either. Fasting BSG this AM was still low at 72 mg/dl. * Pharmacy consulted this morning due to hypoglycemia. * Clear liquid diet is now ordered starting at lunch. This may help to prevent low BSGs if patient is able to eat. * Novolog correction factor loosened this morning. Carb ratio was not ordered, continued this the same. Will monitor BSGs before adding any insulin. PLAN FOR INPATIENT GLYCEMIC CONTROL: * Basal insulin * NPH 0-15 units SQ qPM, based on BSG (for details see EMR) * Bolus insulin * NovoLog per scale ACHS or Q6hrs while NPO * Goal Range: Low 110 mg/dL - High 150 mg/dL * Correction Factor: 30 mg/dL/unit * Nutritional / Prandial insulin per carb ratio: 15
[2022-05-31] MEDS ORDERED: INSULIN HUMAN NPH SQ SCH (16:30)
--- NOTE | 2022-05-31 18:13 | Billing Data ---
Date of Service May 31, 2022 Coding Level of Care Code 70106 Subseq Hosp Care Lvl 3
[2022-05-31 19:44] VITALS: O2SAT 96
[2022-05-31] MEDS: PANTOprazole 40 MG TAB PO SCH (20:26)
[2022-06-01 07:08] LABS: Basophils # (auto) 0.03 K/uL (0-0.2); Basophils % (auto) 0.9 %; Eosinophils # (auto) 0.12 K/uL (0-0.50); Eosinophils % (auto) 3.7 %; Hematocrit (blood only) 30.7 % (40.1-51.0); Hemoglobin 10.1 g/dl (14.0-18.0); Immature Granulocytes # (auto) 0.01 K/uL (0.00-0.02); Immature Granulocytes % (auto) 0.3 %; Lymphocytes # (auto) 0.59 K/uL (1.2-3.4); Lymphocytes % (auto) 18.2 %; Mean Corpuscular Hemoglobin 28.8 pg (25.0-34.0); Mean Corpuscular Hgb Conc 32.9 g/dL (32.0-36.0); Mean Corpuscular Volume 87.5 fL (80.0-100.0); Mean Platelet Volume 10.8 fL (9.4-12.4); Monocytes # (auto) 0.24 K/uL (0.24-0.82); Monocytes % (auto) 7.4 %; Neutrophils # (auto) 2.26 K/uL (1.4-6.5); Neutrophils % (auto) 69.5 %; Platelet Count 130 K/uL (130-400); RDW Coefficient of Variation 19.5 % (11.5-14.5); RDW Standard Deviation 62.4 fL (36.4-46.3); Red Blood Count 3.51 M/uL (4.63-6.08); White Blood Count 3.25 K/ul (4.8-10.8)
[2022-06-01 07:11] VITALS: PULSE 88; TEMP 98.1
--- NOTE | 2022-06-01 07:25 | Surgery Progress Note ---
Date of Service June 01, 2022 Assessment & Plan (1) SBO (small bowel obstruction): Plan: Bowel obstruction appears to have resolved. Okay from my standpoint to be discharged. We will sign off/call if needed (2) NHL (non-Hodgkin's lymphoma): Admission and Anticipated Discharge Date Admission Date: May 24, 2022 Subjective Patient seen. Feeling much better. Had another bowel movement this morning. Tolerating low residue diet. Physical Exam Constitutional: WD/WN, vitals as above no acute distress and not ill appearing Eyes: PERRL, conjunctivae normal, anicteric sclerae EOM intact bilaterally ENMT: external ear and nose normal, oropharynx normal Ears: no hearing impairment Neck: trachea midline, no thyromegaly Respiratory: normal respiratory effort; no respiratory distress and does not use accessory muscles Cardiovascular: Rate/Rhythm: regular rate and regular rhythm Gastrointestinal (Abdomen): Soft. Nontender nondistended. Positive bowel sounds Skin: no rashes, warm and dry Psychiatric: Orientation: alert, oriented x 3 and cooperative Results & Data ([facility]) Vital Signs (Past 12 Hours) Vital Signs Temp Pulse Pulse Resp BP Pulse Ox O2 Del Method 06/01/22 07:10 36.7 C 88 18 109/64 96 Room Air 05/31/22 19:43 36.8 C 86 16 121/68 96 Room Air PG Care Time/CCT Total # of Minutes Spent Total Time Spent with Patient: Total time spent is greater than 50% in coordination of care (as documented) at patient's floor/unit and/or counseling patient: Coding Level of Care Code 56414 Subseq Hosp Care Lvl 2 Diagnoses SBO (small bowel obstruction) K56.609 NHL (non-Hodgkin's lymphoma) C85.90 Lymphoma site: unspecified region Non-Hodgkin lymphoma type: unspecified type (1) NHL (non-Hodgkin's lymphoma) Lymphoma site: unspecified region Non-Hodgkin lymphoma type: unspecified type Qualified Code(s): C85.90 - Non-Hodgkin lymphoma, unspecified, unspecified site
[2022-06-01] MEDS: HEPARIN 100 UNIT/ML 5ML FLUSH FLUSH PRN (08:17)
[2022-06-01] MEDS: HEPARIN SOD 5,000 UNIT/0.5 ML VIAL SQ SCH (08:59)
[2022-06-01] MEDS: PANTOprazole 40 MG TAB PO SCH (08:59)
[2022-06-01] MEDS: INSULIN ASPART PER UNIT SC SCH ×2 (09:01→12:44)
[2022-06-01 10:01] LABS: BUN Creatinine Ratio 12.4 (10-20); Calcium 9.1 mg/dl (8.5-10.1); Est GFR (African American) 72.4 ml/min; Est GFR (Non-African American) 62.4 ml/min; Potassium 3.5 mmol/L (3.5-5.1)
--- NOTE | 2022-06-01 10:25 | Pharmacy Report ---
Pharmacy Glycemic Short Note 2 - Date of Service June 01, 2022 - Glycemic Short BSG Results (Last 24 hours): 05/31/22 05/31/22 05/31/22 11:54 16:54 20:11 Glucose POC Glucose 157 H 144 H 134 H 06/01/22 06/01/22 06:40 08:00 Glucose 199 H POC Glucose 215 H OUTPATIENT ANTIDIABETIC REGIMEN: * NPH 36 units HS * HbA1c 7.7% (05/25/22) ASSESSMENT: 06/01: * BSGs were well controlled yesterday ranging from 110 to 157 mg/dl. Patient received 8 units of basal NPH at dinner and 10 units total of Novolog throughout the day. * Fasting BSG this morning was elevated at 215 mg/dl. NPH dosing scale (same as yesterday) moved from dinner to HS today. Expect this might improve morning BSG. 05/31/22: * Pt appears to have had some resolution of his obstruction. * He has been tolerating his diet, and it has been advanced to low fiber. * BSGs remain reasonably well-controlled. Will cautiously resume NPH for this evening, to be dosed based upon BSG at dinner-time. 05/29 * BSGs remain well-controlled with no insulin administration (0 units given over past 48 hours) * Patient had been NPO -> advanced to clear liquid diet today. Will hold off on basal for now, but may need to add back on once diet advanced further. 05/26 * 67 y/o M admitted for SBO and was NPO. He has history of diabetes managed at home on NPH insulin only at HS. * Initially on admission, on 05/24/22, he was ordered NPH insulin 18 units at HS (50% of home dose) since BSGs were high. * BSGs yesterday were 92-86-66-89 mg/dl. NPH order for yesterday at HS was disco ntinued. * He did not receive any Novolog yesterday either. Fasting BSG this AM was still low at 72 mg/dl. * Pharmacy consulted this morning due to hypoglycemia. * Clear liquid diet is now ordered starting at lunch. This may help to prevent low BSGs if patient is able to eat. * Novolog correction factor loosened this morning. Carb ratio was not ordered, continued this the same. Will monitor BSGs before adding any insulin. PLAN FOR INPATIENT GLYCEMIC CONTROL: * Basal insulin * NPH 0-15 units SQ HS, based on BSG (for details see EMR) * Bolus insulin * NovoLog per scale ACHS or Q6hrs while NPO * Goal Range: Low 110 mg/dL - High 150 mg/dL * Correction Factor: 30 mg/dL/unit * Nutritional / Prandial insulin per carb ratio: 15
--- NOTE | 2022-06-01 10:40 | Hospitalist Progress Note ---
Date of Service June 01, 2022 Assessment & Plan (1) Small bowel obstruction: Plan: 67yo M with a PMH of CKD, ANALI, DM, HTN, h/o lymphoma with recurrence who presents to the [facility] ED on 05/24/22 from the cancer center with abnormal labs and patient complaints of recent n/v. Found with high-grade bowel obstruction on noncontrast CT scan abdomen pelvis 05/24/2022. SBO: -Per communication note last night, patient developed recurrence of abdominal symptoms. -KUB w/ persistence of SBO and increased gaseous distention. -Small bowel follow-through ordered following second failure of NG tube: No acute findings, though it showed resolution of bowel obstruction. * Surgery following: Recommended advancing diet to low fiber, which patient has tolerated well since yesterday. * Resuming home p.o. meds * AM CBC, CMP T2DM: -Patient is n.p.o. will receive 50% of his NPH dose and sliding scale insulin -Hemoglobin A1c-7.7 Hypotension/shock: Resolved -Unclear etiology. Patient did vomit approximately 1100 cc overnight. Pressures ranging in the 70s to 80s systolic with MAP of 55. Improved status 1 L LR bolus x3. MAP now ~80. -No evidence of sepsis. SBO appears partially resolved. Patient continues to tolerate low fiber diet. * Holding home enalapril. * AM cortisol ordered: 13.8 (normal) HTN: -Benazepril switched to enalapril. Dose will be slightly less than frequency of every 6 as decided to be Q8 watching his blood pressure and renal function -Restarting enalaprilat tomorrow. Switched NSS+20meq KCl to NSS. -Patient's diuretics are held at this time usually Lasix 20 mg daily -Secondary risk prevention aspirin and atorvastatin are also held at this time * Recommend holding at discharge Hyperkalemia: Resolved Non-Hodgkin Lymphoma: [facility] 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 * P.o. Protonix 40 mg twice daily CKD Stage 3: -Patient will be maintained on his ANGÉLICA inhibitor for his diabetic renal disease, management as above. -creatinine is stable DVT ppx: heparin FEN/GI: Low fiber diet Code Status: full Dispo: med-surg (2) Type 2 diabetes mellitus with insulin therapy: (3) Hypertension: (4) NHL (non-Hodgkin's lymphoma): (5) Acute GI bleeding: (6) CKD (chronic kidney disease) stage 3, GFR 30-59 ml/min: Admission and Anticipated Discharge Date Admission Date: May 24, 2022 Review of Systems Review of Systems: All systems reviewed & are unremarkable except as noted in HPI & below Physical Exam Physical Exam: General: Well-appearing, alert, interactive, and in no acute distress. HEENT: Normocephalic, atraumatic. EOM intact. Good conjugate gaze. Nares patent. Moist mucosal membranes. Neck: Supple. No lymphadenopathy. Normal ROM. CV: Regular rate and rhythm. Normal S1 and S2. No murmurs gallops or rubs. Respiratory: Normal respiratory effort. Lungs clear to auscultation bilaterally. No crackles, rhonchi, or wheezes. Abdomen: Soft, nondistended abdomen. No bruits heard on auscultation. No tenderness to deep palpation. No guarding or rebound. Extremities: Capillary refill <2 sec. 2+ dp equal bilaterally. No pedal edema. Neuro: Alert and oriented x3. Skin: Clean, dry, and intact. No rashes, bruises, or erythema. Results & Data Results & Data ([facility]) Vital Signs (Past 12 Hours) Vital Signs Temp Pulse Resp BP Pulse Ox O2 Del Method 06/01/22 08:00 Room Air 06/01/22 07:10 36.7 C 88 18 109/64 96 Room Air (1) NHL (non-Hodgkin's lymphoma) Lymphoma site: unspecified region Non-Hodgkin lymphoma type: unspecified type Qualified Code(s): C85.90 - Non-Hodgkin lymphoma, unspecified, unspecified site
[2022-06-01 14:09] VITALS: BP 120/67
--- NOTE | 2022-06-01 18:43 | Discharge Summary ---
Date of Service June 01, 2022 Admission HPI Per Admitting Provider 67-year-old male who presents to the emergency department for vomiting. Patient is a history of lymphoma and gastric hemorrhage from the same. He currently is [facility] In the past he has been taken care of at [facility] for possibility of bowel obstruction. During his last stay there he resolved with medical management after [address] scan abdomen pelvis showed "high-grade small bowel obstruction with complex transition point in the central pelvis with matted tethered bowel loops at the site of the previously characterized small bowel mass/lymphoma. According to radiology this masses significantly decreased in size from previous exams." Surgery did see the patient in consultation does not recommend NG tube at this time but did recommend transfer the patient to tertiary center due to the complexity of his bowel obstruction. Dr. Garcia ER physician about any spoke to the surgical oncology group on-call at [place], Dr. Cruz, who recommended that he speak to the medical service which is in the process of doing so. Reportedly her she is excepted the patient and there is not a bed available but recommends managing here until a bed opens up Admission Exam Per Admitting Provider The patient appeared well nourished and normally developed. he has alopecia Vital signs as documented. Head exam is normocephalic atraumatic Neck is without JVD, thyromegaly, or carotid bruits. Lungs are clear to auscultation, no focal loss of breath sounds Cardiac exam, Rhythm is regular.. No murmurs, rubs or gallops. Abdominal exam reveals normal bowel sounds, soft, lower quadrant tenderness Extremities are nonedematous and both pedal pulses are present Neurologic exam is alert and oriented, no focal loss of strength or sensation Skin is without bruises or rashes Psychologically is without concerns for anxiety or depression. Principal Diagnosis Small bowel obstruction Discharge Exam General: Well-appearing, alert, interactive, and in no acute distress. HEENT: Normocephalic, atraumatic. EOM intact. Good conjugate gaze. Nares patent. Moist mucosal membranes. Neck: Supple. No lymphadenopathy. Normal ROM. CV: Regular rate and rhythm. Normal S1 and S2. No murmurs gallops or rubs. Respiratory: Normal respiratory effort. Lungs clear to auscultation bilaterally. No crackles, rhonchi, or wheezes. Abdomen: Soft, nondistended abdomen. No bruits heard on auscultation. No tenderness to deep palpation. No guarding or rebound. Extremities: Capillary refill <2 sec. 2+ dp equal bilaterally. No pedal edema. Neuro: Alert and oriented x3. Skin: Clean, dry, and intact. No rashes, bruises, or erythema. Discharge Data Allergies Allergy/AdvReac Type Severity Reaction Status Date / Time morphine AdvReac Unknown "dizzy",del Verified 05/24/22 12:42 usional Consultations 05/24/22 11:32 Consult General Surgery Stat 05/24/22 13:22 ED Decision to Admit Stat Ordered Studies 05/24/22 09:46 CT abd pelvis wo con Stat 05/30/22 08:35 SBFT Modified Swallow [FL small bowel follow through] Routine Hospital Course (1) Small bowel obstruction: 67yo M with a PMH of CKD, ANALI, DM, HTN, h/o lymphoma with recurrence who presents to the [facility] ED on 05/24/22 from the cancer center with abnormal labs and patient complaints of recent n/v. Found with high-grade bowel obstruction on noncontrast CT scan abdomen pelvis 05/24/2022. SBO: -Per communication note last night, patient developed recurrence of abdominal symptoms. -KUB w/ persistence of SBO and increased gaseous distention. -Small bowel follow-through ordered following second failure of NG tube: No acute findings, though it showed resolution of bowel obstruction. * Surgery following: Recommended advancing diet to low fiber, which patient tolerated well to discharge * Resuming home p.o. meds T2DM: -Patient is n.p.o. will receive 50% of his NPH dose and sliding scale insulin -Hemoglobin A1c-7.7 Hypotension/shock: Resolved -Unclear etiology. Patient did vomit approximately 1100 cc overnight. P ressures ranging in the 70s to 80s systolic with MAP of 55. Improved status 1 L LR bolus x3. MAP now ~80. -No evidence of sepsis. SBO appears partially resolved. Patient continues to tolerate low fiber diet. * Holding home enalapril. * AM cortisol ordered: 13.8 (normal) * Order placed for Holter monitor to be fitted upon discharge, given poor chrono tropic response to hypotension. HTN: -Benazepril switched to enalapril. Dose will be slightly less than frequency of every 6 as decided to be Q8 watching his blood pressure and renal function -Restarting enalaprilat tomorrow. Switched NSS+20meq KCl to NSS. -Patient's diuretics are held at this time usually Lasix 20 mg daily -Secondary risk prevention aspirin and atorvastatin are also held at this time * Recommend holding antihypertensive meds at discharge Hyperkalemia: Resolved Non-Hodgkin Lymphoma: [facility] 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 * P.o. Protonix 40 mg twice daily CKD Stage 3: -Patient will be maintained on his ANGÉLICA inhibitor for his diabetic renal disease, management as above. -creatinine is stable (2) Type 2 diabetes mellitus with insulin therapy: (3) Hypertension: (4) NHL (non-Hodgkin's lymphoma): (5) Acute GI bleeding: (6) CKD (chronic kidney disease) stage 3, GFR 30-59 ml/min: Total Time Total Time Spent Total Time Spent (In Minutes): <30 Discharge Plan Discharge Items Patient Disposition: Home - Self-Care Reason For Visit: SMALLBOWEL OBSTRUCTION, LYMPHOMA Discharge Diagnosis: Small bowel obstruction Activity: Per Instructions section Non-emergency contact: Primary Care Provider, Yield Clerk and Oncologist Call non-emergency contact if: you have any medication questions, your symptoms worsen and your pain is not controlled Follow-up/Referrals: Dixon Aj MD [Primary Care Provider] - 06/08/22 9:00 am Diet: Regular Ambulatory Orders: ECG holter monitor scan (Routine) Timeframe: 1 Week Location: Determined by Patient Ordered By: Nora Rodriguez Attending Provider Instructions: Dear Deejay, You were brought to the hospital due to worsening abdominal pain, nausea, and vomiting. You were evaluated in the emergency room and admitted for management of a small bowel obstruction. We also consulted the surgery service, who assessed your need for immediate surgical intervention, and observed you for the duration of your stay. We placed a nasogastric (NG) tube into your stomach in order to drain your stomach of its contents and watched you in the hopes that you are bowels with resume functioning as usual. During this time period, you are given IV fluids and electrolytes as needed, as well as pain medicines to control your abdominal pain. Once her abdominal pain improved, gently advance your diet, which he tolerated well. Therefore, we feel that you are ready to be safely discharged home. Medications * We held your antihypertensive medicines (furosemide, benazepril) due to low blood pressure. Do not take them once you are discharged before you have met with your primary care physician (PCP). * We made no further changes to your medications. Please continue to take your medications as otherwise prescribed unless otherwise instructed by your primary care physician. Follow-up care A hospital follow-up appointment with your PCP, Dr. Aj, will be made for you by our hospital pineapple plantation manager. If you do not hear from the hospital or your primary care physician's clinic in 3-5 business days, you may call his office to be scheduled at [phone]. Concerning symptoms If you experience the following symptoms, please do not hesitate to reach out to your primary care physician. If you are unable to, please go to emergency room * Progressive moderate to severe abdominal pain with nausea and vomiting. * Abdominal pain made worse by eating * Abdominal distention, or bloating (another way to assess this is a few more unable to fit into your regular pants). If you are unable to contact a provider in the meantime, you can best care for yourself by refrain from eating for time, then gently restarting oral intake with smaller portions, eating slowly. It is been a pleasure to care for you at [facility]. We wish you the best in recovery. If you have any questions concerning her stay here you may contact the hospital at [phone]. Pending Studies at Discharge: No Stand-Alone Forms: My [facility], Smoking Cessation Medications and DC Order Prescriptions: Continued loratadine [Claritin] 10 mg tablet 10 mg PO QAM montelukast [Singulair] 10 mg tablet 10 mg PO HS cholecalciferol (vitamin D3) 50 mcg (2,000 unit) tablet 1,000 unit PO QAM ascorbic acid (vitamin C) 500 mg capsule 500 mg PO QAM pantoprazole [Protonix] 20 mg tablet,delayed release (DR/EC) 40 mg PO QAM (DME) CPAP Supplies Misc See Rx Instructions .ROUTE .MEDSUPPLY Qty: 1 0RF Rx Instructions: CPAP supplies (DME) CPAP Machine Misc See Rx Instructions .Route Qty: 1 0RF Rx Instructions: cpap 7 cm h2o Novolin N NPH U-100 Insulin 100 unit/mL suspension 36 units SQ HS Rx Instructions: 80- 140 GIVE 26 UNITS, ABOVE 140 GIVE ADDITIONAL UNITS PER SLIDING SCALE DIRECTIONS. allopurinol 300 mg Tablet 300 mg PO DAILY Qty: 30 0RF aspirin 81 mg Tablet,Delayed Release (Dr/Ec) 81 mg PO DAILY magnesium oxide 400 mg magnesium tablet 800 mg PO QAM Qty: 60 0RF Rx Instructions: take two 400mg tablets pramipexole [Mirapex] 1 mg Tablet 1 mg PO HS Novolin R Flexpen 100 unit/mL (3 mL) Insulin Pen 0 sliding scale dose SUBCUT TIDM atorvastatin 20 mg tablet 20 mg PO HS omega 3-yyd-nqz-fish oil [Fish Oil] 1,200 (144-216) mg Capsule 1 cap PO QAM Discontinued benazepril 20 mg tablet 20 mg PO QAM furosemide 20 mg tablet 20 mg PO QAM Discharge Orders: Discharge Order (Routine); Ordered 06/01/22 Ordered By: Nora Sanderson/Other Patient Handouts: Managing Type 2 Diabetes Admission Data Admit Date/Time: 05/24/22 13:23 Attending Provider: Eloy Joyner Admit Provider: Christos Morin Primary Care Provider: Dixon Aj Other Providers: Corky Coleman ; Christos oMrin ; Porfirio Monsivais Other Interventions: Discharge Summary Assessment (RN) Last Done: 06/01/22 14:07 Supervising Physician Co-Signing Physician Notes I personally examined the patient and verified all barrow points of history and exam, discussed case, and agree with decision making with Dr Riggs Feels good no belly pain eating well actually getting dressed and ready to leave whenever I see him. Vitals noted, in general he is awake and alert pleasant no distress. HEENT normocephalic atraumatic mucous membranes moist. Breathing unlabored no accessory muscle use good effort no conversational dyspnea. No focal neurodeficits. Extremities without cyanosis. Hypotensionunclear etiology. However, given his small bowel obstruction is reason for being in the hospital and nausea vomiting diarrheahypovolemic would be the most likelyit did take 3 L of isotonic fluids to stabilize his pressures, but since then has required no further management and has been nothing but stable. A.m. cortisol reasonable, did have a little bit of poor chronotropic response whenever he was shockyprobably would benefit from outpatient cardiac monitoring and we will get this set up, but appears overall to have played out as simply hypovolemia. SBOappears to be improving. NG tube out, SBFT reassuring. Tolerating regular diet and safe for home Acute renal failuredue to hypotensionimproving. Outpatient basic metabolic panel Resident Activity Tracking Resident Involvement: Resident Care Provided Care Provided: Adult Hospital Medicine
--- NOTE | 2022-06-01 18:53 | Billing Data ---
Date of Service June 01, 2022 Coding Level of Care Code D/C DAY MANAGEMENT <30 MINS
[2022-06-01] MEDS ORDERED: INSULIN HUMAN NPH SQ SCH (21:00)
== END 2022-06-01 15:30 | disposition home or self-care (01) | DRG 389 ==
LOC: ED 09:36 → EDINP 13:23 → SUATTDRO 13:23 → 3W 15:46

== ENCOUNTER 2022-06-04 14:59 | Inpatient (IN) ==
[2022-06-04] MEDS ORDERED: SODIUM CHLORIDE 0.9% 1000ML 1,000 ML IV ONE ×2 (15:21→15:32)
[2022-06-04] MEDS ORDERED: ONDANSETRON INJ 2 MG/ML 2 ML VIAL IV STA (15:32)
[2022-06-04] MEDS ORDERED: HYDROmorphone INJ 1 MG/ML SYRINGE IV STA (15:32)
--- NOTE | 2022-06-04 15:32 | Emergency Department Note ---
Impression & Plan SBO (small bowel obstruction), Abdominal pain, Hypoglycemia, ALTAGRACIA (acute kidney injury) ED Provider Note NAME: YOEL PETERSON AGE: 67 SEX: M : 1955 ARRIVES VIA: Walk-In INFORMANT: Patient ED PROVIDER(S): Eloy Carr DO CHIEF COMPLAINT: abdominal pain HPI: Patient is a 67-year-old male with a past medical history small bowel obstruction, acute renal failure, obstructive sleep apnea, diabetes, hypercholesterol, hypertension, obesity who presents ER following admission and discharge at the end of April into May. He has not really eaten much since being discharged this past . Patient admits to nausea but no vomiting. He is not having bowel movements. Still passing a little bit of gas this morning. Notes the pain in his belly is mid periumbilical and feels like his previous obstructions. Currently 7 out of 10. No dysuria urgency or frequency. No other exacerbating or remitting factors. ROS: See above HPI for pertinent positives & negatives. A total of 10 systems reviewed and were otherwise negative. PAST MEDICAL HISTORY:See Below PAST SURGICAL HISTORY:See Below FAMILY HISTORY:See Below SOCIAL HISTORY:See Below HOME MEDICATIONS:See Below ALLERGIES:See Below VITALS:See Below PHYSICAL EXAMINATION: GENERAL: Sitting up in chair, alert, ill-appearing, disheveled EYE EXAM: normal conjunctiva. OROPHARYNX: mucous membranes are dry NECK: supple, no nuchal rigidity, no adenopathy, non-tender LUNGS: Clear to auscultation. Normal chest wall mechanics HEART: no murmurs, S1 normal and S2 normal ABDOMEN: abdomen soft, diffuse tenderness to palpation throughout entire belly with guarding UPPER EXTREMITIES: upper extremities are grossly normal. LOWER EXTREMITIES: No pitting edema. NEURO EXAM: Normal sensorium, cranial nerves II-XII grossly intact, normal speech, no gross weakness of arms, no gross weakness of legs. MEDICAL DECISION MAKING: Patient is a 67-year-old male who presents ER with above-stated complaint. IV was established blood work was obtained. Labs show leukocytosis 12.4 thousand. No significant anemia. BMP with mild hyponatremia at 133. ALTAGRACIA with creatinine 1.9 up from baseline of 1.2. Hyperglycemia 39. He was given D50 IV. Trended up to 113. Bilirubin LFTs and lipase was unremarkable. COVID was negative. CT abdomen pelvis confirms small bowel obstruction. This was discussed with Dr. Rios and he was agreeable to keeping the patient here. Patient currently does not want an NG tube. We will hold off for the time being. Surgery is aware. Discussed with hospitalist Dr. Gareth Edouard for further evaluation and admission. Patient was given IV fluids and IV Dilaudid. He was placed on nasal cannula following this. Triage Nursing notes reviewed. Limited review of prior medical records performed Vital Signs: reviewed and remarkable for tachy Differential diagnosis: Differential diagnoses includes but is not limited to gastritis, peptic ulcer disease, GERD, gallbladder disease, pancreatitis, small bowel obstruction, acute coronary syndrome, pericarditis, ischemic bowel, irritable bowel disease, irritable bowel syndrome, appendicitis, diverticulitis, malignancy, hernia, urinary tract infection, torsion, perforation, trauma, infectious. ER treatment provided: See below Diagnostics interpreted by me: Cardiac Monitoring: An order was placed for continuous cardiac monitoring. The monitor shows a rate of 92 with sinus rhythm. Laboratory studies: As stated above and show below. Imaging studies: CT abd/pelvis shows small bowel obstruction Consultation(s): Discussed with the hospitalist Dr. Gareth Edouard and general surgery as described above Procedures: none Past Med/Surg History Medical History Anemia requiring transfusions Chronic, hx blood transfusion Asthma Chronic obstructive pulmonary disease CKD (chronic kidney disease) stage 3, GFR 30-59 ml/min COPD (chronic obstructive pulmonary disease) Diabetes mellitus, type 2 IDDM Diabetic peripheral neuropathy Follicular lymphoma Treatment: Systemic therapy with Rituxan Hx of malignant neoplasm of prostate Treated with brachytherapy and radiation Currently in remission Hyperlipidemia Hypermagnesemia Hypertension Hypotension Nocturnal hypoxemia Non-Hodgkin lymphoma Dx 2017 treated with chemotherapy at the time Was in remission until recently (01/2022) Numbness On home oxygen therapy 2lpm via n/c at HS and during the day PRN ANALI (obstructive sleep apnea) 2lpm via n/c at HS -- awaiting results from sleep study on 03/06/22 ANALI (obstructive sleep apnea) Retroperitoneal lymphadenopathy hx Surgical History H/O colonoscopy approx 2013 History of amputation traumatic tip of right index History of ankle surgery multiple (right ankle) ankle bone spurs removal - ankle joint hardware/fusion - osteomyelitis with hardware removal -- treated with abx, once healed had ankel hardware replaced History of carpal tunnel release right History of cholecystectomy History of colonoscopy History of elbow surgery right elbow surgery History of esophagogastroduodenoscopy (EGD) History of tooth extraction full top dental extraction Port-A-Cath in place (03/22/22) Insertion Access Port with Fluoroscopy to left internal jugular vein (Left) - aTte Rios, DO, FACS Family History Father Diabetes Lung cancer Hypertension Stroke Mother Diabetes Hypertension Brother Diabetes Other No family history of adverse response to anesthesia Social History Smoking Status: Never smoker Tobacco Type: Cigarettes Second Hand Exposure: Yes; Hx Alcohol Use: Yes Alcohol type: beer Hx Substance Use: No Preferred Language: Latvian Communication Ability: Effective Double Corner Cutter Required: No Beliefs That Will Affect Care: None marital status: Single Current Living Situation: Significant Other current occupational status: retired and disabled How many Children do You have: 0 Feels Safe at Home: Yes during the past year weight has: decreased > 10 lbs Assistive Devices: Cane and Walker Allergies Allergies Allergy/AdvReac Type Severity Reaction Status Date / Time morphine AdvReac Intermediate "dizzy",del Verified 06/04/22 17:45 [facility] Meds Home Medications Medication Instructions Recorded Confirmed pantoprazole 20 mg tablet,delayed 40 mg PO QAM 07/16/18 06/04/22 release (Protonix) loratadine 10 mg tablet (Claritin) 10 mg PO QAM 01/29/19 06/04/22 montelukast 10 mg tablet 10 mg PO HS 01/29/19 06/04/22 (Singulair) insulin NPH isoph U-100 human 100 36 units subcut HS 07/17/19 06/04/22 unit/mL subcutaneous suspension (Novolin N NPH U-100 Insulin isophane) ascorbic acid (vitamin C) 500 mg 500 mg PO QAM 08/02/21 06/04/22 capsule cholecalciferol (vitamin D3) 50 1,000 unit PO QAM 08/02/21 06/04/22 mcg (2,000 unit) tablet atorvastatin 20 mg tablet 20 mg PO HS 03/20/22 06/04/22 insulin regular human 100 unit/mL 0 sliding scale dose subcut TIDM 03/20/22 06/04/22 (3 mL) subcutaneous pen (Novolin R Flexpen) pramipexole 1 mg tablet (Mirapex) 1 mg PO HS 03/20/22 06/04/22 aspirin 81 mg tablet,delayed 81 mg PO DAILY 05/15/22 06/04/22 release omega 5-eoa-bha-fish oil 1,200 mg 1 cap PO QAM 05/24/22 06/04/22 (144 mg-216 mg) capsule (Fish Oil) Previous Rx's Medication Instructions Recorded allopurinol 300 mg tablet 300 mg PO DAILY #30 tabs 04/02/22 magnesium oxide 800 mg PO QAM #60 tabs 05/17/22 CPAP Machine #1 ea 05/24/22 CPAP Supplies #1 ea 05/24/22 Results & Data (ED) Vital Signs Vital Signs - 24 hr 06/04/22 15:07 06/04/22 16:01 06/04/22 16:35 Temperature 36.8 C Temperature Source Temporal Artery Scan Pulse Rate 130 H 103 H Pulse Rate [Right Finger] 107 H Pulse Rate from SpO2 Sensor 103 H Respiratory Rate 18 16 21 Respiratory Effort / Characteristics Non-Labored Spontaneous Respiratory Depth Normal Respiratory Pattern Regular Blood Pressure 126/84 Blood Pressure [Right Arm] 110/70 Blood Pressure Mean 98 Blood Pressure Mean [Right Arm] 83 Pulse Oximetry 100 95 100 Oxygen Delivery Method Room Air Room Air Sepsis Recent Fever Within 48 Hours No Sepsis New/Unexplained Change in Mental Status N/A Sepsis Action Taken by Nursing No Action Required 06/04/22 17:00 06/04/22 17:00 06/04/22 17:30 Temperature Temperature Source Pulse Rate 98 H Pulse Rate [Right Finger] Pulse Rate from SpO2 Sensor 98 H Respiratory Rate 20 Respiratory Effort / Characteristics Respiratory Depth Respiratory Pattern Blood Pressure 128/75 122/82 Blood Pressure [Right Arm] Blood Pressure Mean 92 95 Blood Pressure Mean [Right Arm] Pulse Oximetry 100 Oxygen Delivery Method Sepsis Recent Fever Within 48 Hours Sepsis New/Unexplained Change in Mental Status Sepsis Action Taken by Nursing 06/04/22 17:30 06/04/22 18:00 06/04/22 18:00 Temperature Temperature Source Pulse Rate 93 H 93 H Pulse Rate [Right Finger] Pulse Rate from SpO2 Sensor 92 H 92 H Respiratory Rate 18 19 Respiratory Effort / Characteristics Respiratory Depth Respiratory Pattern Blood Pressure 125/79 Blood Pressure [Right Arm] Blood Pressure Mean 94 Blood Pressure Mean [Right Arm] Pulse Oximetry 100 100 Oxygen Delivery Method Sepsis Recent Fever Within 48 Hours Sepsis New/Unexplained Change in Mental Status Sepsis Action Taken by Nursing 06/04/22 18:30 06/04/22 18:30 06/04/22 19:00 Temperature Temperature Source Pulse Rate 92 H Pulse Rate [Right Finger] Pulse Rate from SpO2 Sensor 92 H Respiratory Rate 17 Respiratory Effort / Characteristics Respiratory Depth Respiratory Pattern Blood Pressure 128/76 133/87 Blood Pressure [Right Arm] Blood Pressure Mean 93 102 Blood Pressure Mean [Right Arm] Pulse Oximetry 100 Oxygen Delivery Method Sepsis Recent Fever Within 48 Hours Sepsis New/Unexplained Change in Mental Status Sepsis Action Taken by Nursing 06/04/22 19:00 06/04/22 19:30 06/04/22 19:30 Temperature Temperature Source Pulse Rate 92 H 95 H Pulse Rate [Right Finger] Pulse Rate from SpO2 Sensor 92 H 95 H Respiratory Rate 17 15 Respiratory Effort / Characteristics Respiratory Depth Respiratory Pattern Blood Pressure 127/80 Blood Pressure [Right Arm] Blood Pressure Mean 95 Blood Pressure Mean [Right Arm] Pulse Oximetry 100 100 Oxygen Delivery Method Sepsis Recent Fever Within 48 Hours Sepsis New/Unexplained Change in Mental Status Sepsis Action Taken by Nursing 06/04/22 20:00 06/04/22 20:01 06/04/22 20:01 Temperature Temperature Source Pulse Rate 94 H 90 Pulse Rate [Right Finger] Pulse Rate from SpO2 Sensor 91 H 92 H Respiratory Rate 21 18 Respiratory Effort / Characteristics Respiratory Depth Respiratory Pattern Blood Pressure 113/73 Blood Pressure [Right Arm] Blood Pressure Mean 86 Blood Pressure Mean [Right Arm] Pulse Oximetry 84 L 100 Oxygen Delivery Method Sepsis Recent Fever Within 48 Hours Sepsis New/Unexplained Change in Mental Status Sepsis Action Taken by Nursing Laboratory Data Result diagrams: 06/04/22 15:41 06/04/22 15:41 Lab Results 06/04/22 06/04/22 06/04/22 Range/Units 15:41 15:41 16:35 WBC 12.45 H (4.8-10.8) K/ul RBC 4.79 (4.63-6.08) M/uL Hgb 14.1 (14.0-18.0) g/dl Hct 41.0 (40.1-51.0) % MCV 85.6 (80.0-100.0) fL MCH 29.4 (25.0-34.0) pg MCHC 34.4 (32.0-36.0) g/dL RDW Std Deviation 58.5 H (36.4-46.3) fL RDW Coeff of Jyoti 18.6 H (11.5-14.5) % Plt Count 247 (130-400) K/uL MPV 11.2 (9.4-12.4) fL Immature Gran % (Auto) 0.3 % Neut % (Auto) 77.2 % Lymph % (Auto) 14.1 % [place] % (Auto) 7.1 % Eos % (Auto) 0.7 % Baso % (Auto) 0.6 % Neut # (Auto) 9.59 H (1.4-6.5) K/uL Lymph # (Auto) 1.76 (1.2-3.4) K/uL [place] # (Auto) 0.89 H (0.24-0.82) K/uL Eos # (Auto) 0.09 (0-0.50) K/uL Baso # (Auto) 0.08 (0-0.2) K/uL Immature Gran # (Auto) 0.04 H (0.00-0.02) K/uL Sodium 133 L (136-145) mmol/L Potassium 3.7 (3.5-5.1) mmol/L Chloride 96 L (98-107) mmol/L Carbon Dioxide 26 (21-32) mmol/L Anion Gap 11 (3-11) BUN 42 H (6-23) mg/dl Creatinine 1.91 H (0.6-1.4) mg/dl Est Cr Clr Drug Dosing Not Reportable Est GFR ( Amer) 41.7 ml/min Est GFR (Non-Af Amer) 36.0 ml/min BUN/Creatinine Ratio 22.0 H (10-20) Glucose 39 L* (70-99(Fasting)) mg/dl POC Glucose 212 H (70-99) mg/dl Calcium 10.6 H (8.5-10.1) mg/dl Total Bilirubin 1.1 H (0.2-1.0) mg/dl AST 20 (13-39) U/L ALT 15 (7-52) U/L Alkaline Phosphatase 104 (34-104) U/L Total Protein 7.6 (6.0-8.3) gm/dl Albumin 4.8 (3.4-5.0) gm/dl Globulin 2.8 (2.5-4.0) gm/dl Albumin/Globulin Ratio 1.7 (0.9-2) Lipase 17 (11-82) U/L SARS-CoV-2, RNA, NAAT (NEGATIVE) 06/04/22 06/04/22 Range/Units 17:32 18:42 WBC (4.8-10.8) K/ul RBC (4.63-6.08) M/uL Hgb (14.0-18.0) g/dl Hct (40.1-51.0) % MCV (80.0-100.0) fL MCH (25.0-34.0) pg MCHC (32.0-36.0) g/dL RDW Std Deviation (36.4-46.3) fL RDW Coeff of Jyoti (11.5-14.5) % Plt Count (130-400) K/uL MPV (9.4-12.4) fL Immature Gran % (Auto) % Neut % (Auto) % Lymph % (Auto) % [place] % (Auto) % Eos % (Auto) % Baso % (Auto) % Neut # (Auto) (1.4-6.5) K/uL Lymph # (Auto) (1.2-3.4) K/uL [place] # (Auto) (0.24-0.82) K/uL Eos # (Auto) (0-0.50) K/uL Baso # (Auto) (0-0.2) K/uL Immature Gran # (Auto) (0.00-0.02) K/uL Sodium (136-145) mmol/L Potassium (3.5-5.1) mmol/L Chloride (98-107) mmol/L Carbon Dioxide (21-32) mmol/L Anion Gap (3-11) BUN (6-23) mg/dl Creatinine (0.6-1.4) mg/dl Est Cr Clr Drug Dosing Est GFR ( Amer) ml/min Est GFR (Non-Af Amer) ml/min BUN/Creatinine Ratio (10-20) Glucose (70-99(Fasting)) mg/dl POC Glucose 113 H (70-99) mg/dl Calcium (8.5-10.1) mg/dl Total Bilirubin (0.2-1.0) mg/dl AST (13-39) U/L ALT (7-52) U/L Alkaline Phosphatase (34-104) U/L Total Protein (6.0-8.3) gm/dl Albumin (3.4-5.0) gm/dl Globulin (2.5-4.0) gm/dl Albumin/Globulin Ratio (0.9-2) Lipase (11-82) U/L SARS-CoV-2, RNA, NAAT NEGATIVE (NEGATIVE) Administered Medications Discontinued Medications Dextrose (Dextrose 50% 50 Ml Syringe) 50 ml IV NOW ONE Stop: 06/04/22 16:28 Last Admin: 06/04/22 16:33 Dose: Not Given Documented By: ASW Dextrose (Dextrose 50% 50 Ml Syringe) Confirm Administered Dose 50 ml IV .STK- MED ONE Stop: 06/04/22 16:28 Last Admin: 06/04/22 16:33 Dose: 50 ml Documented By: JESSICA Hydromorphone HCl (Hydromorphone Inj 1 Mg/Ml Syringe) 1 mg IV NOW STA Stop: 06/04/22 15:33 Last Admin: 06/04/22 15:50 Dose: 1 mg Documented By: PEGGY Hydromorphone HCl (Hydromorphone Inj 0.5 Mg/0.5 Ml Syr) 0.5 mg IV NOW STA Stop: 06/04/22 19:36 Last Admin: 06/04/22 19:43 Dose: 0.5 mg Documented By: AMS Sodium Chloride (Nss 1000ml) 1,000 mls @ 999 mls/hr IV .Q1H1M ONE Stop: 06/04/22 16:21 Last Infusion: 06/04/22 17:17 Dose: 0 mls/hr Documented By: Admin: 06/04/22 15:50 Dose: 999 mls/hr Documented By: AMS Sodium Chloride (Nss 1000ml) 1,000 mls @ 999 mls/hr IV .Q1H1M ONE Stop: 06/04/22 16:32 Last Infusion: 06/04/22 18:30 Dose: 0 mls/hr Documented By: Admin: 06/04/22 17:21 Dose: 999 mls/hr Documented By: PEGGY Ondansetron HCl (Ondansetron Inj 2 Mg/Ml 2 Ml Vial) 4 mg IV NOW STA Stop: 06/04/22 15:33 Last Admin: 06/04/22 15:51 Dose: 4 mg Documented By: PEGGY Imaging Data Radiologist's Impression: Abdomen/Pelvis CT 06/04/22 16:[address] WITHOUT CONTRAST CT DOSE: 393.21 mGy.cm HISTORY: Acute generalized abdominal pain. Follow-up study in a patient with small bowel obstruction small bowel obs TECHNIQUE: Multiaxial CT images of the abdomen and pelvis were performed without contrast. A dose lowering technique was utilized adhering to the principles of ALARA. COMPARISON STUDY: Small bowel follow-through 05/30/2022, KUB 05/30/2022, CT 05/24/2022, 03/09/2022 FINDINGS: Bibasilar bronchial wall thickening with mild atelectasis. Pneumatosis or pneumoperitoneum identified. The unenhanced spleen, pancreas and adrenal glands are unremarkable. Cholecystectomy. The liver is within normal limits. Unremarkable kidneys. Equivocal punctate nonobstructing calculus of the superior pole left kidney. No ureteral calculi or hydronephrosis. Decompressed urinary bladder with wall thickening. Brachytherapy seeds of the prostate. Atherosclerosis of the aorta. No pathologically enlarged lymph nodes identified. Distended air and fluid-filled stomach. Colonic diverticulosis. Normal appendix. Decompressed terminal loops of ileum. High-grade small bowel obstruction redemonstrated with transition point again noted within the central pelvis. There are again noted and tethered loops of small bowel within the area of the previously noted small bowel mass/lymphoma. Findings appear generally stable from 05/24/2022. Fluid-filled loops of bowel measure up to 4.7 cm. Interloop edema with trace pelvic ascites. Unremarkable soft tissues. No acute fracture. Chronic L5 pars defects with grade 1 anterolisthesis L5 on S1. IMPRESSION: 1. Limited exam without the use of contrast. 2. High-grade small bowel obstruction redemonstrated with transition point withi n the central pelvis at the site of the previously characterized small bowel mass/lymphoma described on the 03/09/2022 exam which as previously stated has significantly decreased in size. Findings are overall similar to the 05/24/2022 exam. 3. No pneumoperitoneum. 4. Additional findings as above. ACT 112: Negative or not required by law. The above report was generated using voice recognition software. It may contain grammatical, syntax or spelling errors. Electronically signed by: Byron Redman M.D. 06/04/2022 5:30 PM Discharge Plan Visit Data Chief Complaint: Abdominal Pain Stated Complaint: SEVERE ABDOMINAL PAIN ED Provider: Eloy Carr Discharge Problem: SBO (small bowel obstruction), Abdominal pain, Hypoglycemia, ALTAGRACIA (acute kidney injury) Forms Stand Alone Forms: [facility] Prescriptions Prescriptions: No Action loratadine [Claritin] 10 mg tablet 10 mg PO QAM montelukast [Singulair] 10 mg tablet 10 mg PO HS cholecalciferol (vitamin D3) 50 mcg (2,000 unit) tablet 1,000 unit PO QAM ascorbic acid (vitamin C) 500 mg capsule 500 mg PO QAM pantoprazole [Protonix] 20 mg tablet,delayed release (DR/EC) 40 mg PO QAM (DME) CPAP Supplies Misc See Rx Instructions .ROUTE .MEDSUPPLY Qty: 1 0RF Rx Instructions: CPAP supplies (DME) CPAP Machine Misc See Rx Instructions .Route Qty: 1 0RF Rx Instructions: cpap 7 cm h2o Novolin N NPH U-100 Insulin 100 unit/mL suspension 36 units SQ HS Rx Instructions: 80- 140 GIVE 26 UNITS, ABOVE 140 GIVE ADDITIONAL UNITS PER SLIDING SCALE DIRECTIONS. allopurinol 300 mg Tablet 300 mg PO DAILY Qty: 30 0RF aspirin 81 mg Tablet,Delayed Release (Dr/Ec) 81 mg PO DAILY magnesium oxide 400 mg magnesium tablet 800 mg PO QAM Qty: 60 0RF Rx Instructions: take two 400mg tablets pramipexole [Mirapex] 1 mg Tablet 1 mg PO HS Novolin R Flexpen 100 unit/mL (3 mL) Insulin Pen 0 sliding scale dose SUBCUT TIDM atorvastatin 20 mg tablet 20 mg PO HS omega 3-git-fki-fish oil [Fish Oil] 1,200 (144-216) mg Capsule 1 cap PO QAM Referrals Referrals: Dixon Aj MD [Primary Care Provider] -
[2022-06-04 16:00] LABS: Basophils # (auto) 0.08 K/uL (0-0.2); Basophils % (auto) 0.6 %; Eosinophils # (auto) 0.09 K/uL (0-0.50); Eosinophils % (auto) 0.7 %; Hemoglobin 14.1 g/dl (14.0-18.0); Immature Granulocytes # (auto) 0.04 K/uL (0.00-0.02); Immature Granulocytes % (auto) 0.3 %; Lymphocytes # (auto) 1.76 K/uL (1.2-3.4); Lymphocytes % (auto) 14.1 %; Mean Corpuscular Hemoglobin 29.4 pg (25.0-34.0); Mean Corpuscular Hgb Conc 34.4 g/dL (32.0-36.0); Mean Corpuscular Volume 85.6 fL (80.0-100.0); Mean Platelet Volume 11.2 fL (9.4-12.4); Monocytes # (auto) 0.89 K/uL (0.24-0.82); Monocytes % (auto) 7.1 %; Neutrophils # (auto) 9.59 K/uL (1.4-6.5); Neutrophils % (auto) 77.2 %; Platelet Count 247 K/uL (130-400); RDW Coefficient of Variation 18.6 % (11.5-14.5); RDW Standard Deviation 58.5 fL (36.4-46.3); Red Blood Count 4.79 M/uL (4.63-6.08); White Blood Count 12.45 K/ul (4.8-10.8)
[2022-06-04] MEDS ORDERED: DEXTROSE 50% 50 ML SYRINGE IV ONE ×2 (16:27)
[2022-06-04 16:29] LABS: Alanine Aminotransferase 15 U/L (7-52); Albumin Globulin Ratio 1.7 (0.9-2); Albumin Level 4.8 gm/dl (3.4-5.0); Alkaline Phosphatase 104 U/L (34-104); Anion Gap 11 (3-11); Aspartate Aminotransferase 20 U/L (13-39); Bilirubin,Total 1.1 mg/dl (0.2-1.0); Blood Urea Nitrogen 42 mg/dl (6-23); Calcium 10.6 mg/dl (8.5-10.1); Carbon Dioxide 26 mmol/L (21-32); Chloride 96 mmol/L (98-107); Est GFR (African American) 41.7 ml/min; Globulin 2.8 gm/dl (2.5-4.0); Glucose 39 mg/dl (70-99(Fasting)); Lipase 17 U/L (11-82); Potassium 3.7 mmol/L (3.5-5.1); Sodium 133 mmol/L (136-145); Total Protein 7.6 gm/dl (6.0-8.3)
--- NOTE | 2022-06-04 17:32 | CT Scan Report ---
ABDOMEN AND PELVIS CT WITHOUT CONTRAST CT DOSE: 393.21 mGy.cm HISTORY: Acute generalized abdominal pain. Follow-up study in a patient with small bowel obstruction small bowel obs TECHNIQUE: Multiaxial CT images of the abdomen and pelvis were performed without contrast. A dose lo wering technique was utilized adhering to the principles of ALARA. COMPARISON STUDY: Small bowel follow-through 05/30/2022, KUB 05/30/2022, CT 05/24/2022, 03/09/2022 FINDINGS: Bibasilar bronchial wall thickening with mild atelectasis. Pneumatosis or pneumoperitoneum identified. The unenhanced spleen, pancreas and adrenal glands are unremarkable. Cholecystectomy. Th e liver is within normal limits. Unremarkable kidneys. Equivocal punctate nonobstructing calculus of the superior pole left kidney. No ureteral calculi or hydronephrosis. Decompressed urinary bladder wi th wall thickening. Brachytherapy seeds of the prostate. Atherosclerosis of the aorta. No pathologica lly enlarged lymph nodes identified. Distended air and fluid-filled stomach. Colonic diverticulosis. Normal appendix. Decompressed termina l loops of ileum. High-grade small bowel obstruction redemonstrated with transition point again noted within the central pelvis. There are again noted and tethered loops of small bowel within the area o f the previously noted small bowel mass/lymphoma. Findings appear generally stable from 05/24/2022. F luid-filled loops of bowel measure up to 4.7 cm. Interloop edema with trace pelvic ascites. Unremarkable soft tissues. No acute fracture. Chronic L5 pars defects with grade 1 anterolisthesis L5 on S1. IMPRESSION: 1. Limited exam without the use of contrast. 2. High-grade small bowel obstruction redemonstrated with transition point within the central pelvis at the site of the previously characterized small bowel mass/lymphoma described on the 03/09/2022 exam which as previously stated has significantly decreased in size. Findings are overall similar to the 05/24/2022 exam. 3. No pneumoperitoneum. 4. Additional findings as above. ACT 112: Negative or not required by law. The above report was generated using voice recognition software. It may contain grammatical, syntax o r spelling errors. Electronically signed by: Byron Redman M.D. 06/04/2022 5:30 PM
--- NOTE | 2022-06-04 18:18 | History & Physical Report ---
Date of Service June 04, 2022 History of Present Illness Primary Care Provider: Dixon Aj MD Deejay Prado is a 67 year old male Allergies Allergy/AdvReac Type Severity Reaction Status Date / Time morphine AdvReac Intermediate "dizzy",del Verified 06/04/22 17:45 [facility] Home Medications Medication Instructions Recorded Confirmed Type pantoprazole 20 mg tablet,delayed 40 mg PO QAM 07/16/18 06/04/22 History release (Protonix) loratadine 10 mg tablet (Claritin) 10 mg PO QAM 01/29/19 06/04/22 History montelukast 10 mg tablet 10 mg PO HS 01/29/19 06/04/22 History (Singulair) insulin NPH isoph U-100 human 100 36 units subcut HS 07/17/19 06/04/22 History unit/mL subcutaneous suspension (Novolin N NPH U-100 Insulin isophane) ascorbic acid (vitamin C) 500 mg 500 mg PO QAM 08/02/21 06/04/22 History capsule cholecalciferol (vitamin D3) 50 1,000 unit PO QAM 08/02/21 06/04/22 History mcg (2,000 unit) tablet atorvastatin 20 mg tablet 20 mg PO HS 03/20/22 06/04/22 History insulin regular human 100 unit/mL 0 sliding scale dose subcut TIDM 03/20/22 06/04/22 History (3 mL) subcutaneous pen (Novolin R Flexpen) pramipexole 1 mg tablet (Mirapex) 1 mg PO HS 03/20/22 06/04/22 History allopurinol 300 mg tablet 300 mg PO DAILY #30 tabs 04/02/22 06/04/22 Rx aspirin 81 mg tablet,delayed 81 mg PO DAILY 05/15/22 06/04/22 History release magnesium oxide 800 mg PO QAM #60 tabs 05/17/22 06/04/22 Rx CPAP Machine #1 ea 05/24/22 Rx CPAP Supplies #1 ea 05/24/22 Rx omega 9-guc-mqk-fish oil 1,200 mg 1 cap PO QAM 05/24/22 06/04/22 History (144 mg-216 mg) capsule (Fish Oil) Past Med/Surg History Medical History Anemia requiring transfusions Chronic, hx blood transfusion Asthma Chronic obstructive pulmonary disease CKD (chronic kidney disease) stage 3, GFR 30-59 ml/min COPD (chronic obstructive pulmonary disease) Diabetes mellitus, type 2 IDDM Diabetic peripheral neuropathy Follicular lymphoma Treatment: Systemic therapy with Rituxan Hx of malignant neoplasm of prostate Treated with brachytherapy and radiation Currently in remission Hyperlipidemia Hypermagnesemia Hypertension Hypotension Nocturnal hypoxemia Non-Hodgkin lymphoma Dx 2017 treated with chemotherapy at the time Was in remission until recently (01/2022) Numbness On home oxygen therapy 2lpm via n/c at HS and during the day PRN ANALI (obstructive sleep apnea) 2lpm via n/c at HS -- awaiting results from sleep study on 03/06/22 ANALI (obstructive sleep apnea) Retroperitoneal lymphadenopathy hx Surgical History H/O colonoscopy approx 2012 History of amputation traumatic tip of right index History of ankle surgery multiple (right ankle) ankle bone spurs removal - ankle joint hardware/fusion - osteomyelitis with hardware removal -- treated with abx, once healed had ankel hardware replaced History of carpal tunnel release right History of cholecystectomy History of colonoscopy History of elbow surgery right elbow surgery History of esophagogastroduodenoscopy (EGD) History of tooth extraction full top dental extraction Port-A-Cath in place (03/22/22) Insertion Access Port with Fluoroscopy to left internal jugular vein (Left) - Tate Rios, , FACS Family History Father Diabetes Lung cancer Hypertension Stroke Mother Diabetes Hypertension Brother Diabetes Other No family history of adverse response to anesthesia Social History Smoking Status: Never smoker Tobacco Type: Cigarettes Second Hand Exposure: Yes; Hx Alcohol Use: Yes Alcohol type: beer Hx Substance Use: No Preferred Language: Chinese Communication Ability: Effective 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 Beliefs That Will Affect Care: None marital status: Single Current Living Situation: Significant Other current occupational status: retired and disabled How many Children do You have: 0 Feels Safe at Home: Yes during the past year weight has: decreased > 10 lbs Assistive Devices: Cane and Walker Results & Data Results & Data ([facility]) Vital Signs (Past 12 Hours) Vital Signs Temp Pulse Pulse Resp BP BP Pulse Ox 06/04/22 16:01 107 H 16 110/70 95 06/04/22 15:07 36.8 C 130 H 18 126/84 100 O2 Del Method 06/04/22 16:01 Room Air 06/04/22 15:07 Room Air PG Care Time/CCT Total # of Minutes Spent Total Time Spent with Patient: Total time spent is greater than 50% in coordination of care (as documented) at patient's floor/unit and/or counseling patient: Coding
--- NOTE | 2022-06-04 18:49 | Surgery Consultation ---
Date of Consultation June 04, 2022 Assessment & Plan (1) SBO (small bowel obstruction): 67-year-old male with early recurrent small bowel obstruction after nonoperative treatment over the past 2 weeks. This is secondary to his prior intra-abdominal mass that was consistent with a lymphoma that has resolved since treatment. However the area of obstruction involves multiple loops of bowel and occurs in the area of the resolved tumor. If surgical intervention were to be indicated, which should be considered given the recurrent nature of instruction, we would recommend transfer to a tertiary center. In the meantime we can continue with nonoperative management at this facility until beds are available. No surgical intervention at this time Hold off on NG tube as patient has not been vomiting and did not tolerate well the last visit Any surgical intervention should be performed at a tertiary center Repeat KUB in the morning General surgery will continue to follow, call with questions or concerns (2) Port-A-Cath in place: (3) Follicular lymphoma: (4) ANALI (obstructive sleep apnea): (5) History of tobacco abuse: (6) Obesity: (7) Chronic kidney disease: (8) Diabetes mellitus with chronic kidney disease: (9) Hypercholesterolemia: History of Present Illness Reason for Consultation: Small bowel obstruction History of Present Illness 67-year-old male known to the service from prior port placement and 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 He initially was evaluated here several months ago and had a large mass consistent with a lymphoma in the jayme tral portion of his abdomen causing bleeding and obstruction. He was transferred to [place] where he resolved with nonoperative management. I placed a port in him several months ago and he has been on chemotherapy, the last dose was early April. He came in 2 weeks ago and stayed for 8 days for a small bowel obstruction. There was tethering in the area of the prior tumor involving multiple loops of bowel. He was treated nonoperatively and a small bowel follow-through showed contrast into the colon. He was tolerating a diet and having normal bowel movements upon discharge a few days ago. He has not had a bowel movement since leaving and is stopped passing flatus. His abdomen became increasingly distended and painful. Allergies Allergy/AdvReac Type Severity Reaction Status Date / Time morphine AdvReac Intermediate "dizzy",del Verified 06/04/22 17:45 [facility] Home Medications Medication Instructions Recorded Confirmed Type pantoprazole 20 mg tablet,delayed 40 mg PO QAM 07/16/18 06/04/22 History release (Protonix) loratadine 10 mg tablet (Claritin) 10 mg PO QAM 01/29/19 06/04/22 History montelukast 10 mg tablet 10 mg PO HS 01/29/19 06/04/22 History (Singulair) insulin NPH isoph U-100 human 100 36 units subcut HS 07/17/19 06/04/22 History unit/mL subcutaneous suspension (Novolin N NPH U-100 Insulin isophane) ascorbic acid (vitamin C) 500 mg 500 mg PO QAM 08/02/21 06/04/22 History capsule cholecalciferol (vitamin D3) 50 1,000 unit PO QAM 08/02/21 06/04/22 History mcg (2,000 unit) tablet atorvastatin 20 mg tablet 20 mg PO HS 03/20/22 06/04/22 History insulin regular human 100 unit/mL 0 sliding scale dose subcut TIDM 03/20/22 06/04/22 History (3 mL) subcutaneous pen (Novolin R Flexpen) pramipexole 1 mg tablet (Mirapex) 1 mg PO HS 03/20/22 06/04/22 History allopurinol 300 mg tablet 300 mg PO DAILY #30 tabs 04/02/22 06/04/22 Rx aspirin 81 mg tablet,delayed 81 mg PO DAILY 05/15/22 06/04/22 History release magnesium oxide 800 mg PO QAM #60 tabs 05/17/22 06/04/22 Rx CPAP Machine #1 ea 05/24/22 Rx CPAP Supplies #1 ea 05/24/22 Rx omega 4-ytg-oml-fish oil 1,200 mg 1 cap PO QAM 05/24/22 06/04/22 History (144 mg-216 mg) capsule (Fish Oil) Patient History Medical History Anemia requiring transfusions Chronic, hx blood transfusion Asthma Chronic obstructive pulmonary disease CKD (chronic kidney disease) stage 3, GFR 30-59 ml/min COPD (chronic obstructive pulmonary disease) Diabetes mellitus, type 2 IDDM Diabetic peripheral neuropathy Follicular lymphoma Treatment: Systemic therapy with Rituxan Hx of malignant neoplasm of prostate Treated with brachytherapy and radiation Currently in remission Hyperlipidemia Hypermagnesemia Hypertension Hypotension Nocturnal hypoxemia Non-Hodgkin lymphoma Dx 2017 treated with chemotherapy at the time Was in remission until recently (01/2022) Numbness On home oxygen therapy 2lpm via n/c at HS and during the day PRN ANALI (obstructive sleep apnea) 2lpm via n/c at HS -- awaiting results from sleep study on 03/06/22 ANALI (obstructive sleep apnea) Retroperitoneal lymphadenopathy hx Surgical History H/O colonoscopy approx 2013 History of amputation traumatic tip of right index History of ankle surgery multiple (right ankle) ankle bone spurs removal - ankle joint hardware/fusion - osteomyelitis with hardware removal -- treated with abx, once healed had ankel hardware replaced History of carpal tunnel release right History of cholecystectomy History of colonoscopy History of elbow surgery right elbow surgery History of esophagogastroduodenoscopy (EGD) History of tooth extraction full top dental extraction Port-A-Cath in place (03/22/22) Insertion Access Port with Fluoroscopy to left internal jugular vein (Left) - Tate Rios DO, FACS Family History Father Diabetes Lung cancer Hypertension Stroke Mother Diabetes Hypertension Brother Diabetes Other No family history of adverse response to anesthesia Social History Smoking Status: Never smoker Tobacco Type: Cigarettes Second Hand Exposure: Yes; Hx Alcohol Use: Yes Alcohol type: beer Hx Substance Use: No Preferred Language: Omani Communication Ability: Effective 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 Beliefs That Will Affect Care: None marital status: Single Current Living Situation: Significant Other current occupational status: retired and disabled How many Children do You have: 0 Feels Safe at Home: Yes during the past year weight has: decreased > 10 lbs Assistive Devices: Cane and Walker Review of Systems Review of Systems: All systems reviewed & are unremarkable except as noted in HPI & below Physical Exam Constitutional: WD/WN, vitals as above Respiratory: normal respiratory effort, lungs clear to auscultation Cardiovascular: RRR, no murmur, no edema Gastrointestinal (Abdomen): Inspection/Auscultation: + abdomen distended (Moderate) Percussion/Palpation: abdomen soft; abdomen nontender, no guarding, abdomen not rigid, no hepatosplenomegaly and no hernia Results & Data ([facility]) Vital Signs (Past 12 Hours) Vital Signs Temp Pulse Pulse Resp BP BP Pulse Ox 06/04/22 18:30 92 H 17 100 06/04/22 18:30 128/76 06/04/22 18:00 93 H 19 100 06/04/22 18:00 125/79 06/04/22 17:30 93 H 18 100 06/04/22 17:30 122/82 06/04/22 17:00 98 H 20 100 06/04/22 17:00 128/75 06/04/22 16:35 103 H 21 100 06/04/22 16:01 107 H 16 110/70 95 06/04/22 15:07 36.8 C 130 H 18 126/84 100 O2 Del Method 06/04/22 18:30 06/04/22 18:30 06/04/22 18:00 06/04/22 18:00 06/04/22 17:30 06/04/22 17:30 06/04/22 17:00 06/04/22 17:00 06/04/22 16:35 06/04/22 16:01 Room Air 06/04/22 15:07 Room Air Laboratory Results Laboratory Results - last 24 hr 06/04/22 06/04/22 06/04/22 15:41 15:41 16:35 WBC 12.45 H RBC 4.79 Hgb 14.1 Hct 41.0 MCV 85.6 MCH 29.4 MCHC 34.4 RDW Std Deviation 58.5 H RDW Coeff of Jyoti 18.6 H Plt Count 247 MPV 11.2 Immature Gran % (Auto) 0.3 Neut % (Auto) 77.2 Lymph % (Auto) 14.1 Angelina % (Auto) 7.1 Eos % (Auto) 0.7 Baso % (Auto) 0.6 Neut # (Auto) 9.59 H Lymph # (Auto) 1.76 Angelina # (Auto) 0.89 H Eos # (Auto) 0.09 Baso # (Auto) 0.08 Immature Gran # (Auto) 0.04 H Sodium 133 L Potassium 3.7 Chloride 96 L Carbon Dioxide 26 Anion Gap 11 BUN 42 H Creatinine 1.91 H Est Cr Clr Drug Dosing Not Reportable Est GFR ( Amer) 41.7 Est GFR (Non-Af Amer) 36.0 BUN/Creatinine Ratio 22.0 H Glucose 39 L* POC Glucose 212 H Calcium 10.6 H Total Bilirubin 1.1 H AST 20 ALT 15 Alkaline Phosphatase 104 Total Protein 7.6 Albumin 4.8 Globulin 2.8 Albumin/Globulin Ratio 1.7 Lipase 17 06/04/22 17:32 WBC RBC Hgb Hct MCV MCH MCHC RDW Std Deviation RDW Coeff of Jyoti Plt Count MPV Immature Gran % (Auto) Neut % (Auto) Lymph % (Auto) Angelina % (Auto) Eos % (Auto) Baso % (Auto) Neut # (Auto) Lymph # (Auto) Angelina # (Auto) Eos # (Auto) Baso # (Auto) Immature Gran # (Auto) Sodium Potassium Chloride Carbon Dioxide Anion Gap BUN Creatinine Est Cr Clr Drug Dosing Est GFR ( Amer) Est GFR (Non-Af Amer) BUN/Creatinine Ratio Glucose POC Glucose 113 H Calcium Total Bilirubin AST ALT Alkaline Phosphatase Total Protein Albumin Globulin Albumin/Globulin Ratio Lipase Diagnostic Findings I personally reviewed and interpreted the CT scan and agree with the assessment of multiple dilated loops of bowel with a resultant small bowel obstruction in the area of the prior tumor that has reduced significantly in size. This look similar to a scan a few weeks ago. ABDOMEN AND PELVIS CT WITHOUT CONTRAST CT DOSE: 393.21 mGy.cm HISTORY: Acute generalized abdominal pain. Follow-up study in a patient with small bowel obstruction small bowel obs TECHNIQUE: Multiaxial CT images of the abdomen and pelvis were performed without contrast. A dose lowering technique was utilized adhering to the principles of ALARA. COMPARISON STUDY: Small bowel follow-through 05/30/2022, KUB 05/30/2022, CT 05/24/2022, 03/09/2022 FINDINGS: Bibasilar bronchial wall thickening with mild atelectasis. Pneumatosis or pneumoperitoneum identified. The unenhanced spleen, pancreas and adrenal glands are unremarkable. Cholecystectomy. The liver is within normal limits. Unremarkable kidneys. Equivocal punctate nonobstructing calculus of the superior pole left kidney. No ureteral calculi or hydronephrosis. Decompressed urinary bladder with wall thickening. Brachytherapy seeds of the prostate. Atherosclerosis of the aorta. No pathologically enlarged lymph nodes identified. Distended air and fluid-filled stomach. Colonic diverticulosis. Normal appendix. Decompressed terminal loops of ileum. High-grade small bowel obstruction redemonstrated with transition point again noted within the central pelvis. There are again noted and tethered loops of small bowel within the area of the previously noted small bowel mass/lymphoma. Findings appear generally stable from 05/24/2022. Fluid-filled loops of bowel measure up to 4.7 cm. Interloop edema with trace pelvic ascites. Unremarkable soft tissues. No acute fracture. Chronic L5 pars defects with grade 1 anterolisthesis L5 on S1. IMPRESSION: 1. Limited exam without the use of contrast. 2. High-grade small bowel obstruction redemonstrated with transition point within the central pelvis at the site of the previously characterized small bowel mass/lymphoma described on the 03/09/2022 exam which as previously stated has significantly decreased in size. Findings are overall similar to the 05/24/2022 exam. 3. No pneumoperitoneum. 4. Additional findings as above. PG Care Time/CCT Total # of Minutes Spent Total Time Spent with Patient: Total time spent is greater than 50% in coordination of care (as documented) at patient's floor/unit and/or counseling patient: Coding Level of Care Code 76898 Office/Outpt Visit, Est Diagnoses SBO (small bowel obstruction) K56.609 Port-A-Cath in place Z95.828 Follicular lymphoma C82.90 ANALI (obstructive sleep apnea) G47.33 History of tobacco abuse Z87.891 Obesity E66.9 Chronic kidney disease N18.9 Diabetes mellitus with chronic kidney disease E11.22 Hypercholesterolemia E78.00
--- NOTE | 2022-06-04 19:09 | History & Physical Report ---
Date of Service June 04, 2022 Assessment & Plan (1) SBO (small bowel obstruction): Plan: - Recently hospitalized 05/24- for SBO, resolved with conservative treatment, no NG tube. - Patient with recurrence of nausea, lower abdominal cramping pain, no BM x2 da ys - CT A/P: High-grade SBO redemonstrated with transition point within the central pelvis at the site of the previously characterized small bowel mass/lymphoma described in February, which has significantly decreased in size. Findings are overall similar from 05/24. There is no pneumoperitoneum. - General surgery saw patient in the ED, appreciate their assistance with this patient. At this time, they do not feel that urgent/emergent surgery is warranted, however should be considered given recurrent nature. This would require transfer to a tertiary center. - Recommending n.p.o. with IVF, hold off on NG tube due to lack of vomiting and because this was poorly tolerated by patient on last admission. They will follow along while patient is admitted. - We will hold all p.o. meds, convert necessary meds to IV. (2) Hypoglycemia: Plan: - BSG 39 on arrival, patient has continued taking his insulin despite minimal/no PO intake over past 3 days. - Given dextrose in ED, repeat BSG 113. - Will hold further insulin, patient will be NPO--check BSG Q4h. (3) Hypercalcemia: Plan: - Ca 10.6, received NS in ED and will continue this, recheck calcium in the morning. (4) ARF (acute renal failure): Plan: - BUN 42, creatinine 1.91, baseline 11.2. Likely secondary to SBO, no p.o. intake over for last 1 to 2 days. - He will be receiving IV fluids for hypercalcemia, maintenance, ALTAGRACIA. - Repeat BMP in AM. (5) NHL (non-Hodgkin's lymphoma): Plan: - Follows with [facility], s/p CHOP therapy 03/31/2022, with hypercalcemia today that is previously treated with Zometa. - Takes allopurinol 300 mg daily for gout/tenolysis, which is being held given n.p.o. status. (6) Type 2 diabetes mellitus with insulin therapy: Plan: - Presented with hypoglycemia of 39, treated with dextrose, repeat BSG 113. - Holding insulin for now. BSG checks every 4 hours while NPO. - Pharmacy consult for glycemic management, appreciate their recommendations and assistance. (7) Hypercholesterolemia: Plan: - Holding statin while n.p.o., continue tolerating a diet. (8) Chronic kidney disease: Plan: - Baseline creatinine 1.01.2 treatment for ALTAGRACIA as above. - Renally dose medications as able, avoid nephrotoxins. (9) Hypertension: Plan: - Previously on Lasix 20 mg and benazepril 20 mg daily, both which were held on last admission due to SBO/n.p.o. status, discontinued on discharge due to adequate BP control without. He was also hypotensive on admission. - We will continue to hold while n.p.o., and assess need for adding medications back on as we monitor his BP during hospitaliation. - Can consider prn IV agent while NPO if his BP requires it. Plan - Admit to med/surg. - SCDs, hold on chemoppx given history of severe GI bleeding 2 months ago. - Full Code. History of Present Illness Chief Complaint: Nausea, abdominal pain, no bowel movement x2 days Primary Care Provider: Dixon Aj MD Deejay Prado is a 67-year-old male with a past medical history of non- Hodgkin's lymphoma with subsequent massive GI bleed, diabetes, CKD 3, hypertension, hypercholesterolemia, and sleep apnea is presenting today with abdominal pain, nausea, and lack of bowel movements for several days. Of note, he was recently hospitalized 05/24- for small bowel obstruction. Surgery followed him throughout his stay, although he never required operation. He was discharged this past and notes he felt well, Sunday developed some pain and had minimal p.o. intake and Sunday and today, pain has been significantly worse. He has not thrown up, but is nauseous from the pain and has not had a bowel movement since Sunday. On Sunday his BMs were normal for him other than being loose. He has been taking his insulin at home despite no food intake over the past 2 days, and he presented with a sugar of 39. In the ED has been tachycardic with a max HR of 130, otherwise vital signs are within normal limits and stable. He has an elevated white count of 12 with left shift, glucose of 39, BUN 42 and creatinine 1.91 (baseline 11.2). UA is pending. Surgery consulted on the ED, recommending n.p.o. for now, fluids and then continue to monitor in hospital. He should be considered for surgery, this is not urgent or emergent, however would require transfer to tertiary care center. Allergies Allergy/AdvReac Type Severity Reaction Status Date / Time morphine AdvReac Intermediate "dizzy",del Verified 06/04/22 17:45 [facility] Medications Medication Instructions Recorded Confirmed Type pantoprazole 20 mg tablet,delayed 40 mg PO QAM 07/16/18 06/04/22 History release (Protonix) loratadine 10 mg tablet (Claritin) 10 mg PO QAM 01/29/19 06/04/22 History montelukast 10 mg tablet 10 mg PO HS 01/29/19 06/04/22 History (Singulair) insulin NPH isoph U-100 human 100 36 units subcut HS 07/17/19 06/04/22 History unit/mL subcutaneous suspension (Novolin N NPH U-100 Insulin isophane) ascorbic acid (vitamin C) 500 mg 500 mg PO QAM 08/02/21 06/04/22 History capsule cholecalciferol (vitamin D3) 50 1,000 unit PO QAM 08/02/21 06/04/22 History mcg (2,000 unit) tablet atorvastatin 20 mg tablet 20 mg PO HS 03/20/22 06/04/22 History insulin regular human 100 unit/mL 0 sliding scale dose subcut TIDM 03/20/22 06/04/22 History (3 mL) subcutaneous pen (Novolin R Flexpen) pramipexole 1 mg tablet (Mirapex) 1 mg PO HS 03/20/22 06/04/22 History allopurinol 300 mg tablet 300 mg PO DAILY #30 tabs 04/02/22 06/04/22 Rx aspirin 81 mg tablet,delayed 81 mg PO DAILY 05/15/22 06/04/22 History release magnesium oxide 800 mg PO QAM #60 tabs 05/17/22 06/04/22 Rx CPAP Machine #1 ea 05/24/22 Rx CPAP Supplies #1 ea 05/24/22 Rx omega 9-ayx-wbc-fish oil 1,200 mg 1 cap PO QAM 05/24/22 06/04/22 History (144 mg-216 mg) capsule (Fish Oil) Past Med/Surg History Medical History Anemia requiring transfusions Chronic, hx blood transfusion Asthma Chronic obstructive pulmonary disease CKD (chronic kidney disease) stage 3, GFR 30-59 ml/min COPD (chronic obstructive pulmonary disease) Diabetes mellitus, type 2 IDDM Diabetic peripheral neuropathy Follicular lymphoma Treatment: Systemic therapy with Rituxan Hx of malignant neoplasm of prostate Treated with brachytherapy and radiation Currently in remission Hyperlipidemia Hypermagnesemia Hypertension Hypotension Nocturnal hypoxemia Non-Hodgkin lymphoma Dx 2017 treated with chemotherapy at the time Was in remission until recently (01/2022) Numbness On home oxygen therapy 2lpm via n/c at HS and during the day PRN ANALI (obstructive sleep apnea) 2lpm via n/c at HS -- awaiting results from sleep study on 03/06/22 ANALI (obstructive sleep apnea) Retroperitoneal lymphadenopathy hx Surgical History H/O colonoscopy approx 2012 History of amputation traumatic tip of right index History of ankle surgery multiple (right ankle) ankle bone spurs removal - ankle joint hardware/fusion - osteomyelitis with hardware removal -- treated with abx, once healed had ankel hardware replaced History of carpal tunnel release right History of cholecystectomy History of colonoscopy History of elbow surgery right elbow surgery History of esophagogastroduodenoscopy (EGD) History of tooth extraction full top dental extraction Port-A-Cath in place (03/22/22) Insertion Access Port with Fluoroscopy to left internal jugular vein (Left) - Tate Rios, , FACS Family History Father Diabetes Lung cancer Hypertension Stroke Mother Diabetes Hypertension Brother Diabetes Other No family history of adverse response to anesthesia Social History Smoking Status: Former smoker Tobacco Type: Cigarettes Second Hand Exposure: Yes; Hx Alcohol Use: Yes Alcohol type: beer Hx Substance Use: No Preferred Language: Lithuanian Communication Ability: Effective Global Human Resources Director Required: No Beliefs That Will Affect Care: None marital status: Single Current Living Situation: Significant Other current occupational status: retired and disabled How many Children do You have: 0 Feels Safe at Home: Yes during the past year weight has: decreased > 10 lbs Assistive Devices: Cane and Walker Review of Systems Review of Systems: Constitutional: chills this afternoon; no weakness, fatigue, myalgias, anorexia, night sweats Eyes: No diplopia, no worsening or blurred vision ENT: normal hearing, no trouble swallowing Respiratory: No cough, sputum, dyspnea at rest or on exertion Cardiovascular: No chest pain, tightness or palpitations Abdomen: cramping abdominal pain, nausea, no BM x 2 days; no emesis, BRBPR, melena : Denies dysuria, hematuria, increased urgency/frequency, urinary retention Musculoskeletal: No joint pain, calf pain, swelling Neurologic: No weakness, numbness/tingling, or balance problems Psychiatric: No anxiety or depression Skin: No rash or itch Physical Exam Physical Exam: General: awake, alert, no apparent distress Head: Normocephalic, atraumatic ENT: PERRL, EOMI, no pharyngeal exudate, mucous membranes moist Chest: Clear to auscultation, on room air, no adventitious breath sounds Cardiac: Regular rate and rhythm, no murmur, no JVD, normal peripheral pulses, good capillary refill Abdominal: TTP in lower b/l quadrants without rebound or guarding; NABS x 4 quadrants, soft Extremities: Normal inspection, no peripheral edema or erythema, calfs nontender to palpation Psych: Normal mood and affect Neuro: AAO x 3, strength intact bilaterally and rated 5/5, no motor deficits, speech is clear, no peripheral sensory deficits Skin: no rash or erythema Results & Data Results & Data ([facility]) Vital Signs (Past 12 Hours) Vital Signs Temp Pulse Pulse Resp BP BP Pulse Ox 06/04/22 18:30 92 H 17 100 06/04/22 18:30 128/76 06/04/22 18:00 93 H 19 100 06/04/22 18:00 125/79 06/04/22 17:30 93 H 18 100 06/04/22 17:30 122/82 06/04/22 17:00 98 H 20 100 06/04/22 17:00 128/75 06/04/22 16:35 103 H 21 100 06/04/22 16:01 107 H 16 110/70 95 06/04/22 15:07 36.8 C 130 H 18 126/84 100 O2 Del Method 06/04/22 18:30 06/04/22 18:30 06/04/22 18:00 06/04/22 18:00 06/04/22 17:30 06/04/22 17:30 06/04/22 17:00 06/04/22 17:00 06/04/22 16:35 06/04/22 16:01 Room Air 06/04/22 15:07 Room Air Laboratory Results Abnormal lab results 06/04/22 06/04/22 06/04/22 Range/Units 15:41 15:41 16:35 WBC 12.45 H (4.8-10.8) K/ul RDW Std Deviation 58.5 H (36.4-46.3) fL RDW Coeff of Jyoti 18.6 H (11.5-14.5) % Neut # (Auto) 9.59 H (1.4-6.5) K/uL [place] # (Auto) 0.89 H (0.24-0.82) K/uL Immature Gran # (Auto) 0.04 H (0.00-0.02) K/uL Sodium 133 L (136-145) mmol/L Chloride 96 L (98-107) mmol/L BUN 42 H (6-23) mg/dl Creatinine 1.91 H (0.6-1.4) mg/dl BUN/Creatinine Ratio 22.0 H (10-20) Glucose 39 L* (70-99(Fasting)) mg/dl POC Glucose 212 H (70-99) mg/dl Calcium 10.6 H (8.5-10.1) mg/dl Total Bilirubin 1.1 H (0.2-1.0) mg/dl 06/04/22 Range/Units 17:32 WBC (4.8-10.8) K/ul RDW Std Deviation (36.4-46.3) fL RDW Coeff of Jyoti (11.5-14.5) % Neut # (Auto) (1.4-6.5) K/uL [place] # (Auto) (0.24-0.82) K/uL Immature Gran # (Auto) (0.00-0.02) K/uL Sodium (136-145) mmol/L Chloride (98-107) mmol/L BUN (6-23) mg/dl Creatinine (0.6-1.4) mg/dl BUN/Creatinine Ratio (10-20) Glucose (70-99(Fasting)) mg/dl POC Glucose 113 H (70-99) mg/dl Calcium (8.5-10.1) mg/dl Total Bilirubin (0.2-1.0) mg/dl Diagnostic Findings Abdomen/Pelvis CT 06/04/22 16:[address] WITHOUT CONTRAST CT DOSE: 393.21 mGy.cm HISTORY: Acute generalized abdominal pain. Follow-up study in a patient with small bowel obstruction small bowel obs TECHNIQUE: Multiaxial CT images of the abdomen and pelvis were performed without contrast. A dose lowering technique was utilized adhering to the principles of ALARA. COMPARISON STUDY: Small bowel follow-through 05/30/2022, KUB 05/30/2022, CT 05/24/2022, 03/09/2022 FINDINGS: Bibasilar bronchial wall thickening with mild atelectasis. Pneumatosis or pneumoperitoneum identified. The unenhanced spleen, pancreas and adrenal glands are unremarkable. Cholecystectomy. The liver is within normal limits. Unremarkable kidneys. Equivocal punctate nonobstructing calculus of the superior pole left kidney. No ureteral calculi or hydronephrosis. Decompressed urinary bladder with wall thickening. Brachytherapy seeds of the prostate. Atherosclerosis of the aorta. No pathologically enlarged lymph nodes identified. Distended air and fluid-filled stomach. Colonic diverticulosis. Normal appendix. Decompressed terminal loops of ileum. High-grade small bowel obstruction redemonstrated with transition point again noted within the central pelvis. There are again noted and tethered loops of small bowel within the area of the previously noted small bowel mass/lymphoma. Findings appear generally stable from 05/24/2022. Fluid-filled loops of bowel measure up to 4.7 cm. Interloop edema with trace pelvic ascites. Unremarkable soft tissues. No acute fracture. Chronic L5 pars defects with grade 1 anterolisthesis L5 on S1. IMPRESSION: 1. Limited exam without the use of contrast. 2. High-grade small bowel obstruction redemonstrated with transition point within the central pelvis at the site of the previously characterized small bowel mass/lymphoma described on the 03/09/2022 exam which as previously stated has significantly decreased in size. Findings are overall similar to the 05/24/2022 exam. 3. No pneumoperitoneum. 4. Additional findings as above. ACT 112: Negative or not required by law. The above report was generated using voice recognition software. It may contain grammatical, syntax or spelling errors. Electronically signed by: Byron Redman M.D. 06/04/2022 5:30 PM Code Status & VTE Plan Code Status Full Code. VTE Prophylaxis Plan VTE Prophylaxis will be ordered: Yes Supervising Physician Co-Signing Physician Notes I personally saw and examined the patient. I verified all barrow points and agree with Caron Dutta PA-C with the following exceptions and/or additions: 67 year old male admission for recurrent SBO due to NHL. Lasted three days at home. Started again after eating oatmeal. Abdominal pain, distension, no BM, n ausea but no vomiting O/E HS1+2, no murmurs, RRR, Chest CTAB, Abdo distended but soft, generalized tenderness, no guarding or rebound tenderness. A/P High grade SBO due to NHL - NPO, IVF, hold off NG tube at this time, consult surgery PG Care Time/CCT Total # of Minutes Spent Total Time Spent with Patient: Total time spent is greater than 50% in coordination of care (as documented) at patient's floor/unit and/or counseling patient: Coding Level of Care Code 94997 Initial Inpt Care Lvl 3 Diagnoses SBO (small bowel obstruction) K56.609 Hypoglycemia E16.2 Hypercalcemia E83.52 ARF (acute renal failure) N17.9 NHL (non-Hodgkin's lymphoma) C85.90 Lymphoma site: unspecified region Non-Hodgkin lymphoma type: unspecified type Type 2 diabetes mellitus with insulin therapy E11.9; Z79.4 Hypercholesterolemia E78.00 Chronic kidney disease N18.9 Hypertension I10 (1) NHL (non-Hodgkin's lymphoma) Lymphoma site: unspecified region Non-Hodgkin lymphoma type: unspecified type Qualified Code(s): C85.90 - Non-Hodgkin lymphoma, unspecified, unspecified site
[2022-06-04] MEDS ORDERED: HYDROmorphone INJ 0.5 MG/0.5 ML SYR IV STA (19:35)
[2022-06-04 21:18] LABS: Appearance Urine Turbid (Clear); Bacteria Urine Automated Negative (Negative); Bilirubin Urine 1+ (Negative); Blood Urine Negative (Negative); Color Urine Dark Yellow; Epithelial Cell Urine Auto 20-30 /lpf (0-5); Glucose Urine UA 1+ (Negative); Ketones Urine Trace (Negative); Leukocyte Esterase Urine Negative (Negative); Nitrite Urine Negative (Negative); Protein Urine 1+ (Negative); Specific Gravity Urine 1.028 (1.000-1.030); Urobilinogen Urine Negative (Negative); pH Urine 5.5 (4.5-7.5)
[2022-06-04 21:36] LABS: Calcium Oxalate Crystals Urine Present (None Prsent); Mucus Urine Present (None Prsent)
[2022-06-04] MEDS ORDERED: GLUCAGON FOR INJ 1 MG VIAL SQ PRN (22:08)
[2022-06-04] MEDS ORDERED: ACETAMINOPHEN 1,000 MG/100 ML VIAL IV PRN (22:08)
[2022-06-04] MEDS ORDERED: HYDROmorphone INJ 0.5 MG/0.5 ML SYR IV PRN ×2 (22:08)
[2022-06-04] MEDS ORDERED: CARBOHYDRATES FOR HYPOGLYCEMIA PO PRN (22:08)
[2022-06-04] MEDS ORDERED: GLUCOSE 10 TAB/TUBE PO PRN (22:08)
[2022-06-04] MEDS ORDERED: GLUCOSE 40% GEL 15 GM TUBE PO PRN (22:08)
[2022-06-04] MEDS ORDERED: DEXTROSE 50% 50 ML SYRINGE IV PRN (22:08)
[2022-06-04] MEDS ORDERED: PHARMACY GLYCEMIC MGMT CONSULT PRN (22:08)
[2022-06-04] MEDS: PANTOprazole 40 MG in SYRINGE 0 ML IV SCH (22:34)
[2022-06-05] MEDS: D5W AND NSS 1,000 ML IV SCH ×3 (00:15→16:26)
[2022-06-05] MEDS: INSULIN ASPART PER UNIT SC SCH ×6 (00:29→20:00)
[2022-06-05] MEDS: PANTOprazole 40 MG in SYRINGE 0 ML IV SCH ×2 (09:00→20:02)
--- NOTE | 2022-06-05 09:29 | Surgery Progress Note ---
Date of Service June 05, 2022 Assessment & Plan (1) SBO (small bowel obstruction): Plan: Pt with history of lymphoma here with SBO Pt feeling some improvement in symptoms. Pain is manageable. No emesis. Small amount of gas, no BM On exam abdomen is soft, non tender KUB read is pending and we will follow up, otherwise continue bowel rest for now Okay to hold off on NGT unless develops worsening symptoms If surgery indicated would recommend transfer to tertiary center Admission and Anticipated Discharge Date Admission Date: June 04, 2022 Supervising Physician Co-Signing Physician Notes Patient seen and examined, agree with above. 67-year-old male with history of lymphoma and recurrent small bowel obstruction that appears to occur around the area his prior tumor was. He was readmitted for early outpatient failure. On exam he is afebrile stable vitals. His abdomen is soft nontender. He feels a little better. Primary team currently coordinating potential transfer to [facility]. Surgery will follow while in house. Subjective Patient is feeling okay. Rates pain 1/10. Passing small amounts of gas. No BM yet. Mild nausea. No vomiting. Physical Exam Physical Exam: awake/alert, no distress Respiratory: normal respiratory effort Gastrointestinal (Abdomen): Inspection/Auscultation: abdomen not distended Percussion/Palpation: abdomen soft; abdomen nontender Results & Data ([facility]) Vital Signs (Past 12 Hours) Vital Signs Temp Pulse Pulse Resp BP BP Pulse Ox 06/05/22 07:46 36.5 C 75 18 95/53 L 99 06/05/22 00:15 06/05/22 00:15 36.6 C 83 18 149/75 H 100 06/04/22 23:20 86 18 121/73 93 06/04/22 22:00 90 13 100 06/04/22 22:00 114/66 06/04/22 21:30 94 H 18 100 06/04/22 21:30 124/72 06/04/22 21:26 101 H 18 O2 Del Method O2 Flow Rate 06/05/22 07:46 Room Air 06/05/22 00:15 Nasal Cannula 2 06/05/22 00:15 Nasal Cannula 2 06/04/22 23:20 Room Air 06/04/22 22:00 06/04/22 22:00 06/04/22 21:30 06/04/22 21:30 06/04/22 21:26 PG Care Time/CCT Total # of Minutes Spent Total Time Spent with Patient: Total time spent is greater than 50% in coordination of care (as documented) at patient's floor/unit and/or counseling patient: Coding Level of Care Code 78944 Subseq Hosp Care Lvl 1 Diagnoses SBO (small bowel obstruction) K56.609
[2022-06-05 09:31] LABS: BUN Creatinine Ratio 22.4 (10-20); Calcium 7.4 mg/dl (8.5-10.1); Creatinine Clr Calc Pharmacy 55.8 ml/min; Est GFR (African American) 59.1 ml/min; Magnesium 1.3 mg/dl (1.7-2.4); Phosphorus 2.2 mg/dl (2.5-4.9); Potassium 3.6 mmol/L (3.5-5.1)
--- NOTE | 2022-06-05 09:32 | XRay Report ---
KUB CLINICAL HISTORY: Evaluate small bowel obstruction. COMPARISON STUDY: CT of the abdomen and pelvis June 04, 2022. FINDINGS: Brachytherapy seeds within the prostate and cholecystectomy clips are incidentally noted. M ultiple loops of dilated small bowel are again noted. These measure up to 5.5 cm in caliber. Small carissa wel dilatation has slightly increased. IMPRESSION: Slight increase in small bowel dilatation. The findings represent a persistent small bow el obstruction. ACT 112: Negative or not required by law. Electronically signed by: Celestine Britt M.D. 06/05/2022 9:30 AM
[2022-06-05 09:33] LABS: Hematocrit (blood only) 27.9 % (40.1-51.0); Hemoglobin 9.1 g/dl (14.0-18.0); Mean Corpuscular Hemoglobin 28.9 pg (25.0-34.0); Mean Corpuscular Hgb Conc 32.6 g/dL (32.0-36.0); Mean Corpuscular Volume 88.6 fL (80.0-100.0); Mean Platelet Volume 11.7 fL (9.4-12.4); Platelet Count 125 K/uL (130-400); RDW Coefficient of Variation 18.4 % (11.5-14.5); Red Blood Count 3.15 M/uL (4.63-6.08); White Blood Count 4.07 K/ul (4.8-10.8)
[2022-06-05 09:35] LABS: Basophils # (auto) 0.03 K/uL (0-0.2); Basophils % (auto) 0.7 %; Eosinophils # (auto) 0.08 K/uL (0-0.50); Immature Granulocytes # (auto) 0.03 K/uL (0.00-0.02); Immature Granulocytes % (auto) 0.7 %; Lymphocytes # (auto) 0.45 K/uL (1.2-3.4); Lymphocytes % (auto) 11.1 %; Monocytes # (auto) 0.32 K/uL (0.24-0.82); Monocytes % (auto) 7.9 %; Neutrophils # (auto) 3.16 K/uL (1.4-6.5); Neutrophils % (auto) 77.6 %; Ovalocytes 1+; Tear Drop Cells 1+
[2022-06-05 10:56] LABS: Basophils # (auto) 0.04 K/uL (0-0.2); Eosinophils # (auto) 0.06 K/uL (0-0.50); Eosinophils % (auto) 1.5 %; Hematocrit (blood only) 27.4 % (40.1-51.0); Hemoglobin 8.9 g/dl (14.0-18.0); Immature Granulocytes # (auto) 0.01 K/uL (0.00-0.02); Immature Granulocytes % (auto) 0.2 %; Lymphocytes # (auto) 0.48 K/uL (1.2-3.4); Lymphocytes % (auto) 11.6 %; Mean Platelet Volume 11.1 fL (9.4-12.4); Monocytes # (auto) 0.32 K/uL (0.24-0.82); Monocytes % (auto) 7.7 %; Neutrophils # (auto) 3.22 K/uL (1.4-6.5); Platelet Count 117 K/uL (130-400); White Blood Count 4.13 K/ul (4.8-10.8)
[2022-06-05 11:17] LABS: Mean Corpuscular Hemoglobin 28.7 pg (25.0-34.0); Mean Corpuscular Hgb Conc 32.5 g/dL (32.0-36.0); Mean Corpuscular Volume 88.4 fL (80.0-100.0); Ovalocytes 1+; RDW Coefficient of Variation 18.3 % (11.5-14.5); RDW Standard Deviation 59.6 fL (36.4-46.3); Tear Drop Cells 1+
[2022-06-05] MEDS: MAGNESIUM SULFATE / D5W 1 GM/100 ML BAG IV SCH ×4 (11:28→17:23)
--- NOTE | 2022-06-05 15:29 | Hospitalist Progress Note ---
Date of Service June 05, 2022 Assessment & Plan (1) SBO (small bowel obstruction): Plan: - Recently hospitalized 05/24- for SBO, resolved with conservative treatment, no NG tube. - Patient with recurrence of nausea, lower abdominal cramping pain, no BM x2 da ys, occurred after eating oatmeal. - Surgery recommending transfer to [facility] which seems reasonable since he only managed 3 days out of the hospital Called [facility] this morning and discussed with surgical oncologist and requested patient to transfer under medicine with surgery on consult. Discussed with medicine attending and recommended primary team is surgical oncology. This has been escalated to the durable medical equipment repairer at [facility] with no resolution as of 6pm. Advised transfer service that patient appears stable and recommend if resolution overnight no need to call wire basket maker. They have my cell phone number and will update me on resolution tomorrow. (2) Hypoglycemia: Plan: Secondary to insulin use without eating. Now insulin only for correction only. (3) Hypercalcemia: Plan: Resolved due to dehydration (4) ARF (acute renal failure): Plan: Secondary to dehydration. Improved with IV fluids. (5) NHL (non-Hodgkin's lymphoma): Plan: - Follows with [facility], s/p CHOP therapy 03/31/2022 - Takes allopurinol 300 mg daily for prophylaxis, on hold due to NPO. (6) Type 2 diabetes mellitus with insulin therapy: Plan: - Presented with hypoglycemia of 39, treated with dextrose, repeat BSG 113. - Holding insulin for now. BSG checks every 4 hours while NPO. - Novolog for correction only (7) Hypercholesterolemia: Plan: - Holding statin while n.p.o., continue tolerating a diet. (8) Hypertension: Plan: - Previously on Lasix 20 mg and benazepril 20 mg daily, both which were held on last admission due to SBO/n.p.o. status, discontinued on discharge due to adequate BP control without. He was also hypotensive on admission. - No need for anti-hypertensives (9) Anemia: Plan: Iron studies, B12 and folate with next H&H. Hgb drop from 14.1 -> 9.1 however suspect initial lab was hemoconcentrated since his baseline Hgb runs 9-10. Continue to trend H&H q6h Plan VTE Prophylaxis - SCDs, hold on chemoppx given anemia Code - Full Code Disposition - continued admission on med/surg Admission and Anticipated Discharge Date Admission Date: June 04, 2022 Subjective Started after oatmeal. No nausea or vomiting. Abdominal pain much improved with less distension. Severity 1/10. Passing flatus but no bowel movement. Discussed case with surgical oncology at [facility] -> requested patient to be transferred under medicine -> recommended transfer under surgical oncology. Being escalated to their directors of departments to discuss case. No resolution as of 6pm today. Review of Systems Review of Systems: All systems reviewed & are unremarkable except as noted in Subjective Physical Exam Constitutional: WD/WN, vitals as above Respiratory: normal respiratory effort, lungs clear to auscultation Cardiovascular: RRR, no murmur, no edema Gastrointestinal (Abdomen): Inspection/Auscultation: abdomen normal to inspection; abdomen not distended Percussion/Palpation: + abdomen tender (mild suprapubic) and abdomen soft; no guarding and abdomen not rigid Skin: no rashes, warm and dry Neurologic: moves all extremities and awake; not confused Psychiatric: A+Ox3, euthymic affect Results & Data Results & Data ([facility]) Vital Signs (Past 12 Hours) Vital Signs Temp Pulse Resp BP Pulse Ox O2 Del Method 06/05/22 15:10 36.8 C 77 18 95/58 L 97 Room Air 06/05/22 13:29 Room Air 06/05/22 07:46 36.5 C 75 18 95/53 L 99 Room Air PG Care Time/CCT Total # of Minutes Spent Total Time Spent with Patient: Total time spent is greater than 50% in coordination of care (as documented) at patient's floor/unit and/or counseling patient: Coding Level of Care Code 33980 Subseq Hosp Care Lvl 2 Diagnoses SBO (small bowel obstruction) K56.609 Hypoglycemia E16.2 Hypercalcemia E83.52 ARF (acute renal failure) N17.9 NHL (non-Hodgkin's lymphoma) C85.90 Lymphoma site: unspecified region Non-Hodgkin lymphoma type: unspecified type Type 2 diabetes mellitus with insulin therapy E11.9; Z79.4 Hypercholesterolemia E78.00 Hypertension I10 Anemia D64.9 (1) NHL (non-Hodgkin's lymphoma) Lymphoma site: unspecified region Non-Hodgkin lymphoma type: unspecified type Qualified Code(s): C85.90 - Non-Hodgkin lymphoma, unspecified, unspecified site
[2022-06-05 19:53] LABS: Hematocrit (blood only) 28.6 % (40.1-51.0); Hemoglobin 9.4 g/dl (14.0-18.0)
[2022-06-05 20:33] LABS: Ferritin 118.9 ng/ml (8-388)
[2022-06-05] MEDS ORDERED: LANTUS PER UNIT CHARGE SQ SCH (21:00)
[2022-06-05] MEDS: POTASSIUM CHLORIDE / WTR 10 MEQ/100 ML PLCT IV SCH ×2 (22:07→23:15)
[2022-06-06] MEDS: D5W AND NSS 1,000 ML IV SCH ×3 (00:11→16:47)
[2022-06-06] MEDS: INSULIN ASPART PER UNIT SC SCH ×6 (00:18→21:35)
[2022-06-06 00:43] LABS: Hematocrit (blood only) 27.5 % (40.1-51.0); Hemoglobin 9.1 g/dl (14.0-18.0)
[2022-06-06] MEDS ORDERED: HEPARIN 100 UNIT/ML 5ML FLUSH FLUSH PRN (04:52)
[2022-06-06] MEDS: PANTOprazole 40 MG in SYRINGE 0 ML IV SCH ×2 (08:25→21:35)
[2022-06-06 09:16] LABS: Basophils # (auto) 0.02 K/uL (0-0.2); Basophils % (auto) 0.8 %; Eosinophils # (auto) 0.08 K/uL (0-0.50); Eosinophils % (auto) 3.3 %; Hematocrit (blood only) 28.1 % (40.1-51.0); Hemoglobin 9.1 g/dl (14.0-18.0); Lymphocytes # (auto) 0.48 K/uL (1.2-3.4); Lymphocytes % (auto) 19.8 %; Mean Platelet Volume 11.7 fL (9.4-12.4); Monocytes # (auto) 0.21 K/uL (0.24-0.82); Monocytes % (auto) 8.6 %; Neutrophils # (auto) 1.64 K/uL (1.4-6.5); Neutrophils % (auto) 67.5 %; Platelet Count 110 K/uL (130-400); White Blood Count 2.43 K/ul (4.8-10.8)
[2022-06-06 09:44] LABS: Mean Corpuscular Hemoglobin 29.2 pg (25.0-34.0); Mean Corpuscular Hgb Conc 32.4 g/dL (32.0-36.0); Mean Corpuscular Volume 90.1 fL (80.0-100.0); Ovalocytes 1+; RDW Coefficient of Variation 18.1 % (11.5-14.5); RDW Standard Deviation 59.1 fL (36.4-46.3); Red Blood Count 3.12 M/uL (4.63-6.08); Tear Drop Cells 1+
[2022-06-06 10:22] LABS: Albumin Globulin Ratio 1.9 (0.9-2); Albumin Level 3.1 gm/dl (3.4-5.0); BUN Creatinine Ratio 14.4 (10-20); Bilirubin,Total 0.5 mg/dl (0.2-1.0); Calcium 7.8 mg/dl (8.5-10.1); Creatinine Clr Calc Pharmacy 76.8 ml/min; Est GFR (African American) 86.9 ml/min; Globulin 1.6 gm/dl (2.5-4.0); Magnesium 1.8 mg/dl (1.7-2.4); Phosphorus 1.6 mg/dl (2.5-4.9); Potassium 3.8 mmol/L (3.5-5.1); Total Protein 4.7 gm/dl (6.0-8.3)
--- NOTE | 2022-06-06 11:09 | Surgery Progress Note ---
Date of Service June 06, 2022 Assessment & Plan (1) SBO (small bowel obstruction): Plan: Pt with history of lymphoma here with SBO Pt feeling better. He denies abdominal pain, n/v Passing gas and a BM today On exam abdomen is soft, non tender KUB read is pending , but appears to have gas in the colon Can trial some clear liquids and see how he fairs If surgery indicated would recommend transfer to tertiary center Admission and Anticipated Discharge Date Admission Date: June 04, 2022 Supervising Physician Co-Signing Physician Notes Patient seen and examined, labs and imaging reviewed, agree with above. 67-year-old male with small bowel obstruction secondary to scarring from lymphoma that was responsive to chemo. He is feeling a little better today and had a few liquid bowel movements. He is afebrile stable vitals, his abdomen is soft but distended. Nontender. His KUB showed persistent small bowel obstruction with no change in the caliber of the bowel. He is currently awaiting transfer to [place] as this represents an early outpatient failure of nonoperative management. Surgery will follow while in house. Subjective Patient is feeling well. Denies any pain, nausea/vomiting. Reports passing flatus and had a BM this AM. Physical Exam Physical Exam: awake/alert Gastrointestinal (Abdomen): Inspection/Auscultation: abdomen not distended Percussion/Palpation: abdomen soft; abdomen nontender Results & Data ([facility]) Vital Signs (Past 12 Hours) Vital Signs Temp Pulse Resp BP Pulse Ox O2 Del Method 06/06/22 08:36 97 Room Air 06/06/22 08:10 36.6 C 72 18 100/59 L 94 Room Air PG Care Time/CCT Total # of Minutes Spent Total Time Spent with Patient: Total time spent is greater than 50% in coordination of care (as documented) at patient's floor/unit and/or counseling patient: Coding Level of Care Code 18626 Subseq Hosp Care Lvl 1 Diagnoses SBO (small bowel obstruction) K56.609
--- NOTE | 2022-06-06 11:53 | Hospitalist Progress Note ---
Date of Service June 06, 2022 Assessment & Plan (1) SBO (small bowel obstruction): Plan: - Recently hospitalized 05/24- for SBO, resolved with conservative treatment, no NG tube. - Patient with recurrence of nausea, lower abdominal cramping pain, no BM x2 da ys, occurred after eating oatmeal. - Surgery [place] [facility] [place] seems reasonable since he only managed 3 days out of the hospital Advance to clears per surgery recommendation. Pending transfer [place] [facility] [place] surg-[place]c. (2) Hypoglycemia: Plan: Secondary to insulin use without eating. Now insulin only for correction only. (3) Hypercalcemia: Plan: Resolved due to dehydration (4) ARF (acute renal failure): Plan: Secondary to dehydration. Improved with IV fluids. (5) NHL (non-Hodgkin's lymphoma): Plan: - Follows with [facility]CP, s/p CHOP therapy 03/31/2022 - Takes allopurinol 300 mg daily for prophylaxis, on hold due to NPO. (6) Type 2 diabetes mellitus with insulin therapy: Plan: - Presented with hypoglycemia of 39, treated with dextrose, repeat BSG 113. - Holding insulin for now. BSG checks every 4 hours while NPO. - Novolog for correction only (7) Hypercholesterolemia: Plan: - Holding statin while n.p.o., continue tolerating a diet. (8) Hypertension: Plan: - Previously on Lasix 20 mg and benazepril 20 mg daily, both which were held on last admission due to SBO/n.p.o. status, discontinued on discharge due to adequate BP control without. He was also hypotensive on admission. - No need for anti-hypertensives (9) Anemia: Plan: Transferrin sats 10%. Ferritin WNL. Hgb drop from 14.1 -> 9.1 however suspect initial lab was hemoconcentrated since his baseline Hgb runs 9-10. Appears to be stable now on serial labs. Plan VTE Prophylaxis - SCDs, hold on chemoppx given anemia Code - Full Code Disposition - continued admission on med/surg Admission and Anticipated Discharge Date Admission Date: June 04, 2022 Subjective Passing flatus and had a BM. No abdominal pain. No nausea or vomiting. Discussed with [facility] [place] and accepted for transfer [place] [facility] once bed available under surg-onc. Review of Systems Review of Systems: All systems reviewed & are unremarkable except as noted in Subjective Physical Exam Constitutional: WD/WN, vitals as above Respiratory: normal respiratory effort, lungs clear to auscultation Cardiovascular: RRR, no murmur, no edema Gastrointestinal (Abdomen): Inspection/Auscultation: abdomen normal to inspection; abdomen not distended Percussion/Palpation: abdomen soft; abdomen nontender, no guarding and abdomen not rigid Skin: no rashes, warm and dry Neurologic: moves all extremities and awake; not confused Psychiatric: A+Ox3, euthymic affect Results & Data Results & Data ([facility]) Vital Signs (Past 12 Hours) Vital Signs Temp Pulse Resp BP Pulse Ox O2 Del Method 06/06/22 08:36 97 Room Air 06/06/22 08:10 36.6 C 72 18 100/59 L 94 Room Air PG Care Time/CCT Total # of Minutes Spent Total Time Spent with Patient: Total time spent is greater than 50% in coordination of care (as documented) at patient's floor/unit and/or counseling patient: Coding Level of Care Code 98066 Subseq Hosp Care Lvl 2 Diagnoses SBO (small bowel obstruction) K56.609 Hypoglycemia E16.2 Hypercalcemia E83.52 ARF (acute renal failure) N17.9 NHL (non-Hodgkin's lymphoma) C85.90 Lymphoma site: unspecified region Non-Hodgkin lymphoma type: unspecified type Type 2 diabetes mellitus with insulin therapy E11.9; Z79.4 Hypercholesterolemia E78.00 Hypertension I10 Anemia D64.9 (1) NHL (non-Hodgkin's lymphoma) Lymphoma site: unspecified region Non-Hodgkin lymphoma type: unspecified type Qualified Code(s): C85.90 - Non-Hodgkin lymphoma, unspecified, unspecified site
--- NOTE | 2022-06-06 12:52 | XRay Report ---
KUB HISTORY: Small bowel obstruction. Follow-up. COMPARISON: KUB 06/05/2022. FINDINGS: Dilated gas-filled loops of small bowel are again seen throughout the abdomen. These measur e up to 5.3 cm in diameter. This is similar to the prior study and is consistent with a persistent sm all bowel obstruction. Small of gas seen within the nondistended colon and distal small bowel. Prior cholecystectomy. Multiple brachytherapy seeds again noted within the prostate gland. No renal calcul i. No ureteral calculi. No pneumoperitoneum or pneumatosis. IMPRESSION: No significant change in the small bowel obstruction pattern. ACT 112: Negative or not required by law. Electronically signed by: Niraj Wells M.D. 06/06/2022 12:51 PM
[2022-06-06] MEDS ORDERED: MELATONIN 3 MG TAB PO STA (23:48)
[2022-06-07] MEDS: INSULIN ASPART PER UNIT SC SCH ×5 (00:10→17:43)
[2022-06-07] MEDS: D5W AND NSS 1,000 ML IV SCH ×2 (00:53→08:43)
[2022-06-07 07:22] LABS: Basophils # (auto) 0.02 K/uL (0-0.2); Basophils % (auto) 0.6 %; Eosinophils % (auto) 3.2 %; Hematocrit (blood only) 27.3 % (40.1-51.0); Hemoglobin 8.9 g/dl (14.0-18.0); Immature Granulocytes # (auto) 0.01 K/uL (0.00-0.02); Immature Granulocytes % (auto) 0.3 %; Lymphocytes # (auto) 0.56 K/uL (1.2-3.4); Lymphocytes % (auto) 18.2 %; Mean Platelet Volume 10.8 fL (9.4-12.4); Monocytes # (auto) 0.28 K/uL (0.24-0.82); Monocytes % (auto) 9.1 %; Neutrophils # (auto) 2.11 K/uL (1.4-6.5); Neutrophils % (auto) 68.6 %; Platelet Count 125 K/uL (130-400); White Blood Count 3.08 K/ul (4.8-10.8)
[2022-06-07 07:44] LABS: BUN Creatinine Ratio 9.5 (10-20); Calcium 7.8 mg/dl (8.5-10.1); Creatinine Clr Calc Pharmacy 84.1 ml/min; Est GFR (Non-African American) 83.7 ml/min; Magnesium 1.3 mg/dl (1.7-2.4); Mean Corpuscular Hemoglobin 29.3 pg (25.0-34.0); Mean Corpuscular Hgb Conc 32.6 g/dL (32.0-36.0); Mean Corpuscular Volume 89.8 fL (80.0-100.0); Ovalocytes 1+; Phosphorus 1.7 mg/dl (2.5-4.9); Polychromasia 1+; Potassium 3.4 mmol/L (3.5-5.1); RDW Coefficient of Variation 17.9 % (11.5-14.5); RDW Standard Deviation 58.7 fL (36.4-46.3); Red Blood Count 3.04 M/uL (4.63-6.08)
[2022-06-07] MEDS: PANTOprazole 40 MG in SYRINGE 0 ML IV SCH (09:00)
--- NOTE | 2022-06-07 10:40 | Surgery Progress Note ---
Date of Service June 07, 2022 Assessment & Plan (1) SBO (small bowel obstruction): Plan: Pt with history of lymphoma here with SBO Pt feeling a little worse from yesterday. Not as much bowel function Clears for comfort, but if any issues would put back to NPO He is awaiting bed opening for transfer to [place], agree with this plan Admission and Anticipated Discharge Date Admission Date: June 04, 2022 Supervising Physician Co-Signing Physician Notes Patient seen and examined, labs and imaging reviewed, agree with above. 67-year-old male with small bowel obstruction secondary to scarring from lymphoma that was responsive to chemo. He still feels bloated and has not like the flavor of the liquids he has been on. He is afebrile stable vitals, his abdomen is soft but distended. Nontender. His KUB yesterday showed persistent small bowel obstruction with no change in the caliber of the bowel. He is currently awaiting transfer to [place] as this represents an early outpatient failure of nonoperative management. Surgery will follow while in house. Subjective Patient having a little more abdominal pain and bloating this AM. No further BM or much flatus from below compared to yesterday. Only some ice chips for bfast. Physical Exam Physical Exam: awake/alert Gastrointestinal (Abdomen): Percussion/Palpation: + abdomen tender (some mild abdominal discomfort ) and abdomen soft Results & Data ([facility]) Vital Signs (Past 12 Hours) Vital Signs Temp Pulse Resp BP Pulse Ox O2 Del Method 06/07/22 08:17 36.9 C 68 16 120/68 96 Room Air 06/06/22 23:58 36.9 C 90 18 115/68 98 Room Air PG Care Time/CCT Total # of Minutes Spent Total Time Spent with Patient: Total time spent is greater than 50% in coordination of care (as documented) at patient's floor/unit and/or counseling patient: Coding Level of Care Code 42979 Subseq Hosp Care Lvl 1 Diagnoses SBO (small bowel obstruction) K56.609
[2022-06-07] MEDS ORDERED: POTASSIUM PHOS 3 MMOL/1 ML INFUSION IV STA (14:14)
--- NOTE | 2022-06-07 14:16 | Hospitalist Progress Note ---
Date of Service June 07, 2022 Assessment & Plan (1) SBO (small bowel obstruction): Plan: Recently hospitalized 05/24- for SBO, resolved with conservative treatment, no NG tube. Patient with recurrence of nausea, lower abdominal cramping pain, no BM x2 days, occurred after eating oatmeal. Surgery recommending [place] [facility] [place] which seems reasonable since he only managed 3 days out of the hospital Will advance to full liquid but not further than this prior to transfer just to help with overall nutrition Pending transfer to [facility] [place] surg-onc. Replace Mg, PO. Monitor daily. (2) Hypoglycemia: Plan: Secondary to insulin use without eating. Now insulin only for correction only. Now resolved (3) Hypercalcemia: Plan: Resolved due to dehydration (4) ARF (acute renal failure): Plan: Secondary to dehydration. Improved with IV fluids. (5) NHL (non-Hodgkin's lymphoma): Plan: - Follows with [facility], s/p CHOP therapy 03/31/2022 - Takes allopurinol 300 mg daily for prophylaxis, can restart this (6) Type 2 diabetes mellitus with insulin therapy: Plan: - Presented with hypoglycemia of 39, treated with dextrose, repeat BSG 113. - Holding insulin for now. BSG checks ACHS - Novolog for correction only (7) Hypercholesterolemia: Plan: Restart atorvastatin now tolerating liquids (8) Hypertension: Plan: - Previously on Lasix 20 mg and benazepril 20 mg daily, both which were held on last admission due to SBO/n.p.o. status, discontinued on discharge due to adequate BP control without. He was also hypotensive on admission. - No need for anti-hypertensives at this time (9) Anemia: Plan: Transferrin sats 10%. Ferritin WNL. Hgb drop from 14.1 -> 9.1 however suspect initial lab was hemoconcentrated since his baseline Hgb runs 9-10. Appears to be stable now on serial labs. Plan VTE Prophylaxis - SCDs, start Lovenox 40mg SQ daily as Hgb stable Code - Full Code Disposition - continued admission on med/surg Admission and Anticipated Discharge Date Admission Date: June 04, 2022 Subjective No abdominal pain. Reportedly having a bowel movement. No nausea or vomiting. Tolerating clear liquid diet although not eating much of it as he doesn't like the taste. Accepted to [facility] awaiting transfer at this time. Review of Systems Review of Systems: All systems reviewed & are unremarkable except as noted in Subjective Physical Exam Constitutional: WD/WN, vitals as above Gastrointestinal (Abdomen): Inspection/Auscultation: abdomen normal to inspection; abdomen not distended Percussion/Palpation: abdomen soft; abdomen nontender, no guarding and abdomen not rigid Skin: no rashes, warm and dry Neurologic: moves all extremities and awake; not confused Psychiatric: A+Ox3, euthymic affect Results & Data Results & Data ([facility]) Vital Signs (Past 12 Hours) Vital Signs Temp Pulse Resp BP Pulse Ox O2 Del Method 06/07/22 08:17 36.9 C 68 16 120/68 96 Room Air PG Care Time/CCT Total # of Minutes Spent Total Time Spent with Patient: Total time spent is greater than 50% in coordination of care (as documented) at patient's floor/unit and/or counseling patient: Coding Level of Care Code 65011 Subseq Hosp Care Lvl 2 Diagnoses SBO (small bowel obstruction) K56.609 Hypoglycemia E16.2 Hypercalcemia E83.52 ARF (acute renal failure) N17.9 NHL (non-Hodgkin's lymphoma) C85.90 Lymphoma site: unspecified region Non-Hodgkin lymphoma type: unspecified type Type 2 diabetes mellitus with insulin therapy E11.9; Z79.4 Hypercholesterolemia E78.00 Hypertension I10 Anemia D64.9 (1) NHL (non-Hodgkin's lymphoma) Lymphoma site: unspecified region Non-Hodgkin lymphoma type: unspecified type Qualified Code(s): C85.90 - Non-Hodgkin lymphoma, unspecified, unspecified site
[2022-06-07] MEDS: MAGNESIUM SULFATE / D5W 1 GM/100 ML BAG IV SCH ×2 (14:20→16:21)
[2022-06-07] MEDS ORDERED: POTASSIUM PHOSPHATE 9 MMOL in SODIUM CHLORIDE 0.9% 250 ML IV ONE (14:30)
[2022-06-07 14:39] VITALS: BP 112/68; PULSE 77; TEMP 98.6; O2SAT 99
[2022-06-07] MEDS ORDERED: allopurinoL 300 MG TAB PO SCH (14:45)
[2022-06-07] MEDS ORDERED: ENOXAPARIN INJ 40 MG/0.4 ML SYR SQ SCH (21:00)
[2022-06-07] MEDS ORDERED: MONTELUKAST SODIUM 10 MG TABLET PO SCH (21:00)
[2022-06-07] MEDS ORDERED: PRAMIPEXOLE DIHYDROCHLO 0.5 MG TAB PO SCH (21:00)
[2022-06-07] MEDS ORDERED: ATORVASTATIN 20 MG TAB PO SCH (21:00)
[2022-06-08] MEDS ORDERED: PANTOprazole 40 MG TAB PO SCH (09:00)
[2022-06-08] MEDS ORDERED: ASPIRIN 81 MG ECTAB PO SCH (09:00)
--- NOTE | 2022-06-22 12:17 | Discharge Summary ---
Date of Service June 07, 2022 Principal Diagnosis Recurrent small bowel obstruction Discharge Exam Constitutional WD/WN, vitals as above Respiratory normal respiratory effort, lungs clear to auscultation Cardiovascular RRR, no murmur, no edema Gastrointestinal (Abdomen) normal bowel sounds, soft, nontender, no hepatosplenomegaly Discharge Data Allergies Allergy/AdvReac Type Severity Reaction Status Date / Time morphine AdvReac Intermediate "dizzy",del Verified 06/22/22 11:06 usional Consultations 06/04/22 17:36 ED Decision to Admit Stat 06/04/22 22:08 Consult General Surgery Routine 06/07/22 16:43 Burn CD for patient Stat Ordered Studies 06/04/22 16:49 CT abd pelvis wo con Stat IMPRESSION: 1. Limited exam without the use of contrast. 2. High-grade small bowel obstruction redemonstrated with transition point within the central pelvis at the site of the previously characterized small bowel mass/lymphoma described on the 03/09/2022 exam which as previously stated has significantly decreased in size. Findings are overall similar to the 05/24/2022 exam. 3. No pneumoperitoneum. 4. Additional findings as above. Hospital Course (1) SBO (small bowel obstruction): Deejay Prado is a 67 year old male admission to [facility] from June 04 - 2021 due to recurrent small bowel obstruction secondary to non-hodgkin's lymphoma. He was treated with bowel rest, IV fluids and slow advancement of diet to full liquids which started today. Given recurrent nature of this only lasting 3 days at home since his previous admission; general surgery recommended transfer to [facility] for consideration of surgical treatment of this. Currently receiving magnesium and phosphorus replacement on day of discharge. Recommend these are continued to be checked at [place] and replaced as necessary. Please note medication list below are his outpatient medications. Please see separate scanned sheet for his inpatient medications. (2) Hypoglycemia: (3) Hypercalcemia: (4) ARF (acute renal failure): (5) NHL (non-Hodgkin's lymphoma): (6) Type 2 diabetes mellitus with insulin therapy: (7) Hypercholesterolemia: (8) Hypertension: (9) Anemia: Total Time Total Time Spent Total Time Spent (In Minutes): 40 Discharge Plan Discharge Items Patient Disposition: Transfer Acute Care Hospital Reason For Visit: SMALL BOWEL OBSTRUCTION Discharge Diagnosis: Recurrent small bowel obstruction Activity: Resume your previous activity Non-emergency contact: Primary Care Provider Call non-emergency contact if: you have any medication questions and your symptoms worsen Follow-up/Referrals: Dixon Aj MD [Primary Care Provider] - Diet: Full liquid Addtl Attending Provider Instructions: Deejay Prado is a 67 year old male admission to [facility] from June 04 - 2021 due to recurrent small bowel obstruction secondary to non-hodgkin's lymphoma. He was treat with bowel rest, IV fluids and slow advancement of diet to full liquids which started today. Given recurrent nature of this only lasting 3 days at home since his previous admission surgery recommended transfer to [facility] for consideration of surgical treatment of this. Currently receiving magnesium and phosphorus replacement on day of discharge. Recommend these are continued to be check at [place] and replaced as necessary. Please note medication list below are his outpatient medications. Please see separate scanned sheet for his inpatient medications. Pending Studies at Discharge: No Stand-Alone Forms: My [facility] Skilled Items Patient informed of condition?: Yes DNR: No Discharge Level of Care: Other Communicable Disease: No Discharge Prognosis: Stable Lines: Peripheral IV Urinary Catheter: No Medications and DC Order Prescriptions: Continued loratadine [Claritin] 10 mg tablet 10 mg PO QAM montelukast [Singulair] 10 mg tablet 10 mg PO HS cholecalciferol (vitamin D3) 50 mcg (2,000 unit) tablet 1,000 unit PO QAM ascorbic acid (vitamin C) 500 mg capsule 500 mg PO QAM pantoprazole [Protonix] 20 mg tablet,delayed release (DR/EC) 40 mg PO QAM (DME) CPAP Supplies Misc See Rx Instructions .ROUTE .MEDSUPPLY Qty: 1 0RF Rx Instructions: CPAP supplies (DME) CPAP Machine Misc See Rx Instructions .Route Qty: 1 0RF Rx Instructions: cpap 7 cm h2o Novolin N NPH U-100 Insulin 100 unit/mL suspension 36 units SQ HS Rx Instructions: 80- 140 GIVE 26 UNITS, ABOVE 140 GIVE ADDITIONAL UNITS PER SLIDING SCALE DIRECTIONS. allopurinol 300 mg Tablet 300 mg PO DAILY Qty: 30 0RF aspirin 81 mg Tablet,Delayed Release (Dr/Ec) 81 mg PO DAILY magnesium oxide 400 mg magnesium tablet 800 mg PO QAM Qty: 60 0RF Rx Instructions: take two 400mg tablets pramipexole [Mirapex] 1 mg Tablet 1 mg PO HS atorvastatin 20 mg tablet 20 mg PO HS omega [id number]-fish oil [Fish Oil] 1,200 (144-216) mg Capsule 1 cap PO QAM No Action (DME) OneTouch Verio test strips Strip See Rx Instructions .Route Qty: 400 3RF Rx Instructions: test blood sugar 4 x daily Novolin R Flexpen 100 unit/mL (3 mL) insulin pen 26 sliding scale dose SUBCUT TIDM Discharge Orders: Discharge Order (Routine); Ordered 06/07/22 Ordered By: Gareth Edouard Admission Data Admit Date/Time: 06/04/22 18:24 Attending Provider: Gareth Edouard Admit Provider: Gareth Edouard Primary Care Provider: Dixon Aj Other Providers: Gareth Edouard ; Tate Rios ; [place] Other Interventions: Discharge Summary Assessment (RN) Last Done: 06/07/22 18:33 Coding Level of Care Code D/C DAY MANAGEMENT >30 MINS Diagnoses SBO (small bowel obstruction) K56.609 Hypoglycemia E16.2 Hypercalcemia E83.52 ARF (acute renal failure) N17.9 NHL (non-Hodgkin's lymphoma) C85.90 Lymphoma site: unspecified region Non-Hodgkin lymphoma type: unspecified type Type 2 diabetes mellitus with insulin therapy E11.9; Z79.4 Hypercholesterolemia E78.00 Hypertension I10 Anemia D64.9
== END 2022-06-07 20:03 | disposition short-term general hospital (02) | DRG 389 ==
LOC: ED 14:59 → EDINP 18:24 → 3N 22:10
DX: I12.9 Hypertensive chronic kidney disease with stage 1 through stage 4 chronic kidney disease, or unspecified chronic kidney disease; N18.30 Chronic kidney disease, stage 3 unspecified; Z79.4 Long term (current) use of insulin; E11.649 Type 2 diabetes mellitus with hypoglycemia without coma; E11.22 Type 2 diabetes mellitus with diabetic chronic kidney disease; Z88.5 Allergy status to narcotic agent; J44.9 Chronic obstructive pulmonary disease, unspecified; N17.9 Acute kidney failure, unspecified; G47.33 Obstructive sleep apnea (adult) (pediatric); Z68.27 Body mass index [BMI] 27.0-27.9, adult; K56.609 Unspecified intestinal obstruction, unspecified as to partial versus complete obstruction; E83.52 Hypercalcemia; E78.00 Pure hypercholesterolemia, unspecified; E86.0 Dehydration; E87.1 Hypo-osmolality and hyponatremia; Z83.3 Family history of diabetes mellitus; Z95.828 Presence of other vascular implants and grafts; E66.9 Obesity, unspecified; C85.90 Non-Hodgkin lymphoma, unspecified, unspecified site